=== PATIENT | female | born 1945 | race Caucasian/White ===

== ENCOUNTER → 2016-12-21 | Outpatient (CLI) | payer MEDICARE ==
[2016-11-29 11:00] VITALS: BP 150/79
[~2016-12-21] MED LIST: AMLO5TAB2 PO; ASPI-612 PO; FERR-26 PO; FLUT16SP NS; IRON1TAB2 PO; LEVO50TA5 PO; LISI10TA2 PO; LORA10TA3 PO; MULT1TAB52 PO; NAPR220T70 PO; PANT40TA3 PO; PRAV10TA2 PO; TRIA1TAB3 PO
--- NOTE | 2016-12-21 14:28 | RAD ---
Indication: Pancreatic mass. Pancreatic malignancy reported by the patient. PET/CT was performed from the skull to the proximal thigh. CT was performed primarily for localization and attenuation purposes as opposed to primary diagnostic purposes. The blood sugar during the examination was 139. 15.2 mCi of FDG was administered. No prior PET CT imaging is available. Note is made of the recent CT examination of the abdomen and pelvis 11/26/2016 and the MRI examination 11/27/2016. On CT the visualized brain appears unremarkable. No abnormality is seen in the neck. No significant finding is seen in the chest. There is a moderately large hiatus hernia. There is a biliary and a pancreatic stent in the abdomen. Unexpected finding when considering the CT examinations and MRI examinations referenced is not seen in the abdomen or pelvis. On PET there is normal FDG activity in the visualized brain. No abnormal there is some increased FDG activity in activity is seen in the neck. No abnormal FDG activity is seen in the chest. There is gastric uptake, probably reflecting a normal variant, in the herniated portion of the stomach into the chest. In the abdomen there is some increased FDG activity along the course of the common bile duct, from the kennedy hepatis to the level of the ampulla. This is probably secondary to the recent biliary stent placement. Additional abnormal areas of FDG uptake are not seen. It is difficult to entirely distinguish the area of the ampulla from the pancreatic head. Apart from the biliary tree no abnormality is seen in the abdomen or pelvis. Some increased activity in the right colon is likely physiologic. There is some increased activity seen throughout the spinal column which is likely degenerative. IMPRESSION: There is some increased FDG activity in the extrahepatic biliary tree which is likely secondary to the recent biliary stent placements. No additional finding is seen. It would be difficult to distinguish increased FDG activity in the distal common bile duct, near the ampulla, from any increased FDG activity in the pancreatic head.
== END | disposition home or self-care (01) ==
LOC: PETSC 10:51
PROVIDERS: ATTEND Internal Medicine Hematology & Oncology
DX: C25.9 Malignant neoplasm of pancreas, unspecified (principal); K44.9 Diaphragmatic hernia without obstruction or gangrene; K22.8 Other specified diseases of esophagus
CPT/HCPCS: 78815; A9552

== ENCOUNTER 2017-01-01 07:48 | Inpatient (IN) | payer MEDICARE ==
[~2017-01-01] VITALS: Ht 152.4 cm; Wt 108.9 kg
[2017-01-01] VITALS (9 sets, daily range): BP systolic 72–152; BP diastolic 47–83
[~2017-01-01 07:48] MED LIST changes: +HYDROmorphone 2 MG/ML VIAL IV PRN; +IV RINGERS,LACTATED 1000ML 1,000 ML IV SCH; +LIDOCAINE 1% PF 2 ML VIAL. ID PRN; +MORPHINE SULFATE 2 MG/ML DISP.SYRIN. IV PRN; +ONDANSETRON PF 4 MG/2 ML VIAL. IV PRN; +PROCHLORPERAZINE 10 MG/2 ML VIAL. IV PRN; +fentaNYL PF VIAL 100 MCG/2 ML VIAL IV PRN
[2017-01-01 08:52] LABS: BASO # 0.1 x10^3/uL (0.0-0.2); BASO % 1 % (0-3); EOS % 3 % (0-3); HEMATOCRIT 38.4 % (36.0-47.0); HEMOGLOBIN 12.5 g/dL (12.0-15.5); LYMPH # 1.1 x10^3/uL (1.0-4.8); LYMPH % 17 % (24-48); MEAN CORPUSCULAR HEMOGLOBIN 26 pg (25-35); MEAN CORPUSCULAR HGB CONC 33 g/dL (31-37); MEAN CORPUSCULAR VOLUME 80 fL (79-100); MONO % 9 % (0-9); NEUT % 70 % (31-73); PLATELET COUNT 282 x10^3/uL (140-400); RED BLOOD COUNT 4.79 x10^6/uL (3.50-5.40); WHITE BLOOD COUNT 6.6 x10^3/uL (4.0-11.0)
[2017-01-01] MEDS ORDERED: ONDANSETRON PF 4 MG/2 ML VIAL. ONE (09:25)
[2017-01-01] MEDS ORDERED: PROPOFOL 20 ML IV ONE (09:25)
[2017-01-01] MEDS ORDERED: LIDOCAINE 2% PF Vial for OR 5 ML VIAL. ONE (09:25)
[2017-01-01] MEDS ORDERED: fentaNYL PF VIAL 100 MCG/2 ML VIAL ONE ×2 (09:25→12:24)
[2017-01-01] MEDS ORDERED: DEXAMETHASONE SOD PHOS 20 MG/5 ML VIAL. ONE (09:25)
[2017-01-01] MEDS ORDERED: ROCURONIUM 50 MG/5 ML VIAL. ONE (09:26)
--- NOTE | 2017-01-01 09:39 | PDOC ---
SURGICAL PROGRESS NOTE Subjective Pre-Op Note 71 yo F with pancreatic cancer TO OR for whipple procedure R/B/A d/w pt and pt's brother, friend Office note H&P reviewed and unchanged. Pt does have a mild dysconjugate gaze. Vital Signs Vital Signs Date Time Temp Pulse Resp B/P (MAP) Pulse Ox O2 Delivery O2 Flow Rate FiO2 01/01/17 08:22 Room Air 01/01/17 08:21 98.3 100 20 133/73 99 98.3 Labs Laboratory Tests Test 01/01/17 08:25 White Blood Count 6.6 x10^3/uL (4.0-11.0) Red Blood Count 4.79 x10^6/uL (3.50-5.40) Hemoglobin 12.5 g/dL (12.0-15.5) Hematocrit 38.4 % (36.0-47.0) Mean Corpuscular Volume 80 fL (79-100) Mean Corpuscular Hemoglobin 26 pg (25-35) Mean Corpuscular Hemoglobin Concent 33 g/dL (31-37) Red Cell Distribution Width 24.0 % (11.5-14.5) Platelet Count 282 x10^3/uL (140-400) Neutrophils (%) (Auto) 70 % (31-73) Lymphocytes (%) (Auto) 17 % (24-48) Monocytes (%) (Auto) 9 % (0-9) Eosinophils (%) (Auto) 3 % (0-3) Basophils (%) (Auto) 1 % (0-3) Neutrophils # (Auto) 4.6 x10^3uL (1.8-7.7) Lymphocytes # (Auto) 1.1 x10^3/uL (1.0-4.8) Monocytes # (Auto) 0.6 x10^3/uL (0.0-1.1) Eosinophils # (Auto) 0.2 x10^3/uL (0.0-0.7) Basophils # (Auto) 0.1 x10^3/uL (0.0-0.2) Laboratory Tests Test 01/01/17 08:25 White Blood Count 6.6 x10^3/uL (4.0-11.0) Red Blood Count 4.79 x10^6/uL (3.50-5.40) Hemoglobin 12.5 g/dL (12.0-15.5) Hematocrit 38.4 % (36.0-47.0) Mean Corpuscular Volume 80 fL (79-100) Mean Corpuscular Hemoglobin 26 pg (25-35) Mean Corpuscular Hemoglobin Concent 33 g/dL (31-37) Red Cell Distribution Width 24.0 % (11.5-14.5) Platelet Count 282 x10^3/uL (140-400) Neutrophils (%) (Auto) 70 % (31-73) Lymphocytes (%) (Auto) 17 % (24-48) Monocytes (%) (Auto) 9 % (0-9) Eosinophils (%) (Auto) 3 % (0-3) Basophils (%) (Auto) 1 % (0-3) Neutrophils # (Auto) 4.6 x10^3uL (1.8-7.7) Lymphocytes # (Auto) 1.1 x10^3/uL (1.0-4.8) Monocytes # (Auto) 0.6 x10^3/uL (0.0-1.1) Eosinophils # (Auto) 0.2 x10^3/uL (0.0-0.7) Basophils # (Auto) 0.1 x10^3/uL (0.0-0.2) BA ALMONTE MD Jan 01, 2017 09:39
[2017-01-01 10:23] LABS: ANISOCYTOSIS MOD
[2017-01-01 10:24] LABS: MICROCYTOSIS PRESENT; PLT ESTIMATE ADEQUATE (ADEQUATE)
[2017-01-01] MEDS ORDERED: PHENYLEPHRINE in 0.9% NACL PF 1 MG/10 ML DISP.SYRIN. IV ONE (10:27)
[2017-01-01] MEDS: cefOXitin SODIUM 2 GM in IV DEXTROSE 5% 100 ML IV PRN ×2 (10:39→12:35)
[2017-01-01] MEDS ORDERED: BUPIVACAINE MPF 0.25% 30 ML VIAL. ONE (10:49)
[2017-01-01] MEDS ORDERED: LIDOCAINE 1% PF 5 ML VIAL. ONE (10:50)
[2017-01-01] MEDS ORDERED: PHENYLEPHRINE 10 MG/ML VIAL. ONE (11:11)
[2017-01-01] MEDS ORDERED: ROCURONIUM 100 MG/10 ML VIAL. ONE (11:30)
[2017-01-01] MEDS ORDERED: cefOXitin SODIUM 2 GM in IV DEXTROSE 5% 100 ML IV ONE (12:15)
[2017-01-01] MEDS ORDERED: SEVOFLURANE > 120 MINUTES. IH ONE (13:02)
[2017-01-01] MEDS ORDERED: ALBUMIN HUMAN 25% 100 ML IV ONE (14:25)
[2017-01-01] MEDS ORDERED: NEOSTIGMINE METHYLSULFATE 5 MG/5 ML SYRINGE. ONE (15:59)
[2017-01-01] MEDS ORDERED: GLYCOPYRROLATE 1 MG/5 ML VIAL. ONE (15:59)
[2017-01-01] MEDS ORDERED: 0.9 % SODIUM CHLORIDE 10 ML DISP.SYRIN. IV PRN (16:30)
--- NOTE | 2017-01-01 16:43 | RAD ---
Portable abdomen, 01/01/2017: History: Postop evaluation A supine view of the upper abdomen demonstrates several surgical drains overlying the upper abdomen as well as surgical clips. One of these tubes is probably a gastrostomy tube. The abdominal gas pattern is unremarkable. There is no evidence of a retained surgical instrument, needle or radiopaque sponge on this single view.
--- NOTE | 2017-01-01 16:57 | PDOC4 ---
OPERATIVE NOTE Date: Date: Jan 01, 2017 Pre-Op Diagnosis: Pancreatic cancer Post-Op Diagnosis: same Procedure Performed: Whipple procedure (specifically: pancreaticduodenectomy, pylorus sparing, pancreaticogastrostomy with Kristin en Y reconstruction to bile duct), G-tube placement Surgeon: Sherif Almonte Asst: Mg Crain Anesthesia Type: GETA Blood Loss: 400 Specimans Obtained: whipple, CBD LN, small bowel mass Findings: mass in head of pancreas, small cystic mass on proximal SB, no evidence of metastasis Complications: none Operative Note: After obtaining informed consent, patient was taken to the OR, induced under GETA and prepped in the usual fashion. Midline incision made using cautery, subcutaneous tissue divided and the fascia divided in the midline. Abdominal cavity explored. No evidence of metastatic disease. A small cystic mass was noted on the serosa of the proximal jejunum. This was excised using cautery and sent to pathology. Patient is morbidly obese, making the procedure difficult throughout. Adhesions were noted in the right abdomen and taken down using cautery. Extensive adhesions to the liver from previous gallbladder surgery taken down sharply. Duodenum fully kocherized. A palpable mass was noted in the head of ther pancreas. Duodenum divided just distal to the pylorus. Greater curvature taken down using ligasure. CBD lymph node harvested laterally, but appears benign. Common bile duct divided using cautery. Metal expandable stent removed and sent with specimen. Gastroduodenal artery divided with 0 vicryl and clips. Still noted to have good pulse in proper hepatic artery. Jejunum divided distal to the ligament of treitz. Tunnel created anterior to the superior mesenteric vein without difficult. Pancreas divided at this level and hemostatic stitches placed left and right, superiorly and inferiorly using 3 0 vicryl. Pancreatic head taken off the superior mesenteric vein, portal vein junction using carefully ligasure dissection. Specimen was then oriented and sent to pathology. No evidence of bleeding at this time. All viscera, specifically colon, viable throughout. A pancreatico-gastrostomy anastomosis placed using multiple 3 0 vicryl, using a pediatric feeding tube through the duct, in an invaginating manner. A kristin en y jejunal jejunostomy was created in a side to side anastomosis 30 cm distal from the proximal end using 75 BREN. The end of this was sealed using 3 0 PDS and 3 0 vicryl. Anastomosis patent, viable, without evidence of leakage. The alimentary channel was brought retrocolic and a duodenal jejunostomy was created using inside layer of 3 0 PDS and outside layer of 3 0 vicryl. This anastomosis was patent, viable and without evidence of leakage. An end to side choledocho-jejunostomy to the kristin limb was created using multiple interrupted 4 0 PDS. Anastomosis was widely patent, secondary to a large duct, without evidence of leakage. A gastrostomy was placed in the anterior stomach, through a 3 0 vicryl pursestring. This was secured externally using 3 0 nylon. Two 19 BOZENA drains placed bilaterally upper abdomen and secured in place using multiple interrupted 3 0 nylon. Abdominal cavity copiously irrigated with sterile water and saline. No evidence of bleeding or other pathology noted. Fascia repaired using 0 PDS looped. Chance placed in subcutaneous tissue and secured with 3 0 nylon. Skin repaired with 3 0 vicryl and 4 0 monocryl. Dressing placed. Patient tolerated procedure well and sent to PACU in stable condition. All counts were correct. No immediate complications. Gastrostomy tube, 19 BOZENA x 2, chance drain SHERIF ALMONTE MD Jan 01, 2017 16:57
[2017-01-01] MEDS: HYDROMORPHONE EP PRN (17:29)
[2017-01-01] MEDS: [UNRECOGNIZED DRUG - OTHER] EP PRN (17:29)
[2017-01-01] MEDS: NORMAL SALINE EP PRN (17:29)
[2017-01-01] MEDS: ROPIVACAINE 0.5% EP PRN (17:29)
[2017-01-01] MEDS: IV RINGERS,LACTATED 1000ML 1,000 ML IV SCH ×2 (17:32→21:57)
[2017-01-01] MEDS: HEPARIN PF for SUB-Q USE 5,000 UNIT/0.5 ML VIAL. SQ SCH (21:21)
[2017-01-01] MEDS: FAMOTIDINE 20 MG/2 ML VIAL IVP SCH (21:21)
[2017-01-02] VITALS (14 sets, daily range): BP systolic 94–140; BP diastolic 48–62
[2017-01-02] MEDS: HYDROMORPHONE EP PRN ×3 (00:26→17:34)
[2017-01-02] MEDS: ROPIVACAINE 0.5% EP PRN ×3 (00:26→17:34)
[2017-01-02] MEDS: [UNRECOGNIZED DRUG - OTHER] EP PRN ×3 (00:26→17:34)
[2017-01-02] MEDS: NORMAL SALINE EP PRN ×3 (00:26→17:34)
[2017-01-02 06:31] LABS: BASO % 0 % (0-3); EOS % 0 % (0-3); HEMATOCRIT 28.9 % (36.0-47.0); HEMOGLOBIN 9.4 g/dL (12.0-15.5); LYMPH % 5 % (24-48); MEAN CORPUSCULAR HEMOGLOBIN 26 pg (25-35); MEAN CORPUSCULAR HGB CONC 33 g/dL (31-37); MEAN CORPUSCULAR VOLUME 80 fL (79-100); MONO % 7 % (0-9); NEUT % 88 % (31-73); PLATELET COUNT 232 x10^3/uL (140-400); RED BLOOD COUNT 3.61 x10^6/uL (3.50-5.40); RED CELL DISTRIBUTION WIDTH 22.9 % (11.5-14.5); WHITE BLOOD COUNT 18.3 x10^3/uL (4.0-11.0)
[2017-01-02 06:43] LABS: CALCIUM 8.5 mg/dL (8.5-10.1); CREATININE 1.1 mg/dL (0.6-1.0); GFR 49.1; POTASSIUM 4.3 mmol/L (3.5-5.1)
[2017-01-02] MEDS: HEPARIN PF for SUB-Q USE 5,000 UNIT/0.5 ML VIAL. SQ SCH ×2 (07:58→21:07)
[2017-01-02] MEDS: IV RINGERS,LACTATED 1000ML 1,000 ML IV SCH ×2 (07:58→17:19)
[2017-01-02] MEDS: FAMOTIDINE 20 MG/2 ML VIAL IVP SCH ×2 (07:59→21:06)
[2017-01-02 09:11] LABS: ANISOCYTOSIS SLIGHT; HYPOCHROMIA SLIGHT; MICROCYTOSIS SLIGHT; PLT ESTIMATE ADEQUATE (ADEQUATE); TOXIC GRANULATION SLIGHT
--- NOTE | 2017-01-02 09:51 | PDOC ---
SURGICAL PROGRESS NOTE Subjective Pt reports no pain with movement, pain to 3 with movement. No N/V, does report some pruritus. Vital Signs Vital Signs Date Time Temp Pulse Resp B/P (MAP) Pulse Ox O2 Delivery O2 Flow Rate FiO2 01/02/17 09:00 85 25 108/48 (68) 100 Room Air 01/02/17 07:00 2.0 01/02/17 04:00 97.0 97.0 I&O Intake and Output 01/03/17 06:59 Intake Total 0 ml Output Total 46 ml Balance -46 ml Intake Oral 0 ml Output Urine Total 46 ml PATIENT HAS A EID: Yes (d/c in AM) General: Alert, Oriented X3, Cooperative, No acute distress Abdomen: Soft, No tenderness, Other (BOZENA serosang) Labs Laboratory Tests Test 01/01/17 08:25 01/02/17 06:00 White Blood Count 6.6 x10^3/uL (4.0-11.0) 18.3 x10^3/uL (4.0-11.0) Red Blood Count 4.79 x10^6/uL (3.50-5.40) 3.61 x10^6/uL (3.50-5.40) Hemoglobin 12.5 g/dL (12.0-15.5) 9.4 g/dL (12.0-15.5) Hematocrit 38.4 % (36.0-47.0) 28.9 % (36.0-47.0) Mean Corpuscular Volume 80 fL (79-100) 80 fL (79-100) Mean Corpuscular Hemoglobin 26 pg (25-35) 26 pg (25-35) Mean Corpuscular Hemoglobin Concent 33 g/dL (31-37) 33 g/dL (31-37) Red Cell Distribution Width 24.0 % (11.5-14.5) 22.9 % (11.5-14.5) Platelet Count 282 x10^3/uL (140-400) 232 x10^3/uL (140-400) Neutrophils (%) (Auto) 70 % (31-73) 88 % (31-73) Lymphocytes (%) (Auto) 17 % (24-48) 5 % (24-48) Monocytes (%) (Auto) 9 % (0-9) 7 % (0-9) Eosinophils (%) (Auto) 3 % (0-3) 0 % (0-3) Basophils (%) (Auto) 1 % (0-3) 0 % (0-3) Neutrophils # (Auto) 4.6 x10^3uL (1.8-7.7) 16.1 x10^3uL (1.8-7.7) Lymphocytes # (Auto) 1.1 x10^3/uL (1.0-4.8) 1.0 x10^3/uL (1.0-4.8) Monocytes # (Auto) 0.6 x10^3/uL (0.0-1.1) 1.2 x10^3/uL (0.0-1.1) Eosinophils # (Auto) 0.2 x10^3/uL (0.0-0.7) 0.0 x10^3/uL (0.0-0.7) Basophils # (Auto) 0.1 x10^3/uL (0.0-0.2) 0.0 x10^3/uL (0.0-0.2) Platelet Estimate Adequate (ADEQUATE) Adequate (ADEQUATE) Large Platelets Few Anisocytosis Mod Slight Microcytosis Present Slight Segmented Neutrophils % 38 % (35-66) Band Neutrophils % 53 % (0-9) Lymphocytes % 6 % (24-48) Monocytes % 3 % (0-10) Toxic Granulation Slight Hypochromasia Slight Sodium Level 138 mmol/L (136-145) Potassium Level 4.3 mmol/L (3.5-5.1) Chloride Level 105 mmol/L (98-107) Carbon Dioxide Level 25 mmol/L (21-32) Anion Gap 8 (6-14) Blood Urea Nitrogen 14 mg/dL (7-20) Creatinine 1.1 mg/dL (0.6-1.0) Estimated GFR (Cockcroft-Gault) 49.1 Glucose Level 150 mg/dL (70-99) Calcium Level 8.5 mg/dL (8.5-10.1) Laboratory Tests Test 01/02/17 06:00 White Blood Count 18.3 x10^3/uL (4.0-11.0) Red Blood Count 3.61 x10^6/uL (3.50-5.40) Hemoglobin 9.4 g/dL (12.0-15.5) Hematocrit 28.9 % (36.0-47.0) Mean Corpuscular Volume 80 fL (79-100) Mean Corpuscular Hemoglobin 26 pg (25-35) Mean Corpuscular Hemoglobin Concent 33 g/dL (31-37) Red Cell Distribution Width 22.9 % (11.5-14.5) Platelet Count 232 x10^3/uL (140-400) Neutrophils (%) (Auto) 88 % (31-73) Lymphocytes (%) (Auto) 5 % (24-48) Monocytes (%) (Auto) 7 % (0-9) Eosinophils (%) (Auto) 0 % (0-3) Basophils (%) (Auto) 0 % (0-3) Neutrophils # (Auto) 16.1 x10^3uL (1.8-7.7) Lymphocytes # (Auto) 1.0 x10^3/uL (1.0-4.8) Monocytes # (Auto) 1.2 x10^3/uL (0.0-1.1) Eosinophils # (Auto) 0.0 x10^3/uL (0.0-0.7) Basophils # (Auto) 0.0 x10^3/uL (0.0-0.2) Segmented Neutrophils % 38 % (35-66) Band Neutrophils % 53 % (0-9) Lymphocytes % 6 % (24-48) Monocytes % 3 % (0-10) Toxic Granulation Slight Platelet Estimate Adequate (ADEQUATE) Hypochromasia Slight Anisocytosis Slight Microcytosis Slight Sodium Level 138 mmol/L (136-145) Potassium Level 4.3 mmol/L (3.5-5.1) Chloride Level 105 mmol/L (98-107) Carbon Dioxide Level 25 mmol/L (21-32) Anion Gap 8 (6-14) Blood Urea Nitrogen 14 mg/dL (7-20) Creatinine 1.1 mg/dL (0.6-1.0) Estimated GFR (Cockcroft-Gault) 49.1 Glucose Level 150 mg/dL (70-99) Calcium Level 8.5 mg/dL (8.5-10.1) Problem List s/p whipple transfer to floor await bowel fxn pt requests blood type benadryl PRN Problems: BA ALMONTE MD Jan 02, 2017 09:51
[2017-01-02] MEDS ORDERED: diphenhydrAMINE 50 MG/ML VIAL IVP PRN (10:00)
[2017-01-03] MEDS: ROPIVACAINE 0.5% EP PRN ×3 (02:48→21:18)
[2017-01-03] MEDS: HYDROMORPHONE EP PRN ×3 (02:48→21:18)
[2017-01-03] MEDS: NORMAL SALINE EP PRN ×3 (02:48→21:18)
[2017-01-03] MEDS: [UNRECOGNIZED DRUG - OTHER] EP PRN ×3 (02:48→21:18)
[2017-01-03] MEDS: IV RINGERS,LACTATED 1000ML 1,000 ML IV SCH ×2 (03:01→18:26)
[2017-01-03 04:00] VITALS: BP 104/52
[2017-01-03 07:00] VITALS: BP 104/50
[2017-01-03] MEDS: FAMOTIDINE 20 MG/2 ML VIAL IVP SCH ×2 (09:28→20:40)
[2017-01-03] MEDS: HEPARIN PF for SUB-Q USE 5,000 UNIT/0.5 ML VIAL. SQ SCH ×2 (09:34→20:39)
[2017-01-03 11:00] VITALS: BP 108/48
[2017-01-03 15:00] VITALS: BP 108/48
[2017-01-03 19:00] VITALS: BP 124/52
[2017-01-03 23:25] VITALS: BP 123/53
[2017-01-04] MEDS: IV RINGERS,LACTATED 1000ML 1,000 ML IV SCH ×2 (00:40→08:57)
[2017-01-04 03:28] VITALS: BP 121/59
[2017-01-04] MEDS: NORMAL SALINE EP PRN (06:38)
[2017-01-04] MEDS: ROPIVACAINE 0.5% EP PRN (06:38)
[2017-01-04] MEDS: [UNRECOGNIZED DRUG - OTHER] EP PRN (06:38)
[2017-01-04] MEDS: HYDROMORPHONE EP PRN (06:38)
[2017-01-04 07:15] VITALS: BP 125/58
--- NOTE | 2017-01-04 08:28 | PDOC ---
SURGICAL PROGRESS NOTE Subjective nose bleed/dry pain managed no n/v Vital Signs Vital Signs Date Time Temp Pulse Resp B/P (MAP) Pulse Ox O2 Delivery O2 Flow Rate FiO2 01/04/17 07:15 97.0 82 17 125/58 (80) 92 Nasal Cannula 2.0 97.0 PATIENT HAS A EID: Yes (DC today) General: Alert, Oriented X3, Cooperative, No acute distress Abdomen: Soft, Other (ND, dressing dry, BOZENA x 2 serosang, G tube to LIS) Assessment/Plan s/p whipple supportive care continue G tube to drainage bubbler to oxygen for nose bleed Problems: NICK MINER [employer] Jan 04, 2017 08:28
[2017-01-04] MEDS: FAMOTIDINE 20 MG/2 ML VIAL IVP SCH ×2 (08:41→21:50)
[2017-01-04] MEDS: HEPARIN PF for SUB-Q USE 5,000 UNIT/0.5 ML VIAL. SQ SCH ×2 (08:54→21:56)
--- NOTE | 2017-01-04 09:00 | PDOC ---
Provider Note Provider Note SURG Paras Swanson LATE ENTRY pt seen 01/03 awake, alert adequate pain control belly soft, minimal shadowing on dressing vss continue supportive care TORRIE ACUNA MD Jan 04, 2017 09:00
[2017-01-04 10:47] VITALS: BP 137/59
[2017-01-04 15:00] VITALS: BP 151/67
[2017-01-04 19:30] VITALS: BP 143/84
[2017-01-04] MEDS: ONDANSETRON PF 4 MG/2 ML VIAL. IV PRN (21:49)
[2017-01-04 23:03] VITALS: BP 125/74
[2017-01-05] MEDS: IV RINGERS,LACTATED 1000ML 1,000 ML IV SCH ×2 (00:26→05:39)
[2017-01-05 03:17] VITALS: BP 121/76
[2017-01-05 07:00] VITALS: BP 118/63
[2017-01-05] MEDS: FAMOTIDINE 20 MG/2 ML VIAL IVP SCH ×2 (09:00→21:22)
[2017-01-05] MEDS: HEPARIN PF for SUB-Q USE 5,000 UNIT/0.5 ML VIAL. SQ SCH ×2 (09:39→21:24)
--- NOTE | 2017-01-05 09:56 | PDOC ---
SURGICAL PROGRESS NOTE Subjective Pt reports pelvic pain yesterday with urinary retention, better with lehman, allyson clears, no N/V, no flatus or stool, burping Vital Signs Vital Signs Date Time Temp Pulse Resp B/P (MAP) Pulse Ox O2 Delivery O2 Flow Rate FiO2 01/05/17 07:00 98.1 66 20 118/63 (81) 98 Nasal Cannula 2.0 98.1 PATIENT HAS A LEHMAN: Yes (urinary retention) General: Alert, Oriented X3, Cooperative, No acute distress Abdomen: Soft, No tenderness, Other (BOZENA serosang) Problem List s/p whipple cont clears await bowel fxn encourage OOB lehman for retention, trial in a few days Problems: BA ALMONTE MD Jan 05, 2017 09:56
[2017-01-05 11:00] VITALS: BP 118/67
[2017-01-05] MEDS: DOCUSATE SODIUM 100 MG CAPSULE. PO SCH (12:34)
[2017-01-05] MEDS: oxyCODONE/APAP 5/325 1 TAB TABLET PO PRN ×2 (14:07→21:25)
--- NOTE | 2017-01-05 14:39 | PATHOLOGY ---
PATHOLOGY REPORT * * * * * * * * FINAL DIAGNOSIS: A. Segments of lymph node, common bile duct lymph node: - Reactive changes with focal lipogranulomata-negative for tumor(0/1). B. Segment of fibromembranous and adipose tissue, small bowel mass: - Mesothelial cyst. C. Segment of duodenum with attached pancreatic head and uncinate process and distal common bile duct, Whipple procedure: - Invasive pancreatic duct adenocarcinoma, moderately to poorly differentiated, forming a tumor mass of the posterior-superior pancreatic Uncinate process measuring up to 3.2 cm in greatest dimension, with partial tumor encasement OF stented distal common bile duct. SEE SYNOPTIC REPORT. - Focal microscopic tumor involvement of medial posterior-superior pancreatic uncinate margin of resection. - Focal perineural tumor invasion identified. - Twelve peripancreatic lymph nodes negative for tumor(0/12). - Pancreatic neck margin of resection negative for tumor. - Distal common bile duct margin resection negative for tumor. - Proximal and distal duodenal margins of resection negative for tumor. - Chronic pancreatitis, adjacent to tumor. D. Segment of stent, clinically from bile duct (Gross only): (JPM:pit/rlm; 01/04/2017) CLINICAL Clinical History: Other: Pancreatic mass. SPECIMEN Specimen: Head of pancreas Duodenum Common bile duct Procedure: Pancreaticoduodenectomy (Whipple resection), partial pancreatectomy TUMOR Primary Tumor Site: Uncinate process Histologic Type: Ductal adenocarcinoma Histologic Grade (ductal carcinoma only): Other: Moderately to poorly differentiated. Tumor Size: Greatest dimension (cm): 3.2 Tumor Extent Sites(s) of Direct Extent of Tumor: Uncinate process Microscopic Tumor Extension: Tumor is confined to pancreas Accessory Tumor Findings Lymph-Vascular Invasion: Not identified Perineural Invasion: Present MARGINS Pancreaticoduodenal Resection Specimen Pancreatic Neck / Parenchymal Margin: Uninvolved by invasive carcinoma Uninvolved by pancreatic high-grade intraepithelial neoplasia Uncinate (Retroperitoneal / Superior Mesenteric Artery) Margin: Involved by invasive carcinoma Bile Duct Margin: Uninvolved by invasive carcinoma Uninvolved by high-grade intraepithelial neoplasia Proximal Margin (Gastric or Duodenal): Uninvolved by invasive carcinoma Uninvolved by high-grade intraepithelial neoplasia Distal Margin (Distal Duodenal or Jejunal): Uninvolved by invasive carcinoma Uninvolved by high-grade dysplasia LYMPH NODES Regional Lymph Nodes: Number of Lymph Nodes Examined: Specify number: 13 Number of Lymph Nodes Involved: Specify number: 0 STAGE (PTNM) Primary Tumor (pT): pT2: Tumor limited to the pancreas, more than 2 cm in greatest dimension Regional Lymph Nodes (pN): pN0: No regional lymph node metastasis ADDITIONAL FINDINGS Additional Pathologic Findings: Chronic pancreatitis REPORT ELECTRONICALLY SIGNED BY: Moe Alfaro M.D. DATE/TIME: 01/05/2017 14:37 * * * * * * * * GROSS PATHOLOGY: A. The specimen is received in formalin, designated "Bhavna Caballero, common bile duct lymph node" and consists of three, irregular, shaggy, focally torn segments of yellow collazo to dark reddish purple soft tissue, measuring from 0.7 up to 3.2 cm in maximum dimensions. The largest two fragments are bisected and the specimen is submitted entirely in cassette A1. B. The specimen is received in formalin, designated "Bhavna Caballero, small bowel mass" and consists of a small, 0.5 cm, unilocular, thin walled cyst which is clear and has a somewhat pedunculated appearance. The specimen is submitted in toto in cassette B1. (JPM; 01/02/17) C. The specimen is received fresh from the operating room and is designated "Whipple". The specimen is a Whipple resection composed of a segment of duodenum with attached pancreatic head and uncinate process and portion of distal common bile duct. The specimen weighs 75 grams. The segment of duodenum is stapled closed at both ends and measures approximately 8.5 cm in length and 2.7 cm in width. The serosal surface is collazo-brown and focally roughened. The attached pancreatic head and uncinate process measure approximately 6.0 x 4.5 x 4.0 cm. There is a suture attached to the pancreatic duct at the pancreatic neck margin of resection. The distal common bile duct margin is closed. There is a tumor mass palpated within the posterior superior uncinate process. The duodenum is opened along the serosal aspect. The ampulla of Vater lumen is opened by a stent which contains a bluish green catheter. The stent extends into the distal common bile duct. The catheter actually protrudes from the lumen of the pancreatic duct resection margin. The margins are inked as follows: Anterior pancreatic margin-blue; posterior pancreatic head and uncinate margin-black. Sectioning reveals a collazo-white fairly well demarcated, firm tumor mass within the posterior superior pancreatic head and uncinate process, which measures up to approximately 2.7 cm in greatest dimension. The tumor extends very close to the posterior superior inked margin. The tumor also partially encircles the distal common bile duct. The anterior pancreas has a fairly normal yellow-collazo lobulated glandular appearance. Sections are submitted as follows: C1-distal duodenal margin C2-proximal duodenal margin C3-pancreatic neck margin of resection C4-possible posterior superior peripancreatic lymph node C5-distal common bile duct margin C6-distal common bile duct adjacent to margin [id number] of tumor of posterior superior pancreatic head/uncinate process from superior to inferior [id number] of mid and inferior anterior pancreas, with C3 from region of ampulla of Vater [id number] peripancreatic lymph nodes (JPM:adenike/pit; 01/03/2017) D. The specimen is received in formalin and is designated "bile duct stent". This consists of a segment of opened stent which measures approximately 4.0 cm in length and 0.9 cm in diameter. (JPM:pit; 01/03/2017) INITIAL CPT CODE(S): A; 35264 B; 10646 C; 14566 D; 85462 Professional services performed [place] [address] Technical services performed by [facility] at [address] [place] [address] [address], [place] [address]. SPECIMEN(S) RECEIVED: A.Common bile duct lymph node B.Small bowel mass C.Whipple D.Bile duct stent CLINICAL HISTORY: Pancreas cancer PATIENT: BHAVNA CABALLERO /AGE: 7 1945 (Age: 71) PATIENT #: [id number] ALT CASE #: SPECIMEN COLLECTION DATE: 01/01/2017 SPECIMEN RECEIVED DATE: 01/01/2017 [facility] [place] [address] - PHONE: [phone] * * * END OF REPORT * * *
[2017-01-05 15:00] VITALS: BP 136/77
[2017-01-05] MEDS ORDERED: NORMAL SALINE EP ONE (18:30)
[2017-01-05] MEDS ORDERED: [UNRECOGNIZED DRUG - OTHER] EP ONE (18:30)
[2017-01-05] MEDS ORDERED: HYDROMORPHONE EP ONE (18:30)
[2017-01-05] MEDS ORDERED: ROPIVACAINE 0.5% EP ONE (18:30)
[2017-01-05 19:25] VITALS: BP 148/70
[2017-01-05 23:25] VITALS: BP 143/73
[2017-01-06] MEDS: IV RINGERS,LACTATED 1000ML 1,000 ML IV SCH ×4 (00:42→18:45)
[2017-01-06 03:10] VITALS: BP 146/70
[2017-01-06 07:00] VITALS: BP 138/72
[2017-01-06] MEDS: DOCUSATE SODIUM 100 MG CAPSULE. PO SCH (09:09)
[2017-01-06] MEDS: FAMOTIDINE 20 MG/2 ML VIAL IVP SCH ×2 (09:11→20:43)
[2017-01-06] MEDS: HEPARIN PF for SUB-Q USE 5,000 UNIT/0.5 ML VIAL. SQ SCH ×2 (09:13→20:54)
[2017-01-06] MEDS: oxyCODONE/APAP 5/325 1 TAB TABLET PO PRN ×2 (09:31→20:42)
[2017-01-06 10:45] VITALS: BP 141/73
--- NOTE | 2017-01-06 13:25 | PDOC ---
PROGRESS NOTES Subjective Subjective S/P Whipple, supportive tx Objective Objective Vital Signs Date Time Temp Pulse Resp B/P (MAP) Pulse Ox O2 Delivery O2 Flow Rate FiO2 01/06/17 10:45 97.5 83 22 141/73 (95) Room Air 97.5 01/06/17 09:31 95 01/06/17 07:00 2.0 Intake and Output 01/07/17 07:00 Intake Total 550 ml Output Total 510 ml Balance 40 ml Intake Oral 250 ml Other 300 ml Output Urine Total 500 ml Drainage Total 10 ml Comment Review of Relevant I have reviewed the following items alonzo (where applicable) has been applied. Medications Current Medications Ondansetron HCl (Zofran) 4 mg PRN Q6HRS PRN IV NAUSEA/VOMITING; Start at 07:00; Stop 01/02/17 at 06:59; Status DC Fentanyl Citrate (Fentanyl 2ml Vial) 25 mcg PRN Q5MIN PRN IV MILD PAIN; Start 01/01/17 at 07:00; Stop 01/02/17 at 06:59; Status DC Fentanyl Citrate (Fentanyl 2ml Vial) 50 mcg PRN Q5MIN PRN IV MODERATE PAIN; Start 01/01/17 at 07:00; Stop 01/02/17 at 06:59; Status DC Morphine Sulfate 1 mg PRN Q10MIN PRN IV SEVERE PAIN; Start 01/01/17 at 07:00; Stop 01/02/17 at 06:59; Status DC Ringer's Solution 1,000 ml @ 30 mls/hr Q24H IV Last administered on t 08:35; Start 01/01/17 at 07:00; Stop 01/01/17 at 18:59; Status DC Lidocaine HCl (Xylocaine-Mpf 1% Vial) 2 ml PRN 1X PRN ID PRIOR TO IV START; Start 01/01/17 at 07:00; Stop 01/02/17 at 06:59; Status DC Hydromorphone HCl (Dilaudid) 0.5 mg PRN Q10MIN PRN IV SEV PAIN, Second choice; Start 01/01/17 at 07:00; Stop 01/02/17 at 06:59; Status DC Prochlorperazine Edisylate (Compazine) 5 mg PACU PRN PRN IV NAUSEA, MRX1; Start 01/01/17 at 07:00; Stop 01/02/17 at 06:59; Status DC Cefoxitin Sodium 2 gm/Dextrose 100 ml @ 200 mls/hr 1X PREOP PRN IV ABX Last administered on 01/01/17t 12:35; Start 01/01/17 at 06:00 Dexamethasone Sodium Phosphate (Decadron) 20 mg STK-MED ONCE .ROUTE ; Start at 09:25; Stop 01/01/17 at 09:26; Status DC Lidocaine HCl (Lidocaine Pf 2% Vial) 5 ml STK-MED ONCE .ROUTE ; Start 01/01/17 at 09:25; Stop 01/01/17 at 09:26; Status DC Ondansetron HCl (Zofran) 4 mg STK-MED ONCE .ROUTE ; Start 01/01/17 at 09:25; Stop 01/01/17 at 09:26; Status DC Propofol 20 ml @ As Directed STK-MED ONCE IV ; Start 01/01/17 at 09:25; Stop 01/01/17 at 09:26; Status DC Fentanyl Citrate (Fentanyl 2ml Vial) 100 mcg STK-MED ONCE .ROUTE ; Start at 09:25; Stop 01/01/17 at 09:26; Status DC Rocuronium [place] (Zemuron) 50 mg STK-MED ONCE .ROUTE ; Start 01/01/17 at 09: 26; Stop 01/01/17 at 09:27; Status DC Phenylephrine HCl 1 mg STK-MED ONCE IV ; Start 01/01/17 at 10:27; Stop at 10:28; Status DC Bupivacaine HCl (Sensorcaine Mpf 0.25%) 30 ml STK-MED ONCE .ROUTE ; Start 01/01 at 10:49; Stop 01/01/17 at 10:50; Status DC Lidocaine HCl (Xylocaine-Mpf 1% Vial) 5 ml STK-MED ONCE .ROUTE ; Start at 10:50; Stop 01/01/17 at 10:51; Status DC Phenylephrine HCl ([place]oy-Synephrine Inj) 10 mg STK-MED ONCE .ROUTE ; Start at 11:11; Stop 01/01/17 at 11:12; Status DC Ephedrine Sulfate (Akovaz) 50 mg STK-MED ONCE .ROUTE ; Start 01/01/17 at 11:18 ; Stop 01/01/17 at 11:19; Status DC Rocuronium [place] (Zemuron) 100 mg STK-MED ONCE .ROUTE ; Start 01/01/17 at 11: 30; Stop 01/01/17 at 11:31; Status DC Cefoxitin Sodium 2 gm/Dextrose 100 ml @ 200 mls/hr 1X ONCE IV ; Start at 12:15; Stop 01/01/17 at 12:44; Status Cancel Cefoxitin Sodium 100 ml @ As Directed STK-MED ONCE IV ; Start 01/01/17 at 11: 17; Stop 01/01/17 at 12:17; Status DC Fentanyl Citrate (Fentanyl 2ml Vial) 100 mcg STK-MED ONCE .ROUTE ; Start at 12:24; Stop 01/01/17 at 12:25; Status DC Sodium Chloride 39.95 ml/ Hydromorphone HCl 0.5 mg/ Ropivacaine 10 ml/ Epidural Dosage Infused (Pha) 50 ml @ 0 mls/hr CONT PRN EP Per protocol Last administered on 01/04/17t 06:38; Start 01/01/17 at 12:30 Sodium Chloride 40 ml/ Hydromorphone HCl 0.5 mg/ Ropivacaine 10 ml/ Epidural Dosage Infused (Pha) 50.05 ml @ 0 mls/hr 1X ONCE EP ; Start 01/05/17 at 18:30 ; Stop 01/05/17 at 18:31; Status UNV Sevoflurane (Ultane) 90 ml STK-MED ONCE IH ; Start 01/01/17 at 13:02; Stop at 13:03; Status DC Cefoxitin Sodium 50 ml @ 100 mls/hr 1X ONCE IV Last administered on t 14:35; Start 01/01/17 at 14:15; Stop 01/01/17 at 14:44; Status DC Albumin Human 100 ml @ As Directed STK-MED ONCE IV ; Start 01/01/17 at 14:25; Stop 01/01/17 at 14:26; Status DC Glycopyrrolate (Robinul) 1 mg STK-MED ONCE .ROUTE ; Start 01/01/17 at 15:59; Stop 01/01/17 at 16:00; Status DC Neostigmine Methylsulfate 5 mg STK-MED ONCE .ROUTE ; Start 01/01/17 at 15:59; Stop 01/01/17 at 16:00; Status DC Famotidine (Pepcid) 20 mg BID IVP Last administered on 01/06/17 09:11; Start 01/01/17 at 21:00 Heparin Sodium (Porcine) (Heparin Sq) 5,000 unit Q12HR SQ Last administered on 01/06/17 09:13; Start 01/01/17 at 21:00 Sodium Chloride (Normal Saline Flush) 3 ml QSHIFT PRN IV AFTER MEDS AND BLOOD DRAWS; Start 01/01/17 at 16:30 Ringer's Solution 1,000 ml @ 100 mls/hr Q10H IV Last administered on 09:33; Start 01/01/17 at 16:26 Ondansetron HCl (Zofran) 4 mg PRN Q6HRS PRN IV NAUESA, 1ST CHOICE Last administered on 01/04/17 21:49; Start 01/01/17 at 16:30 Diphenhydramine HCl (Benadryl) 25 mg PRN Q6HRS PRN IVP ITCHING Last administered on 01/02/17 10:07; Start 01/02/17 at 10:00 Oxycodone/ Acetaminophen (Percocet 5/325) 1 tab PRN Q4HRS PRN PO PAIN Last administered on 01/06/17 09:31; Start 01/05/17 at 10:00 Docusate Sodium (Colace) 100 mg DAILY PO Last administered on 01/06/17 09:09; Start 01/05/17 at 10:00 Active Scripts Active Protonix (Pantoprazole Sodium) 40 Mg Tablet. 1 Tab PO DAILY Reported Ferralet 90 Dual-Iron Tablet (Iron, Carb & Gluc/Fa/B12/C/Dss) 1 Each Tablet 1 Tab PO DAILY Multivitamins (Multivitamin) 1 Each Tablet 1 Tab PO DAILY Loratadine 10 Mg Tablet 1 Tab PO DAILY Fluticasone Propionate Nasal [place] (Fluticasone Propionate) 16 Gm [place].susp 1 [place] NS DAILY PRN Levothyroxine Sodium 50 Mcg Tablet 1 Tab PO DAILY Lisinopril 10 Mg Tablet 1 Tab PO DAILY Pravastatin Sodium 10 Mg Tablet 1 Tab PO DAILY Amlodipine Besylate 5 Mg Tablet 5 Mg PO DAILY Vitals/I & O Vital Sign - Last 24 Hours 01/05/17 01/05/17 01/05/17 01/05/17 14:07 15:00 19:15 19:25 Temp 97.6 97.9 97.6 97.9 Pulse 74 78 Resp 18 32 B/P (MAP) 136/77 (96) 148/70 (96) Pulse Ox 96 98 O2 Delivery Nasal Cannula Room Air Nasal Cannula Nasal Cannula O2 Flow Rate 2.0 2.0 01/05/17 01/05/17 01/05/17 01/06/17 21:25 22:30 23:25 03:10 Temp 97.9 96.6 97.9 96.6 Pulse 74 67 Resp 14 32 28 B/P (MAP) 143/73 (96) 146/70 (95) Pulse Ox 98 98 O2 Delivery Nasal Cannula Nasal Cannula Nasal Cannula O2 Flow Rate 2.0 2.0 2.0 2.0 01/06/17 01/06/17 01/06/17 01/06/17 07:00 09:31 10:31 10:45 Temp 98.7 97.5 98.7 97.5 Pulse 68 83 Resp 18 24 18 22 B/P (MAP) 138/72 (94) 141/73 (95) Pulse Ox 99 95 O2 Delivery Nasal Cannula Room Air Room Air Room Air O2 Flow Rate 2.0 Intake and Output 01/06/17 01/06/17 01/07/17 15:00 23:00 07:00 Intake Total 550 ml Output Total 510 ml Balance 40 ml MINNIE WONG MD Jan 06, 2017 13:25
[2017-01-06 15:00] VITALS: BP 149/60
[2017-01-06 19:45] VITALS: BP 149/75
[2017-01-06 23:07] VITALS: BP 155/78
[2017-01-07] MEDS: IV RINGERS,LACTATED 1000ML 1,000 ML IV SCH ×2 (03:19→14:33)
[2017-01-07 03:24] VITALS: BP 147/81
[2017-01-07 07:00] VITALS: BP 144/62
[2017-01-07] MEDS: DOCUSATE SODIUM 100 MG CAPSULE. PO SCH (09:00)
[2017-01-07] MEDS: HEPARIN PF for SUB-Q USE 5,000 UNIT/0.5 ML VIAL. SQ SCH ×2 (09:00→20:33)
[2017-01-07] MEDS: FAMOTIDINE 20 MG/2 ML VIAL IVP SCH ×2 (09:00→20:18)
--- NOTE | 2017-01-07 09:56 | PDOC ---
SURGICAL PROGRESS NOTE Subjective Doing ok, complians of sinus drainage Vital Signs Vital Signs Date Time Temp Pulse Resp B/P (MAP) Pulse Ox O2 Delivery O2 Flow Rate FiO2 01/07/17 07:00 97.5 76 18 144/62 (89) 96 Nasal Cannula 2.0 97.5 I&O Intake and Output 01/08/17 07:00 Intake Total 400 ml Output Total 300 ml Balance 100 ml Intake Oral 400 ml Drainage Total 300 ml PATIENT HAS A EID: Yes General: Alert, Oriented X3, Cooperative, No acute distress Lungs: Clear to auscultation, Normal air movement Heart: Regular rate Abdomen: Normal bowel sounds, Soft, Other (mild incisional tenderness, wound c/ d/i BOZENA intact minimal drainage) Assessment/Plan S/P whipple stable Supportive care Problems: LANDON RIZVI MD Jan 07, 2017 09:56
[2017-01-07 11:02] VITALS: BP 159/81
[2017-01-07] MEDS: oxyCODONE/APAP 5/325 1 TAB TABLET PO PRN (11:24)
[2017-01-07] MEDS: SODIUM CHLORIDE 0.65% NASAL SPRAY 45ML BOTTLE. NS PRN (12:49)
[2017-01-07 15:00] VITALS: BP 157/83
--- NOTE | 2017-01-07 15:26 | PDOC2 ---
CONSULT Date of Consult Date of Consult DATE: 01/07/17 TIME: 15:19 Reason for Consult Reason for Consult: IM management Referring Physician Referring Physician: dr. Kenyon Identification/Chief Complaint Chief Complaint panceatic Ca post whipple sx Problems: Source Source: Chart review, Patient History of Present Illness Reason for Visit: 71yo F, with h/o HTN, HYPOthyroidism, HLD, underwent whipple sx for her pancreatic Mass. 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 post op, no Flatus, or BM. feels ok tho, not much abd pain. Team health was called for HTN and hypothyroidism management. Past Medical History Cardiovascular: HTN Hepatobiliary: Cholelithiasis Psych: Anxiety Past Surgical History Past Surgical History: Appendectomy, Breast Biopsy, Cholecystectomy, Hysterectomy Family History Family History: Alcohol Abuse, Hypertension Social History No ALCOHOL: none Drugs: None Lives: with Family Current Medications Current Medications Current Medications Ondansetron HCl (Zofran) 4 mg PRN Q6HRS PRN IV NAUSEA/VOMITING; Start at 07:00; Stop 01/02/17 at 06:59; Status DC Fentanyl Citrate (Fentanyl 2ml Vial) 25 mcg PRN Q5MIN PRN IV MILD PAIN; Start 01/01/17 at 07:00; Stop 01/02/17 at 06:59; Status DC Fentanyl Citrate (Fentanyl 2ml Vial) 50 mcg PRN Q5MIN PRN IV MODERATE PAIN; Start 01/01/17 at 07:00; Stop 01/02/17 at 06:59; Status DC Morphine Sulfate 1 mg PRN Q10MIN PRN IV SEVERE PAIN; Start 01/01/17 at 07:00; Stop 01/02/17 at 06:59; Status DC Ringer's Solution 1,000 ml @ 30 mls/hr Q24H IV Last administered on t 08:35; Start 01/01/17 at 07:00; Stop 01/01/17 at 18:59; Status DC Lidocaine HCl (Xylocaine-Mpf 1% Vial) 2 ml PRN 1X PRN ID PRIOR TO IV START; Start 01/01/17 at 07:00; Stop 01/02/17 at 06:59; Status DC Hydromorphone HCl (Dilaudid) 0.5 mg PRN Q10MIN PRN IV SEV PAIN, Second choice; Start 01/01/17 at 07:00; Stop 01/02/17 at 06:59; Status DC Prochlorperazine Edisylate (Compazine) 5 mg PACU PRN PRN IV NAUSEA, MRX1; Start 01/01/17 at 07:00; Stop 01/02/17 at 06:59; Status DC Cefoxitin Sodium 2 gm/Dextrose 100 ml @ 200 mls/hr 1X PREOP PRN IV ABX Last administered on 01/01/17t 12:35; Start 01/01/17 at 06:00; Stop 01/06/17 at 15: 00; Status DC Dexamethasone Sodium Phosphate (Decadron) 20 mg STK-MED ONCE .ROUTE ; Start at 09:25; Stop 01/01/17 at 09:26; Status DC Lidocaine HCl (Lidocaine Pf 2% Vial) 5 ml STK-MED ONCE .ROUTE ; Start 01/01/17 at 09:25; Stop 01/01/17 at 09:26; Status DC Ondansetron HCl (Zofran) 4 mg STK-MED ONCE .ROUTE ; Start 01/01/17 at 09:25; Stop 01/01/17 at 09:26; Status DC Propofol 20 ml @ As Directed STK-MED ONCE IV ; Start 01/01/17 at 09:25; Stop 01/01/17 at 09:26; Status DC Fentanyl Citrate (Fentanyl 2ml Vial) 100 mcg STK-MED ONCE .ROUTE ; Start at 09:25; Stop 01/01/17 at 09:26; Status DC Rocuronium [place] (Zemuron) 50 mg STK-MED ONCE .ROUTE ; Start 01/01/17 at 09: 26; Stop 01/01/17 at 09:27; Status DC Phenylephrine HCl 1 mg STK-MED ONCE IV ; Start 01/01/17 at 10:27; Stop at 10:28; Status DC Bupivacaine HCl (Sensorcaine Mpf 0.25%) 30 ml STK-MED ONCE .ROUTE ; Start 01/01 at 10:49; Stop 01/01/17 at 10:50; Status DC Lidocaine HCl (Xylocaine-Mpf 1% Vial) 5 ml STK-MED ONCE .ROUTE ; Start at 10:50; Stop 01/01/17 at 10:51; Status DC Phenylephrine HCl ([place]-Synephrine Inj) 10 mg STK-MED ONCE .ROUTE ; Start at 11:11; Stop 01/01/17 at 11:12; Status DC Ephedrine Sulfate (Akovaz) 50 mg STK-MED ONCE .ROUTE ; Start 01/01/17 at 11:18 ; Stop 01/01/17 at 11:19; Status DC Rocuronium [place] (Zemuron) 100 mg STK-MED ONCE .ROUTE ; Start 01/01/17 at 11: 30; Stop 01/01/17 at 11:31; Status DC Cefoxitin Sodium 2 gm/Dextrose 100 ml @ 200 mls/hr 1X ONCE IV ; Start at 12:15; Stop 01/01/17 at 12:44; Status Cancel Cefoxitin Sodium 100 ml @ As Directed STK-MED ONCE IV ; Start 01/01/17 at 11: 17; Stop 01/01/17 at 12:17; Status DC Fentanyl Citrate (Fentanyl 2ml Vial) 100 mcg STK-MED ONCE .ROUTE ; Start at 12:24; Stop 01/01/17 at 12:25; Status DC Sodium Chloride 39.95 ml/ Hydromorphone HCl 0.5 mg/ Ropivacaine 10 ml/ Epidural Dosage Infused (Pha) 50 ml @ 0 mls/hr CONT PRN EP Per protocol Last administered on 01/04/17t 06:38; Start 01/01/17 at 12:30 Sodium Chloride 40 ml/ Hydromorphone HCl 0.5 mg/ Ropivacaine 10 ml/ Epidural Dosage Infused (Pha) 50.05 ml @ 0 mls/hr 1X ONCE EP ; Start 01/05/17 at 18:30 ; Stop 01/05/17 at 18:31; Status UNV Sevoflurane (Ultane) 90 ml STK-MED ONCE IH ; Start 01/01/17 at 13:02; Stop at 13:03; Status DC Cefoxitin Sodium 50 ml @ 100 mls/hr 1X ONCE IV Last administered on t 14:35; Start 01/01/17 at 14:15; Stop 01/01/17 at 14:44; Status DC Albumin Human 100 ml @ As Directed STK-MED ONCE IV ; Start 01/01/17 at 14:25; Stop 01/01/17 at 14:26; Status DC Glycopyrrolate (Robinul) 1 mg STK-MED ONCE .ROUTE ; Start 01/01/17 at 15:59; Stop 01/01/17 at 16:00; Status DC Neostigmine Methylsulfate 5 mg STK-MED ONCE .ROUTE ; Start 01/01/17 at 15:59; Stop 01/01/17 at 16:00; Status DC Famotidine (Pepcid) 20 mg BID IVP Last administered on 01/07/17 09:00; Start 01/01/17 at 21:00 Heparin Sodium (Porcine) (Heparin Sq) 5,000 unit Q12HR SQ Last administered on 01/07/17 09:00; Start 01/01/17 at 21:00 Sodium Chloride (Normal Saline Flush) 3 ml QSHIFT PRN IV AFTER MEDS AND BLOOD DRAWS; Start 01/01/17 at 16:30 Ringer's Solution 1,000 ml @ 100 mls/hr Q10H IV Last administered on 14:33; Start 01/01/17 at 16:26 Ondansetron HCl (Zofran) 4 mg PRN Q6HRS PRN IV NAUESA, 1ST CHOICE Last administered on 01/04/17 21:49; Start 01/01/17 at 16:30 Diphenhydramine HCl (Benadryl) 25 mg PRN Q6HRS PRN IVP ITCHING Last administered on 01/02/17 10:07; Start 01/02/17 at 10:00 Oxycodone/ Acetaminophen (Percocet 5/325) 1 tab PRN Q4HRS PRN PO PAIN Last administered on 01/07/17 11:24; Start 01/05/17 at 10:00 Docusate Sodium (Colace) 100 mg DAILY PO Last administered on 01/07/17 09:00; Start 01/05/17 at 10:00 Sodium Chloride (Saline [place] Nasal) 1 [place] PRN Q1HR PRN NS NASAL CONGESTION Last administered on 01/07/17 12:49; Start 01/07/17 at 10:00 Active Scripts Active Protonix (Pantoprazole Sodium) 40 Mg Tablet.dr 1 Tab PO DAILY Reported Ferralet 90 Dual-Iron Tablet (Iron, Carb & Gluc/Fa/B12/C/Dss) 1 Each Tablet 1 Tab PO DAILY Multivitamins (Multivitamin) 1 Each Tablet 1 Tab PO DAILY Loratadine 10 Mg Tablet 1 Tab PO DAILY Fluticasone Propionate Nasal [place] (Fluticasone Propionate) 16 Gm [place].susp 1 [place] NS DAILY PRN Levothyroxine Sodium 50 Mcg Tablet 1 Tab PO DAILY Lisinopril 10 Mg Tablet 1 Tab PO DAILY Pravastatin Sodium 10 Mg Tablet 1 Tab PO DAILY Amlodipine Besylate 5 Mg Tablet 5 Mg PO DAILY Allergies Allergies: Coded Allergies: No Known Drug Allergies (Unverified , 01/01/17) Physical Exam General: Alert, Oriented X3, Cooperative HEENT: Atraumatic, PERRLA Lungs: Clear to auscultation Heart: Regular rate, Normal S1, Normal S2 Abdomen: Soft, Other (no bs, mild tenderness. sx wound with dressing on, 2 BOEZNA drainage with suction) Extremities: No clubbing, No cyanosis Skin: No rashes, No breakdown Neuro: Normal speech MUSCULOSKELETAL: No joint tenderness Vitals VITALS Vital Signs Date Time Temp Pulse Resp B/P (MAP) Pulse Ox O2 Delivery O2 Flow Rate FiO2 01/07/17 12:32 20 98 Nasal Cannula 2.0 01/07/17 11:02 97.9 86 159/81 (107) 97.9 Assessment/Plan Assessment/Plan invasive pancreatic Ca post whipple sx on 01/01 htn hld hypothyroidism SIRS with leukocytosis post op, reactive likely morbid obesity plan: fu with sx, on clear liquid diet, but not takes po meds as per sx ivf add hydralazine prn for BP >180/110 change synthroid to iv repeat labs dvt, gi ppx PTOT thanks for asking for consult RASHAD POWELL MD Jan 07, 2017 15:26
[2017-01-07] MEDS ORDERED: hydrALAZINE 20 MG/ML VIAL. IVP PRN (15:30)
[2017-01-07] MEDS ORDERED: LEVOTHYROXINE SODIUM 25 MCG in IV NORMAL SALINE 50ML 5 ML IVP SCH (16:00)
[2017-01-07 19:00] VITALS: BP 179/81
[2017-01-07 23:00] VITALS: BP 158/80
[2017-01-08] MEDS: IV RINGERS,LACTATED 1000ML 1,000 ML IV SCH (02:38)
[2017-01-08 03:00] VITALS: BP 168/78
[2017-01-08 05:53] LABS: BASO # 0.1 x10^3/uL (0.0-0.2); BASO % 1 % (0-3); EOS % 3 % (0-3); HEMATOCRIT 30.5 % (36.0-47.0); HEMOGLOBIN 9.8 g/dL (12.0-15.5); LYMPH # 1.7 x10^3/uL (1.0-4.8); LYMPH % 14 % (24-48); MEAN CORPUSCULAR HEMOGLOBIN 26 pg (25-35); MEAN CORPUSCULAR HGB CONC 32 g/dL (31-37); MEAN CORPUSCULAR VOLUME 80 fL (79-100); MONO % 8 % (0-9); NEUT % 75 % (31-73); PLATELET COUNT 420 x10^3/uL (140-400); RED CELL DISTRIBUTION WIDTH 21.8 % (11.5-14.5); WHITE BLOOD COUNT 12.4 x10^3/uL (4.0-11.0)
[2017-01-08 06:20] LABS: CALCIUM 8.3 mg/dL (8.5-10.1); CREATININE 0.9 mg/dL (0.6-1.0); GFR 61.9; POTASSIUM 3.3 mmol/L (3.5-5.1)
[2017-01-08 07:00] VITALS: BP 162/78
[2017-01-08] MEDS ORDERED: FLUTICASONE 50MCG/NASAL SPRAY 16GM BOTTLE. NS PRN (08:45)
[2017-01-08] MEDS: PANTOPRAZOLE 40 MG TABLET.DR. PO SCH (09:04)
[2017-01-08] MEDS: amLODIPine BESYLATE 5 MG TABLET PO SCH (09:04)
[2017-01-08] MEDS: LISINOPRIL 10 MG TABLET PO SCH (09:04)
[2017-01-08] MEDS: DOCUSATE SODIUM 100 MG CAPSULE. PO SCH (09:04)
[2017-01-08] MEDS: FERROUS SULFATE 325 MG TABLET. PO SCH (09:04)
[2017-01-08] MEDS: CETIRIZINE HCL 10 MG TABLET. PO SCH (09:04)
[2017-01-08] MEDS: LEVOTHYROXINE 50 MCG TABLET PO SCH (09:04)
[2017-01-08] MEDS: HEPARIN PF for SUB-Q USE 5,000 UNIT/0.5 ML VIAL. SQ SCH ×2 (09:14→20:59)
--- NOTE | 2017-01-08 09:46 | PDOC ---
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 htn hld hypothyroidism SIRS with leukocytosis post op, reactive likely morbid obesity History of Present Illness History of Present Illness DOing her IS BP high HOme meds not resumed yet bec was NPO DOing well post whipple's On liquid diet per GS Still has dominik Sx was a week ago about PLAN: Dimitrios dominik CUrrent IVF to consume Diet per gS - likely be able to upgrade, she is willing to try G soft Resume home meds SHift IV synthroid back to PO dose AGreebale to rehab if needed Vitals Vitals Vital Signs Date Time Temp Pulse Resp B/P (MAP) Pulse Ox O2 Delivery O2 Flow Rate FiO2 01/08/17 09:04 84 162/78 01/08/17 07:00 97.7 18 97 Room Air 97.7 01/07/17 20:00 2.0 Physical Exam General: Alert, Oriented X3, Cooperative Heart: Regular rate, Normal S1, Normal S2 Abdomen: Soft, Other (no bs, mild tenderness. sx wound with dressing on, 2 BOZENA drainage with suction) Extremities: No clubbing, No cyanosis Skin: No rashes, No breakdown Labs LABS Laboratory Tests Test 01/08/17 05:25 White Blood Count 12.4 x10^3/uL (4.0-11.0) Red Blood Count 3.80 x10^6/uL (3.50-5.40) Hemoglobin 9.8 g/dL (12.0-15.5) Hematocrit 30.5 % (36.0-47.0) Mean Corpuscular Volume 80 fL (79-100) Mean Corpuscular Hemoglobin 26 pg (25-35) Mean Corpuscular Hemoglobin Concent 32 g/dL (31-37) Red Cell Distribution Width 21.8 % (11.5-14.5) Platelet Count 420 x10^3/uL (140-400) Neutrophils (%) (Auto) 75 % (31-73) Lymphocytes (%) (Auto) 14 % (24-48) Monocytes (%) (Auto) 8 % (0-9) Eosinophils (%) (Auto) 3 % (0-3) Basophils (%) (Auto) 1 % (0-3) Neutrophils # (Auto) 9.3 x10^3uL (1.8-7.7) Lymphocytes # (Auto) 1.7 x10^3/uL (1.0-4.8) Monocytes # (Auto) 1.0 x10^3/uL (0.0-1.1) Eosinophils # (Auto) 0.4 x10^3/uL (0.0-0.7) Basophils # (Auto) 0.1 x10^3/uL (0.0-0.2) Sodium Level 139 mmol/L (136-145) Potassium Level 3.3 mmol/L (3.5-5.1) Chloride Level 103 mmol/L (98-107) Carbon Dioxide Level 26 mmol/L (21-32) Anion Gap 10 (6-14) Blood Urea Nitrogen 9 mg/dL (7-20) Creatinine 0.9 mg/dL (0.6-1.0) Estimated GFR (Cockcroft-Gault) 61.9 Glucose Level 98 mg/dL (70-99) Calcium Level 8.3 mg/dL (8.5-10.1) Review of Systems Review of Systems denies CP, SOA, abd pain, efvers Comment Review of Relevant I have reviewed the following items alonzo (where applicable) has been applied. Labs Laboratory Tests Test 01/08/17 05:25 White Blood Count 12.4 x10^3/uL (4.0-11.0) Red Blood Count 3.80 x10^6/uL (3.50-5.40) Hemoglobin 9.8 g/dL (12.0-15.5) Hematocrit 30.5 % (36.0-47.0) Mean Corpuscular Volume 80 fL (79-100) Mean Corpuscular Hemoglobin 26 pg (25-35) Mean Corpuscular Hemoglobin Concent 32 g/dL (31-37) Red Cell Distribution Width 21.8 % (11.5-14.5) Platelet Count 420 x10^3/uL (140-400) Neutrophils (%) (Auto) 75 % (31-73) Lymphocytes (%) (Auto) 14 % (24-48) Monocytes (%) (Auto) 8 % (0-9) Eosinophils (%) (Auto) 3 % (0-3) Basophils (%) (Auto) 1 % (0-3) Neutrophils # (Auto) 9.3 x10^3uL (1.8-7.7) Lymphocytes # (Auto) 1.7 x10^3/uL (1.0-4.8) Monocytes # (Auto) 1.0 x10^3/uL (0.0-1.1) Eosinophils # (Auto) 0.4 x10^3/uL (0.0-0.7) Basophils # (Auto) 0.1 x10^3/uL (0.0-0.2) Sodium Level 139 mmol/L (136-145) Potassium Level 3.3 mmol/L (3.5-5.1) Chloride Level 103 mmol/L (98-107) Carbon Dioxide Level 26 mmol/L (21-32) Anion Gap 10 (6-14) Blood Urea Nitrogen 9 mg/dL (7-20) Creatinine 0.9 mg/dL (0.6-1.0) Estimated GFR (Cockcroft-Gault) 61.9 Glucose Level 98 mg/dL (70-99) Calcium Level 8.3 mg/dL (8.5-10.1) Laboratory Tests Test 01/08/17 05:25 White Blood Count 12.4 x10^3/uL (4.0-11.0) Red Blood Count 3.80 x10^6/uL (3.50-5.40) Hemoglobin 9.8 g/dL (12.0-15.5) Hematocrit 30.5 % (36.0-47.0) Mean Corpuscular Volume 80 fL (79-100) Mean Corpuscular Hemoglobin 26 pg (25-35) Mean Corpuscular Hemoglobin Concent 32 g/dL (31-37) Red Cell Distribution Width 21.8 % (11.5-14.5) Platelet Count 420 x10^3/uL (140-400) Neutrophils (%) (Auto) 75 % (31-73) Lymphocytes (%) (Auto) 14 % (24-48) Monocytes (%) (Auto) 8 % (0-9) Eosinophils (%) (Auto) 3 % (0-3) Basophils (%) (Auto) 1 % (0-3) Neutrophils # (Auto) 9.3 x10^3uL (1.8-7.7) Lymphocytes # (Auto) 1.7 x10^3/uL (1.0-4.8) Monocytes # (Auto) 1.0 x10^3/uL (0.0-1.1) Eosinophils # (Auto) 0.4 x10^3/uL (0.0-0.7) Basophils # (Auto) 0.1 x10^3/uL (0.0-0.2) Sodium Level 139 mmol/L (136-145) Potassium Level 3.3 mmol/L (3.5-5.1) Chloride Level 103 mmol/L (98-107) Carbon Dioxide Level 26 mmol/L (21-32) Anion Gap 10 (6-14) Blood Urea Nitrogen 9 mg/dL (7-20) Creatinine 0.9 mg/dL (0.6-1.0) Estimated GFR (Cockcroft-Gault) 61.9 Glucose Level 98 mg/dL (70-99) Calcium Level 8.3 mg/dL (8.5-10.1) Medications Current Medications Ondansetron HCl (Zofran) 4 mg PRN Q6HRS PRN IV NAUSEA/VOMITING; Start at 07:00; Stop 01/02/17 at 06:59; Status DC Fentanyl Citrate (Fentanyl 2ml Vial) 25 mcg PRN Q5MIN PRN IV MILD PAIN; Start 01/01/17 at 07:00; Stop 01/02/17 at 06:59; Status DC Fentanyl Citrate (Fentanyl 2ml Vial) 50 mcg PRN Q5MIN PRN IV MODERATE PAIN; Start 01/01/17 at 07:00; Stop 01/02/17 at 06:59; Status DC Morphine Sulfate 1 mg PRN Q10MIN PRN IV SEVERE PAIN; Start 01/01/17 at 07:00; Stop 01/02/17 at 06:59; Status DC Ringer's Solution 1,000 ml @ 30 mls/hr Q24H IV Last administered on t 08:35; Start 01/01/17 at 07:00; Stop 01/01/17 at 18:59; Status DC Lidocaine HCl (Xylocaine-Mpf 1% Vial) 2 ml PRN 1X PRN ID PRIOR TO IV START; Start 01/01/17 at 07:00; Stop 01/02/17 at 06:59; Status DC Hydromorphone HCl (Dilaudid) 0.5 mg PRN Q10MIN PRN IV SEV PAIN, Second choice; Start 01/01/17 at 07:00; Stop 01/02/17 at 06:59; Status DC Prochlorperazine Edisylate (Compazine) 5 mg PACU PRN PRN IV NAUSEA, MRX1; Start 01/01/17 at 07:00; Stop 01/02/17 at 06:59; Status DC Cefoxitin Sodium 2 gm/Dextrose 100 ml @ 200 mls/hr 1X PREOP PRN IV ABX Last administered on 01/01/17t 12:35; Start 01/01/17 at 06:00; Stop 01/06/17 at 15: 00; Status DC Dexamethasone Sodium Phosphate (Decadron) 20 mg STK-MED ONCE .ROUTE ; Start at 09:25; Stop 01/01/17 at 09:26; Status DC Lidocaine HCl (Lidocaine Pf 2% Vial) 5 ml STK-MED ONCE .ROUTE ; Start 01/01/17 at 09:25; Stop 01/01/17 at 09:26; Status DC Ondansetron HCl (Zofran) 4 mg STK-MED ONCE .ROUTE ; Start 01/01/17 at 09:25; Stop 01/01/17 at 09:26; Status DC Propofol 20 ml @ As Directed STK-MED ONCE IV ; Start 01/01/17 at 09:25; Stop 01/01/17 at 09:26; Status DC Fentanyl Citrate (Fentanyl 2ml Vial) 100 mcg STK-MED ONCE .ROUTE ; Start at 09:25; Stop 01/01/17 at 09:26; Status DC Rocuronium [place] (Zemuron) 50 mg STK-MED ONCE .ROUTE ; Start 01/01/17 at 09: 26; Stop 01/01/17 at 09:27; Status DC Phenylephrine HCl 1 mg STK-MED ONCE IV ; Start 01/01/17 at 10:27; Stop at 10:28; Status DC Bupivacaine HCl (Sensorcaine Mpf 0.25%) 30 ml STK-MED ONCE .ROUTE ; Start 01/01 at 10:49; Stop 01/01/17 at 10:50; Status DC Lidocaine HCl (Xylocaine-Mpf 1% Vial) 5 ml STK-MED ONCE .ROUTE ; Start at 10:50; Stop 01/01/17 at 10:51; Status DC Phenylephrine HCl ([place]eroy-Synephrine Inj) 10 mg STK-MED ONCE .ROUTE ; Start at 11:11; Stop 01/01/17 at 11:12; Status DC Ephedrine Sulfate (Akovaz) 50 mg STK-MED ONCE .ROUTE ; Start 01/01/17 at 11:18 ; Stop 01/01/17 at 11:19; Status DC Rocuronium [place] (Zemuron) 100 mg STK-MED ONCE .ROUTE ; Start 01/01/17 at 11: 30; Stop 01/01/17 at 11:31; Status DC Cefoxitin Sodium 2 gm/Dextrose 100 ml @ 200 mls/hr 1X ONCE IV ; Start at 12:15; Stop 01/01/17 at 12:44; Status Cancel Cefoxitin Sodium 100 ml @ As Directed STK-MED ONCE IV ; Start 01/01/17 at 11: 17; Stop 01/01/17 at 12:17; Status DC Fentanyl Citrate (Fentanyl 2ml Vial) 100 mcg STK-MED ONCE .ROUTE ; Start at 12:24; Stop 01/01/17 at 12:25; Status DC Sodium Chloride 39.95 ml/ Hydromorphone HCl 0.5 mg/ Ropivacaine 10 ml/ Epidural Dosage Infused (Pha) 50 ml @ 0 mls/hr CONT PRN EP Per protocol Last administered on 01/04/17t 06:38; Start 01/01/17 at 12:30 Sodium Chloride 40 ml/ Hydromorphone HCl 0.5 mg/ Ropivacaine 10 ml/ Epidural Dosage Infused (Pha) 50.05 ml @ 0 mls/hr 1X ONCE EP ; Start 01/05/17 at 18:30 ; Stop 01/05/17 at 18:31; Status UNV Sevoflurane (Ultane) 90 ml STK-MED ONCE IH ; Start 01/01/17 at 13:02; Stop at 13:03; Status DC Cefoxitin Sodium 50 ml @ 100 mls/hr 1X ONCE IV Last administered on t 14:35; Start 01/01/17 at 14:15; Stop 01/01/17 at 14:44; Status DC Albumin Human 100 ml @ As Directed STK-MED ONCE IV ; Start 01/01/17 at 14:25; Stop 01/01/17 at 14:26; Status DC Glycopyrrolate (Robinul) 1 mg STK-MED ONCE .ROUTE ; Start 01/01/17 at 15:59; Stop 01/01/17 at 16:00; Status DC Neostigmine Methylsulfate 5 mg STK-MED ONCE .ROUTE ; Start 01/01/17 at 15:59; Stop 01/01/17 at 16:00; Status DC Famotidine (Pepcid) 20 mg BID IVP Last administered on 01/07/17 20:18; Start 01/01/17 at 21:00; Stop 01/08/17 at 08:44; Status DC Heparin Sodium (Porcine) (Heparin Sq) 5,000 unit Q12HR SQ Last administered on 01/08/17 09:14; Start 01/01/17 at 21:00 Sodium Chloride (Normal Saline Flush) 3 ml QSHIFT PRN IV AFTER MEDS AND BLOOD DRAWS; Start 01/01/17 at 16:30 Ringer's Solution 1,000 ml @ 100 mls/hr Q10H IV Last administered on 02:38; Start 01/01/17 at 16:26 Ondansetron HCl (Zofran) 4 mg PRN Q6HRS PRN IV NAUESA, 1ST CHOICE Last administered on 01/04/17 21:49; Start 01/01/17 at 16:30 Diphenhydramine HCl (Benadryl) 25 mg PRN Q6HRS PRN IVP ITCHING Last administered on 01/02/17 10:07; Start 01/02/17 at 10:00 Oxycodone/ Acetaminophen (Percocet 5/325) 1 tab PRN Q4HRS PRN PO PAIN Last administered on 01/07/17 11:24; Start 01/05/17 at 10:00 Docusate Sodium (Colace) 100 mg DAILY PO Last administered on 01/08/17 09:04; Start 01/05/17 at 10:00 Sodium Chloride (Saline Mist Nasal) 1 henry PRN Q1HR PRN NS NASAL CONGESTION Last administered on 01/07/17 12:49; Start 01/07/17 at 10:00 Hydralazine HCl (Apresoline Inj) 10 mg PRN Q4HRS PRN IVP ELEVATED BP, SEE COMMENTS; Start 01/07/17 at 15:30 Levothyroxine Sodium 25 mcg/ Sodium Chloride 5 ml @ 100 mls/hr DAILY IVP Last administered on 01/07/17 16:27; Start 01/07/17 at 16:00; Stop 01/08/17 at 08:44 ; Status DC Amlodipine Besylate (Norvasc) 5 mg DAILY PO Last administered on 01/08/17 09: 04; Start 01/08/17 at 09:00 Fluticasone Propionate (Flonase) 1 spray PRN DAILY PRN NS ALLERGIES; Start 01/08/17 at 08:45 Levothyroxine Sodium (Synthroid) 50 mcg DAILY06 PO Last administered on 09:04; Start 01/08/17 at 09:00 Lisinopril (Prinivil) 10 mg DAILY PO Last administered on 01/08/17 09:04; Start 01/08/17 at 09:00 Pantoprazole Sodium (Protonix) 40 mg DAILYAC PO Last administered on 01/08/17 09:04; Start 01/08/17 at 09:00 Ferrous Sulfate (Feosol) 325 mg DAILYWBKFT PO Last administered on 01/08/17 09 :04; Start 01/08/17 at 09:00 Cetirizine HCl (ZyrTEC) 10 mg DAILY PO Last administered on 01/08/17 09:04; Start 01/08/17 at 09:00 Multivitamins (Thera M Plus) 1 tab DAILY PO ; Start 01/09/17 at 09:00 Atorvastatin Calcium (Lipitor) 5 mg QHS PO ; Start 01/08/17 at 21:00 Active Scripts Active Protonix (Pantoprazole Sodium) 40 Mg Tablet. 1 Tab PO DAILY Reported Ferralet 90 Dual-Iron Tablet (Iron, Carb & Gluc/Fa/B12/C/Dss) 1 Each Tablet 1 Tab PO DAILY Multivitamins (Multivitamin) 1 Each Tablet 1 Tab PO DAILY Loratadine 10 Mg Tablet 1 Tab PO DAILY Fluticasone Propionate Nasal [place] (Fluticasone Propionate) 16 Gm Waldron.susp 1 [place] NS DAILY PRN Levothyroxine Sodium 50 Mcg Tablet 1 Tab PO DAILY Lisinopril 10 Mg Tablet 1 Tab PO DAILY Pravastatin Sodium 10 Mg Tablet 1 Tab PO DAILY Amlodipine Besylate 5 Mg Tablet 5 Mg PO DAILY Vitals/I & O Vital Sign - Last 24 Hours 01/07/17 01/07/17 01/07/17 01/07/17 11:02 11:24 12:32 15:00 Temp 97.9 98.1 97.9 98.1 Pulse 86 78 Resp 18 20 20 18 B/P (MAP) 159/81 (107) 157/83 (107) Pulse Ox 98 98 96 O2 Delivery Room Air Room Air Nasal Cannula Room Air O2 Flow Rate 2.0 01/07/17 01/07/17 01/07/17 01/08/17 19:00 20:00 23:00 03:00 Temp 98.2 96.6 98.2 96.6 Pulse 106 103 86 Resp 22 18 18 B/P (MAP) 179/81 (113) 158/80 (106) 168/78 (108) Pulse Ox 97 97 96 O2 Delivery Room Air Nasal Cannula Room Air O2 Flow Rate 2.0 01/08/17 01/08/17 01/08/17 07:00 09:04 09:04 Temp 97.7 97.7 Pulse 84 84 84 Resp 18 B/P (MAP) 162/78 (106) 162/78 162/78 Pulse Ox 97 O2 Delivery Room Air SONYA ORR MD Jan 08, 2017 09:46
[2017-01-08 11:30] VITALS: BP 147/75
--- NOTE | 2017-01-08 15:09 | PDOC ---
SURGICAL PROGRESS NOTE Subjective Pt without new c/o, allyson clears, has passed flatus, pain control, now able to void Vital Signs Vital Signs Date Time Temp Pulse Resp B/P (MAP) Pulse Ox O2 Delivery O2 Flow Rate FiO2 01/08/17 11:30 97.9 72 19 147/75 (99) 96 Room Air 97.9 01/07/17 20:00 2.0 I&O Intake and Output 01/09/17 07:00 Intake Total 550 ml Output Total 1375 ml Balance -825 ml Intake Oral 550 ml Output Urine Total 1000 ml Gastric Drainage Total 375 ml PATIENT HAS A EID: No General: Alert, Oriented X3, Cooperative, No acute distress Abdomen: Soft, No tenderness, Other (dressing c/d/i, BOZENA serosang, min output) Labs Laboratory Tests Test 01/08/17 05:25 White Blood Count 12.4 x10^3/uL (4.0-11.0) Red Blood Count 3.80 x10^6/uL (3.50-5.40) Hemoglobin 9.8 g/dL (12.0-15.5) Hematocrit 30.5 % (36.0-47.0) Mean Corpuscular Volume 80 fL (79-100) Mean Corpuscular Hemoglobin 26 pg (25-35) Mean Corpuscular Hemoglobin Concent 32 g/dL (31-37) Red Cell Distribution Width 21.8 % (11.5-14.5) Platelet Count 420 x10^3/uL (140-400) Neutrophils (%) (Auto) 75 % (31-73) Lymphocytes (%) (Auto) 14 % (24-48) Monocytes (%) (Auto) 8 % (0-9) Eosinophils (%) (Auto) 3 % (0-3) Basophils (%) (Auto) 1 % (0-3) Neutrophils # (Auto) 9.3 x10^3uL (1.8-7.7) Lymphocytes # (Auto) 1.7 x10^3/uL (1.0-4.8) Monocytes # (Auto) 1.0 x10^3/uL (0.0-1.1) Eosinophils # (Auto) 0.4 x10^3/uL (0.0-0.7) Basophils # (Auto) 0.1 x10^3/uL (0.0-0.2) Sodium Level 139 mmol/L (136-145) Potassium Level 3.3 mmol/L (3.5-5.1) Chloride Level 103 mmol/L (98-107) Carbon Dioxide Level 26 mmol/L (21-32) Anion Gap 10 (6-14) Blood Urea Nitrogen 9 mg/dL (7-20) Creatinine 0.9 mg/dL (0.6-1.0) Estimated GFR (Cockcroft-Gault) 61.9 Glucose Level 98 mg/dL (70-99) Calcium Level 8.3 mg/dL (8.5-10.1) Laboratory Tests Test 01/08/17 05:25 White Blood Count 12.4 x10^3/uL (4.0-11.0) Red Blood Count 3.80 x10^6/uL (3.50-5.40) Hemoglobin 9.8 g/dL (12.0-15.5) Hematocrit 30.5 % (36.0-47.0) Mean Corpuscular Volume 80 fL (79-100) Mean Corpuscular Hemoglobin 26 pg (25-35) Mean Corpuscular Hemoglobin Concent 32 g/dL (31-37) Red Cell Distribution Width 21.8 % (11.5-14.5) Platelet Count 420 x10^3/uL (140-400) Neutrophils (%) (Auto) 75 % (31-73) Lymphocytes (%) (Auto) 14 % (24-48) Monocytes (%) (Auto) 8 % (0-9) Eosinophils (%) (Auto) 3 % (0-3) Basophils (%) (Auto) 1 % (0-3) Neutrophils # (Auto) 9.3 x10^3uL (1.8-7.7) Lymphocytes # (Auto) 1.7 x10^3/uL (1.0-4.8) Monocytes # (Auto) 1.0 x10^3/uL (0.0-1.1) Eosinophils # (Auto) 0.4 x10^3/uL (0.0-0.7) Basophils # (Auto) 0.1 x10^3/uL (0.0-0.2) Sodium Level 139 mmol/L (136-145) Potassium Level 3.3 mmol/L (3.5-5.1) Chloride Level 103 mmol/L (98-107) Carbon Dioxide Level 26 mmol/L (21-32) Anion Gap 10 (6-14) Blood Urea Nitrogen 9 mg/dL (7-20) Creatinine 0.9 mg/dL (0.6-1.0) Estimated GFR (Cockcroft-Gault) 61.9 Glucose Level 98 mg/dL (70-99) Calcium Level 8.3 mg/dL (8.5-10.1) Problem List s/p kiah d/w pt path results go to soft diet d/c planning Problems: BA ALMONTE MD Jan 08, 2017 15:09
[2017-01-08 15:20] VITALS: BP 173/110
--- NOTE | 2017-01-08 18:02 | PDOC2 ---
CONSULT Date of Consult Date of Consult DATE: 01/08/17 TIME: 17:55 Past Medical History Cardiovascular: HTN Hepatobiliary: Cholelithiasis Psych: Anxiety Past Surgical History Past Surgical History: Appendectomy, Breast Biopsy, Cholecystectomy, Hysterectomy Family History Family History: Alcohol Abuse, Hypertension Social History No ALCOHOL: none Drugs: None Lives: with Family Current Medications Current Medications Current Medications Ondansetron HCl (Zofran) 4 mg PRN Q6HRS PRN IV NAUSEA/VOMITING; Start at 07:00; Stop 01/02/17 at 06:59; Status DC Fentanyl Citrate (Fentanyl 2ml Vial) 25 mcg PRN Q5MIN PRN IV MILD PAIN; Start 01/01/17 at 07:00; Stop 01/02/17 at 06:59; Status DC Fentanyl Citrate (Fentanyl 2ml Vial) 50 mcg PRN Q5MIN PRN IV MODERATE PAIN; Start 01/01/17 at 07:00; Stop 01/02/17 at 06:59; Status DC Morphine Sulfate 1 mg PRN Q10MIN PRN IV SEVERE PAIN; Start 01/01/17 at 07:00; Stop 01/02/17 at 06:59; Status DC Ringer's Solution 1,000 ml @ 30 mls/hr Q24H IV Last administered on 08:35; Start 01/01/17 at 07:00; Stop 01/01/17 at 18:59; Status DC Lidocaine HCl (Xylocaine-Mpf 1% Vial) 2 ml PRN 1X PRN ID PRIOR TO IV START; Start 01/01/17 at 07:00; Stop 01/02/17 at 06:59; Status DC Hydromorphone HCl (Dilaudid) 0.5 mg PRN Q10MIN PRN IV SEV PAIN, Second choice; Start 01/01/17 at 07:00; Stop 01/02/17 at 06:59; Status DC Prochlorperazine Edisylate (Compazine) 5 mg PACU PRN PRN IV NAUSEA, MRX1; Start 01/01/17 at 07:00; Stop 01/02/17 at 06:59; Status DC Cefoxitin Sodium 2 gm/Dextrose 100 ml @ 200 mls/hr 1X PREOP PRN IV ABX Last administered on 01/01/17 12:35; Start 01/01/17 at 06:00; Stop 01/06/17 at 15: 00; Status DC Dexamethasone Sodium Phosphate (Decadron) 20 mg STK-MED ONCE .ROUTE ; Start at 09:25; Stop 01/01/17 at 09:26; Status DC Lidocaine HCl (Lidocaine Pf 2% Vial) 5 ml STK-MED ONCE .ROUTE ; Start 01/01/17 at 09:25; Stop 01/01/17 at 09:26; Status DC Ondansetron HCl (Zofran) 4 mg STK-MED ONCE .ROUTE ; Start 01/01/17 at 09:25; Stop 01/01/17 at 09:26; Status DC Propofol 20 ml @ As Directed STK-MED ONCE IV ; Start 01/01/17 at 09:25; Stop 01/01/17 at 09:26; Status DC Fentanyl Citrate (Fentanyl 2ml Vial) 100 mcg STK-MED ONCE .ROUTE ; Start at 09:25; Stop 01/01/17 at 09:26; Status DC Rocuronium [place] (Zemuron) 50 mg STK-MED ONCE .ROUTE ; Start 01/01/17 at 09: 26; Stop 01/01/17 at 09:27; Status DC Phenylephrine HCl 1 mg STK-MED ONCE IV ; Start 01/01/17 at 10:27; Stop at 10:28; Status DC Bupivacaine HCl (Sensorcaine Mpf 0.25%) 30 ml STK-MED ONCE .ROUTE ; Start 01/01 at 10:49; Stop 01/01/17 at 10:50; Status DC Lidocaine HCl (Xylocaine-Mpf 1% Vial) 5 ml STK-MED ONCE .ROUTE ; Start at 10:50; Stop 01/01/17 at 10:51; Status DC Phenylephrine HCl ([place]-Synephrine Inj) 10 mg STK-MED ONCE .ROUTE ; Start at 11:11; Stop 01/01/17 at 11:12; Status DC Ephedrine Sulfate (Akovaz) 50 mg STK-MED ONCE .ROUTE ; Start 01/01/17 at 11:18 ; Stop 01/01/17 at 11:19; Status DC Rocuronium [place] (Zemuron) 100 mg STK-MED ONCE .ROUTE ; Start 01/01/17 at 11: 30; Stop 01/01/17 at 11:31; Status DC Cefoxitin Sodium 2 gm/Dextrose 100 ml @ 200 mls/hr 1X ONCE IV ; Start at 12:15; Stop 01/01/17 at 12:44; Status Cancel Cefoxitin Sodium 100 ml @ As Directed STK-MED ONCE IV ; Start 01/01/17 at 11: 17; Stop 01/01/17 at 12:17; Status DC Fentanyl Citrate (Fentanyl 2ml Vial) 100 mcg STK-MED ONCE .ROUTE ; Start at 12:24; Stop 01/01/17 at 12:25; Status DC Sodium Chloride 39.95 ml/ Hydromorphone HCl 0.5 mg/ Ropivacaine 10 ml/ Epidural Dosage Infused (Pha) 50 ml @ 0 mls/hr CONT PRN EP Per protocol Last administered on 01/04/17t 06:38; Start 01/01/17 at 12:30 Sodium Chloride 40 ml/ Hydromorphone HCl 0.5 mg/ Ropivacaine 10 ml/ Epidural Dosage Infused (Pha) 50.05 ml @ 0 mls/hr 1X ONCE EP ; Start 01/05/17 at 18:30 ; Stop 01/05/17 at 18:31; Status UNV Sevoflurane (Ultane) 90 ml STK-MED ONCE IH ; Start 01/01/17 at 13:02; Stop at 13:03; Status DC Cefoxitin Sodium 50 ml @ 100 mls/hr 1X ONCE IV Last administered on t 14:35; Start 01/01/17 at 14:15; Stop 01/01/17 at 14:44; Status DC Albumin Human 100 ml @ As Directed STK-MED ONCE IV ; Start 01/01/17 at 14:25; Stop 01/01/17 at 14:26; Status DC Glycopyrrolate (Robinul) 1 mg STK-MED ONCE .ROUTE ; Start 01/01/17 at 15:59; Stop 01/01/17 at 16:00; Status DC Neostigmine Methylsulfate 5 mg STK-MED ONCE .ROUTE ; Start 01/01/17 at 15:59; Stop 01/01/17 at 16:00; Status DC Famotidine (Pepcid) 20 mg BID IVP Last administered on 01/07/17 20:18; Start 01/01/17 at 21:00; Stop 01/08/17 at 08:44; Status DC Heparin Sodium (Porcine) (Heparin Sq) 5,000 unit Q12HR SQ Last administered on 01/08/17 09:14; Start 01/01/17 at 21:00 Sodium Chloride (Normal Saline Flush) 3 ml QSHIFT PRN IV AFTER MEDS AND BLOOD DRAWS; Start 01/01/17 at 16:30 Ringer's Solution 1,000 ml @ 100 mls/hr Q10H IV Last administered on 02:38; Start 01/01/17 at 16:26; Stop 01/08/17 at 09:47; Status DC Ondansetron HCl (Zofran) 4 mg PRN Q6HRS PRN IV NAUESA, 1ST CHOICE Last administered on 01/04/17 21:49; Start 01/01/17 at 16:30 Diphenhydramine HCl (Benadryl) 25 mg PRN Q6HRS PRN IVP ITCHING Last administered on 01/02/17 10:07; Start 01/02/17 at 10:00 Oxycodone/ Acetaminophen (Percocet 5/325) 1 tab PRN Q4HRS PRN PO PAIN Last administered on 01/07/17 11:24; Start 01/05/17 at 10:00 Docusate Sodium (Colace) 100 mg DAILY PO Last administered on 01/08/17 09:04; Start 01/05/17 at 10:00 Sodium Chloride (Saline Mist Nasal) 1 henry PRN Q1HR PRN NS NASAL CONGESTION Last administered on 01/07/17 12:49; Start 01/07/17 at 10:00 Hydralazine HCl (Apresoline Inj) 10 mg PRN Q4HRS PRN IVP ELEVATED BP, SEE COMMENTS; Start 01/07/17 at 15:30 Levothyroxine Sodium 25 mcg/ Sodium Chloride 5 ml @ 100 mls/hr DAILY IVP Last administered on 01/07/17 16:27; Start 01/07/17 at 16:00; Stop 01/08/17 at 08:44 ; Status DC Amlodipine Besylate (Norvasc) 5 mg DAILY PO Last administered on 01/08/17 09: 04; Start 01/08/17 at 09:00 Fluticasone Propionate (Flonase) 1 spray PRN DAILY PRN NS ALLERGIES; Start 01/08/17 at 08:45 Levothyroxine Sodium (Synthroid) 50 mcg DAILY06 PO Last administered on 09:04; Start 01/08/17 at 09:00 Lisinopril (Prinivil) 10 mg DAILY PO Last administered on 01/08/17 09:04; Start 01/08/17 at 09:00 Pantoprazole Sodium (Protonix) 40 mg DAILYAC PO Last administered on 01/08/17 09:04; Start 01/08/17 at 09:00 Ferrous Sulfate (Feosol) 325 mg DAILYWBKFT PO Last administered on 01/08/17 09 :04; Start 01/08/17 at 09:00 Cetirizine HCl (ZyrTEC) 10 mg DAILY PO Last administered on 01/08/17 09:04; Start 01/08/17 at 09:00 Multivitamins (Thera M Plus) 1 tab DAILY PO ; Start 01/09/17 at 09:00 Atorvastatin Calcium (Lipitor) 5 mg QHS PO ; Start 01/08/17 at 21:00 Active Scripts Active Protonix (Pantoprazole Sodium) 40 Mg Tablet. 1 Tab PO DAILY Reported Ferralet 90 Dual-Iron Tablet (Iron, Carb & Gluc/Fa/B12/C/Dss) 1 Each Tablet 1 Tab PO DAILY Multivitamins (Multivitamin) 1 Each Tablet 1 Tab PO DAILY Loratadine 10 Mg Tablet 1 Tab PO DAILY Fluticasone Propionate Nasal [place] (Fluticasone Propionate) 16 Gm [place].susp 1 [place] NS DAILY PRN Levothyroxine Sodium 50 Mcg Tablet 1 Tab PO DAILY Lisinopril 10 Mg Tablet 1 Tab PO DAILY Pravastatin Sodium 10 Mg Tablet 1 Tab PO DAILY Amlodipine Besylate 5 Mg Tablet 5 Mg PO DAILY Allergies Allergies: Coded Allergies: No Known Drug Allergies (Unverified , 01/01/17) Vitals VITALS Vital Signs Date Time Temp Pulse Resp B/P (MAP) Pulse Ox O2 Delivery O2 Flow Rate FiO2 01/08/17 11:30 97.9 72 19 147/75 (99) 96 Room Air 97.9 01/07/17 20:00 2.0 Labs Labs Laboratory Tests Test 01/08/17 05:25 White Blood Count 12.4 x10^3/uL (4.0-11.0) Red Blood Count 3.80 x10^6/uL (3.50-5.40) Hemoglobin 9.8 g/dL (12.0-15.5) Hematocrit 30.5 % (36.0-47.0) Mean Corpuscular Volume 80 fL (79-100) Mean Corpuscular Hemoglobin 26 pg (25-35) Mean Corpuscular Hemoglobin Concent 32 g/dL (31-37) Red Cell Distribution Width 21.8 % (11.5-14.5) Platelet Count 420 x10^3/uL (140-400) Neutrophils (%) (Auto) 75 % (31-73) Lymphocytes (%) (Auto) 14 % (24-48) Monocytes (%) (Auto) 8 % (0-9) Eosinophils (%) (Auto) 3 % (0-3) Basophils (%) (Auto) 1 % (0-3) Neutrophils # (Auto) 9.3 x10^3uL (1.8-7.7) Lymphocytes # (Auto) 1.7 x10^3/uL (1.0-4.8) Monocytes # (Auto) 1.0 x10^3/uL (0.0-1.1) Eosinophils # (Auto) 0.4 x10^3/uL (0.0-0.7) Basophils # (Auto) 0.1 x10^3/uL (0.0-0.2) Sodium Level 139 mmol/L (136-145) Potassium Level 3.3 mmol/L (3.5-5.1) Chloride Level 103 mmol/L (98-107) Carbon Dioxide Level 26 mmol/L (21-32) Anion Gap 10 (6-14) Blood Urea Nitrogen 9 mg/dL (7-20) Creatinine 0.9 mg/dL (0.6-1.0) Estimated GFR (Cockcroft-Gault) 61.9 Glucose Level 98 mg/dL (70-99) Calcium Level 8.3 mg/dL (8.5-10.1) Laboratory Tests Test 01/08/17 05:25 White Blood Count 12.4 x10^3/uL (4.0-11.0) Red Blood Count 3.80 x10^6/uL (3.50-5.40) Hemoglobin 9.8 g/dL (12.0-15.5) Hematocrit 30.5 % (36.0-47.0) Mean Corpuscular Volume 80 fL (79-100) Mean Corpuscular Hemoglobin 26 pg (25-35) Mean Corpuscular Hemoglobin Concent 32 g/dL (31-37) Red Cell Distribution Width 21.8 % (11.5-14.5) Platelet Count 420 x10^3/uL (140-400) Neutrophils (%) (Auto) 75 % (31-73) Lymphocytes (%) (Auto) 14 % (24-48) Monocytes (%) (Auto) 8 % (0-9) Eosinophils (%) (Auto) 3 % (0-3) Basophils (%) (Auto) 1 % (0-3) Neutrophils # (Auto) 9.3 x10^3uL (1.8-7.7) Lymphocytes # (Auto) 1.7 x10^3/uL (1.0-4.8) Monocytes # (Auto) 1.0 x10^3/uL (0.0-1.1) Eosinophils # (Auto) 0.4 x10^3/uL (0.0-0.7) Basophils # (Auto) 0.1 x10^3/uL (0.0-0.2) Sodium Level 139 mmol/L (136-145) Potassium Level 3.3 mmol/L (3.5-5.1) Chloride Level 103 mmol/L (98-107) Carbon Dioxide Level 26 mmol/L (21-32) Anion Gap 10 (6-14) Blood Urea Nitrogen 9 mg/dL (7-20) Creatinine 0.9 mg/dL (0.6-1.0) Estimated GFR (Cockcroft-Gault) 61.9 Glucose Level 98 mg/dL (70-99) Calcium Level 8.3 mg/dL (8.5-10.1) Assessment/Plan Assessment/Plan MEDICAL ONCOLOGY CONSULTATION REPORT DATE OF SERVICE: 01/08/2017 CONSULTATION REQUESTED BY: Dr Swanson REASON FOR CONSULTATION: Pancreatic Cancer. HISTORY OF PRESENT ILLNESS: The patient is a 71-year-old female who was admitted to on 11/25/2016 for acute hypotension. The patient felt sweaty, lightheaded and weak for several hours and she also had one episode of vomiting. She called the ambulance and she was subsequently admitted. She was noted to have a bilirubin of 2.3 in the ER with an alkaline phosphatase of 404. She underwent ultrasound of the abdomen on 11/25/2016, which revealed prominent common bile duct measuring 1.3 cm and hence a CT scan of the abdomen and pelvis was performed on 11/26/2016, which revealed a 2.1 cm mass in the head of the pancreas, concerning for malignancy. She underwent MRI of the abdomen on 11/27/2016, which confirmed 1.7 cm mass in the pancreatic head and endoscopic ultrasound-guided biopsy was recommended. The patient denies any loss of weight or loss of appetite. No fevers, chills or night sweats. No hematemesis, melena or hematochezia. No hemoptysis or hematuria. s/p bx 12/13/16 that revealed pancreatic adenocarcinoma. s/p whipple surgery- revealed T2N0M0 stage IB. PAST MEDICAL HISTORY: Ischemic colitis treated in 2014, hypertension, hypothyroidism, hyperlipidemia and anxiety. SOCIAL HISTORY: No smoking or alcohol abuse. FAMILY HISTORY: Positive for breast cancer. REVIEW OF SYSTEMS: A 12-point review of system was performed. Pertinent positives are mentioned in the history of present illness. Rest of the system review is negative. PHYSICAL EXAMINATION: GENERAL APPEARANCE: The patient is a 71-year-old female who is in no acute cardiorespiratory distress. VITAL SIGNS: reviewed. HEAD: Atraumatic and normocephalic. EYES: She has evidence of icterus. NECK: Supple. CHEST: Bilaterally symmetrical. HEART: S1 and S2 normal. ABDOMEN: Soft and nontender. post-op CENTRAL NERVOUS SYSTEM: No focal deficits. LYMPHATICS: No lymphadenopathy. SKIN: No rashes. PSYCHOLOGIC: Mood and affect are appropriate. MUSCULOSKELETAL: No joint effusions. LABORATORY DATA: reviewed IMPRESSION AND PLAN: 1. Pancreatic adenocarcinoma. s/p endoscopic ultrasound-guided biopsy of the pancreatic head mass 12/13/16. s/p Whipple surgery 01/01/17- revealed T2N0M0 stage IB. Whipple procedure (specifically: pancreaticduodenectomy, pylorus sparing, pancreaticogastrostomy with Buster en Y reconstruction to bile duct), G-tube placement Plan adjuvant chemo in 4 weeks. 2. Obstructive jaundice secondary to pancreatic head mass. Improved. 3. Iron-deficiency anemia. s/p Venofer 500 mg IV x 1 dose on 11/27/2016. Hb 9.8, monitor. NYA OLIVAREZ MD Jan 08, 2017 18:02
[2017-01-08 19:00] VITALS: BP 168/87
[2017-01-08] MEDS: ATORVASTATIN CALCIUM 10 MG TABLET. PO SCH (20:53)
[2017-01-08 23:00] VITALS: BP 157/80
[2017-01-09 03:00] VITALS: BP 146/74
[2017-01-09 04:30] LABS: BILIRUBIN,URINE NEGATIVE (NEG); GLUCOSE,URINE NEGATIVE (NEG); NITRITE,URINE NEGATIVE (NEG); PH,URINE 7.5; PROTEIN,URINE 30 mg/dL (NEG-TRACE)
[2017-01-09 04:37] LABS: BACTERIA,URINE MANY /HPF (0-FEW); RBC,URINE OCC /HPF (0-2); SQUAMOUS EPITHELIAL CELL,UR OCC /LPF; WBC,URINE TNTC /HPF (0-4)
[2017-01-09] MEDS: LEVOTHYROXINE 50 MCG TABLET PO SCH (05:52)
[2017-01-09 07:00] VITALS: BP 147/18
[2017-01-09] MEDS: PANTOPRAZOLE 40 MG TABLET.DR. PO SCH (08:48)
[2017-01-09] MEDS: MULTIVITAMIN with MINERAL TABLET. PO SCH (08:49)
[2017-01-09] MEDS: amLODIPine BESYLATE 5 MG TABLET PO SCH (08:49)
[2017-01-09] MEDS: CETIRIZINE HCL 10 MG TABLET. PO SCH (08:49)
[2017-01-09] MEDS: LISINOPRIL 10 MG TABLET PO SCH (08:49)
[2017-01-09] MEDS: DOCUSATE SODIUM 100 MG CAPSULE. PO SCH (08:49)
[2017-01-09] MEDS: FERROUS SULFATE 325 MG TABLET. PO SCH (08:50)
[2017-01-09] MEDS: HEPARIN PF for SUB-Q USE 5,000 UNIT/0.5 ML VIAL. SQ SCH ×2 (08:58→21:36)
[2017-01-09 11:00] VITALS: BP 164/81
[2017-01-09] MEDS ORDERED: PHENAZOPYRIDINE 200 MG TABLET. PO PRN (11:15)
[2017-01-09] MEDS ORDERED: CIPROFLOXACIN HCL 250 MG TABLET. PO SCH (11:30)
--- NOTE | 2017-01-09 11:44 | PDOC ---
PROGRESS NOTES Subjective Subjective HPI - Pancreatic adenocarcinoma. s/p endoscopic ultrasound-guided biopsy of the pancreatic head mass 12/13/16. s/p Whipple surgery 01/01/17- revealed T2N0M0 stage IB. ROS - no abd pain Objective Objective Vital Signs Date Time Temp Pulse Resp B/P (MAP) Pulse Ox O2 Delivery O2 Flow Rate FiO2 01/09/17 08:49 88 147/78 01/09/17 07:45 Room Air 01/09/17 07:00 97.6 18 97 97.6 01/07/17 20:00 2.0 Intake and Output 01/10/17 07:00 Intake Total 250 ml Balance 250 ml Intake Oral 250 ml Physical Exam Heart: Normal S1, Normal S2 General: Alert, Oriented X3 Lungs: Clear to auscultation Neuro: Normal speech Psych/Mental Status: Mental status NL Assessment Assessment IMPRESSION AND PLAN: 1. Pancreatic adenocarcinoma. s/p endoscopic ultrasound-guided biopsy of the pancreatic head mass 12/13/16. s/p Whipple surgery 01/01/17- revealed T2N0M0 stage IB. Whipple procedure (specifically: pancreaticoduodenectomy, pylorus sparing, pancreaticogastrostomy with Buster en Y reconstruction to bile duct), G-tube placement. Positive margin and has perineural involvement. Plan adjuvant chemo in 4 weeks followed by radiation. I d/w Dr Swanson. 2. Obstructive jaundice secondary to pancreatic head mass. Improved. 3. Iron-deficiency anemia. s/p Venofer 500 mg IV x 1 dose on 11/27/2016. Hb 9.8, monitor. Comment Review of Relevant I have reviewed the following items alonzo (where applicable) has been applied. Labs Laboratory Tests Test 01/08/17 05:25 01/09/17 03:35 White Blood Count 12.4 x10^3/uL (4.0-11.0) Red Blood Count 3.80 x10^6/uL (3.50-5.40) Hemoglobin 9.8 g/dL (12.0-15.5) Hematocrit 30.5 % (36.0-47.0) Mean Corpuscular Volume 80 fL (79-100) Mean Corpuscular Hemoglobin 26 pg (25-35) Mean Corpuscular Hemoglobin Concent 32 g/dL (31-37) Red Cell Distribution Width 21.8 % (11.5-14.5) Platelet Count 420 x10^3/uL (140-400) Neutrophils (%) (Auto) 75 % (31-73) Lymphocytes (%) (Auto) 14 % (24-48) Monocytes (%) (Auto) 8 % (0-9) Eosinophils (%) (Auto) 3 % (0-3) Basophils (%) (Auto) 1 % (0-3) Neutrophils # (Auto) 9.3 x10^3uL (1.8-7.7) Lymphocytes # (Auto) 1.7 x10^3/uL (1.0-4.8) Monocytes # (Auto) 1.0 x10^3/uL (0.0-1.1) Eosinophils # (Auto) 0.4 x10^3/uL (0.0-0.7) Basophils # (Auto) 0.1 x10^3/uL (0.0-0.2) Sodium Level 139 mmol/L (136-145) Potassium Level 3.3 mmol/L (3.5-5.1) Chloride Level 103 mmol/L (98-107) Carbon Dioxide Level 26 mmol/L (21-32) Anion Gap 10 (6-14) Blood Urea Nitrogen 9 mg/dL (7-20) Creatinine 0.9 mg/dL (0.6-1.0) Estimated GFR (Cockcroft-Gault) 61.9 Glucose Level 98 mg/dL (70-99) Calcium Level 8.3 mg/dL (8.5-10.1) Urine Collection Type Unknown Urine Color Yellow Urine Clarity Turbid Urine pH 7.5 Urine Specific [place] 1.015 Urine Protein 30 mg/dL (NEG-TRACE) Urine Glucose (UA) Negative mg/dL (NEG) Urine Ketones (Stick) >=80 mg/dL (NEG) Urine Blood Large (NEG) Urine Nitrite Negative (NEG) Urine Bilirubin Negative (NEG) Urine Urobilinogen Dipstick 2.0 mg/dL (0.2 mg/dL) Urine Leukocyte Esterase Large (NEG) Urine RBC Occ /HPF (0-2) Urine WBC Tntc /HPF (0-4) Urine Squamous Epithelial Cells Occ /LPF Urine Renal Epithelial Cells Occ /LPF Urine Bacteria Many /HPF (0-FEW) Urine Mucus Slight /LPF Laboratory Tests Test 01/09/17 03:35 Urine Collection Type Unknown Urine Color Yellow Urine Clarity Turbid Urine pH 7.5 Urine Specific [place] 1.015 Urine Protein 30 mg/dL (NEG-TRACE) Urine Glucose (UA) Negative mg/dL (NEG) Urine Ketones (Stick) >=80 mg/dL (NEG) Urine Blood Large (NEG) Urine Nitrite Negative (NEG) Urine Bilirubin Negative (NEG) Urine Urobilinogen Dipstick 2.0 mg/dL (0.2 mg/dL) Urine Leukocyte Esterase Large (NEG) Urine RBC Occ /HPF (0-2) Urine WBC Tntc /HPF (0-4) Urine Squamous Epithelial Cells Occ /LPF Urine Renal Epithelial Cells Occ /LPF Urine Bacteria Many /HPF (0-FEW) Urine Mucus Slight /LPF Medications Current Medications Ondansetron HCl (Zofran) 4 mg PRN Q6HRS PRN IV NAUSEA/VOMITING; Start at 07:00; Stop 01/02/17 at 06:59; Status DC Fentanyl Citrate (Fentanyl 2ml Vial) 25 mcg PRN Q5MIN PRN IV MILD PAIN; Start 01/01/17 at 07:00; Stop 01/02/17 at 06:59; Status DC Fentanyl Citrate (Fentanyl 2ml Vial) 50 mcg PRN Q5MIN PRN IV MODERATE PAIN; Start 01/01/17 at 07:00; Stop 01/02/17 at 06:59; Status DC Morphine Sulfate 1 mg PRN Q10MIN PRN IV SEVERE PAIN; Start 01/01/17 at 07:00; Stop 01/02/17 at 06:59; Status DC Ringer's Solution 1,000 ml @ 30 mls/hr Q24H IV Last administered on t 08:35; Start 01/01/17 at 07:00; Stop 01/01/17 at 18:59; Status DC Lidocaine HCl (Xylocaine-Mpf 1% Vial) 2 ml PRN 1X PRN ID PRIOR TO IV START; Start 01/01/17 at 07:00; Stop 01/02/17 at 06:59; Status DC Hydromorphone HCl (Dilaudid) 0.5 mg PRN Q10MIN PRN IV SEV PAIN, Second choice; Start 01/01/17 at 07:00; Stop 01/02/17 at 06:59; Status DC Prochlorperazine Edisylate (Compazine) 5 mg PACU PRN PRN IV NAUSEA, MRX1; Start 01/01/17 at 07:00; Stop 01/02/17 at 06:59; Status DC Cefoxitin Sodium 2 gm/Dextrose 100 ml @ 200 mls/hr 1X PREOP PRN IV ABX Last administered on 01/01/17t 12:35; Start 01/01/17 at 06:00; Stop 01/06/17 at 15: 00; Status DC Dexamethasone Sodium Phosphate (Decadron) 20 mg STK-MED ONCE .ROUTE ; Start at 09:25; Stop 01/01/17 at 09:26; Status DC Lidocaine HCl (Lidocaine Pf 2% Vial) 5 ml STK-MED ONCE .ROUTE ; Start 01/01/17 at 09:25; Stop 01/01/17 at 09:26; Status DC Ondansetron HCl (Zofran) 4 mg STK-MED ONCE .ROUTE ; Start 01/01/17 at 09:25; Stop 01/01/17 at 09:26; Status DC Propofol 20 ml @ As Directed STK-MED ONCE IV ; Start 01/01/17 at 09:25; Stop 01/01/17 at 09:26; Status DC Fentanyl Citrate (Fentanyl 2ml Vial) 100 mcg STK-MED ONCE .ROUTE ; Start at 09:25; Stop 01/01/17 at 09:26; Status DC Rocuronium [place] (Zemuron) 50 mg STK-MED ONCE .ROUTE ; Start 01/01/17 at 09: 26; Stop 01/01/17 at 09:27; Status DC Phenylephrine HCl 1 mg STK-MED ONCE IV ; Start 01/01/17 at 10:27; Stop at 10:28; Status DC Bupivacaine HCl (Sensorcaine Mpf 0.25%) 30 ml STK-MED ONCE .ROUTE ; Start 01/01 at 10:49; Stop 01/01/17 at 10:50; Status DC Lidocaine HCl (Xylocaine-Mpf 1% Vial) 5 ml STK-MED ONCE .ROUTE ; Start at 10:50; Stop 01/01/17 at 10:51; Status DC Phenylephrine HCl ([place]-Synephrine Inj) 10 mg STK-MED ONCE .ROUTE ; Start at 11:11; Stop 01/01/17 at 11:12; Status DC Ephedrine Sulfate (Akovaz) 50 mg STK-MED ONCE .ROUTE ; Start 01/01/17 at 11:18 ; Stop 01/01/17 at 11:19; Status DC Rocuronium [place] (Zemuron) 100 mg STK-MED ONCE .ROUTE ; Start 01/01/17 at 11: 30; Stop 01/01/17 at 11:31; Status DC Cefoxitin Sodium 2 gm/Dextrose 100 ml @ 200 mls/hr 1X ONCE IV ; Start at 12:15; Stop 01/01/17 at 12:44; Status Cancel Cefoxitin Sodium 100 ml @ As Directed STK-MED ONCE IV ; Start 01/01/17 at 11: 17; Stop 01/01/17 at 12:17; Status DC Fentanyl Citrate (Fentanyl 2ml Vial) 100 mcg STK-MED ONCE .ROUTE ; Start at 12:24; Stop 01/01/17 at 12:25; Status DC Sodium Chloride 39.95 ml/ Hydromorphone HCl 0.5 mg/ Ropivacaine 10 ml/ Epidural Dosage Infused (Pha) 50 ml @ 0 mls/hr CONT PRN EP Per protocol Last administered on 01/04/17t 06:38; Start 01/01/17 at 12:30 Sodium Chloride 40 ml/ Hydromorphone HCl 0.5 mg/ Ropivacaine 10 ml/ Epidural Dosage Infused (Pha) 50.05 ml @ 0 mls/hr 1X ONCE EP ; Start 01/05/17 at 18:30 ; Stop 01/05/17 at 18:31; Status UNV Sevoflurane (Ultane) 90 ml STK-MED ONCE IH ; Start 01/01/17 at 13:02; Stop at 13:03; Status DC Cefoxitin Sodium 50 ml @ 100 mls/hr 1X ONCE IV Last administered on t 14:35; Start 01/01/17 at 14:15; Stop 01/01/17 at 14:44; Status DC Albumin Human 100 ml @ As Directed STK-MED ONCE IV ; Start 01/01/17 at 14:25; Stop 01/01/17 at 14:26; Status DC Glycopyrrolate (Robinul) 1 mg STK-MED ONCE .ROUTE ; Start 01/01/17 at 15:59; Stop 01/01/17 at 16:00; Status DC Neostigmine Methylsulfate 5 mg STK-MED ONCE .ROUTE ; Start 01/01/17 at 15:59; Stop 01/01/17 at 16:00; Status DC Famotidine (Pepcid) 20 mg BID IVP Last administered on 01/07/17 20:18; Start 01/01/17 at 21:00; Stop 01/08/17 at 08:44; Status DC Heparin Sodium (Porcine) (Heparin Sq) 5,000 unit Q12HR SQ Last administered on 01/09/17 08:58; Start 01/01/17 at 21:00 Sodium Chloride (Normal Saline Flush) 3 ml QSHIFT PRN IV AFTER MEDS AND BLOOD DRAWS; Start 01/01/17 at 16:30 Ringer's Solution 1,000 ml @ 100 mls/hr Q10H IV Last administered on 02:38; Start 01/01/17 at 16:26; Stop 01/08/17 at 09:47; Status DC Ondansetron HCl (Zofran) 4 mg PRN Q6HRS PRN IV NAUESA, 1ST CHOICE Last administered on 01/04/17 21:49; Start 01/01/17 at 16:30 Diphenhydramine HCl (Benadryl) 25 mg PRN Q6HRS PRN IVP ITCHING Last administered on 01/02/17 10:07; Start 01/02/17 at 10:00 Oxycodone/ Acetaminophen (Percocet 5/325) 1 tab PRN Q4HRS PRN PO PAIN Last administered on 01/07/17 11:24; Start 01/05/17 at 10:00 Docusate Sodium (Colace) 100 mg DAILY PO Last administered on 01/09/17 08:49; Start 01/05/17 at 10:00 Sodium Chloride (Saline Mist Nasal) 1 henry PRN Q1HR PRN NS NASAL CONGESTION Last administered on 01/07/17 12:49; Start 01/07/17 at 10:00 Hydralazine HCl (Apresoline Inj) 10 mg PRN Q4HRS PRN IVP ELEVATED BP, SEE COMMENTS; Start 01/07/17 at 15:30 Levothyroxine Sodium 25 mcg/ Sodium Chloride 5 ml @ 100 mls/hr DAILY IVP Last administered on 01/07/17 16:27; Start 01/07/17 at 16:00; Stop 01/08/17 at 08:44 ; Status DC Amlodipine Besylate (Norvasc) 5 mg DAILY PO Last administered on 01/09/17 08: 49; Start 01/08/17 at 09:00 Fluticasone Propionate (Flonase) 1 spray PRN DAILY PRN NS ALLERGIES; Start 01/08/17 at 08:45 Levothyroxine Sodium (Synthroid) 50 mcg DAILY06 PO Last administered on 05:52; Start 01/08/17 at 09:00 Lisinopril (Prinivil) 10 mg DAILY PO Last administered on 01/09/17 08:49; Start 01/08/17 at 09:00 Pantoprazole Sodium (Protonix) 40 mg DAILYAC PO Last administered on 01/09/17 08:48; Start 01/08/17 at 09:00 Ferrous Sulfate (Feosol) 325 mg DAILYWBKFT PO Last administered on 01/09/17 08 :50; Start 01/08/17 at 09:00 Cetirizine HCl (ZyrTEC) 10 mg DAILY PO Last administered on 01/09/17 08:49; Start 01/08/17 at 09:00 Multivitamins (Thera M Plus) 1 tab DAILY PO Last administered on 01/09/17 08: 49; Start 01/09/17 at 09:00 Atorvastatin Calcium (Lipitor) 5 mg QHS PO Last administered on 01/08/17 20:53 ; Start 01/08/17 at 21:00 Ciprofloxacin (Cipro) 500 mg BID PO Last administered on 01/09/17 11:03; Start 01/09/17 at 11:30; Stop 01/09/17 at 11:30; Status DC Phenazopyridine HCl (Pyridium) 200 mg PRN TID PRN PO URINARY PAIN; Start at 11:15; Stop 01/09/17 at 11:15; Status DC Phenazopyridine HCl (Pyridium) 200 mg TID PO ; Start 01/09/17 at 11:15 Ceftriaxone Sodium 1 gm/ Dextrose 50 ml @ 100 mls/hr Q24H IV ; Start 01/09/17 at 11:15; Status UNV Ceftriaxone Sodium (Rocephin) 1 gm Q24H IVP ; Start 01/09/17 at 12:00 Active Scripts Active Protonix (Pantoprazole Sodium) 40 Mg Tablet.dr 1 Tab PO DAILY Reported Ferralet 90 Dual-Iron Tablet (Iron, Carb & Gluc/Fa/B12/C/Dss) 1 Each Tablet 1 Tab PO DAILY Multivitamins (Multivitamin) 1 Each Tablet 1 Tab PO DAILY Loratadine 10 Mg Tablet 1 Tab PO DAILY Fluticasone Propionate Nasal [place] (Fluticasone Propionate) 16 Gm [place].susp 1 [place] NS DAILY PRN Levothyroxine Sodium 50 Mcg Tablet 1 Tab PO DAILY Lisinopril 10 Mg Tablet 1 Tab PO DAILY Pravastatin Sodium 10 Mg Tablet 1 Tab PO DAILY Amlodipine Besylate 5 Mg Tablet 5 Mg PO DAILY Vitals/I & O Vital Sign - Last 24 Hours 01/08/17 01/08/17 01/08/17 01/08/17 15:20 19:00 20:00 23:00 Temp 98.2 97.5 98.2 98.2 97.5 98.2 Pulse 108 94 96 Resp 18 32 28 B/P (MAP) 173/110 (131) 168/87 (114) 157/80 (105) Pulse Ox 93 96 94 O2 Delivery Room Air Room Air Room Air Room Air 01/09/17 01/09/17 01/09/17 01/09/17 03:00 07:00 07:45 08:49 Temp 98.3 97.6 98.3 97.6 Pulse 91 88 88 Resp 28 18 B/P (MAP) 146/74 (98) 147/18 (61) 147/78 Pulse Ox 95 97 O2 Delivery Room Air Room Air Room Air 01/09/17 08:49 Pulse 88 B/P (MAP) 147/78 Intake and Output 01/09/17 01/09/17 01/10/17 15:00 23:00 07:00 Intake Total 250 ml Balance 250 ml NYA OLIVAREZ MD Jan 09, 2017 11:44
--- NOTE | 2017-01-09 12:00 | PDOC ---
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 htn hld hypothyroidism SIRS with leukocytosis post op, reactive likely morbid obesity UTI History of Present Illness History of Present Illness Foul and nasty urine - UA shows nEW UTI, symptomatic with dysuria and freq/ urgency Cleared from sx to dc Needs Acute rehab per pT recs PLAN: consult - amna Whyte Start rocpehin IV Urine cx PO abx on dc Start pyridium TOD [facility] Amna Rn Roxanna Vitals Vitals Vital Signs Date Time Temp Pulse Resp B/P (MAP) Pulse Ox O2 Delivery O2 Flow Rate FiO2 01/09/17 08:49 88 147/78 01/09/17 07:45 Room Air 01/09/17 07:00 97.6 18 97 97.6 Physical Exam General: Alert, Oriented X3 Heart: Normal S1, Normal S2 Abdomen: Soft, No tenderness, Other (dressing c/d/i, BOZENA serosang, min output) Extremities: No clubbing, No cyanosis Skin: No rashes, No breakdown Labs LABS Laboratory Tests Test 01/09/17 03:35 Urine Collection Type Unknown Urine Color Yellow Urine Clarity Turbid Urine pH 7.5 Urine Specific [place] 1.015 Urine Protein 30 mg/dL (NEG-TRACE) Urine Glucose (UA) Negative mg/dL (NEG) Urine Ketones (Stick) >=80 mg/dL (NEG) Urine Blood Large (NEG) Urine Nitrite Negative (NEG) Urine Bilirubin Negative (NEG) Urine Urobilinogen Dipstick 2.0 mg/dL (0.2 mg/dL) Urine Leukocyte Esterase Large (NEG) Urine RBC Occ /HPF (0-2) Urine WBC Tntc /HPF (0-4) Urine Squamous Epithelial Cells Occ /LPF Urine Renal Epithelial Cells Occ /LPF Urine Bacteria Many /HPF (0-FEW) Urine Mucus Slight /LPF Review of Systems Review of Systems dysuria, freq, urgency, no fevers, cp, abd pain or emesis Comment Review of Relevant I have reviewed the following items alonzo (where applicable) has been applied. Labs Laboratory Tests Test 01/08/17 05:25 01/09/17 03:35 White Blood Count 12.4 x10^3/uL (4.0-11.0) Red Blood Count 3.80 x10^6/uL (3.50-5.40) Hemoglobin 9.8 g/dL (12.0-15.5) Hematocrit 30.5 % (36.0-47.0) Mean Corpuscular Volume 80 fL (79-100) Mean Corpuscular Hemoglobin 26 pg (25-35) Mean Corpuscular Hemoglobin Concent 32 g/dL (31-37) Red Cell Distribution Width 21.8 % (11.5-14.5) Platelet Count 420 x10^3/uL (140-400) Neutrophils (%) (Auto) 75 % (31-73) Lymphocytes (%) (Auto) 14 % (24-48) Monocytes (%) (Auto) 8 % (0-9) Eosinophils (%) (Auto) 3 % (0-3) Basophils (%) (Auto) 1 % (0-3) Neutrophils # (Auto) 9.3 x10^3uL (1.8-7.7) Lymphocytes # (Auto) 1.7 x10^3/uL (1.0-4.8) Monocytes # (Auto) 1.0 x10^3/uL (0.0-1.1) Eosinophils # (Auto) 0.4 x10^3/uL (0.0-0.7) Basophils # (Auto) 0.1 x10^3/uL (0.0-0.2) Sodium Level 139 mmol/L (136-145) Potassium Level 3.3 mmol/L (3.5-5.1) Chloride Level 103 mmol/L (98-107) Carbon Dioxide Level 26 mmol/L (21-32) Anion Gap 10 (6-14) Blood Urea Nitrogen 9 mg/dL (7-20) Creatinine 0.9 mg/dL (0.6-1.0) Estimated GFR (Cockcroft-Gault) 61.9 Glucose Level 98 mg/dL (70-99) Calcium Level 8.3 mg/dL (8.5-10.1) Urine Collection Type Unknown Urine Color Yellow Urine Clarity Turbid Urine pH 7.5 Urine Specific [place] 1.015 Urine Protein 30 mg/dL (NEG-TRACE) Urine Glucose (UA) Negative mg/dL (NEG) Urine Ketones (Stick) >=80 mg/dL (NEG) Urine Blood Large (NEG) Urine Nitrite Negative (NEG) Urine Bilirubin Negative (NEG) Urine Urobilinogen Dipstick 2.0 mg/dL (0.2 mg/dL) Urine Leukocyte Esterase Large (NEG) Urine RBC Occ /HPF (0-2) Urine WBC Tntc /HPF (0-4) Urine Squamous Epithelial Cells Occ /LPF Urine Renal Epithelial Cells Occ /LPF Urine Bacteria Many /HPF (0-FEW) Urine Mucus Slight /LPF Laboratory Tests Test 01/09/17 03:35 Urine Collection Type Unknown Urine Color Yellow Urine Clarity Turbid Urine pH 7.5 Urine Specific [place] 1.015 Urine Protein 30 mg/dL (NEG-TRACE) Urine Glucose (UA) Negative mg/dL (NEG) Urine Ketones (Stick) >=80 mg/dL (NEG) Urine Blood Large (NEG) Urine Nitrite Negative (NEG) Urine Bilirubin Negative (NEG) Urine Urobilinogen Dipstick 2.0 mg/dL (0.2 mg/dL) Urine Leukocyte Esterase Large (NEG) Urine RBC Occ /HPF (0-2) Urine WBC Tntc /HPF (0-4) Urine Squamous Epithelial Cells Occ /LPF Urine Renal Epithelial Cells Occ /LPF Urine Bacteria Many /HPF (0-FEW) Urine Mucus Slight /LPF Medications Current Medications Ondansetron HCl (Zofran) 4 mg PRN Q6HRS PRN IV NAUSEA/VOMITING; Start at 07:00; Stop 01/02/17 at 06:59; Status DC Fentanyl Citrate (Fentanyl 2ml Vial) 25 mcg PRN Q5MIN PRN IV MILD PAIN; Start 01/01/17 at 07:00; Stop 01/02/17 at 06:59; Status DC Fentanyl Citrate (Fentanyl 2ml Vial) 50 mcg PRN Q5MIN PRN IV MODERATE PAIN; Start 01/01/17 at 07:00; Stop 01/02/17 at 06:59; Status DC Morphine Sulfate 1 mg PRN Q10MIN PRN IV SEVERE PAIN; Start 01/01/17 at 07:00; Stop 01/02/17 at 06:59; Status DC Ringer's Solution 1,000 ml @ 30 mls/hr Q24H IV Last administered on t 08:35; Start 01/01/17 at 07:00; Stop 01/01/17 at 18:59; Status DC Lidocaine HCl (Xylocaine-Mpf 1% Vial) 2 ml PRN 1X PRN ID PRIOR TO IV START; Start 01/01/17 at 07:00; Stop 01/02/17 at 06:59; Status DC Hydromorphone HCl (Dilaudid) 0.5 mg PRN Q10MIN PRN IV SEV PAIN, Second choice; Start 01/01/17 at 07:00; Stop 01/02/17 at 06:59; Status DC Prochlorperazine Edisylate (Compazine) 5 mg PACU PRN PRN IV NAUSEA, MRX1; Start 01/01/17 at 07:00; Stop 01/02/17 at 06:59; Status DC Cefoxitin Sodium 2 gm/Dextrose 100 ml @ 200 mls/hr 1X PREOP PRN IV ABX Last administered on 01/01/17t 12:35; Start 01/01/17 at 06:00; Stop 01/06/17 at 15: 00; Status DC Dexamethasone Sodium Phosphate (Decadron) 20 mg STK-MED ONCE .ROUTE ; Start at 09:25; Stop 01/01/17 at 09:26; Status DC Lidocaine HCl (Lidocaine Pf 2% Vial) 5 ml STK-MED ONCE .ROUTE ; Start 01/01/17 at 09:25; Stop 01/01/17 at 09:26; Status DC Ondansetron HCl (Zofran) 4 mg STK-MED ONCE .ROUTE ; Start 01/01/17 at 09:25; Stop 01/01/17 at 09:26; Status DC Propofol 20 ml @ As Directed STK-MED ONCE IV ; Start 01/01/17 at 09:25; Stop 01/01/17 at 09:26; Status DC Fentanyl Citrate (Fentanyl 2ml Vial) 100 mcg STK-MED ONCE .ROUTE ; Start at 09:25; Stop 01/01/17 at 09:26; Status DC Rocuronium [place] (Zemuron) 50 mg STK-MED ONCE .ROUTE ; Start 01/01/17 at 09: 26; Stop 01/01/17 at 09:27; Status DC Phenylephrine HCl 1 mg STK-MED ONCE IV ; Start 01/01/17 at 10:27; Stop at 10:28; Status DC Bupivacaine HCl (Sensorcaine Mpf 0.25%) 30 ml STK-MED ONCE .ROUTE ; Start 01/01 at 10:49; Stop 01/01/17 at 10:50; Status DC Lidocaine HCl (Xylocaine-Mpf 1% Vial) 5 ml STK-MED ONCE .ROUTE ; Start at 10:50; Stop 01/01/17 at 10:51; Status DC Phenylephrine HCl (Leroy-Synephrine Inj) 10 mg STK-MED ONCE .ROUTE ; Start at 11:11; Stop 01/01/17 at 11:12; Status DC Ephedrine Sulfate (Akovaz) 50 mg STK-MED ONCE .ROUTE ; Start 01/01/17 at 11:18 ; Stop 01/01/17 at 11:19; Status DC Rocuronium [place] (Zemuron) 100 mg STK-MED ONCE .ROUTE ; Start 01/01/17 at 11: 30; Stop 01/01/17 at 11:31; Status DC Cefoxitin Sodium 2 gm/Dextrose 100 ml @ 200 mls/hr 1X ONCE IV ; Start at 12:15; Stop 01/01/17 at 12:44; Status Cancel Cefoxitin Sodium 100 ml @ As Directed STK-MED ONCE IV ; Start 01/01/17 at 11: 17; Stop 01/01/17 at 12:17; Status DC Fentanyl Citrate (Fentanyl 2ml Vial) 100 mcg STK-MED ONCE .ROUTE ; Start at 12:24; Stop 01/01/17 at 12:25; Status DC Sodium Chloride 39.95 ml/ Hydromorphone HCl 0.5 mg/ Ropivacaine 10 ml/ Epidural Dosage Infused (Pha) 50 ml @ 0 mls/hr CONT PRN EP Per protocol Last administered on 01/04/17t 06:38; Start 01/01/17 at 12:30 Sodium Chloride 40 ml/ Hydromorphone HCl 0.5 mg/ Ropivacaine 10 ml/ Epidural Dosage Infused (Pha) 50.05 ml @ 0 mls/hr 1X ONCE EP ; Start 01/05/17 at 18:30 ; Stop 01/05/17 at 18:31; Status UNV Sevoflurane (Ultane) 90 ml STK-MED ONCE IH ; Start 01/01/17 at 13:02; Stop at 13:03; Status DC Cefoxitin Sodium 50 ml @ 100 mls/hr 1X ONCE IV Last administered on 14:35; Start 01/01/17 at 14:15; Stop 01/01/17 at 14:44; Status DC Albumin Human 100 ml @ As Directed STK-MED ONCE IV ; Start 01/01/17 at 14:25; Stop 01/01/17 at 14:26; Status DC Glycopyrrolate (Robinul) 1 mg STK-MED ONCE .ROUTE ; Start 01/01/17 at 15:59; Stop 01/01/17 at 16:00; Status DC Neostigmine Methylsulfate 5 mg STK-MED ONCE .ROUTE ; Start 01/01/17 at 15:59; Stop 01/01/17 at 16:00; Status DC Famotidine (Pepcid) 20 mg BID IVP Last administered on 01/07/17 20:18; Start 01/01/17 at 21:00; Stop 01/08/17 at 08:44; Status DC Heparin Sodium (Porcine) (Heparin Sq) 5,000 unit Q12HR SQ Last administered on 01/09/17 08:58; Start 01/01/17 at 21:00 Sodium Chloride (Normal Saline Flush) 3 ml QSHIFT PRN IV AFTER MEDS AND BLOOD DRAWS; Start 01/01/17 at 16:30 Ringer's Solution 1,000 ml @ 100 mls/hr Q10H IV Last administered on 02:38; Start 01/01/17 at 16:26; Stop 01/08/17 at 09:47; Status DC Ondansetron HCl (Zofran) 4 mg PRN Q6HRS PRN IV NAUESA, 1ST CHOICE Last administered on 01/04/17 21:49; Start 01/01/17 at 16:30 Diphenhydramine HCl (Benadryl) 25 mg PRN Q6HRS PRN IVP ITCHING Last administered on 01/02/17 10:07; Start 01/02/17 at 10:00 Oxycodone/ Acetaminophen (Percocet 5/325) 1 tab PRN Q4HRS PRN PO PAIN Last administered on 01/07/17 11:24; Start 01/05/17 at 10:00 Docusate Sodium (Colace) 100 mg DAILY PO Last administered on 01/09/17 08:49; Start 01/05/17 at 10:00 Sodium Chloride (Saline Mist Nasal) 1 henry PRN Q1HR PRN NS NASAL CONGESTION Last administered on 01/07/17 12:49; Start 01/07/17 at 10:00 Hydralazine HCl (Apresoline Inj) 10 mg PRN Q4HRS PRN IVP ELEVATED BP, SEE COMMENTS; Start 01/07/17 at 15:30 Levothyroxine Sodium 25 mcg/ Sodium Chloride 5 ml @ 100 mls/hr DAILY IVP Last administered on 01/07/17 16:27; Start 01/07/17 at 16:00; Stop 01/08/17 at 08:44 ; Status DC Amlodipine Besylate (Norvasc) 5 mg DAILY PO Last administered on 01/09/17 08: 49; Start 01/08/17 at 09:00 Fluticasone Propionate (Flonase) 1 spray PRN DAILY PRN NS ALLERGIES; Start 01/08/17 at 08:45 Levothyroxine Sodium (Synthroid) 50 mcg DAILY06 PO Last administered on 05:52; Start 01/08/17 at 09:00 Lisinopril (Prinivil) 10 mg DAILY PO Last administered on 01/09/17 08:49; Start 01/08/17 at 09:00 Pantoprazole Sodium (Protonix) 40 mg DAILYAC PO Last administered on 01/09/17 08:48; Start 01/08/17 at 09:00 Ferrous Sulfate (Feosol) 325 mg DAILYWBKFT PO Last administered on 01/09/17 08 :50; Start 01/08/17 at 09:00 Cetirizine HCl (ZyrTEC) 10 mg DAILY PO Last administered on 01/09/17 08:49; Start 01/08/17 at 09:00 Multivitamins (Thera M Plus) 1 tab DAILY PO Last administered on 01/09/17 08: 49; Start 01/09/17 at 09:00 Atorvastatin Calcium (Lipitor) 5 mg QHS PO Last administered on 01/08/17 20:53 ; Start 01/08/17 at 21:00 Ciprofloxacin (Cipro) 500 mg BID PO Last administered on 01/09/17t 11:03; Start 01/09/17 at 11:30; Stop 01/09/17 at 11:30; Status DC Phenazopyridine HCl (Pyridium) 200 mg PRN TID PRN PO URINARY PAIN; Start at 11:15; Stop 01/09/17 at 11:15; Status DC Phenazopyridine HCl (Pyridium) 200 mg TID PO ; Start 01/09/17 at 11:15 Ceftriaxone Sodium 1 gm/ Dextrose 50 ml @ 100 mls/hr Q24H IV ; Start 01/09/17 at 11:15; Status UNV Ceftriaxone Sodium (Rocephin) 1 gm Q24H IVP ; Start 01/09/17 at 12:00 Active Scripts Active Protonix (Pantoprazole Sodium) 40 Mg Tablet.dr 1 Tab PO DAILY Reported Ferralet 90 Dual-Iron Tablet (Iron, Carb & Gluc/Fa/B12/C/Dss) 1 Each Tablet 1 Tab PO DAILY Multivitamins (Multivitamin) 1 Each Tablet 1 Tab PO DAILY Loratadine 10 Mg Tablet 1 Tab PO DAILY Fluticasone Propionate Nasal Ancram (Fluticasone Propionate) 16 Gm Ancram.susp 1 Ancram NS DAILY PRN Levothyroxine Sodium 50 Mcg Tablet 1 Tab PO DAILY Lisinopril 10 Mg Tablet 1 Tab PO DAILY Pravastatin Sodium 10 Mg Tablet 1 Tab PO DAILY Amlodipine Besylate 5 Mg Tablet 5 Mg PO DAILY Vitals/I & O Vital Sign - Last 24 Hours 01/08/17 01/08/17 01/08/17 01/08/17 15:20 19:00 20:00 23:00 Temp 98.2 97.5 98.2 98.2 97.5 98.2 Pulse 108 94 96 Resp 18 32 28 B/P (MAP) 173/110 (131) 168/87 (114) 157/80 (105) Pulse Ox 93 96 94 O2 Delivery Room Air Room Air Room Air Room Air 01/09/17 01/09/17 01/09/17 01/09/17 03:00 07:00 07:45 08:49 Temp 98.3 97.6 98.3 97.6 Pulse 91 88 88 Resp 28 18 B/P (MAP) 146/74 (98) 147/18 (61) 147/78 Pulse Ox 95 97 O2 Delivery Room Air Room Air Room Air 01/09/17 08:49 Pulse 88 B/P (MAP) 147/78 Intake and Output 01/09/17 01/09/17 01/10/17 15:00 23:00 07:00 Intake Total 250 ml Balance 250 ml SONYA ORR MD Jan 09, 2017 12:00
[2017-01-09] MEDS: PHENAZOPYRIDINE 200 MG TABLET. PO SCH ×2 (12:28→21:31)
[2017-01-09] MEDS: cefTRIAXone IV Push 1 GM VIAL. IVP SCH (12:28)
[2017-01-09] MEDS: ONDANSETRON PF 4 MG/2 ML VIAL. IV PRN ×2 (14:24→21:30)
[2017-01-09 15:46] VITALS: BP 151/85
[2017-01-09 19:30] VITALS: BP 156/80
--- NOTE | 2017-01-09 20:24 | PDOC ---
SURGICAL PROGRESS NOTE Subjective Pt with c/o some emesis, which she describes as phlegm, frequent voiding, passed stools Vital Signs Vital Signs Date Time Temp Pulse Resp B/P (MAP) Pulse Ox O2 Delivery O2 Flow Rate FiO2 01/09/17 19:30 98.2 90 18 156/80 (105) 97 Room Air 98.2 I&O Intake and Output 01/10/17 07:00 Intake Total 250 ml Output Total 350 ml Balance -100 ml Intake Oral 250 ml Output Urine Total 350 ml General: Alert, Oriented X3, Cooperative, No acute distress Abdomen: Soft, No tenderness, Other (BOZENA serosang) Labs Laboratory Tests Test 01/08/17 05:25 01/09/17 03:35 White Blood Count 12.4 x10^3/uL (4.0-11.0) Red Blood Count 3.80 x10^6/uL (3.50-5.40) Hemoglobin 9.8 g/dL (12.0-15.5) Hematocrit 30.5 % (36.0-47.0) Mean Corpuscular Volume 80 fL (79-100) Mean Corpuscular Hemoglobin 26 pg (25-35) Mean Corpuscular Hemoglobin Concent 32 g/dL (31-37) Red Cell Distribution Width 21.8 % (11.5-14.5) Platelet Count 420 x10^3/uL (140-400) Neutrophils (%) (Auto) 75 % (31-73) Lymphocytes (%) (Auto) 14 % (24-48) Monocytes (%) (Auto) 8 % (0-9) Eosinophils (%) (Auto) 3 % (0-3) Basophils (%) (Auto) 1 % (0-3) Neutrophils # (Auto) 9.3 x10^3uL (1.8-7.7) Lymphocytes # (Auto) 1.7 x10^3/uL (1.0-4.8) Monocytes # (Auto) 1.0 x10^3/uL (0.0-1.1) Eosinophils # (Auto) 0.4 x10^3/uL (0.0-0.7) Basophils # (Auto) 0.1 x10^3/uL (0.0-0.2) Sodium Level 139 mmol/L (136-145) Potassium Level 3.3 mmol/L (3.5-5.1) Chloride Level 103 mmol/L (98-107) Carbon Dioxide Level 26 mmol/L (21-32) Anion Gap 10 (6-14) Blood Urea Nitrogen 9 mg/dL (7-20) Creatinine 0.9 mg/dL (0.6-1.0) Estimated GFR (Cockcroft-Gault) 61.9 Glucose Level 98 mg/dL (70-99) Calcium Level 8.3 mg/dL (8.5-10.1) Urine Collection Type Unknown Urine Color Yellow Urine Clarity Turbid Urine pH 7.5 Urine Specific [place] 1.015 Urine Protein 30 mg/dL (NEG-TRACE) Urine Glucose (UA) Negative mg/dL (NEG) Urine Ketones (Stick) >=80 mg/dL (NEG) Urine Blood Large (NEG) Urine Nitrite Negative (NEG) Urine Bilirubin Negative (NEG) Urine Urobilinogen Dipstick 2.0 mg/dL (0.2 mg/dL) Urine Leukocyte Esterase Large (NEG) Urine RBC Occ /HPF (0-2) Urine WBC Tntc /HPF (0-4) Urine Squamous Epithelial Cells Occ /LPF Urine Renal Epithelial Cells Occ /LPF Urine Bacteria Many /HPF (0-FEW) Urine Mucus Slight /LPF Laboratory Tests Test 01/09/17 03:35 Urine Collection Type Unknown Urine Color Yellow Urine Clarity Turbid Urine pH 7.5 Urine Specific [place] 1.015 Urine Protein 30 mg/dL (NEG-TRACE) Urine Glucose (UA) Negative mg/dL (NEG) Urine Ketones (Stick) >=80 mg/dL (NEG) Urine Blood Large (NEG) Urine Nitrite Negative (NEG) Urine Bilirubin Negative (NEG) Urine Urobilinogen Dipstick 2.0 mg/dL (0.2 mg/dL) Urine Leukocyte Esterase Large (NEG) Urine RBC Occ /HPF (0-2) Urine WBC Tntc /HPF (0-4) Urine Squamous Epithelial Cells Occ /LPF Urine Renal Epithelial Cells Occ /LPF Urine Bacteria Many /HPF (0-FEW) Urine Mucus Slight /LPF Problem List s/p whipple clears and G-tube to suction start TPN abx started for uti Problems: BA ALMONTE MD Jan 09, 2017 20:24
[2017-01-09] MEDS: LACTOBACILLUS RHAMNOSUS GG 1 CAPSULE. PO SCH (21:31)
[2017-01-09] MEDS: ATORVASTATIN CALCIUM 10 MG TABLET. PO SCH (21:31)
[2017-01-09 23:06] VITALS: BP 152/82
[2017-01-10] VITALS (7 sets, daily range): BP systolic 102–148; BP diastolic 65–83
[2017-01-10] MEDS: LEVOTHYROXINE 50 MCG TABLET PO SCH (05:44)
[2017-01-10] MEDS: ONDANSETRON PF 4 MG/2 ML VIAL. IV PRN ×3 (06:09→21:22)
[2017-01-10 07:23] LABS: BASO # 0.1 x10^3/uL (0.0-0.2); BASO % 1 % (0-3); EOS % 2 % (0-3); HEMATOCRIT 30.6 % (36.0-47.0); HEMOGLOBIN 9.9 g/dL (12.0-15.5); LYMPH # 2.1 x10^3/uL (1.0-4.8); LYMPH % 15 % (24-48); MEAN CORPUSCULAR HEMOGLOBIN 26 pg (25-35); MEAN CORPUSCULAR HGB CONC 32 g/dL (31-37); MEAN CORPUSCULAR VOLUME 81 fL (79-100); MONO % 6 % (0-9); NEUT % 76 % (31-73); PLATELET COUNT 469 x10^3/uL (140-400); RED CELL DISTRIBUTION WIDTH 21.4 % (11.5-14.5); WHITE BLOOD COUNT 13.7 x10^3/uL (4.0-11.0)
[2017-01-10] MEDS ORDERED: LIDOCAINE 1% / SOD BICARB 8.4% 20 ML VIAL. IJ ONE ×2 (08:17→08:30)
[2017-01-10] MEDS: LACTOBACILLUS RHAMNOSUS GG 1 CAPSULE. PO SCH ×2 (09:54→21:28)
[2017-01-10] MEDS: CETIRIZINE HCL 10 MG TABLET. PO SCH ×2 (09:55→10:20)
[2017-01-10] MEDS: PANTOPRAZOLE 40 MG TABLET.DR. PO SCH (09:55)
[2017-01-10] MEDS: FERROUS SULFATE 325 MG TABLET. PO SCH (09:55)
[2017-01-10] MEDS: DOCUSATE SODIUM 100 MG CAPSULE. PO SCH ×2 (09:55→10:19)
[2017-01-10] MEDS: MULTIVITAMIN with MINERAL TABLET. PO SCH ×2 (09:55→10:19)
[2017-01-10] MEDS: PHENAZOPYRIDINE 200 MG TABLET. PO SCH ×3 (09:55→21:28)
[2017-01-10] MEDS: amLODIPine BESYLATE 5 MG TABLET PO SCH (09:55)
[2017-01-10] MEDS: LISINOPRIL 10 MG TABLET PO SCH (09:56)
[2017-01-10] MEDS: HEPARIN PF for SUB-Q USE 5,000 UNIT/0.5 ML VIAL. SQ SCH ×2 (09:58→21:26)
[2017-01-10 10:45] LABS: ANISOCYTOSIS MOD; PLT ESTIMATE INCREASED (ADEQUATE)
--- NOTE | 2017-01-10 11:37 | PDOC ---
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 htn hld hypothyroidism SIRS with leukocytosis post op, reactive likely morbid obesity UTI History of Present Illness History of Present Illness NAuseated, bucket at beside WBC 13, no fevers, VS ok On liquid diet NOw has PICC to start TPN as per primary service On IV rocpehin for uti Urine cx pending PLAN: Check labs marlyn, CBC, CMP, lipase, mag, phospHOrus COnt IV rocephin for now IF labs get worse or spikes a fever, might need to broaden IV abx Await urine cx Cont IS coNT pt/ot AMBULATE AD PERRY Tpn per pharmacy Vitals Vitals Vital Signs Date Time Temp Pulse Resp B/P (MAP) Pulse Ox O2 Delivery O2 Flow Rate FiO2 01/10/17 09:56 81 138/80 01/10/17 07:00 98.0 18 94 Room Air 98.0 Physical Exam General: Alert, Oriented X3, Cooperative, No acute distress Heart: Normal S1, Normal S2 Abdomen: Soft, No tenderness, Other (BOZENA serosang) Extremities: No clubbing, No cyanosis Skin: No rashes, No breakdown Labs LABS Laboratory Tests Test 01/10/17 05:45 White Blood Count 13.7 x10^3/uL (4.0-11.0) Red Blood Count 3.80 x10^6/uL (3.50-5.40) Hemoglobin 9.9 g/dL (12.0-15.5) Hematocrit 30.6 % (36.0-47.0) Mean Corpuscular Volume 81 fL (79-100) Mean Corpuscular Hemoglobin 26 pg (25-35) Mean Corpuscular Hemoglobin Concent 32 g/dL (31-37) Red Cell Distribution Width 21.4 % (11.5-14.5) Platelet Count 469 x10^3/uL (140-400) Neutrophils (%) (Auto) 76 % (31-73) Lymphocytes (%) (Auto) 15 % (24-48) Monocytes (%) (Auto) 6 % (0-9) Eosinophils (%) (Auto) 2 % (0-3) Basophils (%) (Auto) 1 % (0-3) Neutrophils # (Auto) 10.4 x10^3uL (1.8-7.7) Lymphocytes # (Auto) 2.1 x10^3/uL (1.0-4.8) Monocytes # (Auto) 0.8 x10^3/uL (0.0-1.1) Eosinophils # (Auto) 0.3 x10^3/uL (0.0-0.7) Basophils # (Auto) 0.1 x10^3/uL (0.0-0.2) Platelet Estimate Increased (ADEQUATE) Large Platelets Few Anisocytosis Mod Review of Systems Review of Systems weak, nasueated, vomiting, abd pain, no CP, no SOA Comment Review of Relevant I have reviewed the following items alonzo (where applicable) has been applied. Labs Laboratory Tests Test 01/09/17 03:35 01/10/17 05:45 Urine Collection Type Unknown Urine Color Yellow Urine Clarity Turbid Urine pH 7.5 Urine Specific [place] 1.015 Urine Protein 30 mg/dL (NEG-TRACE) Urine Glucose (UA) Negative mg/dL (NEG) Urine Ketones (Stick) >=80 mg/dL (NEG) Urine Blood Large (NEG) Urine Nitrite Negative (NEG) Urine Bilirubin Negative (NEG) Urine Urobilinogen Dipstick 2.0 mg/dL (0.2 mg/dL) Urine Leukocyte Esterase Large (NEG) Urine RBC Occ /HPF (0-2) Urine WBC Tntc /HPF (0-4) Urine Squamous Epithelial Cells Occ /LPF Urine Renal Epithelial Cells Occ /LPF Urine Bacteria Many /HPF (0-FEW) Urine Mucus Slight /LPF White Blood Count 13.7 x10^3/uL (4.0-11.0) Red Blood Count 3.80 x10^6/uL (3.50-5.40) Hemoglobin 9.9 g/dL (12.0-15.5) Hematocrit 30.6 % (36.0-47.0) Mean Corpuscular Volume 81 fL (79-100) Mean Corpuscular Hemoglobin 26 pg (25-35) Mean Corpuscular Hemoglobin Concent 32 g/dL (31-37) Red Cell Distribution Width 21.4 % (11.5-14.5) Platelet Count 469 x10^3/uL (140-400) Neutrophils (%) (Auto) 76 % (31-73) Lymphocytes (%) (Auto) 15 % (24-48) Monocytes (%) (Auto) 6 % (0-9) Eosinophils (%) (Auto) 2 % (0-3) Basophils (%) (Auto) 1 % (0-3) Neutrophils # (Auto) 10.4 x10^3uL (1.8-7.7) Lymphocytes # (Auto) 2.1 x10^3/uL (1.0-4.8) Monocytes # (Auto) 0.8 x10^3/uL (0.0-1.1) Eosinophils # (Auto) 0.3 x10^3/uL (0.0-0.7) Basophils # (Auto) 0.1 x10^3/uL (0.0-0.2) Platelet Estimate Increased (ADEQUATE) Large Platelets Few Anisocytosis Mod Laboratory Tests Test 01/10/17 05:45 White Blood Count 13.7 x10^3/uL (4.0-11.0) Red Blood Count 3.80 x10^6/uL (3.50-5.40) Hemoglobin 9.9 g/dL (12.0-15.5) Hematocrit 30.6 % (36.0-47.0) Mean Corpuscular Volume 81 fL (79-100) Mean Corpuscular Hemoglobin 26 pg (25-35) Mean Corpuscular Hemoglobin Concent 32 g/dL (31-37) Red Cell Distribution Width 21.4 % (11.5-14.5) Platelet Count 469 x10^3/uL (140-400) Neutrophils (%) (Auto) 76 % (31-73) Lymphocytes (%) (Auto) 15 % (24-48) Monocytes (%) (Auto) 6 % (0-9) Eosinophils (%) (Auto) 2 % (0-3) Basophils (%) (Auto) 1 % (0-3) Neutrophils # (Auto) 10.4 x10^3uL (1.8-7.7) Lymphocytes # (Auto) 2.1 x10^3/uL (1.0-4.8) Monocytes # (Auto) 0.8 x10^3/uL (0.0-1.1) Eosinophils # (Auto) 0.3 x10^3/uL (0.0-0.7) Basophils # (Auto) 0.1 x10^3/uL (0.0-0.2) Platelet Estimate Increased (ADEQUATE) Large Platelets Few Anisocytosis Mod Medications Current Medications Ondansetron HCl (Zofran) 4 mg PRN Q6HRS PRN IV NAUSEA/VOMITING; Start at 07:00; Stop 01/02/17 at 06:59; Status DC Fentanyl Citrate (Fentanyl 2ml Vial) 25 mcg PRN Q5MIN PRN IV MILD PAIN; Start 01/01/17 at 07:00; Stop 01/02/17 at 06:59; Status DC Fentanyl Citrate (Fentanyl 2ml Vial) 50 mcg PRN Q5MIN PRN IV MODERATE PAIN; Start 01/01/17 at 07:00; Stop 01/02/17 at 06:59; Status DC Morphine Sulfate 1 mg PRN Q10MIN PRN IV SEVERE PAIN; Start 01/01/17 at 07:00; Stop 01/02/17 at 06:59; Status DC Ringer's Solution 1,000 ml @ 30 mls/hr Q24H IV Last administered on 08:35; Start 01/01/17 at 07:00; Stop 01/01/17 at 18:59; Status DC Lidocaine HCl (Xylocaine-Mpf 1% Vial) 2 ml PRN 1X PRN ID PRIOR TO IV START; Start 01/01/17 at 07:00; Stop 01/02/17 at 06:59; Status DC Hydromorphone HCl (Dilaudid) 0.5 mg PRN Q10MIN PRN IV SEV PAIN, Second choice; Start 01/01/17 at 07:00; Stop 01/02/17 at 06:59; Status DC Prochlorperazine Edisylate (Compazine) 5 mg PACU PRN PRN IV NAUSEA, MRX1; Start 01/01/17 at 07:00; Stop 01/02/17 at 06:59; Status DC Cefoxitin Sodium 2 gm/Dextrose 100 ml @ 200 mls/hr 1X PREOP PRN IV ABX Last administered on 01/01/17t 12:35; Start 01/01/17 at 06:00; Stop 01/06/17 at 15: 00; Status DC Dexamethasone Sodium Phosphate (Decadron) 20 mg STK-MED ONCE .ROUTE ; Start at 09:25; Stop 01/01/17 at 09:26; Status DC Lidocaine HCl (Lidocaine Pf 2% Vial) 5 ml STK-MED ONCE .ROUTE ; Start 01/01/17 at 09:25; Stop 01/01/17 at 09:26; Status DC Ondansetron HCl (Zofran) 4 mg STK-MED ONCE .ROUTE ; Start 01/01/17 at 09:25; Stop 01/01/17 at 09:26; Status DC Propofol 20 ml @ As Directed STK-MED ONCE IV ; Start 01/01/17 at 09:25; Stop 01/01/17 at 09:26; Status DC Fentanyl Citrate (Fentanyl 2ml Vial) 100 mcg STK-MED ONCE .ROUTE ; Start at 09:25; Stop 01/01/17 at 09:26; Status DC Rocuronium [place] (Zemuron) 50 mg STK-MED ONCE .ROUTE ; Start 01/01/17 at 09: 26; Stop 01/01/17 at 09:27; Status DC Phenylephrine HCl 1 mg STK-MED ONCE IV ; Start 01/01/17 at 10:27; Stop at 10:28; Status DC Bupivacaine HCl (Sensorcaine Mpf 0.25%) 30 ml STK-MED ONCE .ROUTE ; Start 01/01 at 10:49; Stop 01/01/17 at 10:50; Status DC Lidocaine HCl (Xylocaine-Mpf 1% Vial) 5 ml STK-MED ONCE .ROUTE ; Start at 10:50; Stop 01/01/17 at 10:51; Status DC Phenylephrine HCl (Leroy-Synephrine Inj) 10 mg STK-MED ONCE .ROUTE ; Start at 11:11; Stop 01/01/17 at 11:12; Status DC Ephedrine Sulfate (Akovaz) 50 mg STK-MED ONCE .ROUTE ; Start 01/01/17 at 11:18 ; Stop 01/01/17 at 11:19; Status DC Rocuronium [place] (Zemuron) 100 mg STK-MED ONCE .ROUTE ; Start 01/01/17 at 11: 30; Stop 01/01/17 at 11:31; Status DC Cefoxitin Sodium 2 gm/Dextrose 100 ml @ 200 mls/hr 1X ONCE IV ; Start at 12:15; Stop 01/01/17 at 12:44; Status Cancel Cefoxitin Sodium 100 ml @ As Directed STK-MED ONCE IV ; Start 01/01/17 at 11: 17; Stop 01/01/17 at 12:17; Status DC Fentanyl Citrate (Fentanyl 2ml Vial) 100 mcg STK-MED ONCE .ROUTE ; Start at 12:24; Stop 01/01/17 at 12:25; Status DC Sodium Chloride 39.95 ml/ Hydromorphone HCl 0.5 mg/ Ropivacaine 10 ml/ Epidural Dosage Infused (Pha) 50 ml @ 0 mls/hr CONT PRN EP Per protocol Last administered on 01/04/17 06:38; Start 01/01/17 at 12:30 Sodium Chloride 40 ml/ Hydromorphone HCl 0.5 mg/ Ropivacaine 10 ml/ Epidural Dosage Infused (Pha) 50.05 ml @ 0 mls/hr 1X ONCE EP ; Start 01/05/17 at 18:30 ; Stop 01/05/17 at 18:31; Status UNV Sevoflurane (Ultane) 90 ml STK-MED ONCE IH ; Start 01/01/17 at 13:02; Stop at 13:03; Status DC Cefoxitin Sodium 50 ml @ 100 mls/hr 1X ONCE IV Last administered on 14:35; Start 01/01/17 at 14:15; Stop 01/01/17 at 14:44; Status DC Albumin Human 100 ml @ As Directed STK-MED ONCE IV ; Start 01/01/17 at 14:25; Stop 01/01/17 at 14:26; Status DC Glycopyrrolate (Robinul) 1 mg STK-MED ONCE .ROUTE ; Start 01/01/17 at 15:59; Stop 01/01/17 at 16:00; Status DC Neostigmine Methylsulfate 5 mg STK-MED ONCE .ROUTE ; Start 01/01/17 at 15:59; Stop 01/01/17 at 16:00; Status DC Famotidine (Pepcid) 20 mg BID IVP Last administered on 01/07/17 20:18; Start 01/01/17 at 21:00; Stop 01/08/17 at 08:44; Status DC Heparin Sodium (Porcine) (Heparin Sq) 5,000 unit Q12HR SQ Last administered on 01/10/17 09:58; Start 01/01/17 at 21:00 Sodium Chloride (Normal Saline Flush) 3 ml QSHIFT PRN IV AFTER MEDS AND BLOOD DRAWS; Start 01/01/17 at 16:30 Ringer's Solution 1,000 ml @ 100 mls/hr Q10H IV Last administered on 02:38; Start 01/01/17 at 16:26; Stop 01/08/17 at 09:47; Status DC Ondansetron HCl (Zofran) 4 mg PRN Q6HRS PRN IV NAUESA, 1ST CHOICE Last administered on 01/10/17 09:54; Start 01/01/17 at 16:30 Diphenhydramine HCl (Benadryl) 25 mg PRN Q6HRS PRN IVP ITCHING Last administered on 01/02/17 10:07; Start 01/02/17 at 10:00 Oxycodone/ Acetaminophen (Percocet 5/325) 1 tab PRN Q4HRS PRN PO PAIN Last administered on 01/07/17 11:24; Start 01/05/17 at 10:00 Docusate Sodium (Colace) 100 mg DAILY PO Last administered on 01/09/17 08:49; Start 01/05/17 at 10:00 Sodium Chloride (Saline Mist Nasal) 1 henry PRN Q1HR PRN NS NASAL CONGESTION Last administered on 01/07/17 12:49; Start 01/07/17 at 10:00 Hydralazine HCl (Apresoline Inj) 10 mg PRN Q4HRS PRN IVP ELEVATED BP, SEE COMMENTS; Start 01/07/17 at 15:30 Levothyroxine Sodium 25 mcg/ Sodium Chloride 5 ml @ 100 mls/hr DAILY IVP Last administered on 01/07/17 16:27; Start 01/07/17 at 16:00; Stop 01/08/17 at 08:44 ; Status DC Amlodipine Besylate (Norvasc) 5 mg DAILY PO Last administered on 01/10/17 09: 55; Start 01/08/17 at 09:00 Fluticasone Propionate (Flonase) 1 spray PRN DAILY PRN NS ALLERGIES; Start 01/08/17 at 08:45 Levothyroxine Sodium (Synthroid) 50 mcg DAILY06 PO Last administered on 05:44; Start 01/08/17 at 09:00 Lisinopril (Prinivil) 10 mg DAILY PO Last administered on 01/10/17 09:56; Start 01/08/17 at 09:00 Pantoprazole Sodium (Protonix) 40 mg DAILYAC PO Last administered on 01/10/17 09:55; Start 01/08/17 at 09:00 Ferrous Sulfate (Feosol) 325 mg DAILYWBKFT PO Last administered on 01/10/17 09 :55; Start 01/08/17 at 09:00 Cetirizine HCl (ZyrTEC) 10 mg DAILY PO Last administered on 01/09/17 08:49; Start 01/08/17 at 09:00 Multivitamins (Thera M Plus) 1 tab DAILY PO Last administered on 01/09/17 08: 49; Start 01/09/17 at 09:00 Atorvastatin Calcium (Lipitor) 5 mg QHS PO Last administered on 01/09/17 21:31 ; Start 01/08/17 at 21:00 Ciprofloxacin (Cipro) 500 mg BID PO Last administered on 01/09/17 11:03; Start 01/09/17 at 11:30; Stop 01/09/17 at 11:30; Status DC Phenazopyridine HCl (Pyridium) 200 mg PRN TID PRN PO URINARY PAIN; Start at 11:15; Stop 01/09/17 at 11:15; Status DC Phenazopyridine HCl (Pyridium) 200 mg TID PO Last administered on 01/10/17 09: 55; Start 01/09/17 at 11:15 Ceftriaxone Sodium 1 gm/ Dextrose 50 ml @ 100 mls/hr Q24H IV ; Start 01/09/17 at 11:15; Status UNV Ceftriaxone Sodium (Rocephin) 1 gm Q24H IVP Last administered on 01/09/17 12: 28; Start 01/09/17 at 12:00 Lactobacillus Rhamnosus (Culturelle) 1 cap BID PO Last administered on 11/8/ 17at 09:54; Start 01/09/17 at 21:00 Lidocaine/Sodium Bicarbonate (Buffered Lidocaine 1%) 20 ml STK-MED ONCE IJ ; Start 01/10/17 at 08:17; Stop 01/10/17 at 08:18; Status DC Lidocaine/Sodium Bicarbonate (Buffered Lidocaine 1%) 3 ml 1X ONCE IJ Last administered on 01/10/17t 08:30; Start 01/10/17 at 08:30; Stop 01/10/17 at 08:33 ; Status DC Info 1 each PRN DAILY PRN MC SEE COMMENTS; Start 01/10/17 at 11:45; Status UNV Active Scripts Active Protonix (Pantoprazole Sodium) 40 Mg Tablet.dr 1 Tab PO DAILY Reported Ferralet 90 Dual-Iron Tablet (Iron, Carb & Gluc/Fa/B12/C/Dss) 1 Each Tablet 1 Tab PO DAILY Multivitamins (Multivitamin) 1 Each Tablet 1 Tab PO DAILY Loratadine 10 Mg Tablet 1 Tab PO DAILY Fluticasone Propionate Nasal [place] (Fluticasone Propionate) 16 Gm [place].susp 1 [place] NS DAILY PRN Levothyroxine Sodium 50 Mcg Tablet 1 Tab PO DAILY Lisinopril 10 Mg Tablet 1 Tab PO DAILY Pravastatin Sodium 10 Mg Tablet 1 Tab PO DAILY Amlodipine Besylate 5 Mg Tablet 5 Mg PO DAILY Vitals/I & O Vital Sign - Last 24 Hours 01/09/17 01/09/17 01/09/17 01/09/17 15:46 19:30 20:00 23:06 Temp 98.0 98.2 98.2 98.0 98.2 98.2 Pulse 88 90 89 Resp 18 18 B/P (MAP) 151/85 (107) 156/80 (105) 152/82 (105) Pulse Ox 94 97 94 O2 Delivery Room Air Room Air Room Air Room Air 01/10/17 01/10/17 01/10/17 01/10/17 02:59 07:00 09:55 09:56 Temp 98.3 98.0 98.3 98.0 Pulse 84 81 81 81 Resp 18 18 B/P (MAP) 148/82 (104) 138/80 (99) 138/80 138/80 Pulse Ox 94 94 O2 Delivery Room Air Room Air SONYA ORR MD Jan 10, 2017 11:37
[2017-01-10] MEDS: cefTRIAXone IV Push 1 GM VIAL. IVP SCH (11:52)
--- NOTE | 2017-01-10 12:17 | RAD ---
Exam: Fluoroscopic and ultrasound guided right percutaneous inserted central venous catheter placement 01/10/2017 12:13 PM .Indication: need for TPN Technique: Informed oral and written consent were obtained. The right upper extremity was prepped and draped using sterile barrier technique. All elements of maximal sterile barrier technique including the use of a cap, mask, sterile gown, sterile gloves, large sterile sheet, appropriate hand hygiene, and 2% chlorhexidine for cutaneous antisepsis (or acceptable alternative antiseptic per current guidelines) were followed for this procedure.. Real-time ultrasound demonstrated a patent right basilic vein which was prepped and draped in usual sterile fashion. 1% lidocaine used for local anesthesia. Using real-time ultrasound guidance the access needle percutaneously punctured the selected right basilic vein. Reference ultrasound images were saved to the medical record. A guidewire was advanced through the needle to the cavoatrial junction, and a peel-away sheath placed. The catheter was cut to length and inserted through the peel-away sheath such that its tip is at the cavoatrial junction. The wire and sheath were removed, and the catheter secured in place, and a sterile dressing was applied. Catheter was found to flush and aspirate normally. No immediate complications are identified. Fluoro time 0.2 minutes DOSE AREA PRODUCT: 1Gycm2 Impression: Ultrasound and fluoroscopically guided placement of a right upper extremity PICC line.
--- NOTE | 2017-01-10 12:32 | PDOC ---
PROGRESS NOTES Subjective Subjective HPI - Pancreatic adenocarcinoma. s/p endoscopic ultrasound-guided biopsy of the pancreatic head mass 12/13/16. s/p Whipple surgery 01/01/17- revealed [id number] stage IB. ROS - has n/v Objective Objective Vital Signs Date Time Temp Pulse Resp B/P (MAP) Pulse Ox O2 Delivery O2 Flow Rate FiO2 01/10/17 11:00 97.2 77 18 134/72 (92) 93 Room Air 97.2 01/07/17 20:00 2.0 Physical Exam Heart: Normal S1, Normal S2 General: Alert, Oriented X3, No acute distress Lungs: Clear to auscultation Neuro: Normal speech Psych/Mental Status: Mental status NL Assessment Assessment IMPRESSION AND PLAN: 1. Pancreatic adenocarcinoma. s/p endoscopic ultrasound-guided biopsy of the pancreatic head mass 12/13/16. s/p Whipple surgery 01/01/17- revealed T2N0M0 stage IB. Whipple procedure (specifically: pancreaticoduodenectomy, pylorus sparing, pancreaticogastrostomy with Buster en Y reconstruction to bile duct), G-tube placement. Positive margin and has perineural involvement. Plan adjuvant chemo in 4 weeks followed by radiation. I d/w Dr Swanson. 2. Obstructive jaundice secondary to pancreatic head mass. Improved. 3. Iron-deficiency anemia. s/p Venofer 500 mg IV x 1 dose on 11/27/2016. Hb 9.9, monitor. 4. N/v -management per Dr Swanson Comment Review of Relevant I have reviewed the following items alonzo (where applicable) has been applied. Labs Laboratory Tests Test 01/09/17 03:35 01/10/17 05:45 Urine Collection Type Unknown Urine Color Yellow Urine Clarity Turbid Urine pH 7.5 Urine Specific [place] 1.015 Urine Protein 30 mg/dL (NEG-TRACE) Urine Glucose (UA) Negative mg/dL (NEG) Urine Ketones (Stick) >=80 mg/dL (NEG) Urine Blood Large (NEG) Urine Nitrite Negative (NEG) Urine Bilirubin Negative (NEG) Urine Urobilinogen Dipstick 2.0 mg/dL (0.2 mg/dL) Urine Leukocyte Esterase Large (NEG) Urine RBC Occ /HPF (0-2) Urine WBC Tntc /HPF (0-4) Urine Squamous Epithelial Cells Occ /LPF Urine Renal Epithelial Cells Occ /LPF Urine Bacteria Many /HPF (0-FEW) Urine Mucus Slight /LPF White Blood Count 13.7 x10^3/uL (4.0-11.0) Red Blood Count 3.80 x10^6/uL (3.50-5.40) Hemoglobin 9.9 g/dL (12.0-15.5) Hematocrit 30.6 % (36.0-47.0) Mean Corpuscular Volume 81 fL (79-100) Mean Corpuscular Hemoglobin 26 pg (25-35) Mean Corpuscular Hemoglobin Concent 32 g/dL (31-37) Red Cell Distribution Width 21.4 % (11.5-14.5) Platelet Count 469 x10^3/uL (140-400) Neutrophils (%) (Auto) 76 % (31-73) Lymphocytes (%) (Auto) 15 % (24-48) Monocytes (%) (Auto) 6 % (0-9) Eosinophils (%) (Auto) 2 % (0-3) Basophils (%) (Auto) 1 % (0-3) Neutrophils # (Auto) 10.4 x10^3uL (1.8-7.7) Lymphocytes # (Auto) 2.1 x10^3/uL (1.0-4.8) Monocytes # (Auto) 0.8 x10^3/uL (0.0-1.1) Eosinophils # (Auto) 0.3 x10^3/uL (0.0-0.7) Basophils # (Auto) 0.1 x10^3/uL (0.0-0.2) Platelet Estimate Increased (ADEQUATE) Large Platelets Few Anisocytosis Mod Laboratory Tests Test 01/10/17 05:45 White Blood Count 13.7 x10^3/uL (4.0-11.0) Red Blood Count 3.80 x10^6/uL (3.50-5.40) Hemoglobin 9.9 g/dL (12.0-15.5) Hematocrit 30.6 % (36.0-47.0) Mean Corpuscular Volume 81 fL (79-100) Mean Corpuscular Hemoglobin 26 pg (25-35) Mean Corpuscular Hemoglobin Concent 32 g/dL (31-37) Red Cell Distribution Width 21.4 % (11.5-14.5) Platelet Count 469 x10^3/uL (140-400) Neutrophils (%) (Auto) 76 % (31-73) Lymphocytes (%) (Auto) 15 % (24-48) Monocytes (%) (Auto) 6 % (0-9) Eosinophils (%) (Auto) 2 % (0-3) Basophils (%) (Auto) 1 % (0-3) Neutrophils # (Auto) 10.4 x10^3uL (1.8-7.7) Lymphocytes # (Auto) 2.1 x10^3/uL (1.0-4.8) Monocytes # (Auto) 0.8 x10^3/uL (0.0-1.1) Eosinophils # (Auto) 0.3 x10^3/uL (0.0-0.7) Basophils # (Auto) 0.1 x10^3/uL (0.0-0.2) Platelet Estimate Increased (ADEQUATE) Large Platelets Few Anisocytosis Mod Medications Current Medications Ondansetron HCl (Zofran) 4 mg PRN Q6HRS PRN IV NAUSEA/VOMITING; Start at 07:00; Stop 01/02/17 at 06:59; Status DC Fentanyl Citrate (Fentanyl 2ml Vial) 25 mcg PRN Q5MIN PRN IV MILD PAIN; Start 01/01/17 at 07:00; Stop 01/02/17 at 06:59; Status DC Fentanyl Citrate (Fentanyl 2ml Vial) 50 mcg PRN Q5MIN PRN IV MODERATE PAIN; Start 01/01/17 at 07:00; Stop 01/02/17 at 06:59; Status DC Morphine Sulfate 1 mg PRN Q10MIN PRN IV SEVERE PAIN; Start 01/01/17 at 07:00; Stop 01/02/17 at 06:59; Status DC Ringer's Solution 1,000 ml @ 30 mls/hr Q24H IV Last administered on t 08:35; Start 01/01/17 at 07:00; Stop 01/01/17 at 18:59; Status DC Lidocaine HCl (Xylocaine-Mpf 1% Vial) 2 ml PRN 1X PRN ID PRIOR TO IV START; Start 01/01/17 at 07:00; Stop 01/02/17 at 06:59; Status DC Hydromorphone HCl (Dilaudid) 0.5 mg PRN Q10MIN PRN IV SEV PAIN, Second choice; Start 01/01/17 at 07:00; Stop 01/02/17 at 06:59; Status DC Prochlorperazine Edisylate (Compazine) 5 mg PACU PRN PRN IV NAUSEA, MRX1; Start 01/01/17 at 07:00; Stop 01/02/17 at 06:59; Status DC Cefoxitin Sodium 2 gm/Dextrose 100 ml @ 200 mls/hr 1X PREOP PRN IV ABX Last administered on 01/01/17t 12:35; Start 01/01/17 at 06:00; Stop 01/06/17 at 15: 00; Status DC Dexamethasone Sodium Phosphate (Decadron) 20 mg STK-MED ONCE .ROUTE ; Start at 09:25; Stop 01/01/17 at 09:26; Status DC Lidocaine HCl (Lidocaine Pf 2% Vial) 5 ml STK-MED ONCE .ROUTE ; Start 01/01/17 at 09:25; Stop 01/01/17 at 09:26; Status DC Ondansetron HCl (Zofran) 4 mg STK-MED ONCE .ROUTE ; Start 01/01/17 at 09:25; Stop 01/01/17 at 09:26; Status DC Propofol 20 ml @ As Directed STK-MED ONCE IV ; Start 01/01/17 at 09:25; Stop 01/01/17 at 09:26; Status DC Fentanyl Citrate (Fentanyl 2ml Vial) 100 mcg STK-MED ONCE .ROUTE ; Start at 09:25; Stop 01/01/17 at 09:26; Status DC Rocuronium [place] (Zemuron) 50 mg STK-MED ONCE .ROUTE ; Start 01/01/17 at 09: 26; Stop 01/01/17 at 09:27; Status DC Phenylephrine HCl 1 mg STK-MED ONCE IV ; Start 01/01/17 at 10:27; Stop at 10:28; Status DC Bupivacaine HCl (Sensorcaine Mpf 0.25%) 30 ml STK-MED ONCE .ROUTE ; Start 01/01 at 10:49; Stop 01/01/17 at 10:50; Status DC Lidocaine HCl (Xylocaine-Mpf 1% Vial) 5 ml STK-MED ONCE .ROUTE ; Start at 10:50; Stop 01/01/17 at 10:51; Status DC Phenylephrine HCl ([place]-Synephrine Inj) 10 mg STK-MED ONCE .ROUTE ; Start at 11:11; Stop 01/01/17 at 11:12; Status DC Ephedrine Sulfate (Akovaz) 50 mg STK-MED ONCE .ROUTE ; Start 01/01/17 at 11:18 ; Stop 01/01/17 at 11:19; Status DC Rocuronium [place] (Zemuron) 100 mg STK-MED ONCE .ROUTE ; Start 01/01/17 at 11: 30; Stop 01/01/17 at 11:31; Status DC Cefoxitin Sodium 2 gm/Dextrose 100 ml @ 200 mls/hr 1X ONCE IV ; Start at 12:15; Stop 01/01/17 at 12:44; Status Cancel Cefoxitin Sodium 100 ml @ As Directed STK-MED ONCE IV ; Start 01/01/17 at 11: 17; Stop 01/01/17 at 12:17; Status DC Fentanyl Citrate (Fentanyl 2ml Vial) 100 mcg STK-MED ONCE .ROUTE ; Start at 12:24; Stop 01/01/17 at 12:25; Status DC Sodium Chloride 39.95 ml/ Hydromorphone HCl 0.5 mg/ Ropivacaine 10 ml/ Epidural Dosage Infused (Pha) 50 ml @ 0 mls/hr CONT PRN EP Per protocol Last administered on 01/04/17t 06:38; Start 01/01/17 at 12:30 Sodium Chloride 40 ml/ Hydromorphone HCl 0.5 mg/ Ropivacaine 10 ml/ Epidural Dosage Infused (Pha) 50.05 ml @ 0 mls/hr 1X ONCE EP ; Start 01/05/17 at 18:30 ; Stop 01/05/17 at 18:31; Status UNV Sevoflurane (Ultane) 90 ml STK-MED ONCE IH ; Start 01/01/17 at 13:02; Stop at 13:03; Status DC Cefoxitin Sodium 50 ml @ 100 mls/hr 1X ONCE IV Last administered on 14:35; Start 01/01/17 at 14:15; Stop 01/01/17 at 14:44; Status DC Albumin Human 100 ml @ As Directed STK-MED ONCE IV ; Start 01/01/17 at 14:25; Stop 01/01/17 at 14:26; Status DC Glycopyrrolate (Robinul) 1 mg STK-MED ONCE .ROUTE ; Start 01/01/17 at 15:59; Stop 01/01/17 at 16:00; Status DC Neostigmine Methylsulfate 5 mg STK-MED ONCE .ROUTE ; Start 01/01/17 at 15:59; Stop 01/01/17 at 16:00; Status DC Famotidine (Pepcid) 20 mg BID IVP Last administered on 01/07/17 20:18; Start 01/01/17 at 21:00; Stop 01/08/17 at 08:44; Status DC Heparin Sodium (Porcine) (Heparin Sq) 5,000 unit Q12HR SQ Last administered on 01/10/17 09:58; Start 01/01/17 at 21:00 Sodium Chloride (Normal Saline Flush) 3 ml QSHIFT PRN IV AFTER MEDS AND BLOOD DRAWS; Start 01/01/17 at 16:30 Ringer's Solution 1,000 ml @ 100 mls/hr Q10H IV Last administered on 02:38; Start 01/01/17 at 16:26; Stop 01/08/17 at 09:47; Status DC Ondansetron HCl (Zofran) 4 mg PRN Q6HRS PRN IV NAUESA, 1ST CHOICE Last administered on 01/10/17 09:54; Start 01/01/17 at 16:30 Diphenhydramine HCl (Benadryl) 25 mg PRN Q6HRS PRN IVP ITCHING Last administered on 01/02/17 10:07; Start 01/02/17 at 10:00 Oxycodone/ Acetaminophen (Percocet 5/325) 1 tab PRN Q4HRS PRN PO PAIN Last administered on 01/07/17 11:24; Start 01/05/17 at 10:00 Docusate Sodium (Colace) 100 mg DAILY PO Last administered on 01/09/17 08:49; Start 01/05/17 at 10:00 Sodium Chloride (Saline Mist Nasal) 1 henry PRN Q1HR PRN NS NASAL CONGESTION Last administered on 01/07/17 12:49; Start 01/07/17 at 10:00 Hydralazine HCl (Apresoline Inj) 10 mg PRN Q4HRS PRN IVP ELEVATED BP, SEE COMMENTS; Start 01/07/17 at 15:30 Levothyroxine Sodium 25 mcg/ Sodium Chloride 5 ml @ 100 mls/hr DAILY IVP Last administered on 01/07/17 16:27; Start 01/07/17 at 16:00; Stop 01/08/17 at 08:44 ; Status DC Amlodipine Besylate (Norvasc) 5 mg DAILY PO Last administered on 01/10/17 09: 55; Start 01/08/17 at 09:00 Fluticasone Propionate (Flonase) 1 spray PRN DAILY PRN NS ALLERGIES; Start 01/08/17 at 08:45 Levothyroxine Sodium (Synthroid) 50 mcg DAILY06 PO Last administered on 05:44; Start 01/08/17 at 09:00 Lisinopril (Prinivil) 10 mg DAILY PO Last administered on 01/10/17 09:56; Start 01/08/17 at 09:00 Pantoprazole Sodium (Protonix) 40 mg DAILYAC PO Last administered on 01/10/17 09:55; Start 01/08/17 at 09:00 Ferrous Sulfate (Feosol) 325 mg DAILYWBKFT PO Last administered on 01/10/17 09 :55; Start 01/08/17 at 09:00 Cetirizine HCl (ZyrTEC) 10 mg DAILY PO Last administered on 01/09/17 08:49; Start 01/08/17 at 09:00 Multivitamins (Thera M Plus) 1 tab DAILY PO Last administered on 01/09/17 08: 49; Start 01/09/17 at 09:00 Atorvastatin Calcium (Lipitor) 5 mg QHS PO Last administered on 01/09/17 21:31 ; Start 01/08/17 at 21:00 Ciprofloxacin (Cipro) 500 mg BID PO Last administered on 01/09/17 11:03; Start 01/09/17 at 11:30; Stop 01/09/17 at 11:30; Status DC Phenazopyridine HCl (Pyridium) 200 mg PRN TID PRN PO URINARY PAIN; Start at 11:15; Stop 01/09/17 at 11:15; Status DC Phenazopyridine HCl (Pyridium) 200 mg TID PO Last administered on 01/10/17 09: 55; Start 01/09/17 at 11:15 Ceftriaxone Sodium 1 gm/ Dextrose 50 ml @ 100 mls/hr Q24H IV ; Start 01/09/17 at 11:15; Status UNV Ceftriaxone Sodium (Rocephin) 1 gm Q24H IVP Last administered on 01/10/17 11: 52; Start 01/09/17 at 12:00 Lactobacillus Rhamnosus (Culturelle) 1 cap BID PO Last administered on 09:54; Start 01/09/17 at 21:00 Lidocaine/Sodium Bicarbonate (Buffered Lidocaine 1%) 20 ml STK-MED ONCE IJ ; Start 01/10/17 at 08:17; Stop 01/10/17 at 08:18; Status DC Lidocaine/Sodium Bicarbonate (Buffered Lidocaine 1%) 3 ml 1X ONCE IJ Last administered on 01/10/17 08:30; Start 01/10/17 at 08:30; Stop 01/10/17 at 08:33 ; Status DC Info 1 each PRN DAILY PRN MC SEE COMMENTS; Start 01/10/17 at 11:45 Active Scripts Active Protonix (Pantoprazole Sodium) 40 Mg Tablet.dr 1 Tab PO DAILY Reported Ferralet 90 Dual-Iron Tablet (Iron, Carb & Gluc/Fa/B12/C/Dss) 1 Each Tablet 1 Tab PO DAILY Multivitamins (Multivitamin) 1 Each Tablet 1 Tab PO DAILY Loratadine 10 Mg Tablet 1 Tab PO DAILY Fluticasone Propionate Nasal [place] (Fluticasone Propionate) 16 Gm [place].susp 1 [place] NS DAILY PRN Levothyroxine Sodium 50 Mcg Tablet 1 Tab PO DAILY Lisinopril 10 Mg Tablet 1 Tab PO DAILY Pravastatin Sodium 10 Mg Tablet 1 Tab PO DAILY Amlodipine Besylate 5 Mg Tablet 5 Mg PO DAILY Vitals/I & O Vital Sign - Last 24 Hours 01/09/17 01/09/17 01/09/17 01/09/17 15:46 19:30 20:00 23:06 Temp 98.0 98.2 98.2 98.0 98.2 98.2 Pulse 88 90 89 Resp 18 18 18 B/P (MAP) 151/85 (107) 156/80 (105) 152/82 (105) Pulse Ox 94 97 94 O2 Delivery Room Air Room Air Room Air Room Air 01/10/17 01/10/17 01/10/17 01/10/17 02:59 07:00 09:55 09:56 Temp 98.3 98.0 98.3 98.0 Pulse 84 81 81 81 Resp 18 18 B/P (MAP) 148/82 (104) 138/80 (99) 138/80 138/80 Pulse Ox 94 94 O2 Delivery Room Air Room Air 01/10/17 11:00 Temp 97.2 97.2 Pulse 77 Resp 18 B/P (MAP) 134/72 (92) Pulse Ox 93 O2 Delivery Room Air NYA OLIVAREZ MD Jan 10, 2017 12:32
[2017-01-10] MEDS: TPN PER PHARMACY MC PRN ×2 (13:20→14:04)
--- NOTE | 2017-01-10 13:39 | PDOC ---
SURGICAL PROGRESS NOTE Subjective Pt with c/o N/V, passing flatus and stool, pain controlled Vital Signs Vital Signs Date Time Temp Pulse Resp B/P (MAP) Pulse Ox O2 Delivery O2 Flow Rate FiO2 01/10/17 11:00 97.2 77 18 134/72 (92) 93 Room Air 97.2 General: Alert, Oriented X3, Cooperative, No acute distress Abdomen: Soft, No tenderness, Other (BOZENA serosang) Labs Laboratory Tests Test 01/09/17 03:35 01/10/17 05:45 Urine Collection Type Unknown Urine Color Yellow Urine Clarity Turbid Urine pH 7.5 Urine Specific [place] 1.015 Urine Protein 30 mg/dL (NEG-TRACE) Urine Glucose (UA) Negative mg/dL (NEG) Urine Ketones (Stick) >=80 mg/dL (NEG) Urine Blood Large (NEG) Urine Nitrite Negative (NEG) Urine Bilirubin Negative (NEG) Urine Urobilinogen Dipstick 2.0 mg/dL (0.2 mg/dL) Urine Leukocyte Esterase Large (NEG) Urine RBC Occ /HPF (0-2) Urine WBC Tntc /HPF (0-4) Urine Squamous Epithelial Cells Occ /LPF Urine Renal Epithelial Cells Occ /LPF Urine Bacteria Many /HPF (0-FEW) Urine Mucus Slight /LPF White Blood Count 13.7 x10^3/uL (4.0-11.0) Red Blood Count 3.80 x10^6/uL (3.50-5.40) Hemoglobin 9.9 g/dL (12.0-15.5) Hematocrit 30.6 % (36.0-47.0) Mean Corpuscular Volume 81 fL (79-100) Mean Corpuscular Hemoglobin 26 pg (25-35) Mean Corpuscular Hemoglobin Concent 32 g/dL (31-37) Red Cell Distribution Width 21.4 % (11.5-14.5) Platelet Count 469 x10^3/uL (140-400) Neutrophils (%) (Auto) 76 % (31-73) Lymphocytes (%) (Auto) 15 % (24-48) Monocytes (%) (Auto) 6 % (0-9) Eosinophils (%) (Auto) 2 % (0-3) Basophils (%) (Auto) 1 % (0-3) Neutrophils # (Auto) 10.4 x10^3uL (1.8-7.7) Lymphocytes # (Auto) 2.1 x10^3/uL (1.0-4.8) Monocytes # (Auto) 0.8 x10^3/uL (0.0-1.1) Eosinophils # (Auto) 0.3 x10^3/uL (0.0-0.7) Basophils # (Auto) 0.1 x10^3/uL (0.0-0.2) Platelet Estimate Increased (ADEQUATE) Large Platelets Few Anisocytosis Mod Laboratory Tests Test 01/10/17 05:45 White Blood Count 13.7 x10^3/uL (4.0-11.0) Red Blood Count 3.80 x10^6/uL (3.50-5.40) Hemoglobin 9.9 g/dL (12.0-15.5) Hematocrit 30.6 % (36.0-47.0) Mean Corpuscular Volume 81 fL (79-100) Mean Corpuscular Hemoglobin 26 pg (25-35) Mean Corpuscular Hemoglobin Concent 32 g/dL (31-37) Red Cell Distribution Width 21.4 % (11.5-14.5) Platelet Count 469 x10^3/uL (140-400) Neutrophils (%) (Auto) 76 % (31-73) Lymphocytes (%) (Auto) 15 % (24-48) Monocytes (%) (Auto) 6 % (0-9) Eosinophils (%) (Auto) 2 % (0-3) Basophils (%) (Auto) 1 % (0-3) Neutrophils # (Auto) 10.4 x10^3uL (1.8-7.7) Lymphocytes # (Auto) 2.1 x10^3/uL (1.0-4.8) Monocytes # (Auto) 0.8 x10^3/uL (0.0-1.1) Eosinophils # (Auto) 0.3 x10^3/uL (0.0-0.7) Basophils # (Auto) 0.1 x10^3/uL (0.0-0.2) Platelet Estimate Increased (ADEQUATE) Large Platelets Few Anisocytosis Mod Problem List s/p whipple abx for UTI G-tube to sunction, secondary suspect gastroparesis start TPN, secondary to prolonged decreased nutrition Problems: SUZY,BA J MD Jan 10, 2017 13:39
[2017-01-10 13:54] LABS: CALCIUM 8.3 mg/dL (8.5-10.1); GFR 54.8; POTASSIUM 3.3 mmol/L (3.5-5.1)
[2017-01-10 13:58] LABS: MAGNESIUM 1.7 mg/dL (1.8-2.4); PHOSPHORUS 4.4 mg/dL (2.6-4.7)
[2017-01-10] MEDS: ATORVASTATIN CALCIUM 10 MG TABLET. PO SCH (21:27)
[2017-01-10] MEDS ORDERED: TOTAL PARENTERAL NUTRITION 1,424.9987 ML, AMINO ACIDS 10 % 60 GM, DEXTROSE 70 % IN WATE... IV SCH ×10 (22:00)
[2017-01-11 03:00] VITALS: BP 133/75
[2017-01-11] MEDS: PANTOPRAZOLE 40 MG TABLET.DR. PO SCH (06:21)
[2017-01-11] MEDS: LEVOTHYROXINE 50 MCG TABLET PO SCH (06:21)
[2017-01-11 06:51] LABS: BASO # 0.1 x10^3/uL (0.0-0.2); BASO % 1 % (0-3); EOS % 3 % (0-3); HEMATOCRIT 29.7 % (36.0-47.0); HEMOGLOBIN 9.5 g/dL (12.0-15.5); LYMPH # 1.7 x10^3/uL (1.0-4.8); LYMPH % 14 % (24-48); MEAN CORPUSCULAR HEMOGLOBIN 26 pg (25-35); MEAN CORPUSCULAR HGB CONC 32 g/dL (31-37); MEAN CORPUSCULAR VOLUME 81 fL (79-100); MONO % 6 % (0-9); NEUT % 76 % (31-73); PLATELET COUNT 428 x10^3/uL (140-400); RED BLOOD COUNT 3.67 x10^6/uL (3.50-5.40); RED CELL DISTRIBUTION WIDTH 21.6 % (11.5-14.5); WHITE BLOOD COUNT 12.9 x10^3/uL (4.0-11.0)
[2017-01-11 07:07] LABS: ALBUMIN/GLOBULIN RATIO 0.6 (1.0-1.7); CALCIUM 8.5 mg/dL (8.5-10.1); CREATININE 1.1 mg/dL (0.6-1.0); GFR 49.1; MAGNESIUM 1.8 mg/dL (1.8-2.4); PHOSPHORUS 3.6 mg/dL (2.6-4.7); TOTAL BILIRUBIN 0.6 mg/dL (0.2-1.0); TOTAL PROTEIN 5.1 g/dL (6.4-8.2)
[2017-01-11 07:27] VITALS: BP 151/71
[2017-01-11] MEDS: LACTOBACILLUS RHAMNOSUS GG 1 CAPSULE. PO SCH ×2 (08:04→22:17)
[2017-01-11] MEDS: DOCUSATE SODIUM 100 MG CAPSULE. PO SCH (08:04)
[2017-01-11] MEDS: CETIRIZINE HCL 10 MG TABLET. PO SCH (08:04)
[2017-01-11] MEDS: FERROUS SULFATE 325 MG TABLET. PO SCH (08:04)
[2017-01-11] MEDS: MULTIVITAMIN with MINERAL TABLET. PO SCH (08:04)
[2017-01-11] MEDS: amLODIPine BESYLATE 5 MG TABLET PO SCH (08:04)
[2017-01-11] MEDS: PHENAZOPYRIDINE 200 MG TABLET. PO SCH ×3 (08:05→22:18)
[2017-01-11] MEDS: LISINOPRIL 10 MG TABLET PO SCH (08:05)
[2017-01-11] MEDS: HEPARIN PF for SUB-Q USE 5,000 UNIT/0.5 ML VIAL. SQ SCH ×2 (08:12→22:21)
--- NOTE | 2017-01-11 09:03 | PDOC ---
SURGICAL PROGRESS NOTE Subjective feels better no further emesis Vital Signs Vital Signs Date Time Temp Pulse Resp B/P (MAP) Pulse Ox O2 Delivery O2 Flow Rate FiO2 01/11/17 08:05 83 151/71 01/11/17 07:27 98.2 17 93 Room Air 98.2 General: Alert, Oriented X3, Cooperative, No acute distress Abdomen: Soft, Other (dressing dry, scant serous drainage in drains, g tube to suction) Labs Laboratory Tests Test 01/10/17 05:45 01/11/17 00:09 01/11/17 06:20 White Blood Count 13.7 x10^3/uL (4.0-11.0) 12.9 x10^3/uL (4.0-11.0) Red Blood Count 3.80 x10^6/uL (3.50-5.40) 3.67 x10^6/uL (3.50-5.40) Hemoglobin 9.9 g/dL (12.0-15.5) 9.5 g/dL (12.0-15.5) Hematocrit 30.6 % (36.0-47.0) 29.7 % (36.0-47.0) Mean Corpuscular Volume 81 fL (79-100) 81 fL (79-100) Mean Corpuscular Hemoglobin 26 pg (25-35) 26 pg (25-35) Mean Corpuscular Hemoglobin Concent 32 g/dL (31-37) 32 g/dL (31-37) Red Cell Distribution Width 21.4 % (11.5-14.5) 21.6 % (11.5-14.5) Platelet Count 469 x10^3/uL (140-400) 428 x10^3/uL (140-400) Neutrophils (%) (Auto) 76 % (31-73) 76 % (31-73) Lymphocytes (%) (Auto) 15 % (24-48) 14 % (24-48) Monocytes (%) (Auto) 6 % (0-9) 6 % (0-9) Eosinophils (%) (Auto) 2 % (0-3) 3 % (0-3) Basophils (%) (Auto) 1 % (0-3) 1 % (0-3) Neutrophils # (Auto) 10.4 x10^3uL (1.8-7.7) 9.8 x10^3uL (1.8-7.7) Lymphocytes # (Auto) 2.1 x10^3/uL (1.0-4.8) 1.7 x10^3/uL (1.0-4.8) Monocytes # (Auto) 0.8 x10^3/uL (0.0-1.1) 0.8 x10^3/uL (0.0-1.1) Eosinophils # (Auto) 0.3 x10^3/uL (0.0-0.7) 0.4 x10^3/uL (0.0-0.7) Basophils # (Auto) 0.1 x10^3/uL (0.0-0.2) 0.1 x10^3/uL (0.0-0.2) Platelet Estimate Increased (ADEQUATE) Large Platelets Few Anisocytosis Mod Sodium Level 145 mmol/L (136-145) 145 mmol/L (136-145) Potassium Level 3.3 mmol/L (3.5-5.1) 3.0 mmol/L (3.5-5.1) Chloride Level 104 mmol/L (98-107) 106 mmol/L (98-107) Carbon Dioxide Level 30 mmol/L (21-32) 31 mmol/L (21-32) Anion Gap 11 (6-14) 8 (6-14) Blood Urea Nitrogen 9 mg/dL (7-20) 13 mg/dL (7-20) Creatinine 1.0 mg/dL (0.6-1.0) 1.1 mg/dL (0.6-1.0) Estimated GFR (Cockcroft-Gault) 54.8 49.1 Glucose Level 103 mg/dL (70-99) 137 mg/dL (70-99) Calcium Level 8.3 mg/dL (8.5-10.1) 8.5 mg/dL (8.5-10.1) Phosphorus Level 4.4 mg/dL (2.6-4.7) 3.6 mg/dL (2.6-4.7) Magnesium Level 1.7 mg/dL (1.8-2.4) 1.8 mg/dL (1.8-2.4) Glucose (Fingerstick) 161 mg/dL (70-99) BUN/Creatinine Ratio 12 (6-20) Total Bilirubin 0.6 mg/dL (0.2-1.0) Aspartate Amino Transf (AST/SGOT) 16 U/L (15-37) Alanine Aminotransferase (ALT/SGPT) 21 U/L (14-59) Alkaline Phosphatase 81 U/L (46-116) Total Protein 5.1 g/dL (6.4-8.2) Albumin 2.0 g/dL (3.4-5.0) Albumin/Globulin Ratio 0.6 (1.0-1.7) Triglycerides Level 188 mg/dL (0-150) Lipase 31 U/L (73-393) Laboratory Tests Test 01/11/17 00:09 01/11/17 06:20 Glucose (Fingerstick) 161 mg/dL (70-99) White Blood Count 12.9 x10^3/uL (4.0-11.0) Red Blood Count 3.67 x10^6/uL (3.50-5.40) Hemoglobin 9.5 g/dL (12.0-15.5) Hematocrit 29.7 % (36.0-47.0) Mean Corpuscular Volume 81 fL (79-100) Mean Corpuscular Hemoglobin 26 pg (25-35) Mean Corpuscular Hemoglobin Concent 32 g/dL (31-37) Red Cell Distribution Width 21.6 % (11.5-14.5) Platelet Count 428 x10^3/uL (140-400) Neutrophils (%) (Auto) 76 % (31-73) Lymphocytes (%) (Auto) 14 % (24-48) Monocytes (%) (Auto) 6 % (0-9) Eosinophils (%) (Auto) 3 % (0-3) Basophils (%) (Auto) 1 % (0-3) Neutrophils # (Auto) 9.8 x10^3uL (1.8-7.7) Lymphocytes # (Auto) 1.7 x10^3/uL (1.0-4.8) Monocytes # (Auto) 0.8 x10^3/uL (0.0-1.1) Eosinophils # (Auto) 0.4 x10^3/uL (0.0-0.7) Basophils # (Auto) 0.1 x10^3/uL (0.0-0.2) Sodium Level 145 mmol/L (136-145) Potassium Level 3.0 mmol/L (3.5-5.1) Chloride Level 106 mmol/L (98-107) Carbon Dioxide Level 31 mmol/L (21-32) Anion Gap 8 (6-14) Blood Urea Nitrogen 13 mg/dL (7-20) Creatinine 1.1 mg/dL (0.6-1.0) Estimated GFR (Cockcroft-Gault) 49.1 BUN/Creatinine Ratio 12 (6-20) Glucose Level 137 mg/dL (70-99) Calcium Level 8.5 mg/dL (8.5-10.1) Phosphorus Level 3.6 mg/dL (2.6-4.7) Magnesium Level 1.8 mg/dL (1.8-2.4) Total Bilirubin 0.6 mg/dL (0.2-1.0) Aspartate Amino Transf (AST/SGOT) 16 U/L (15-37) Alanine Aminotransferase (ALT/SGPT) 21 U/L (14-59) Alkaline Phosphatase 81 U/L (46-116) Total Protein 5.1 g/dL (6.4-8.2) Albumin 2.0 g/dL (3.4-5.0) Albumin/Globulin Ratio 0.6 (1.0-1.7) Triglycerides Level 188 mg/dL (0-150) Lipase 31 U/L (73-393) Assessment/Plan s/p whipple improved with g tube to drainage continue TPN Problems: NICK MINER APRN Jan 11, 2017 09:02
[2017-01-11] MEDS ORDERED: POTASSIUM CHLORIDE 20 MEQ TABLET.ER. PO ONE (09:30)
--- NOTE | 2017-01-11 10:08 | PDOC ---
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 htn hld hypothyroidism SIRS with leukocytosis post op, reactive likely morbid obesity UTI Hypokalemia GERD GNR UTI History of Present Illness History of Present Illness Much better LEss nausea Some reflux sxs though K 3.0 TPN running via R arm PICC Lipase normal at 31 GNR on urine cx, identification pending ON iV rocephin, no fevers, WBC stable at 13 PLAN: Kcl 40 IV x 1 and 20 PO x 1 tUMS AND MYLANTA PRN lytes again tmr COnt TPN AMbulate ad pauline Vitals Vitals Vital Signs Date Time Temp Pulse Resp B/P (MAP) Pulse Ox O2 Delivery O2 Flow Rate FiO2 01/11/17 08:05 83 151/71 01/11/17 08:00 Room Air 01/11/17 07:27 98.2 17 93 98.2 Physical Exam General: Alert, Oriented X3, Cooperative, No acute distress Heart: Normal S1, Normal S2 Abdomen: Soft, Other (dressing dry, scant serous drainage in drains, g tube to suction) Extremities: No clubbing, No cyanosis Skin: No rashes, No breakdown Labs LABS Laboratory Tests Test 01/11/17 00:09 01/11/17 06:20 Glucose (Fingerstick) 161 mg/dL (70-99) White Blood Count 12.9 x10^3/uL (4.0-11.0) Red Blood Count 3.67 x10^6/uL (3.50-5.40) Hemoglobin 9.5 g/dL (12.0-15.5) Hematocrit 29.7 % (36.0-47.0) Mean Corpuscular Volume 81 fL (79-100) Mean Corpuscular Hemoglobin 26 pg (25-35) Mean Corpuscular Hemoglobin Concent 32 g/dL (31-37) Red Cell Distribution Width 21.6 % (11.5-14.5) Platelet Count 428 x10^3/uL (140-400) Neutrophils (%) (Auto) 76 % (31-73) Lymphocytes (%) (Auto) 14 % (24-48) Monocytes (%) (Auto) 6 % (0-9) Eosinophils (%) (Auto) 3 % (0-3) Basophils (%) (Auto) 1 % (0-3) Neutrophils # (Auto) 9.8 x10^3uL (1.8-7.7) Lymphocytes # (Auto) 1.7 x10^3/uL (1.0-4.8) Monocytes # (Auto) 0.8 x10^3/uL (0.0-1.1) Eosinophils # (Auto) 0.4 x10^3/uL (0.0-0.7) Basophils # (Auto) 0.1 x10^3/uL (0.0-0.2) Sodium Level 145 mmol/L (136-145) Potassium Level 3.0 mmol/L (3.5-5.1) Chloride Level 106 mmol/L (98-107) Carbon Dioxide Level 31 mmol/L (21-32) Anion Gap 8 (6-14) Blood Urea Nitrogen 13 mg/dL (7-20) Creatinine 1.1 mg/dL (0.6-1.0) Estimated GFR (Cockcroft-Gault) 49.1 BUN/Creatinine Ratio 12 (6-20) Glucose Level 137 mg/dL (70-99) Calcium Level 8.5 mg/dL (8.5-10.1) Phosphorus Level 3.6 mg/dL (2.6-4.7) Magnesium Level 1.8 mg/dL (1.8-2.4) Total Bilirubin 0.6 mg/dL (0.2-1.0) Aspartate Amino Transf (AST/SGOT) 16 U/L (15-37) Alanine Aminotransferase (ALT/SGPT) 21 U/L (14-59) Alkaline Phosphatase 81 U/L (46-116) Total Protein 5.1 g/dL (6.4-8.2) Albumin 2.0 g/dL (3.4-5.0) Albumin/Globulin Ratio 0.6 (1.0-1.7) Triglycerides Level 188 mg/dL (0-150) Lipase 31 U/L (73-393) Review of Systems Review of Systems no cp, soa, diarrhea, fevers, urinary sxs Comment Review of Relevant I have reviewed the following items alonzo (where applicable) has been applied. Labs Laboratory Tests Test 01/10/17 05:45 01/11/17 00:09 01/11/17 06:20 White Blood Count 13.7 x10^3/uL (4.0-11.0) 12.9 x10^3/uL (4.0-11.0) Red Blood Count 3.80 x10^6/uL (3.50-5.40) 3.67 x10^6/uL (3.50-5.40) Hemoglobin 9.9 g/dL (12.0-15.5) 9.5 g/dL (12.0-15.5) Hematocrit 30.6 % (36.0-47.0) 29.7 % (36.0-47.0) Mean Corpuscular Volume 81 fL (79-100) 81 fL (79-100) Mean Corpuscular Hemoglobin 26 pg (25-35) 26 pg (25-35) Mean Corpuscular Hemoglobin Concent 32 g/dL (31-37) 32 g/dL (31-37) Red Cell Distribution Width 21.4 % (11.5-14.5) 21.6 % (11.5-14.5) Platelet Count 469 x10^3/uL (140-400) 428 x10^3/uL (140-400) Neutrophils (%) (Auto) 76 % (31-73) 76 % (31-73) Lymphocytes (%) (Auto) 15 % (24-48) 14 % (24-48) Monocytes (%) (Auto) 6 % (0-9) 6 % (0-9) Eosinophils (%) (Auto) 2 % (0-3) 3 % (0-3) Basophils (%) (Auto) 1 % (0-3) 1 % (0-3) Neutrophils # (Auto) 10.4 x10^3uL (1.8-7.7) 9.8 x10^3uL (1.8-7.7) Lymphocytes # (Auto) 2.1 x10^3/uL (1.0-4.8) 1.7 x10^3/uL (1.0-4.8) Monocytes # (Auto) 0.8 x10^3/uL (0.0-1.1) 0.8 x10^3/uL (0.0-1.1) Eosinophils # (Auto) 0.3 x10^3/uL (0.0-0.7) 0.4 x10^3/uL (0.0-0.7) Basophils # (Auto) 0.1 x10^3/uL (0.0-0.2) 0.1 x10^3/uL (0.0-0.2) Platelet Estimate Increased (ADEQUATE) Large Platelets Few Anisocytosis Mod Sodium Level 145 mmol/L (136-145) 145 mmol/L (136-145) Potassium Level 3.3 mmol/L (3.5-5.1) 3.0 mmol/L (3.5-5.1) Chloride Level 104 mmol/L (98-107) 106 mmol/L (98-107) Carbon Dioxide Level 30 mmol/L (21-32) 31 mmol/L (21-32) Anion Gap 11 (6-14) 8 (6-14) Blood Urea Nitrogen 9 mg/dL (7-20) 13 mg/dL (7-20) Creatinine 1.0 mg/dL (0.6-1.0) 1.1 mg/dL (0.6-1.0) Estimated GFR (Cockcroft-Gault) 54.8 49.1 Glucose Level 103 mg/dL (70-99) 137 mg/dL (70-99) Calcium Level 8.3 mg/dL (8.5-10.1) 8.5 mg/dL (8.5-10.1) Phosphorus Level 4.4 mg/dL (2.6-4.7) 3.6 mg/dL (2.6-4.7) Magnesium Level 1.7 mg/dL (1.8-2.4) 1.8 mg/dL (1.8-2.4) Glucose (Fingerstick) 161 mg/dL (70-99) BUN/Creatinine Ratio 12 (6-20) Total Bilirubin 0.6 mg/dL (0.2-1.0) Aspartate Amino Transf (AST/SGOT) 16 U/L (15-37) Alanine Aminotransferase (ALT/SGPT) 21 U/L (14-59) Alkaline Phosphatase 81 U/L (46-116) Total Protein 5.1 g/dL (6.4-8.2) Albumin 2.0 g/dL (3.4-5.0) Albumin/Globulin Ratio 0.6 (1.0-1.7) Triglycerides Level 188 mg/dL (0-150) Lipase 31 U/L (73-393) Laboratory Tests Test 01/11/17 00:09 01/11/17 06:20 Glucose (Fingerstick) 161 mg/dL (70-99) White Blood Count 12.9 x10^3/uL (4.0-11.0) Red Blood Count 3.67 x10^6/uL (3.50-5.40) Hemoglobin 9.5 g/dL (12.0-15.5) Hematocrit 29.7 % (36.0-47.0) Mean Corpuscular Volume 81 fL (79-100) Mean Corpuscular Hemoglobin 26 pg (25-35) Mean Corpuscular Hemoglobin Concent 32 g/dL (31-37) Red Cell Distribution Width 21.6 % (11.5-14.5) Platelet Count 428 x10^3/uL (140-400) Neutrophils (%) (Auto) 76 % (31-73) Lymphocytes (%) (Auto) 14 % (24-48) Monocytes (%) (Auto) 6 % (0-9) Eosinophils (%) (Auto) 3 % (0-3) Basophils (%) (Auto) 1 % (0-3) Neutrophils # (Auto) 9.8 x10^3uL (1.8-7.7) Lymphocytes # (Auto) 1.7 x10^3/uL (1.0-4.8) Monocytes # (Auto) 0.8 x10^3/uL (0.0-1.1) Eosinophils # (Auto) 0.4 x10^3/uL (0.0-0.7) Basophils # (Auto) 0.1 x10^3/uL (0.0-0.2) Sodium Level 145 mmol/L (136-145) Potassium Level 3.0 mmol/L (3.5-5.1) Chloride Level 106 mmol/L (98-107) Carbon Dioxide Level 31 mmol/L (21-32) Anion Gap 8 (6-14) Blood Urea Nitrogen 13 mg/dL (7-20) Creatinine 1.1 mg/dL (0.6-1.0) Estimated GFR (Cockcroft-Gault) 49.1 BUN/Creatinine Ratio 12 (6-20) Glucose Level 137 mg/dL (70-99) Calcium Level 8.5 mg/dL (8.5-10.1) Phosphorus Level 3.6 mg/dL (2.6-4.7) Magnesium Level 1.8 mg/dL (1.8-2.4) Total Bilirubin 0.6 mg/dL (0.2-1.0) Aspartate Amino Transf (AST/SGOT) 16 U/L (15-37) Alanine Aminotransferase (ALT/SGPT) 21 U/L (14-59) Alkaline Phosphatase 81 U/L (46-116) Total Protein 5.1 g/dL (6.4-8.2) Albumin 2.0 g/dL (3.4-5.0) Albumin/Globulin Ratio 0.6 (1.0-1.7) Triglycerides Level 188 mg/dL (0-150) Lipase 31 U/L (73-393) Microbiology 01/09/17 Urine Culture - Preliminary, Resulted 01/09/17 Urine Culture Result 1 (GILBERT) - Preliminary, Resulted Medications Current Medications Ondansetron HCl (Zofran) 4 mg PRN Q6HRS PRN IV NAUSEA/VOMITING; Start at 07:00; Stop 01/02/17 at 06:59; Status DC Fentanyl Citrate (Fentanyl 2ml Vial) 25 mcg PRN Q5MIN PRN IV MILD PAIN; Start 01/01/17 at 07:00; Stop 01/02/17 at 06:59; Status DC Fentanyl Citrate (Fentanyl 2ml Vial) 50 mcg PRN Q5MIN PRN IV MODERATE PAIN; Start 01/01/17 at 07:00; Stop 01/02/17 at 06:59; Status DC Morphine Sulfate 1 mg PRN Q10MIN PRN IV SEVERE PAIN; Start 01/01/17 at 07:00; Stop 01/02/17 at 06:59; Status DC Ringer's Solution 1,000 ml @ 30 mls/hr Q24H IV Last administered on t 08:35; Start 01/01/17 at 07:00; Stop 01/01/17 at 18:59; Status DC Lidocaine HCl (Xylocaine-Mpf 1% Vial) 2 ml PRN 1X PRN ID PRIOR TO IV START; Start 01/01/17 at 07:00; Stop 01/02/17 at 06:59; Status DC Hydromorphone HCl (Dilaudid) 0.5 mg PRN Q10MIN PRN IV SEV PAIN, Second choice; Start 01/01/17 at 07:00; Stop 01/02/17 at 06:59; Status DC Prochlorperazine Edisylate (Compazine) 5 mg PACU PRN PRN IV NAUSEA, MRX1; Start 01/01/17 at 07:00; Stop 01/02/17 at 06:59; Status DC Cefoxitin Sodium 2 gm/Dextrose 100 ml @ 200 mls/hr 1X PREOP PRN IV ABX Last administered on 01/01/17t 12:35; Start 01/01/17 at 06:00; Stop 01/06/17 at 15: 00; Status DC Dexamethasone Sodium Phosphate (Decadron) 20 mg STK-MED ONCE .ROUTE ; Start at 09:25; Stop 01/01/17 at 09:26; Status DC Lidocaine HCl (Lidocaine Pf 2% Vial) 5 ml STK-MED ONCE .ROUTE ; Start 01/01/17 at 09:25; Stop 01/01/17 at 09:26; Status DC Ondansetron HCl (Zofran) 4 mg STK-MED ONCE .ROUTE ; Start 01/01/17 at 09:25; Stop 01/01/17 at 09:26; Status DC Propofol 20 ml @ As Directed STK-MED ONCE IV ; Start 01/01/17 at 09:25; Stop 01/01/17 at 09:26; Status DC Fentanyl Citrate (Fentanyl 2ml Vial) 100 mcg STK-MED ONCE .ROUTE ; Start at 09:25; Stop 01/01/17 at 09:26; Status DC Rocuronium Rumsey (Zemuron) 50 mg STK-MED ONCE .ROUTE ; Start 01/01/17 at 09: 26; Stop 01/01/17 at 09:27; Status DC Phenylephrine HCl 1 mg STK-MED ONCE IV ; Start 01/01/17 at 10:27; Stop at 10:28; Status DC Bupivacaine HCl (Sensorcaine Mpf 0.25%) 30 ml STK-MED ONCE .ROUTE ; Start 01/01 at 10:49; Stop 01/01/17 at 10:50; Status DC Lidocaine HCl (Xylocaine-Mpf 1% Vial) 5 ml STK-MED ONCE .ROUTE ; Start at 10:50; Stop 01/01/17 at 10:51; Status DC Phenylephrine HCl (Leroy-Synephrine Inj) 10 mg STK-MED ONCE .ROUTE ; Start at 11:11; Stop 01/01/17 at 11:12; Status DC Ephedrine Sulfate (Akovaz) 50 mg STK-MED ONCE .ROUTE ; Start 01/01/17 at 11:18 ; Stop 01/01/17 at 11:19; Status DC Rocuronium Rumsey (Zemuron) 100 mg STK-MED ONCE .ROUTE ; Start 01/01/17 at 11: 30; Stop 01/01/17 at 11:31; Status DC Cefoxitin Sodium 2 gm/Dextrose 100 ml @ 200 mls/hr 1X ONCE IV ; Start at 12:15; Stop 01/01/17 at 12:44; Status Cancel Cefoxitin Sodium 100 ml @ As Directed STK-MED ONCE IV ; Start 01/01/17 at 11: 17; Stop 01/01/17 at 12:17; Status DC Fentanyl Citrate (Fentanyl 2ml Vial) 100 mcg STK-MED ONCE .ROUTE ; Start at 12:24; Stop 01/01/17 at 12:25; Status DC Sodium Chloride 39.95 ml/ Hydromorphone HCl 0.5 mg/ Ropivacaine 10 ml/ Epidural Dosage Infused (Pha) 50 ml @ 0 mls/hr CONT PRN EP Per protocol Last administered on 01/04/17t 06:38; Start 01/01/17 at 12:30; Stop 01/11/17 at 02: 08; Status DC Sodium Chloride 40 ml/ Hydromorphone HCl 0.5 mg/ Ropivacaine 10 ml/ Epidural Dosage Infused (Pha) 50.05 ml @ 0 mls/hr 1X ONCE EP ; Start 01/05/17 at 18:30 ; Stop 01/05/17 at 18:31; Status UNV Sevoflurane (Ultane) 90 ml STK-MED ONCE IH ; Start 01/01/17 at 13:02; Stop at 13:03; Status DC Cefoxitin Sodium 50 ml @ 100 mls/hr 1X ONCE IV Last administered on 14:35; Start 01/01/17 at 14:15; Stop 01/01/17 at 14:44; Status DC Albumin Human 100 ml @ As Directed STK-MED ONCE IV ; Start 01/01/17 at 14:25; Stop 01/01/17 at 14:26; Status DC Glycopyrrolate (Robinul) 1 mg STK-MED ONCE .ROUTE ; Start 01/01/17 at 15:59; Stop 01/01/17 at 16:00; Status DC Neostigmine Methylsulfate 5 mg STK-MED ONCE .ROUTE ; Start 01/01/17 at 15:59; Stop 01/01/17 at 16:00; Status DC Famotidine (Pepcid) 20 mg BID IVP Last administered on 01/07/17 20:18; Start 01/01/17 at 21:00; Stop 01/08/17 at 08:44; Status DC Heparin Sodium (Porcine) (Heparin Sq) 5,000 unit Q12HR SQ Last administered on 01/11/17 08:12; Start 01/01/17 at 21:00 Sodium Chloride (Normal Saline Flush) 3 ml QSHIFT PRN IV AFTER MEDS AND BLOOD DRAWS; Start 01/01/17 at 16:30 Ringer's Solution 1,000 ml @ 100 mls/hr Q10H IV Last administered on 02:38; Start 01/01/17 at 16:26; Stop 01/08/17 at 09:47; Status DC Ondansetron HCl (Zofran) 4 mg PRN Q6HRS PRN IV NAUESA, 1ST CHOICE Last administered on 01/10/17 21:22; Start 01/01/17 at 16:30 Diphenhydramine HCl (Benadryl) 25 mg PRN Q6HRS PRN IVP ITCHING Last administered on 01/02/17 10:07; Start 01/02/17 at 10:00 Oxycodone/ Acetaminophen (Percocet 5/325) 1 tab PRN Q4HRS PRN PO PAIN Last administered on 01/07/17 11:24; Start 01/05/17 at 10:00 Docusate Sodium (Colace) 100 mg DAILY PO Last administered on 01/11/17 08:04; Start 01/05/17 at 10:00 Sodium Chloride (Saline Mist Nasal) 1 henry PRN Q1HR PRN NS NASAL CONGESTION Last administered on 01/07/17 12:49; Start 01/07/17 at 10:00 Hydralazine HCl (Apresoline Inj) 10 mg PRN Q4HRS PRN IVP ELEVATED BP, SEE COMMENTS; Start 01/07/17 at 15:30 Levothyroxine Sodium 25 mcg/ Sodium Chloride 5 ml @ 100 mls/hr DAILY IVP Last administered on 01/07/17 16:27; Start 01/07/17 at 16:00; Stop 01/08/17 at 08:44 ; Status DC Amlodipine Besylate (Norvasc) 5 mg DAILY PO Last administered on 01/11/17 08: 04; Start 01/08/17 at 09:00 Fluticasone Propionate (Flonase) 1 spray PRN DAILY PRN NS ALLERGIES; Start 01/08/17 at 08:45 Levothyroxine Sodium (Synthroid) 50 mcg DAILY06 PO Last administered on 06:21; Start 01/08/17 at 09:00 Lisinopril (Prinivil) 10 mg DAILY PO Last administered on 01/11/17 08:05; Start 01/08/17 at 09:00 Pantoprazole Sodium (Protonix) 40 mg DAILYAC PO Last administered on 01/11/17 06:21; Start 01/08/17 at 09:00 Ferrous Sulfate (Feosol) 325 mg DAILYWBKFT PO Last administered on 01/11/17 08 :04; Start 01/08/17 at 09:00 Cetirizine HCl (ZyrTEC) 10 mg DAILY PO Last administered on 01/11/17 08:04; Start 01/08/17 at 09:00 Multivitamins (Thera M Plus) 1 tab DAILY PO Last administered on 01/11/17 08: 04; Start 01/09/17 at 09:00 Atorvastatin Calcium (Lipitor) 5 mg QHS PO Last administered on 01/10/17 21:27 ; Start 01/08/17 at 21:00 Ciprofloxacin (Cipro) 500 mg BID PO Last administered on 01/09/17 11:03; Start 01/09/17 at 11:30; Stop 01/09/17 at 11:30; Status DC Phenazopyridine HCl (Pyridium) 200 mg PRN TID PRN PO URINARY PAIN; Start at 11:15; Stop 01/09/17 at 11:15; Status DC Phenazopyridine HCl (Pyridium) 200 mg TID PO Last administered on 01/11/17 08: 05; Start 01/09/17 at 11:15 Ceftriaxone Sodium 1 gm/ Dextrose 50 ml @ 100 mls/hr Q24H IV ; Start 01/09/17 at 11:15; Status UNV Ceftriaxone Sodium (Rocephin) 1 gm Q24H IVP Last administered on 01/10/17 11: 52; Start 01/09/17 at 12:00 Lactobacillus Rhamnosus (Culturelle) 1 cap BID PO Last administered on 08:04; Start 01/09/17 at 21:00 Lidocaine/Sodium Bicarbonate (Buffered Lidocaine 1%) 20 ml STK-MED ONCE IJ ; Start 01/10/17 at 08:17; Stop 01/10/17 at 08:18; Status DC Lidocaine/Sodium Bicarbonate (Buffered Lidocaine 1%) 3 ml 1X ONCE IJ Last administered on 01/10/17 08:30; Start 01/10/17 at 08:30; Stop 01/10/17 at 08:33 ; Status DC Info 1 each PRN DAILY PRN MC SEE COMMENTS Last administered on 01/10/17 14:04 ; Start 01/10/17 at 11:45 Sodium Chloride 90 meq/Potassium Chloride 50 meq/ Potassium Phosphate 13.6 mmol/ Magnesium Sulfate 10 meq/ Calcium Gluconate 10 meq/ Multivitamins 10 ml/Chromium / Copper/Manganese/ Seleni/Zn 1 ml/ Total Parenteral Nutrition/Amino Acids/ Dextrose/ Fat Emulsion Intravenous 1,512 ml @ 63 mls/hr TPN CONT IV Last administered on 01/10/17 22:30; Start 01/10/17 at 22:00; Stop 01/11/17 at 21:59 Potassium Chloride 50 ml @ 50 mls/hr Q1H IV ; Start 01/11/17 at 09:30; Stop 01/11/17 at 11:29 Potassium Chloride (Klor-Con) 20 meq 1X ONCE PO ; Start 01/11/17 at 09:30; Stop 01/11/17 at 09:31; Status DC Active Scripts Active Protonix (Pantoprazole Sodium) 40 Mg Tablet. 1 Tab PO DAILY Reported Ferralet 90 Dual-Iron Tablet (Iron, Carb & Gluc/Fa/B12/C/Dss) 1 Each Tablet 1 Tab PO DAILY Multivitamins (Multivitamin) 1 Each Tablet 1 Tab PO DAILY Loratadine 10 Mg Tablet 1 Tab PO DAILY Fluticasone Propionate Nasal Jessie (Fluticasone Propionate) 16 Gm Jessie.susp 1 Jessie NS DAILY PRN Levothyroxine Sodium 50 Mcg Tablet 1 Tab PO DAILY Lisinopril 10 Mg Tablet 1 Tab PO DAILY Pravastatin Sodium 10 Mg Tablet 1 Tab PO DAILY Amlodipine Besylate 5 Mg Tablet 5 Mg PO DAILY Vitals/I & O Vital Sign - Last 24 Hours 01/10/17 01/10/17 01/10/17 01/10/17 11:00 15:00 19:00 19:45 Temp 97.2 98.2 98.4 97.2 98.2 98.4 Pulse 77 84 76 Resp 18 18 18 B/P (MAP) 134/72 (92) 121/83 (96) 102/65 (77) Pulse Ox 93 95 91 O2 Delivery Room Air Room Air Room Air Room Air 01/10/17 01/11/17 01/11/17 01/11/17 23:00 03:00 07:27 08:00 Temp 98.8 98.4 98.2 98.8 98.4 98.2 Pulse 83 84 83 Resp B/P (MAP) 134/74 (94) 133/75 (94) 151/71 (97) Pulse Ox 92 94 93 O2 Delivery Room Air Room Air Room Air Room Air 01/11/17 01/11/17 08:04 08:05 Pulse 83 83 B/P (MAP) 151/71 151/71 Intake and Output 01/11/17 01/11/17 01/12/17 15:00 23:00 07:00 Intake Total 240 ml Balance 240 ml SONYA ORR MD Jan 11, 2017 10:08
[2017-01-11] MEDS ORDERED: MAG HYDROX/ALUMINUM HYD/SIMETH 30 ML ORAL.SUSP PO PRN (10:15)
[2017-01-11] MEDS ORDERED: CALCIUM CARBONATE 500 MG TAB.CHEW PO PRN (10:15)
[2017-01-11] MEDS: POTASSIUM CHLORIDE 20MEQ 50 ML IV SCH ×2 (10:26→11:27)
[2017-01-11 10:28] VITALS: BP 136/71
[2017-01-11] MEDS: TPN PER PHARMACY MC PRN (11:33)
[2017-01-11] MEDS: cefTRIAXone IV Push 1 GM VIAL. IVP SCH (12:06)
--- NOTE | 2017-01-11 13:47 | PDOC ---
PROGRESS NOTES Subjective Subjective HPI - Pancreatic adenocarcinoma. s/p endoscopic ultrasound-guided biopsy of the pancreatic head mass 12/13/16. s/p Whipple surgery 01/01/17- revealed T2N0M0 stage IB. ROS - n/v improved Objective Objective Vital Signs Date Time Temp Pulse Resp B/P (MAP) Pulse Ox O2 Delivery O2 Flow Rate FiO2 01/11/17 10:28 97.9 86 17 136/71 (92) 92 Room Air 97.9 01/07/17 20:00 2.0 Intake and Output 01/12/17 07:00 Intake Total 240 ml Output Total 550 ml Balance -310 ml Intake Oral 240 ml Gastric Drainage Total 550 ml Physical Exam Heart: Normal S1, Normal S2 General: Alert, Oriented X3 Lungs: Clear to auscultation Neuro: Normal speech Psych/Mental Status: Mental status NL Assessment Assessment IMPRESSION AND PLAN: 1. Pancreatic adenocarcinoma. s/p endoscopic ultrasound-guided biopsy of the pancreatic head mass 12/13/16. s/p Whipple surgery 01/01/17- revealed T2N0M0 stage IB. Whipple procedure (specifically: pancreaticoduodenectomy, pylorus sparing, pancreaticogastrostomy with Buster en Y reconstruction to bile duct), G-tube placement. Positive margin and has perineural involvement. Plan adjuvant chemo in 4 weeks followed by radiation. I d/w Dr Swanson. 2. Obstructive jaundice secondary to pancreatic head mass. Improved. 3. Iron-deficiency anemia. s/p Venofer 500 mg IV x 1 dose on 11/27/2016. Hb 9.5, monitor. 4. N/v -management per Dr Swanson Comment Review of Relevant I have reviewed the following items alonzo (where applicable) has been applied. Labs Laboratory Tests Test 01/10/17 05:45 01/10/17 20:47 01/11/17 00:09 01/11/17 06:20 White Blood Count 13.7 x10^3/uL (4.0-11.0) 12.9 x10^3/uL (4.0-11.0) Red Blood Count 3.80 x10^6/uL (3.50-5.40) 3.67 x10^6/uL (3.50-5.40) Hemoglobin 9.9 g/dL (12.0-15.5) 9.5 g/dL (12.0-15.5) Hematocrit 30.6 % (36.0-47.0) 29.7 % (36.0-47.0) Mean Corpuscular Volume 81 fL (79-100) 81 fL (79-100) Mean Corpuscular Hemoglobin 26 pg (25-35) 26 pg (25-35) Mean Corpuscular Hemoglobin Concent 32 g/dL (31-37) 32 g/dL (31-37) Red Cell Distribution Width 21.4 % (11.5-14.5) 21.6 % (11.5-14.5) Platelet Count 469 x10^3/uL (140-400) 428 x10^3/uL (140-400) Neutrophils (%) (Auto) 76 % (31-73) 76 % (31-73) Lymphocytes (%) (Auto) 15 % (24-48) 14 % (24-48) Monocytes (%) (Auto) 6 % (0-9) 6 % (0-9) Eosinophils (%) (Auto) 2 % (0-3) 3 % (0-3) Basophils (%) (Auto) 1 % (0-3) 1 % (0-3) Neutrophils # (Auto) 10.4 x10^3uL (1.8-7.7) 9.8 x10^3uL (1.8-7.7) Lymphocytes # (Auto) 2.1 x10^3/uL (1.0-4.8) 1.7 x10^3/uL (1.0-4.8) Monocytes # (Auto) 0.8 x10^3/uL (0.0-1.1) 0.8 x10^3/uL (0.0-1.1) Eosinophils # (Auto) 0.3 x10^3/uL (0.0-0.7) 0.4 x10^3/uL (0.0-0.7) Basophils # (Auto) 0.1 x10^3/uL (0.0-0.2) 0.1 x10^3/uL (0.0-0.2) Platelet Estimate Increased (ADEQUATE) Large Platelets Few Anisocytosis Mod Sodium Level 145 mmol/L (136-145) 145 mmol/L (136-145) Potassium Level 3.3 mmol/L (3.5-5.1) 3.0 mmol/L (3.5-5.1) Chloride Level 104 mmol/L (98-107) 106 mmol/L (98-107) Carbon Dioxide Level 30 mmol/L (21-32) 31 mmol/L (21-32) Anion Gap 11 (6-14) 8 (6-14) Blood Urea Nitrogen 9 mg/dL (7-20) 13 mg/dL (7-20) Creatinine 1.0 mg/dL (0.6-1.0) 1.1 mg/dL (0.6-1.0) Estimated GFR (Cockcroft-Gault) 54.8 49.1 Glucose Level 103 mg/dL (70-99) 137 mg/dL (70-99) Calcium Level 8.3 mg/dL (8.5-10.1) 8.5 mg/dL (8.5-10.1) Phosphorus Level 4.4 mg/dL (2.6-4.7) 3.6 mg/dL (2.6-4.7) Magnesium Level 1.7 mg/dL (1.8-2.4) 1.8 mg/dL (1.8-2.4) Glucose (Fingerstick) 98 mg/dL (70-99) 161 mg/dL (70-99) BUN/Creatinine Ratio 12 (6-20) Total Bilirubin 0.6 mg/dL (0.2-1.0) Aspartate Amino Transf (AST/SGOT) 16 U/L (15-37) Alanine Aminotransferase (ALT/SGPT) 21 U/L (14-59) Alkaline Phosphatase 81 U/L (46-116) Total Protein 5.1 g/dL (6.4-8.2) Albumin 2.0 g/dL (3.4-5.0) Albumin/Globulin Ratio 0.6 (1.0-1.7) Triglycerides Level 188 mg/dL (0-150) Lipase 31 U/L (73-393) Test 01/11/17 11:49 Glucose (Fingerstick) 188 mg/dL (70-99) Laboratory Tests Test 01/10/17 20:47 01/11/17 00:09 01/11/17 06:20 01/11/17 11:49 Glucose (Fingerstick) 98 mg/dL (70-99) 161 mg/dL (70-99) 188 mg/dL (70-99) White Blood Count 12.9 x10^3/uL (4.0-11.0) Red Blood Count 3.67 x10^6/uL (3.50-5.40) Hemoglobin 9.5 g/dL (12.0-15.5) Hematocrit 29.7 % (36.0-47.0) Mean Corpuscular Volume 81 fL (79-100) Mean Corpuscular Hemoglobin 26 pg (25-35) Mean Corpuscular Hemoglobin Concent 32 g/dL (31-37) Red Cell Distribution Width 21.6 % (11.5-14.5) Platelet Count 428 x10^3/uL (140-400) Neutrophils (%) (Auto) 76 % (31-73) Lymphocytes (%) (Auto) 14 % (24-48) Monocytes (%) (Auto) 6 % (0-9) Eosinophils (%) (Auto) 3 % (0-3) Basophils (%) (Auto) 1 % (0-3) Neutrophils # (Auto) 9.8 x10^3uL (1.8-7.7) Lymphocytes # (Auto) 1.7 x10^3/uL (1.0-4.8) Monocytes # (Auto) 0.8 x10^3/uL (0.0-1.1) Eosinophils # (Auto) 0.4 x10^3/uL (0.0-0.7) Basophils # (Auto) 0.1 x10^3/uL (0.0-0.2) Sodium Level 145 mmol/L (136-145) Potassium Level 3.0 mmol/L (3.5-5.1) Chloride Level 106 mmol/L (98-107) Carbon Dioxide Level 31 mmol/L (21-32) Anion Gap 8 (6-14) Blood Urea Nitrogen 13 mg/dL (7-20) Creatinine 1.1 mg/dL (0.6-1.0) Estimated GFR (Cockcroft-Gault) 49.1 BUN/Creatinine Ratio 12 (6-20) Glucose Level 137 mg/dL (70-99) Calcium Level 8.5 mg/dL (8.5-10.1) Phosphorus Level 3.6 mg/dL (2.6-4.7) Magnesium Level 1.8 mg/dL (1.8-2.4) Total Bilirubin 0.6 mg/dL (0.2-1.0) Aspartate Amino Transf (AST/SGOT) 16 U/L (15-37) Alanine Aminotransferase (ALT/SGPT) 21 U/L (14-59) Alkaline Phosphatase 81 U/L (46-116) Total Protein 5.1 g/dL (6.4-8.2) Albumin 2.0 g/dL (3.4-5.0) Albumin/Globulin Ratio 0.6 (1.0-1.7) Triglycerides Level 188 mg/dL (0-150) Lipase 31 U/L (73-393) Microbiology 01/09/17 Urine Culture - Preliminary, Resulted 01/09/17 Urine Culture Result 1 (GILBERT) - Preliminary, Resulted Medications Current Medications Ondansetron HCl (Zofran) 4 mg PRN Q6HRS PRN IV NAUSEA/VOMITING; Start at 07:00; Stop 01/02/17 at 06:59; Status DC Fentanyl Citrate (Fentanyl 2ml Vial) 25 mcg PRN Q5MIN PRN IV MILD PAIN; Start 01/01/17 at 07:00; Stop 01/02/17 at 06:59; Status DC Fentanyl Citrate (Fentanyl 2ml Vial) 50 mcg PRN Q5MIN PRN IV MODERATE PAIN; Start 01/01/17 at 07:00; Stop 01/02/17 at 06:59; Status DC Morphine Sulfate 1 mg PRN Q10MIN PRN IV SEVERE PAIN; Start 01/01/17 at 07:00; Stop 01/02/17 at 06:59; Status DC Ringer's Solution 1,000 ml @ 30 mls/hr Q24H IV Last administered on t 08:35; Start 01/01/17 at 07:00; Stop 01/01/17 at 18:59; Status DC Lidocaine HCl (Xylocaine-Mpf 1% Vial) 2 ml PRN 1X PRN ID PRIOR TO IV START; Start 01/01/17 at 07:00; Stop 01/02/17 at 06:59; Status DC Hydromorphone HCl (Dilaudid) 0.5 mg PRN Q10MIN PRN IV SEV PAIN, Second choice; Start 01/01/17 at 07:00; Stop 01/02/17 at 06:59; Status DC Prochlorperazine Edisylate (Compazine) 5 mg PACU PRN PRN IV NAUSEA, MRX1; Start 01/01/17 at 07:00; Stop 01/02/17 at 06:59; Status DC Cefoxitin Sodium 2 gm/Dextrose 100 ml @ 200 mls/hr 1X PREOP PRN IV ABX Last administered on 01/01/17t 12:35; Start 01/01/17 at 06:00; Stop 01/06/17 at 15: 00; Status DC Dexamethasone Sodium Phosphate (Decadron) 20 mg STK-MED ONCE .ROUTE ; Start at 09:25; Stop 01/01/17 at 09:26; Status DC Lidocaine HCl (Lidocaine Pf 2% Vial) 5 ml STK-MED ONCE .ROUTE ; Start 01/01/17 at 09:25; Stop 01/01/17 at 09:26; Status DC Ondansetron HCl (Zofran) 4 mg STK-MED ONCE .ROUTE ; Start 01/01/17 at 09:25; Stop 01/01/17 at 09:26; Status DC Propofol 20 ml @ As Directed STK-MED ONCE IV ; Start 01/01/17 at 09:25; Stop 01/01/17 at 09:26; Status DC Fentanyl Citrate (Fentanyl 2ml Vial) 100 mcg STK-MED ONCE .ROUTE ; Start at 09:25; Stop 01/01/17 at 09:26; Status DC Rocuronium [employer] (Zemuron) 50 mg STK-MED ONCE .ROUTE ; Start 01/01/17 at 09: 26; Stop 01/01/17 at 09:27; Status DC Phenylephrine HCl 1 mg STK-MED ONCE IV ; Start 01/01/17 at 10:27; Stop at 10:28; Status DC Bupivacaine HCl (Sensorcaine Mpf 0.25%) 30 ml STK-MED ONCE .ROUTE ; Start 01/01 at 10:49; Stop 01/01/17 at 10:50; Status DC Lidocaine HCl (Xylocaine-Mpf 1% Vial) 5 ml STK-MED ONCE .ROUTE ; Start at 10:50; Stop 01/01/17 at 10:51; Status DC Phenylephrine HCl (Leroy-Synephrine Inj) 10 mg STK-MED ONCE .ROUTE ; Start at 11:11; Stop 01/01/17 at 11:12; Status DC Ephedrine Sulfate (Akovaz) 50 mg STK-MED ONCE .ROUTE ; Start 01/01/17 at 11:18 ; Stop 01/01/17 at 11:19; Status DC Rocuronium [employer] (Zemuron) 100 mg STK-MED ONCE .ROUTE ; Start 01/01/17 at 11: 30; Stop 01/01/17 at 11:31; Status DC Cefoxitin Sodium 2 gm/Dextrose 100 ml @ 200 mls/hr 1X ONCE IV ; Start at 12:15; Stop 01/01/17 at 12:44; Status Cancel Cefoxitin Sodium 100 ml @ As Directed STK-MED ONCE IV ; Start 01/01/17 at 11: 17; Stop 01/01/17 at 12:17; Status DC Fentanyl Citrate (Fentanyl 2ml Vial) 100 mcg STK-MED ONCE .ROUTE ; Start at 12:24; Stop 01/01/17 at 12:25; Status DC Sodium Chloride 39.95 ml/ Hydromorphone HCl 0.5 mg/ Ropivacaine 10 ml/ Epidural Dosage Infused (Pha) 50 ml @ 0 mls/hr CONT PRN EP Per protocol Last administered on 01/04/17t 06:38; Start 01/01/17 at 12:30; Stop 01/11/17 at 02: 08; Status DC Sodium Chloride 40 ml/ Hydromorphone HCl 0.5 mg/ Ropivacaine 10 ml/ Epidural Dosage Infused (Pha) 50.05 ml @ 0 mls/hr 1X ONCE EP ; Start 01/05/17 at 18:30 ; Stop 01/05/17 at 18:31; Status UNV Sevoflurane (Ultane) 90 ml STK-MED ONCE IH ; Start 01/01/17 at 13:02; Stop at 13:03; Status DC Cefoxitin Sodium 50 ml @ 100 mls/hr 1X ONCE IV Last administered on t 14:35; Start 01/01/17 at 14:15; Stop 01/01/17 at 14:44; Status DC Albumin Human 100 ml @ As Directed STK-MED ONCE IV ; Start 01/01/17 at 14:25; Stop 01/01/17 at 14:26; Status DC Glycopyrrolate (Robinul) 1 mg STK-MED ONCE .ROUTE ; Start 01/01/17 at 15:59; Stop 01/01/17 at 16:00; Status DC Neostigmine Methylsulfate 5 mg STK-MED ONCE .ROUTE ; Start 01/01/17 at 15:59; Stop 01/01/17 at 16:00; Status DC Famotidine (Pepcid) 20 mg BID IVP Last administered on 01/07/17 20:18; Start 01/01/17 at 21:00; Stop 01/08/17 at 08:44; Status DC Heparin Sodium (Porcine) (Heparin Sq) 5,000 unit Q12HR SQ Last administered on 01/11/17 08:12; Start 01/01/17 at 21:00 Sodium Chloride (Normal Saline Flush) 3 ml QSHIFT PRN IV AFTER MEDS AND BLOOD DRAWS; Start 01/01/17 at 16:30 Ringer's Solution 1,000 ml @ 100 mls/hr Q10H IV Last administered on 02:38; Start 01/01/17 at 16:26; Stop 01/08/17 at 09:47; Status DC Ondansetron HCl (Zofran) 4 mg PRN Q6HRS PRN IV NAUESA, 1ST CHOICE Last administered on 01/10/17 21:22; Start 01/01/17 at 16:30 Diphenhydramine HCl (Benadryl) 25 mg PRN Q6HRS PRN IVP ITCHING Last administered on 01/02/17 10:07; Start 01/02/17 at 10:00 Oxycodone/ Acetaminophen (Percocet 5/325) 1 tab PRN Q4HRS PRN PO PAIN Last administered on 01/07/17 11:24; Start 01/05/17 at 10:00 Docusate Sodium (Colace) 100 mg DAILY PO Last administered on 01/11/17 08:04; Start 01/05/17 at 10:00 Sodium Chloride (Saline Mist Nasal) 1 henry PRN Q1HR PRN NS NASAL CONGESTION Last administered on 01/07/17 12:49; Start 01/07/17 at 10:00 Hydralazine HCl (Apresoline Inj) 10 mg PRN Q4HRS PRN IVP ELEVATED BP, SEE COMMENTS; Start 01/07/17 at 15:30 Levothyroxine Sodium 25 mcg/ Sodium Chloride 5 ml @ 100 mls/hr DAILY IVP Last administered on 01/07/17 16:27; Start 01/07/17 at 16:00; Stop 01/08/17 at 08:44 ; Status DC Amlodipine Besylate (Norvasc) 5 mg DAILY PO Last administered on 01/11/17 08: 04; Start 01/08/17 at 09:00 Fluticasone Propionate (Flonase) 1 spray PRN DAILY PRN NS ALLERGIES; Start 01/08/17 at 08:45 Levothyroxine Sodium (Synthroid) 50 mcg DAILY06 PO Last administered on 06:21; Start 01/08/17 at 09:00 Lisinopril (Prinivil) 10 mg DAILY PO Last administered on 01/11/17 08:05; Start 01/08/17 at 09:00 Pantoprazole Sodium (Protonix) 40 mg DAILYAC PO Last administered on 01/11/17 06:21; Start 01/08/17 at 09:00 Ferrous Sulfate (Feosol) 325 mg DAILYWBKFT PO Last administered on 01/11/17 08 :04; Start 01/08/17 at 09:00 Cetirizine HCl (ZyrTEC) 10 mg DAILY PO Last administered on 01/11/17 08:04; Start 01/08/17 at 09:00 Multivitamins (Thera M Plus) 1 tab DAILY PO Last administered on 01/11/17 08: 04; Start 01/09/17 at 09:00 Atorvastatin Calcium (Lipitor) 5 mg QHS PO Last administered on 01/10/17 21:27 ; Start 01/08/17 at 21:00 Ciprofloxacin (Cipro) 500 mg BID PO Last administered on 01/09/17 11:03; Start 01/09/17 at 11:30; Stop 01/09/17 at 11:30; Status DC Phenazopyridine HCl (Pyridium) 200 mg PRN TID PRN PO URINARY PAIN; Start at 11:15; Stop 01/09/17 at 11:15; Status DC Phenazopyridine HCl (Pyridium) 200 mg TID PO Last administered on 01/11/17 08: 05; Start 01/09/17 at 11:15 Ceftriaxone Sodium 1 gm/ Dextrose 50 ml @ 100 mls/hr Q24H IV ; Start 01/09/17 at 11:15; Status UNV Ceftriaxone Sodium (Rocephin) 1 gm Q24H IVP Last administered on 01/11/17 12: 06; Start 01/09/17 at 12:00 Lactobacillus Rhamnosus (Culturelle) 1 cap BID PO Last administered on 08:04; Start 01/09/17 at 21:00 Lidocaine/Sodium Bicarbonate (Buffered Lidocaine 1%) 20 ml STK-MED ONCE IJ ; Start 01/10/17 at 08:17; Stop 01/10/17 at 08:18; Status DC Lidocaine/Sodium Bicarbonate (Buffered Lidocaine 1%) 3 ml 1X ONCE IJ Last administered on 01/10/17 08:30; Start 01/10/17 at 08:30; Stop 01/10/17 at 08:33 ; Status DC Info 1 each PRN DAILY PRN MC SEE COMMENTS Last administered on 01/11/17 11:33 ; Start 01/10/17 at 11:45 Sodium Chloride 90 meq/Potassium Chloride 50 meq/ Potassium Phosphate 13.6 mmol/ Magnesium Sulfate 10 meq/ Calcium Gluconate 10 meq/ Multivitamins 10 ml/Chromium / Copper/Manganese/ Seleni/Zn 1 ml/ Total Parenteral Nutrition/Amino Acids/ Dextrose/ Fat Emulsion Intravenous 1,512 ml @ 63 mls/hr TPN CONT IV Last administered on 01/10/17 22:30; Start 01/10/17 at 22:00; Stop 01/11/17 at 21:59 Potassium Chloride 50 ml @ 50 mls/hr Q1H IV Last administered on 01/11/17 11: 27; Start 01/11/17 at 09:30; Stop 01/11/17 at 11:29; Status DC Potassium Chloride (Klor-Con) 20 meq 1X ONCE PO Last administered on t 10:26; Start 01/11/17 at 09:30; Stop 01/11/17 at 09:31; Status DC Calcium Carbonate/ Glycine (Tums) 500 mg PRN AFTMEALHC PRN PO INDIGESTION; Start 01/11/17 at 10:15 Al Hydroxide/Mg Hydroxide (Mylanta Plus Xs) 30 ml PRN Q2HR PRN PO HEARTBURN / GAS; Start 01/11/17 at 10:15 Sodium Chloride 90 meq/Potassium Chloride 70 meq/ Potassium Phosphate 13.6 mmol/ Magnesium Sulfate 10 meq/ Calcium Gluconate 10 meq/ Multivitamins 10 ml/Chromium / Copper/Manganese/ Seleni/Zn 1 ml/ Total Parenteral Nutrition/Amino Acids/ Dextrose/ Fat Emulsion Intravenous 1,512 ml @ 63 mls/hr TPN CONT IV ; Start 01/11/17 at 22:00; Stop 01/12/17 at 21:59 Active Scripts Active Protonix (Pantoprazole Sodium) 40 Mg Tablet.dr 1 Tab PO DAILY Reported Ferralet 90 Dual-Iron Tablet (Iron, Carb & Gluc/Fa/B12/C/Dss) 1 Each Tablet 1 Tab PO DAILY Multivitamins (Multivitamin) 1 Each Tablet 1 Tab PO DAILY Loratadine 10 Mg Tablet 1 Tab PO DAILY Fluticasone Propionate Nasal [place] (Fluticasone Propionate) 16 Gm [place].susp 1 [place] NS DAILY PRN Levothyroxine Sodium 50 Mcg Tablet 1 Tab PO DAILY Lisinopril 10 Mg Tablet 1 Tab PO DAILY Pravastatin Sodium 10 Mg Tablet 1 Tab PO DAILY Amlodipine Besylate 5 Mg Tablet 5 Mg PO DAILY Vitals/I & O Vital Sign - Last 24 Hours 01/10/17 01/10/17 01/10/17 01/10/17 15:00 19:00 19:45 23:00 Temp 98.2 98.4 98.8 98.2 98.4 98.8 Pulse 84 76 83 Resp 18 18 18 B/P (MAP) 121/83 (96) 102/65 (77) 134/74 (94) Pulse Ox 95 91 92 O2 Delivery Room Air Room Air Room Air Room Air 01/11/17 01/11/17 01/11/17 01/11/17 03:00 07:27 08:00 08:04 Temp 98.4 98.2 98.4 98.2 Pulse 84 83 83 Resp 17 B/P (MAP) 133/75 (94) 151/71 (97) 151/71 Pulse Ox 94 93 O2 Delivery Room Air Room Air Room Air 01/11/17 01/11/17 08:05 10:28 Temp 97.9 97.9 Pulse 83 86 Resp 17 B/P (MAP) 151/71 136/71 (92) Pulse Ox 92 O2 Delivery Room Air Intake and Output 01/11/17 01/11/17 01/12/17 15:00 23:00 07:00 Intake Total 240 ml Output Total 550 ml Balance -310 ml NYA OLIVAREZ MD Jan 11, 2017 13:47
[2017-01-11 14:35] VITALS: BP 124/65
[2017-01-11 19:00] VITALS: BP 142/96
[2017-01-11] MEDS ORDERED: DEXTROSE 70% IV SCH ×10 (22:00)
[2017-01-11] MEDS ORDERED: AMINO ACIDS IV SCH ×10 (22:00)
[2017-01-11] MEDS ORDERED: [UNRECOGNIZED DRUG - OTHER] IV SCH ×10 (22:00)
[2017-01-11] MEDS ORDERED: TOTAL PARENTERAL NUTRITION IV SCH ×10 (22:00)
[2017-01-11] MEDS: ATORVASTATIN CALCIUM 10 MG TABLET. PO SCH (22:18)
[2017-01-11] MEDS: SODIUM CHLORIDE 0.65% NASAL SPRAY 45ML BOTTLE. NS PRN (22:22)
[2017-01-11 23:00] VITALS: BP 118/82
[2017-01-12 03:00] VITALS: BP 127/79
[2017-01-12 06:03] LABS: CALCIUM 8.1 mg/dL (8.5-10.1); GFR 54.8; MAGNESIUM 1.8 mg/dL (1.8-2.4); PHOSPHORUS 3.1 mg/dL (2.6-4.7); POTASSIUM 3.3 mmol/L (3.5-5.1)
[2017-01-12] MEDS: LEVOTHYROXINE 50 MCG TABLET PO SCH (06:27)
[2017-01-12] MEDS: PANTOPRAZOLE 40 MG TABLET.DR. PO SCH (06:27)
[2017-01-12 07:00] VITALS: BP 124/60
[2017-01-12] MEDS: FERROUS SULFATE 325 MG TABLET. PO SCH (08:38)
[2017-01-12] MEDS: PHENAZOPYRIDINE 200 MG TABLET. PO SCH ×3 (08:38→21:15)
[2017-01-12] MEDS: CETIRIZINE HCL 10 MG TABLET. PO SCH (08:39)
[2017-01-12] MEDS: amLODIPine BESYLATE 5 MG TABLET PO SCH (08:39)
[2017-01-12] MEDS: LACTOBACILLUS RHAMNOSUS GG 1 CAPSULE. PO SCH ×2 (08:39→21:15)
[2017-01-12] MEDS: DOCUSATE SODIUM 100 MG CAPSULE. PO SCH (08:39)
[2017-01-12] MEDS: MULTIVITAMIN with MINERAL TABLET. PO SCH (08:39)
[2017-01-12] MEDS: LISINOPRIL 10 MG TABLET PO SCH (08:39)
[2017-01-12] MEDS: HEPARIN PF for SUB-Q USE 5,000 UNIT/0.5 ML VIAL. SQ SCH ×2 (08:52→21:19)
--- NOTE | 2017-01-12 08:57 | PDOC ---
PROGRESS NOTES Subjective Subjective HPI - Pancreatic adenocarcinoma. s/p endoscopic ultrasound-guided biopsy of the pancreatic head mass 12/13/16. s/p Whipple surgery 01/01/17- revealed T2N0M0 stage IB. ROS - no n/v Objective Objective Vital Signs Date Time Temp Pulse Resp B/P (MAP) Pulse Ox O2 Delivery O2 Flow Rate FiO2 01/12/17 08:39 81 124/60 01/12/17 07:00 97.6 18 96 Room Air 97.6 01/07/17 20:00 2.0 Physical Exam Heart: Normal S1, Normal S2 General: Alert, Oriented X3, No acute distress Lungs: Clear to auscultation Neuro: Normal speech Psych/Mental Status: Mental status NL Assessment Assessment IMPRESSION AND PLAN: 1. Pancreatic adenocarcinoma. s/p endoscopic ultrasound-guided biopsy of the pancreatic head mass 12/13/16. s/p Whipple surgery 01/01/17- revealed T2N0M0 stage IB. Whipple procedure (specifically: pancreaticoduodenectomy, pylorus sparing, pancreaticogastrostomy with Buster en Y reconstruction to bile duct), G-tube placement. Positive margin and has perineural involvement. Plan adjuvant chemo in 4 weeks followed by radiation. I d/w Dr Swanson. 2. Obstructive jaundice secondary to pancreatic head mass. Improved. 3. Iron-deficiency anemia. s/p Venofer 500 mg IV x 1 dose on 11/27/2016. Hb 9.5, monitor. 4. N/v - resolved Comment Review of Relevant I have reviewed the following items alonzo (where applicable) has been applied. Labs Laboratory Tests Test 01/10/17 20:47 01/11/17 00:09 01/11/17 06:20 01/11/17 11:49 Glucose (Fingerstick) 98 mg/dL (70-99) 161 mg/dL (70-99) 188 mg/dL (70-99) White Blood Count 12.9 x10^3/uL (4.0-11.0) Red Blood Count 3.67 x10^6/uL (3.50-5.40) Hemoglobin 9.5 g/dL (12.0-15.5) Hematocrit 29.7 % (36.0-47.0) Mean Corpuscular Volume 81 fL (79-100) Mean Corpuscular Hemoglobin 26 pg (25-35) Mean Corpuscular Hemoglobin Concent 32 g/dL (31-37) Red Cell Distribution Width 21.6 % (11.5-14.5) Platelet Count 428 x10^3/uL (140-400) Neutrophils (%) (Auto) 76 % (31-73) Lymphocytes (%) (Auto) 14 % (24-48) Monocytes (%) (Auto) 6 % (0-9) Eosinophils (%) (Auto) 3 % (0-3) Basophils (%) (Auto) 1 % (0-3) Neutrophils # (Auto) 9.8 x10^3uL (1.8-7.7) Lymphocytes # (Auto) 1.7 x10^3/uL (1.0-4.8) Monocytes # (Auto) 0.8 x10^3/uL (0.0-1.1) Eosinophils # (Auto) 0.4 x10^3/uL (0.0-0.7) Basophils # (Auto) 0.1 x10^3/uL (0.0-0.2) Sodium Level 145 mmol/L (136-145) Potassium Level 3.0 mmol/L (3.5-5.1) Chloride Level 106 mmol/L (98-107) Carbon Dioxide Level 31 mmol/L (21-32) Anion Gap 8 (6-14) Blood Urea Nitrogen 13 mg/dL (7-20) Creatinine 1.1 mg/dL (0.6-1.0) Estimated GFR (Cockcroft-Gault) 49.1 BUN/Creatinine Ratio 12 (6-20) Glucose Level 137 mg/dL (70-99) Calcium Level 8.5 mg/dL (8.5-10.1) Phosphorus Level 3.6 mg/dL (2.6-4.7) Magnesium Level 1.8 mg/dL (1.8-2.4) Total Bilirubin 0.6 mg/dL (0.2-1.0) Aspartate Amino Transf (AST/SGOT) 16 U/L (15-37) Alanine Aminotransferase (ALT/SGPT) 21 U/L (14-59) Alkaline Phosphatase 81 U/L (46-116) Total Protein 5.1 g/dL (6.4-8.2) Albumin 2.0 g/dL (3.4-5.0) Albumin/Globulin Ratio 0.6 (1.0-1.7) Triglycerides Level 188 mg/dL (0-150) Lipase 31 U/L (73-393) Test 01/11/17 17:43 01/11/17 23:57 01/12/17 05:34 01/12/17 05:49 Glucose (Fingerstick) 164 mg/dL (70-99) 135 mg/dL (70-99) 152 mg/dL (70-99) Sodium Level 142 mmol/L (136-145) Potassium Level 3.3 mmol/L (3.5-5.1) Chloride Level 105 mmol/L (98-107) Carbon Dioxide Level 30 mmol/L (21-32) Anion Gap 7 (6-14) Blood Urea Nitrogen 16 mg/dL (7-20) Creatinine 1.0 mg/dL (0.6-1.0) Estimated GFR (Cockcroft-Gault) 54.8 Glucose Level 146 mg/dL (70-99) Calcium Level 8.1 mg/dL (8.5-10.1) Phosphorus Level 3.1 mg/dL (2.6-4.7) Magnesium Level 1.8 mg/dL (1.8-2.4) Laboratory Tests Test 01/11/17 11:49 01/11/17 17:43 01/11/17 23:57 01/12/17 05:34 Glucose (Fingerstick) 188 mg/dL (70-99) 164 mg/dL (70-99) 135 mg/dL (70-99) Sodium Level 142 mmol/L (136-145) Potassium Level 3.3 mmol/L (3.5-5.1) Chloride Level 105 mmol/L (98-107) Carbon Dioxide Level 30 mmol/L (21-32) Anion Gap 7 (6-14) Blood Urea Nitrogen 16 mg/dL (7-20) Creatinine 1.0 mg/dL (0.6-1.0) Estimated GFR (Cockcroft-Gault) 54.8 Glucose Level 146 mg/dL (70-99) Calcium Level 8.1 mg/dL (8.5-10.1) Phosphorus Level 3.1 mg/dL (2.6-4.7) Magnesium Level 1.8 mg/dL (1.8-2.4) Test 01/12/17 05:49 Glucose (Fingerstick) 152 mg/dL (70-99) Microbiology 01/09/17 Urine Culture - Final, Complete 01/09/17 Urine Culture Result 1 (GILBERT) - Final, Complete 01/09/17 Antimicrobic Susceptibility - Final, Complete Medications Current Medications Ondansetron HCl (Zofran) 4 mg PRN Q6HRS PRN IV NAUSEA/VOMITING; Start at 07:00; Stop 01/02/17 at 06:59; Status DC Fentanyl Citrate (Fentanyl 2ml Vial) 25 mcg PRN Q5MIN PRN IV MILD PAIN; Start 01/01/17 at 07:00; Stop 01/02/17 at 06:59; Status DC Fentanyl Citrate (Fentanyl 2ml Vial) 50 mcg PRN Q5MIN PRN IV MODERATE PAIN; Start 01/01/17 at 07:00; Stop 01/02/17 at 06:59; Status DC Morphine Sulfate 1 mg PRN Q10MIN PRN IV SEVERE PAIN; Start 01/01/17 at 07:00; Stop 01/02/17 at 06:59; Status DC Ringer's Solution 1,000 ml @ 30 mls/hr Q24H IV Last administered on 08:35; Start 01/01/17 at 07:00; Stop 01/01/17 at 18:59; Status DC Lidocaine HCl (Xylocaine-Mpf 1% Vial) 2 ml PRN 1X PRN ID PRIOR TO IV START; Start 01/01/17 at 07:00; Stop 01/02/17 at 06:59; Status DC Hydromorphone HCl (Dilaudid) 0.5 mg PRN Q10MIN PRN IV SEV PAIN, Second choice; Start 01/01/17 at 07:00; Stop 01/02/17 at 06:59; Status DC Prochlorperazine Edisylate (Compazine) 5 mg PACU PRN PRN IV NAUSEA, MRX1; Start 01/01/17 at 07:00; Stop 01/02/17 at 06:59; Status DC Cefoxitin Sodium 2 gm/Dextrose 100 ml @ 200 mls/hr 1X PREOP PRN IV ABX Last administered on 10/30/17at 12:35; Start 01/01/17 at 06:00; Stop 01/06/17 at 15: 00; Status DC Dexamethasone Sodium Phosphate (Decadron) 20 mg STK-MED ONCE .ROUTE ; Start at 09:25; Stop 01/01/17 at 09:26; Status DC Lidocaine HCl (Lidocaine Pf 2% Vial) 5 ml STK-MED ONCE .ROUTE ; Start 01/01/17 at 09:25; Stop 01/01/17 at 09:26; Status DC Ondansetron HCl (Zofran) 4 mg STK-MED ONCE .ROUTE ; Start 01/01/17 at 09:25; Stop 01/01/17 at 09:26; Status DC Propofol 20 ml @ As Directed STK-MED ONCE IV ; Start 01/01/17 at 09:25; Stop 01/01/17 at 09:26; Status DC Fentanyl Citrate (Fentanyl 2ml Vial) 100 mcg STK-MED ONCE .ROUTE ; Start at 09:25; Stop 01/01/17 at 09:26; Status DC Rocuronium [place] (Zemuron) 50 mg STK-MED ONCE .ROUTE ; Start 01/01/17 at 09: 26; Stop 01/01/17 at 09:27; Status DC Phenylephrine HCl 1 mg STK-MED ONCE IV ; Start 01/01/17 at 10:27; Stop at 10:28; Status DC Bupivacaine HCl (Sensorcaine Mpf 0.25%) 30 ml STK-MED ONCE .ROUTE ; Start 01/01 at 10:49; Stop 01/01/17 at 10:50; Status DC Lidocaine HCl (Xylocaine-Mpf 1% Vial) 5 ml STK-MED ONCE .ROUTE ; Start at 10:50; Stop 01/01/17 at 10:51; Status DC Phenylephrine HCl ([place]eroy-Synephrine Inj) 10 mg STK-MED ONCE .ROUTE ; Start at 11:11; Stop 01/01/17 at 11:12; Status DC Ephedrine Sulfate (Akovaz) 50 mg STK-MED ONCE .ROUTE ; Start 01/01/17 at 11:18 ; Stop 01/01/17 at 11:19; Status DC Rocuronium [place] (Zemuron) 100 mg STK-MED ONCE .ROUTE ; Start 01/01/17 at 11: 30; Stop 01/01/17 at 11:31; Status DC Cefoxitin Sodium 2 gm/Dextrose 100 ml @ 200 mls/hr 1X ONCE IV ; Start at 12:15; Stop 01/01/17 at 12:44; Status Cancel Cefoxitin Sodium 100 ml @ As Directed STK-MED ONCE IV ; Start 01/01/17 at 11: 17; Stop 01/01/17 at 12:17; Status DC Fentanyl Citrate (Fentanyl 2ml Vial) 100 mcg STK-MED ONCE .ROUTE ; Start at 12:24; Stop 01/01/17 at 12:25; Status DC Sodium Chloride 39.95 ml/ Hydromorphone HCl 0.5 mg/ Ropivacaine 10 ml/ Epidural Dosage Infused (Pha) 50 ml @ 0 mls/hr CONT PRN EP Per protocol Last administered on 01/04/17t 06:38; Start 01/01/17 at 12:30; Stop 01/11/17 at 02: 08; Status DC Sodium Chloride 40 ml/ Hydromorphone HCl 0.5 mg/ Ropivacaine 10 ml/ Epidural Dosage Infused (Pha) 50.05 ml @ 0 mls/hr 1X ONCE EP ; Start 01/05/17 at 18:30 ; Stop 01/05/17 at 18:31; Status UNV Sevoflurane (Ultane) 90 ml STK-MED ONCE IH ; Start 01/01/17 at 13:02; Stop at 13:03; Status DC Cefoxitin Sodium 50 ml @ 100 mls/hr 1X ONCE IV Last administered on t 14:35; Start 01/01/17 at 14:15; Stop 01/01/17 at 14:44; Status DC Albumin Human 100 ml @ As Directed STK-MED ONCE IV ; Start 01/01/17 at 14:25; Stop 01/01/17 at 14:26; Status DC Glycopyrrolate (Robinul) 1 mg STK-MED ONCE .ROUTE ; Start 01/01/17 at 15:59; Stop 01/01/17 at 16:00; Status DC Neostigmine Methylsulfate 5 mg STK-MED ONCE .ROUTE ; Start 01/01/17 at 15:59; Stop 01/01/17 at 16:00; Status DC Famotidine (Pepcid) 20 mg BID IVP Last administered on 01/07/17 20:18; Start 01/01/17 at 21:00; Stop 01/08/17 at 08:44; Status DC Heparin Sodium (Porcine) (Heparin Sq) 5,000 unit Q12HR SQ Last administered on 01/12/17 08:52; Start 01/01/17 at 21:00 Sodium Chloride (Normal Saline Flush) 3 ml QSHIFT PRN IV AFTER MEDS AND BLOOD DRAWS; Start 01/01/17 at 16:30 Ringer's Solution 1,000 ml @ 100 mls/hr Q10H IV Last administered on 02:38; Start 01/01/17 at 16:26; Stop 01/08/17 at 09:47; Status DC Ondansetron HCl (Zofran) 4 mg PRN Q6HRS PRN IV NAUESA, 1ST CHOICE Last administered on 01/10/17 21:22; Start 01/01/17 at 16:30 Diphenhydramine HCl (Benadryl) 25 mg PRN Q6HRS PRN IVP ITCHING Last administered on 01/02/17 10:07; Start 01/02/17 at 10:00 Oxycodone/ Acetaminophen (Percocet 5/325) 1 tab PRN Q4HRS PRN PO PAIN Last administered on 01/07/17 11:24; Start 01/05/17 at 10:00 Docusate Sodium (Colace) 100 mg DAILY PO Last administered on 01/12/17 08:39 ; Start 01/05/17 at 10:00 Sodium Chloride (Saline Mist Nasal) 1 henry PRN Q1HR PRN NS NASAL CONGESTION Last administered on 01/11/17 22:22; Start 01/07/17 at 10:00 Hydralazine HCl (Apresoline Inj) 10 mg PRN Q4HRS PRN IVP ELEVATED BP, SEE COMMENTS; Start 01/07/17 at 15:30 Levothyroxine Sodium 25 mcg/ Sodium Chloride 5 ml @ 100 mls/hr DAILY IVP Last administered on 01/07/17 16:27; Start 01/07/17 at 16:00; Stop 01/08/17 at 08:44 ; Status DC Amlodipine Besylate (Norvasc) 5 mg DAILY PO Last administered on 01/12/17 08: 39; Start 01/08/17 at 09:00 Fluticasone Propionate (Flonase) 1 spray PRN DAILY PRN NS ALLERGIES; Start 01/08/17 at 08:45 Levothyroxine Sodium (Synthroid) 50 mcg DAILY06 PO Last administered on 06:27; Start 01/08/17 at 09:00 Lisinopril (Prinivil) 10 mg DAILY PO Last administered on 01/12/17 08:39; Start 01/08/17 at 09:00 Pantoprazole Sodium (Protonix) 40 mg DAILYAC PO Last administered on 06:27; Start 01/08/17 at 09:00 Ferrous Sulfate (Feosol) 325 mg DAILYWBKFT PO Last administered on 01/12/17 08:38; Start 01/08/17 at 09:00 Cetirizine HCl (ZyrTEC) 10 mg DAILY PO Last administered on 01/12/17 08:39; Start 01/08/17 at 09:00 Multivitamins (Thera M Plus) 1 tab DAILY PO Last administered on 01/12/17 08: 39; Start 01/09/17 at 09:00 Atorvastatin Calcium (Lipitor) 5 mg QHS PO Last administered on 01/11/17 22:18 ; Start 01/08/17 at 21:00 Ciprofloxacin (Cipro) 500 mg BID PO Last administered on 01/09/17 11:03; Start 01/09/17 at 11:30; Stop 01/09/17 at 11:30; Status DC Phenazopyridine HCl (Pyridium) 200 mg PRN TID PRN PO URINARY PAIN; Start at 11:15; Stop 01/09/17 at 11:15; Status DC Phenazopyridine HCl (Pyridium) 200 mg TID PO Last administered on 01/12/17 08 :38; Start 01/09/17 at 11:15 Ceftriaxone Sodium 1 gm/ Dextrose 50 ml @ 100 mls/hr Q24H IV ; Start 01/09/17 at 11:15; Status UNV Ceftriaxone Sodium (Rocephin) 1 gm Q24H IVP Last administered on 01/11/17 12: 06; Start 01/09/17 at 12:00 Lactobacillus Rhamnosus (Culturelle) 1 cap BID PO Last administered on 08:39; Start 01/09/17 at 21:00 Lidocaine/Sodium Bicarbonate (Buffered Lidocaine 1%) 20 ml STK-MED ONCE IJ ; Start 01/10/17 at 08:17; Stop 01/10/17 at 08:18; Status DC Lidocaine/Sodium Bicarbonate (Buffered Lidocaine 1%) 3 ml 1X ONCE IJ Last administered on 01/10/17 08:30; Start 01/10/17 at 08:30; Stop 01/10/17 at 08:33 ; Status DC Info 1 each PRN DAILY PRN MC SEE COMMENTS Last administered on 01/11/17 11:33 ; Start 01/10/17 at 11:45 Sodium Chloride 90 meq/Potassium Chloride 50 meq/ Potassium Phosphate 13.6 mmol/ Magnesium Sulfate 10 meq/ Calcium Gluconate 10 meq/ Multivitamins 10 ml/Chromium / Copper/Manganese/ Seleni/Zn 1 ml/ Total Parenteral Nutrition/Amino Acids/ Dextrose/ Fat Emulsion Intravenous 1,512 ml @ 63 mls/hr TPN CONT IV Last administered on 01/10/17 22:30; Start 01/10/17 at 22:00; Stop 01/11/17 at 21:59 ; Status DC Potassium Chloride 50 ml @ 50 mls/hr Q1H IV Last administered on 01/11/17 11: 27; Start 01/11/17 at 09:30; Stop 01/11/17 at 11:29; Status DC Potassium Chloride (Klor-Con) 20 meq 1X ONCE PO Last administered on 10:26; Start 01/11/17 at 09:30; Stop 01/11/17 at 09:31; Status DC Calcium Carbonate/ Glycine (Tums) 500 mg PRN AFTMEALHC PRN PO INDIGESTION; Start 01/11/17 at 10:15 Al Hydroxide/Mg Hydroxide (Mylanta Plus Xs) 30 ml PRN Q2HR PRN PO HEARTBURN / GAS; Start 01/11/17 at 10:15 Sodium Chloride 90 meq/Potassium Chloride 70 meq/ Potassium Phosphate 13.6 mmol/ Magnesium Sulfate 10 meq/ Calcium Gluconate 10 meq/ Multivitamins 10 ml/Chromium / Copper/Manganese/ Seleni/Zn 1 ml/ Total Parenteral Nutrition/Amino Acids/ Dextrose/ Fat Emulsion Intravenous 1,512 ml @ 63 mls/hr TPN CONT IV Last administered on 01/11/17t 22:54; Start 01/11/17 at 22:00; Stop 01/12/17 at 21: 59 Active Scripts Active Protonix (Pantoprazole Sodium) 40 Mg Tablet.dr 1 Tab PO DAILY Reported Ferralet 90 Dual-Iron Tablet (Iron, Carb & Gluc/Fa/B12/C/Dss) 1 Each Tablet 1 Tab PO DAILY Multivitamins (Multivitamin) 1 Each Tablet 1 Tab PO DAILY Loratadine 10 Mg Tablet 1 Tab PO DAILY Fluticasone Propionate Nasal [place] (Fluticasone Propionate) 16 Gm [place].susp 1 [place] NS DAILY PRN Levothyroxine Sodium 50 Mcg Tablet 1 Tab PO DAILY Lisinopril 10 Mg Tablet 1 Tab PO DAILY Pravastatin Sodium 10 Mg Tablet 1 Tab PO DAILY Amlodipine Besylate 5 Mg Tablet 5 Mg PO DAILY Vitals/I & O Vital Sign - Last 24 Hours 01/11/17 01/11/17 01/11/17 01/11/17 10:28 14:35 19:00 20:20 Temp 97.9 97.9 98.3 97.9 97.9 98.3 Pulse 86 84 94 Resp 18 B/P (MAP) 136/71 (92) 124/65 (84) 142/96 (111) Pulse Ox 92 93 95 O2 Delivery Room Air Room Air Room Air Room Air 01/11/17 01/11/17 01/12/17 01/12/17 21:25 23:00 03:00 07:00 Temp 98.7 97.7 97.6 98.7 97.7 97.6 Pulse 92 99 81 Resp 18 18 B/P (MAP) 118/82 (94) 127/79 (95) 124/60 (81) Pulse Ox 95 93 96 O2 Delivery Room Air Room Air Room Air Room Air 01/12/17 01/12/17 08:39 08:39 Pulse 81 81 B/P (MAP) 124/60 124/60 NYA OLIVAREZ MD Jan 12, 2017 08:57
--- NOTE | 2017-01-12 10:38 | PDOC ---
SURGICAL PROGRESS NOTE Subjective tolerating diet feeling better had a stool Vital Signs Vital Signs Date Time Temp Pulse Resp B/P (MAP) Pulse Ox O2 Delivery O2 Flow Rate FiO2 01/12/17 08:39 81 124/60 01/12/17 07:00 97.6 18 96 Room Air 97.6 General: Alert, Oriented X3, Cooperative, No acute distress Abdomen: Soft, Other (drains serosang, g tube to DD) Labs Laboratory Tests Test 01/10/17 20:47 01/11/17 00:09 01/11/17 06:20 01/11/17 11:49 Glucose (Fingerstick) 98 mg/dL (70-99) 161 mg/dL (70-99) 188 mg/dL (70-99) White Blood Count 12.9 x10^3/uL (4.0-11.0) Red Blood Count 3.67 x10^6/uL (3.50-5.40) Hemoglobin 9.5 g/dL (12.0-15.5) Hematocrit 29.7 % (36.0-47.0) Mean Corpuscular Volume 81 fL (79-100) Mean Corpuscular Hemoglobin 26 pg (25-35) Mean Corpuscular Hemoglobin Concent 32 g/dL (31-37) Red Cell Distribution Width 21.6 % (11.5-14.5) Platelet Count 428 x10^3/uL (140-400) Neutrophils (%) (Auto) 76 % (31-73) Lymphocytes (%) (Auto) 14 % (24-48) Monocytes (%) (Auto) 6 % (0-9) Eosinophils (%) (Auto) 3 % (0-3) Basophils (%) (Auto) 1 % (0-3) Neutrophils # (Auto) 9.8 x10^3uL (1.8-7.7) Lymphocytes # (Auto) 1.7 x10^3/uL (1.0-4.8) Monocytes # (Auto) 0.8 x10^3/uL (0.0-1.1) Eosinophils # (Auto) 0.4 x10^3/uL (0.0-0.7) Basophils # (Auto) 0.1 x10^3/uL (0.0-0.2) Sodium Level 145 mmol/L (136-145) Potassium Level 3.0 mmol/L (3.5-5.1) Chloride Level 106 mmol/L (98-107) Carbon Dioxide Level 31 mmol/L (21-32) Anion Gap 8 (6-14) Blood Urea Nitrogen 13 mg/dL (7-20) Creatinine 1.1 mg/dL (0.6-1.0) Estimated GFR (Cockcroft-Gault) 49.1 BUN/Creatinine Ratio 12 (6-20) Glucose Level 137 mg/dL (70-99) Calcium Level 8.5 mg/dL (8.5-10.1) Phosphorus Level 3.6 mg/dL (2.6-4.7) Magnesium Level 1.8 mg/dL (1.8-2.4) Total Bilirubin 0.6 mg/dL (0.2-1.0) Aspartate Amino Transf (AST/SGOT) 16 U/L (15-37) Alanine Aminotransferase (ALT/SGPT) 21 U/L (14-59) Alkaline Phosphatase 81 U/L (46-116) Total Protein 5.1 g/dL (6.4-8.2) Albumin 2.0 g/dL (3.4-5.0) Albumin/Globulin Ratio 0.6 (1.0-1.7) Triglycerides Level 188 mg/dL (0-150) Lipase 31 U/L (73-393) Test 01/11/17 17:43 01/11/17 23:57 01/12/17 05:34 01/12/17 05:49 Glucose (Fingerstick) 164 mg/dL (70-99) 135 mg/dL (70-99) 152 mg/dL (70-99) Sodium Level 142 mmol/L (136-145) Potassium Level 3.3 mmol/L (3.5-5.1) Chloride Level 105 mmol/L (98-107) Carbon Dioxide Level 30 mmol/L (21-32) Anion Gap 7 (6-14) Blood Urea Nitrogen 16 mg/dL (7-20) Creatinine 1.0 mg/dL (0.6-1.0) Estimated GFR (Cockcroft-Gault) 54.8 Glucose Level 146 mg/dL (70-99) Calcium Level 8.1 mg/dL (8.5-10.1) Phosphorus Level 3.1 mg/dL (2.6-4.7) Magnesium Level 1.8 mg/dL (1.8-2.4) Laboratory Tests Test 01/11/17 11:49 01/11/17 17:43 01/11/17 23:57 01/12/17 05:34 Glucose (Fingerstick) 188 mg/dL (70-99) 164 mg/dL (70-99) 135 mg/dL (70-99) Sodium Level 142 mmol/L (136-145) Potassium Level 3.3 mmol/L (3.5-5.1) Chloride Level 105 mmol/L (98-107) Carbon Dioxide Level 30 mmol/L (21-32) Anion Gap 7 (6-14) Blood Urea Nitrogen 16 mg/dL (7-20) Creatinine 1.0 mg/dL (0.6-1.0) Estimated GFR (Cockcroft-Gault) 54.8 Glucose Level 146 mg/dL (70-99) Calcium Level 8.1 mg/dL (8.5-10.1) Phosphorus Level 3.1 mg/dL (2.6-4.7) Magnesium Level 1.8 mg/dL (1.8-2.4) Test 01/12/17 05:49 Glucose (Fingerstick) 152 mg/dL (70-99) Assessment/Plan s/p [place] supportive [facility] Problems: NICK MINER APRN Jan 12, 2017 10:38
[2017-01-12 11:00] VITALS: BP 140/75
[2017-01-12] MEDS: TPN PER PHARMACY MC PRN (11:10)
--- NOTE | 2017-01-12 12:17 | PDOC ---
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 htn hld hypothyroidism SIRS with leukocytosis post op, reactive likely morbid obesity UTI Hypokalemia GERD E coli UTI History of Present Illness History of Present Illness Up in chair, Much better LEss nausea BUt still draining a lot TPN running NO fevers Some reflux sxs K normalized, was hypokalemic Lipase normal at 31 Ecoli uti sensitive to current abx URINE CULTURE Final Final report URINE CULTURE RES 1 Final Comment Enterobacter cloacae complex Greater than 100,000 colony forming units per mL ANTIMICROBIAL SUSCEPTIBILITY Final Comment S = Susceptible; I = Intermediate; R = Resistant P = Positive; N = Negative MICS are expressed in micrograms per mL Antibiotic RSLT#1 RSLT#2 RSLT#3 RSLT#4 Amoxicillin/Clavulanic Acid R Cefazolin R Cefepime S Ceftriaxone S Cefuroxime R Cephalothin R Ciprofloxacin S Ertapenem S Gentamicin S Imipenem S Levofloxacin S Nitrofurantoin I Piperacillin S Tetracycline S Tobramycin S Trimethoprim/Sulfa S Performed at: [address] [id number] [employer]: Heidi Frnech MD, Phone: [phone] PLAN: CPM TPN GS wants to keep over the weekend Accepted at [facility] in weekend Vitals Vitals Vital Signs Date Time Temp Pulse Resp B/P (MAP) Pulse Ox O2 Delivery O2 Flow Rate FiO2 01/12/17 08:39 81 124/60 01/12/17 08:15 Room Air 01/12/17 07:00 97.6 18 96 97.6 Physical Exam General: Alert, Oriented X3, Cooperative, No acute distress Heart: Normal S1, Normal S2 Abdomen: Soft, Other (drains serosang, g tube to DD) Extremities: No clubbing, No cyanosis Skin: No rashes, No breakdown Labs LABS Laboratory Tests Test 01/11/17 17:43 01/11/17 23:57 01/12/17 05:34 01/12/17 05:49 Glucose (Fingerstick) 164 mg/dL (70-99) 135 mg/dL (70-99) 152 mg/dL (70-99) Sodium Level 142 mmol/L (136-145) Potassium Level 3.3 mmol/L (3.5-5.1) Chloride Level 105 mmol/L (98-107) Carbon Dioxide Level 30 mmol/L (21-32) Anion Gap 7 (6-14) Blood Urea Nitrogen 16 mg/dL (7-20) Creatinine 1.0 mg/dL (0.6-1.0) Estimated GFR (Cockcroft-Gault) 54.8 Glucose Level 146 mg/dL (70-99) Calcium Level 8.1 mg/dL (8.5-10.1) Phosphorus Level 3.1 mg/dL (2.6-4.7) Magnesium Level 1.8 mg/dL (1.8-2.4) Review of Systems Review of Systems abd pain, nausea, no soa, cp, or emesis Comment Review of Relevant I have reviewed the following items alonzo (where applicable) has been applied. Labs Laboratory Tests Test 01/10/17 20:47 01/11/17 00:09 01/11/17 06:20 01/11/17 11:49 Glucose (Fingerstick) 98 mg/dL (70-99) 161 mg/dL (70-99) 188 mg/dL (70-99) White Blood Count 12.9 x10^3/uL (4.0-11.0) Red Blood Count 3.67 x10^6/uL (3.50-5.40) Hemoglobin 9.5 g/dL (12.0-15.5) Hematocrit 29.7 % (36.0-47.0) Mean Corpuscular Volume 81 fL (79-100) Mean Corpuscular Hemoglobin 26 pg (25-35) Mean Corpuscular Hemoglobin Concent 32 g/dL (31-37) Red Cell Distribution Width 21.6 % (11.5-14.5) Platelet Count 428 x10^3/uL (140-400) Neutrophils (%) (Auto) 76 % (31-73) Lymphocytes (%) (Auto) 14 % (24-48) Monocytes (%) (Auto) 6 % (0-9) Eosinophils (%) (Auto) 3 % (0-3) Basophils (%) (Auto) 1 % (0-3) Neutrophils # (Auto) 9.8 x10^3uL (1.8-7.7) Lymphocytes # (Auto) 1.7 x10^3/uL (1.0-4.8) Monocytes # (Auto) 0.8 x10^3/uL (0.0-1.1) Eosinophils # (Auto) 0.4 x10^3/uL (0.0-0.7) Basophils # (Auto) 0.1 x10^3/uL (0.0-0.2) Sodium Level 145 mmol/L (136-145) Potassium Level 3.0 mmol/L (3.5-5.1) Chloride Level 106 mmol/L (98-107) Carbon Dioxide Level 31 mmol/L (21-32) Anion Gap 8 (6-14) Blood Urea Nitrogen 13 mg/dL (7-20) Creatinine 1.1 mg/dL (0.6-1.0) Estimated GFR (Cockcroft-Gault) 49.1 BUN/Creatinine Ratio 12 (6-20) Glucose Level 137 mg/dL (70-99) Calcium Level 8.5 mg/dL (8.5-10.1) Phosphorus Level 3.6 mg/dL (2.6-4.7) Magnesium Level 1.8 mg/dL (1.8-2.4) Total Bilirubin 0.6 mg/dL (0.2-1.0) Aspartate Amino Transf (AST/SGOT) 16 U/L (15-37) Alanine Aminotransferase (ALT/SGPT) 21 U/L (14-59) Alkaline Phosphatase 81 U/L (46-116) Total Protein 5.1 g/dL (6.4-8.2) Albumin 2.0 g/dL (3.4-5.0) Albumin/Globulin Ratio 0.6 (1.0-1.7) Triglycerides Level 188 mg/dL (0-150) Lipase 31 U/L (73-393) Test 01/11/17 17:43 01/11/17 23:57 01/12/17 05:34 01/12/17 05:49 Glucose (Fingerstick) 164 mg/dL (70-99) 135 mg/dL (70-99) 152 mg/dL (70-99) Sodium Level 142 mmol/L (136-145) Potassium Level 3.3 mmol/L (3.5-5.1) Chloride Level 105 mmol/L (98-107) Carbon Dioxide Level 30 mmol/L (21-32) Anion Gap 7 (6-14) Blood Urea Nitrogen 16 mg/dL (7-20) Creatinine 1.0 mg/dL (0.6-1.0) Estimated GFR (Cockcroft-Gault) 54.8 Glucose Level 146 mg/dL (70-99) Calcium Level 8.1 mg/dL (8.5-10.1) Phosphorus Level 3.1 mg/dL (2.6-4.7) Magnesium Level 1.8 mg/dL (1.8-2.4) Laboratory Tests Test 01/11/17 17:43 01/11/17 23:57 01/12/17 05:34 01/12/17 05:49 Glucose (Fingerstick) 164 mg/dL (70-99) 135 mg/dL (70-99) 152 mg/dL (70-99) Sodium Level 142 mmol/L (136-145) Potassium Level 3.3 mmol/L (3.5-5.1) Chloride Level 105 mmol/L (98-107) Carbon Dioxide Level 30 mmol/L (21-32) Anion Gap 7 (6-14) Blood Urea Nitrogen 16 mg/dL (7-20) Creatinine 1.0 mg/dL (0.6-1.0) Estimated GFR (Cockcroft-Gault) 54.8 Glucose Level 146 mg/dL (70-99) Calcium Level 8.1 mg/dL (8.5-10.1) Phosphorus Level 3.1 mg/dL (2.6-4.7) Magnesium Level 1.8 mg/dL (1.8-2.4) Microbiology 01/09/17 Urine Culture - Final, Complete 01/09/17 Urine Culture Result 1 (GILBERT) - Final, Complete 01/09/17 Antimicrobic Susceptibility - Final, Complete Medications Current Medications Ondansetron HCl (Zofran) 4 mg PRN Q6HRS PRN IV NAUSEA/VOMITING; Start at 07:00; Stop 01/02/17 at 06:59; Status DC Fentanyl Citrate (Fentanyl 2ml Vial) 25 mcg PRN Q5MIN PRN IV MILD PAIN; Start 01/01/17 at 07:00; Stop 01/02/17 at 06:59; Status DC Fentanyl Citrate (Fentanyl 2ml Vial) 50 mcg PRN Q5MIN PRN IV MODERATE PAIN; Start 01/01/17 at 07:00; Stop 01/02/17 at 06:59; Status DC Morphine Sulfate 1 mg PRN Q10MIN PRN IV SEVERE PAIN; Start 01/01/17 at 07:00; Stop 01/02/17 at 06:59; Status DC Ringer's Solution 1,000 ml @ 30 mls/hr Q24H IV Last administered on 08:35; Start 01/01/17 at 07:00; Stop 01/01/17 at 18:59; Status DC Lidocaine HCl (Xylocaine-Mpf 1% Vial) 2 ml PRN 1X PRN ID PRIOR TO IV START; Start 01/01/17 at 07:00; Stop 01/02/17 at 06:59; Status DC Hydromorphone HCl (Dilaudid) 0.5 mg PRN Q10MIN PRN IV SEV PAIN, Second choice; Start 01/01/17 at 07:00; Stop 01/02/17 at 06:59; Status DC Prochlorperazine Edisylate (Compazine) 5 mg PACU PRN PRN IV NAUSEA, MRX1; Start 01/01/17 at 07:00; Stop 01/02/17 at 06:59; Status DC Cefoxitin Sodium 2 gm/Dextrose 100 ml @ 200 mls/hr 1X PREOP PRN IV ABX Last administered on 01/01/17 12:35; Start 01/01/17 at 06:00; Stop 01/06/17 at 15: 00; Status DC Dexamethasone Sodium Phosphate (Decadron) 20 mg STK-MED ONCE .ROUTE ; Start at 09:25; Stop 01/01/17 at 09:26; Status DC Lidocaine HCl (Lidocaine Pf 2% Vial) 5 ml STK-MED ONCE .ROUTE ; Start 01/01/17 at 09:25; Stop 01/01/17 at 09:26; Status DC Ondansetron HCl (Zofran) 4 mg STK-MED ONCE .ROUTE ; Start 01/01/17 at 09:25; Stop 01/01/17 at 09:26; Status DC Propofol 20 ml @ As Directed STK-MED ONCE IV ; Start 01/01/17 at 09:25; Stop 01/01/17 at 09:26; Status DC Fentanyl Citrate (Fentanyl 2ml Vial) 100 mcg STK-MED ONCE .ROUTE ; Start at 09:25; Stop 01/01/17 at 09:26; Status DC Rocuronium [place] (Zemuron) 50 mg STK-MED ONCE .ROUTE ; Start 01/01/17 at 09: 26; Stop 01/01/17 at 09:27; Status DC Phenylephrine HCl 1 mg STK-MED ONCE IV ; Start 01/01/17 at 10:27; Stop at 10:28; Status DC Bupivacaine HCl (Sensorcaine Mpf 0.25%) 30 ml STK-MED ONCE .ROUTE ; Start 01/01 at 10:49; Stop 01/01/17 at 10:50; Status DC Lidocaine HCl (Xylocaine-Mpf 1% Vial) 5 ml STK-MED ONCE .ROUTE ; Start at 10:50; Stop 01/01/17 at 10:51; Status DC Phenylephrine HCl ([place]eroy-Synephrine Inj) 10 mg STK-MED ONCE .ROUTE ; Start at 11:11; Stop 01/01/17 at 11:12; Status DC Ephedrine Sulfate (Akovaz) 50 mg STK-MED ONCE .ROUTE ; Start 01/01/17 at 11:18 ; Stop 01/01/17 at 11:19; Status DC Rocuronium [place] (Zemuron) 100 mg STK-MED ONCE .ROUTE ; Start 01/01/17 at 11: 30; Stop 01/01/17 at 11:31; Status DC Cefoxitin Sodium 2 gm/Dextrose 100 ml @ 200 mls/hr 1X ONCE IV ; Start at 12:15; Stop 01/01/17 at 12:44; Status Cancel Cefoxitin Sodium 100 ml @ As Directed STK-MED ONCE IV ; Start 01/01/17 at 11: 17; Stop 01/01/17 at 12:17; Status DC Fentanyl Citrate (Fentanyl 2ml Vial) 100 mcg STK-MED ONCE .ROUTE ; Start at 12:24; Stop 01/01/17 at 12:25; Status DC Sodium Chloride 39.95 ml/ Hydromorphone HCl 0.5 mg/ Ropivacaine 10 ml/ Epidural Dosage Infused (Pha) 50 ml @ 0 mls/hr CONT PRN EP Per protocol Last administered on 01/04/17 06:38; Start 01/01/17 at 12:30; Stop 01/11/17 at 02: 08; Status DC Sodium Chloride 40 ml/ Hydromorphone HCl 0.5 mg/ Ropivacaine 10 ml/ Epidural Dosage Infused (Pha) 50.05 ml @ 0 mls/hr 1X ONCE EP ; Start 01/05/17 at 18:30 ; Stop 01/05/17 at 18:31; Status UNV Sevoflurane (Ultane) 90 ml STK-MED ONCE IH ; Start 01/01/17 at 13:02; Stop at 13:03; Status DC Cefoxitin Sodium 50 ml @ 100 mls/hr 1X ONCE IV Last administered on 14:35; Start 01/01/17 at 14:15; Stop 01/01/17 at 14:44; Status DC Albumin Human 100 ml @ As Directed STK-MED ONCE IV ; Start 01/01/17 at 14:25; Stop 01/01/17 at 14:26; Status DC Glycopyrrolate (Robinul) 1 mg STK-MED ONCE .ROUTE ; Start 01/01/17 at 15:59; Stop 01/01/17 at 16:00; Status DC Neostigmine Methylsulfate 5 mg STK-MED ONCE .ROUTE ; Start 01/01/17 at 15:59; Stop 01/01/17 at 16:00; Status DC Famotidine (Pepcid) 20 mg BID IVP Last administered on 01/07/17 20:18; Start 01/01/17 at 21:00; Stop 01/08/17 at 08:44; Status DC Heparin Sodium (Porcine) (Heparin Sq) 5,000 unit Q12HR SQ Last administered on 01/12/17 08:52; Start 01/01/17 at 21:00 Sodium Chloride (Normal Saline Flush) 3 ml QSHIFT PRN IV AFTER MEDS AND BLOOD DRAWS; Start 01/01/17 at 16:30 Ringer's Solution 1,000 ml @ 100 mls/hr Q10H IV Last administered on 02:38; Start 01/01/17 at 16:26; Stop 01/08/17 at 09:47; Status DC Ondansetron HCl (Zofran) 4 mg PRN Q6HRS PRN IV NAUESA, 1ST CHOICE Last administered on 01/10/17 21:22; Start 01/01/17 at 16:30 Diphenhydramine HCl (Benadryl) 25 mg PRN Q6HRS PRN IVP ITCHING Last administered on 01/02/17 10:07; Start 01/02/17 at 10:00 Oxycodone/ Acetaminophen (Percocet 5/325) 1 tab PRN Q4HRS PRN PO PAIN Last administered on 01/07/17 11:24; Start 01/05/17 at 10:00 Docusate Sodium (Colace) 100 mg DAILY PO Last administered on 01/12/17 08:39 ; Start 01/05/17 at 10:00 Sodium Chloride (Saline Mist Nasal) 1 henry PRN Q1HR PRN NS NASAL CONGESTION Last administered on 01/11/17 22:22; Start 01/07/17 at 10:00 Hydralazine HCl (Apresoline Inj) 10 mg PRN Q4HRS PRN IVP ELEVATED BP, SEE COMMENTS; Start 01/07/17 at 15:30 Levothyroxine Sodium 25 mcg/ Sodium Chloride 5 ml @ 100 mls/hr DAILY IVP Last administered on 01/07/17 16:27; Start 01/07/17 at 16:00; Stop 01/08/17 at 08:44 ; Status DC Amlodipine Besylate (Norvasc) 5 mg DAILY PO Last administered on 01/12/17 08: 39; Start 01/08/17 at 09:00 Fluticasone Propionate (Flonase) 1 spray PRN DAILY PRN NS ALLERGIES; Start 01/08/17 at 08:45 Levothyroxine Sodium (Synthroid) 50 mcg DAILY06 PO Last administered on 06:27; Start 01/08/17 at 09:00 Lisinopril (Prinivil) 10 mg DAILY PO Last administered on 01/12/17 08:39; Start 01/08/17 at 09:00 Pantoprazole Sodium (Protonix) 40 mg DAILYAC PO Last administered on 06:27; Start 01/08/17 at 09:00 Ferrous Sulfate (Feosol) 325 mg DAILYWBKFT PO Last administered on 01/12/17 08:38; Start 01/08/17 at 09:00 Cetirizine HCl (ZyrTEC) 10 mg DAILY PO Last administered on 01/12/17 08:39; Start 01/08/17 at 09:00 Multivitamins (Thera M Plus) 1 tab DAILY PO Last administered on 01/12/17 08: 39; Start 01/09/17 at 09:00 Atorvastatin Calcium (Lipitor) 5 mg QHS PO Last administered on 01/11/17 22:18 ; Start 01/08/17 at 21:00 Ciprofloxacin (Cipro) 500 mg BID PO Last administered on 01/09/17 11:03; Start 01/09/17 at 11:30; Stop 01/09/17 at 11:30; Status DC Phenazopyridine HCl (Pyridium) 200 mg PRN TID PRN PO URINARY PAIN; Start at 11:15; Stop 01/09/17 at 11:15; Status DC Phenazopyridine HCl (Pyridium) 200 mg TID PO Last administered on 01/12/17 08 :38; Start 01/09/17 at 11:15 Ceftriaxone Sodium 1 gm/ Dextrose 50 ml @ 100 mls/hr Q24H IV ; Start 01/09/17 at 11:15; Status UNV Ceftriaxone Sodium (Rocephin) 1 gm Q24H IVP Last administered on 01/11/17 12: 06; Start 01/09/17 at 12:00 Lactobacillus Rhamnosus (Culturelle) 1 cap BID PO Last administered on 08:39; Start 01/09/17 at 21:00 Lidocaine/Sodium Bicarbonate (Buffered Lidocaine 1%) 20 ml STK-MED ONCE IJ ; Start 01/10/17 at 08:17; Stop 01/10/17 at 08:18; Status DC Lidocaine/Sodium Bicarbonate (Buffered Lidocaine 1%) 3 ml 1X ONCE IJ Last administered on 01/10/17 08:30; Start 01/10/17 at 08:30; Stop 01/10/17 at 08:33 ; Status DC Info 1 each PRN DAILY PRN MC SEE COMMENTS Last administered on 01/12/17 11:10 ; Start 01/10/17 at 11:45 Sodium Chloride 90 meq/Potassium Chloride 50 meq/ Potassium Phosphate 13.6 mmol/ Magnesium Sulfate 10 meq/ Calcium Gluconate 10 meq/ Multivitamins 10 ml/Chromium / Copper/Manganese/ Seleni/Zn 1 ml/ Total Parenteral Nutrition/Amino Acids/ Dextrose/ Fat Emulsion Intravenous 1,512 ml @ 63 mls/hr TPN CONT IV Last administered on 01/10/17 22:30; Start 01/10/17 at 22:00; Stop 01/11/17 at 21:59 ; Status DC Potassium Chloride 50 ml @ 50 mls/hr Q1H IV Last administered on 01/11/17 11: 27; Start 01/11/17 at 09:30; Stop 01/11/17 at 11:29; Status DC Potassium Chloride (Klor-Con) 20 meq 1X ONCE PO Last administered on 10:26; Start 01/11/17 at 09:30; Stop 01/11/17 at 09:31; Status DC Calcium Carbonate/ Glycine (Tums) 500 mg PRN AFTMEALHC PRN PO INDIGESTION; Start 01/11/17 at 10:15 Al Hydroxide/Mg Hydroxide (Mylanta Plus Xs) 30 ml PRN Q2HR PRN PO HEARTBURN / GAS; Start 01/11/17 at 10:15 Sodium Chloride 90 meq/Potassium Chloride 70 meq/ Potassium Phosphate 13.6 mmol/ Magnesium Sulfate 10 meq/ Calcium Gluconate 10 meq/ Multivitamins 10 ml/Chromium / Copper/Manganese/ Seleni/Zn 1 ml/ Total Parenteral Nutrition/Amino Acids/ Dextrose/ Fat Emulsion Intravenous 1,512 ml @ 63 mls/hr TPN CONT IV Last administered on 01/11/17 22:54; Start 01/11/17 at 22:00; Stop 01/12/17 at 21: 59 Sodium Chloride 90 meq/Potassium Chloride 90 meq/ Potassium Phosphate 13.6 mmol/ Magnesium Sulfate 18 meq/ Calcium Gluconate 10 meq/ Multivitamins 10 ml/Chromium / Copper/Manganese/ Seleni/Zn 1 ml/ Total Parenteral Nutrition/Amino Acids/ Dextrose/ Fat Emulsion Intravenous 1,512 ml @ 63 mls/hr TPN CONT IV ; Start 01/12/17 at 22:00; Stop 01/13/17 at 21:59 Active Scripts Active Protonix (Pantoprazole Sodium) 40 Mg Tablet. 1 Tab PO DAILY Reported Ferralet 90 Dual-Iron Tablet (Iron, Carb & Gluc/Fa/B12/C/Dss) 1 Each Tablet 1 Tab PO DAILY Multivitamins (Multivitamin) 1 Each Tablet 1 Tab PO DAILY Loratadine 10 Mg Tablet 1 Tab PO DAILY Fluticasone Propionate Nasal [place] (Fluticasone Propionate) 16 Gm [place].susp 1 [place] NS DAILY PRN Levothyroxine Sodium 50 Mcg Tablet 1 Tab PO DAILY Lisinopril 10 Mg Tablet 1 Tab PO DAILY Pravastatin Sodium 10 Mg Tablet 1 Tab PO DAILY Amlodipine Besylate 5 Mg Tablet 5 Mg PO DAILY Vitals/I & O Vital Sign - Last 24 Hours 01/11/17 01/11/17 01/11/17 01/11/17 14:35 19:00 20:20 21:25 Temp 97.9 98.3 97.9 98.3 Pulse 84 94 Resp 17 18 B/P (MAP) 124/65 (84) 142/96 (111) Pulse Ox 93 95 O2 Delivery Room Air Room Air Room Air Room Air 01/11/17 01/12/17 01/12/17 01/12/17 23:00 03:00 07:00 08:15 Temp 98.7 97.7 97.6 98.7 97.7 97.6 Pulse 92 99 81 Resp 18 18 18 B/P (MAP) 118/82 (94) 127/79 (95) 124/60 (81) Pulse Ox 95 93 96 O2 Delivery Room Air Room Air Room Air Room Air 01/12/17 01/12/17 08:39 08:39 Pulse 81 81 B/P (MAP) 124/60 124/60 Intake and Output 01/12/17 01/12/17 01/13/17 14:59 22:59 06:59 Intake Total 203 ml Balance 203 ml SONYA ORR MD Jan 12, 2017 12:17
[2017-01-12] MEDS: cefTRIAXone IV Push 1 GM VIAL. IVP SCH (12:42)
[2017-01-12 15:00] VITALS: BP 139/83
[2017-01-12 19:00] VITALS: BP 130/73
[2017-01-12] MEDS: ATORVASTATIN CALCIUM 10 MG TABLET. PO SCH (21:15)
[2017-01-12] MEDS ORDERED: TOTAL PARENTERAL NUTRITION IV SCH ×10 (22:00)
[2017-01-12] MEDS ORDERED: [UNRECOGNIZED DRUG - OTHER] IV SCH ×10 (22:00)
[2017-01-12] MEDS ORDERED: AMINO ACIDS IV SCH ×10 (22:00)
[2017-01-12] MEDS ORDERED: DEXTROSE 70% IV SCH ×10 (22:00)
[2017-01-12 23:00] VITALS: BP 119/84
[2017-01-13 03:00] VITALS: BP 137/75
[2017-01-13 06:31] LABS: CALCIUM 8.4 mg/dL (8.5-10.1); CREATININE 0.9 mg/dL (0.6-1.0); GFR 61.9; MAGNESIUM 2.2 mg/dL (1.8-2.4); PHOSPHORUS 3.2 mg/dL (2.6-4.7); POTASSIUM 4.1 mmol/L (3.5-5.1)
[2017-01-13] MEDS: PANTOPRAZOLE 40 MG TABLET.DR. PO SCH (06:35)
[2017-01-13] MEDS: LEVOTHYROXINE 50 MCG TABLET PO SCH (06:35)
[2017-01-13 07:00] VITALS: BP 133/77
[2017-01-13] MEDS: LACTOBACILLUS RHAMNOSUS GG 1 CAPSULE. PO SCH ×2 (08:53→21:32)
[2017-01-13] MEDS: MULTIVITAMIN with MINERAL TABLET. PO SCH (08:54)
[2017-01-13] MEDS: CETIRIZINE HCL 10 MG TABLET. PO SCH (08:54)
[2017-01-13] MEDS: PHENAZOPYRIDINE 200 MG TABLET. PO SCH ×3 (08:54→21:32)
[2017-01-13] MEDS: amLODIPine BESYLATE 5 MG TABLET PO SCH (08:54)
[2017-01-13] MEDS: FERROUS SULFATE 325 MG TABLET. PO SCH (08:54)
[2017-01-13] MEDS: LISINOPRIL 10 MG TABLET PO SCH (08:55)
[2017-01-13] MEDS: HEPARIN PF for SUB-Q USE 5,000 UNIT/0.5 ML VIAL. SQ SCH ×2 (08:59→21:37)
[2017-01-13] MEDS: DOCUSATE SODIUM 100 MG CAPSULE. PO SCH (09:00)
--- NOTE | 2017-01-13 10:41 | PDOC ---
SURGICAL PROGRESS NOTE Subjective up to chair no new complaints Vital Signs Vital Signs Date Time Temp Pulse Resp B/P (MAP) Pulse Ox O2 Delivery O2 Flow Rate FiO2 01/13/17 08:55 81 133/77 01/13/17 07:20 Room Air 01/13/17 07:00 97.7 18 96 97.7 I&O Intake and Output 01/14/17 07:00 Intake Total 75 ml Balance 75 ml Intake Oral 75 ml PATIENT HAS A EID: No General: Alert, Oriented X3, No acute distress Abdomen: Soft Labs Laboratory Tests Test 01/11/17 11:49 01/11/17 17:43 01/11/17 23:57 01/12/17 05:34 Glucose (Fingerstick) 188 mg/dL (70-99) 164 mg/dL (70-99) 135 mg/dL (70-99) Sodium Level 142 mmol/L (136-145) Potassium Level 3.3 mmol/L (3.5-5.1) Chloride Level 105 mmol/L (98-107) Carbon Dioxide Level 30 mmol/L (21-32) Anion Gap 7 (6-14) Blood Urea Nitrogen 16 mg/dL (7-20) Creatinine 1.0 mg/dL (0.6-1.0) Estimated GFR (Cockcroft-Gault) 54.8 Glucose Level 146 mg/dL (70-99) Calcium Level 8.1 mg/dL (8.5-10.1) Phosphorus Level 3.1 mg/dL (2.6-4.7) Magnesium Level 1.8 mg/dL (1.8-2.4) Test 01/12/17 05:49 01/12/17 11:55 01/12/17 18:49 01/13/17 05:30 Glucose (Fingerstick) 152 mg/dL (70-99) 150 mg/dL (70-99) 134 mg/dL (70-99) Sodium Level 140 mmol/L (136-145) Potassium Level 4.1 mmol/L (3.5-5.1) Chloride Level 106 mmol/L (98-107) Carbon Dioxide Level 29 mmol/L (21-32) Anion Gap 5 (6-14) Blood Urea Nitrogen 19 mg/dL (7-20) Creatinine 0.9 mg/dL (0.6-1.0) Estimated GFR (Cockcroft-Gault) 61.9 Glucose Level 132 mg/dL (70-99) Calcium Level 8.4 mg/dL (8.5-10.1) Phosphorus Level 3.2 mg/dL (2.6-4.7) Magnesium Level 2.2 mg/dL (1.8-2.4) Test 01/13/17 06:34 Glucose (Fingerstick) 132 mg/dL (70-99) Laboratory Tests Test 01/12/17 11:55 01/12/17 18:49 01/13/17 05:30 01/13/17 06:34 Glucose (Fingerstick) 150 mg/dL (70-99) 134 mg/dL (70-99) 132 mg/dL (70-99) Sodium Level 140 mmol/L (136-145) Potassium Level 4.1 mmol/L (3.5-5.1) Chloride Level 106 mmol/L (98-107) Carbon Dioxide Level 29 mmol/L (21-32) Anion Gap 5 (6-14) Blood Urea Nitrogen 19 mg/dL (7-20) Creatinine 0.9 mg/dL (0.6-1.0) Estimated GFR (Cockcroft-Gault) 61.9 Glucose Level 132 mg/dL (70-99) Calcium Level 8.4 mg/dL (8.5-10.1) Phosphorus Level 3.2 mg/dL (2.6-4.7) Magnesium Level 2.2 mg/dL (1.8-2.4) Assessment/Plan s/p Whipple continue post op care Problems: TORRIE ACUNA MD Jan 13, 2017 10:41
[2017-01-13 11:00] VITALS: BP 153/75
[2017-01-13] MEDS: cefTRIAXone IV Push 1 GM VIAL. IVP SCH (12:20)
--- NOTE | 2017-01-13 12:28 | PDOC ---
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 htn hld hypothyroidism SIRS with leukocytosis post op, reactive likely morbid obesity UTI Hypokalemia GERD E coli UTI History of Present Illness History of Present Illness Pt is a pleasant 71 year old female who presents with pancreatic cancer post whipple 01/01. Pt was seen at bedside resting comfortably in NAD. She is on TPN with a low intermitant suction drain. Her dressings are clean, dry, and intact. Pt is being seen by surgery and heme onc. Will continue to monitor. Vitals Vitals Vital Signs Date Time Temp Pulse Resp B/P (MAP) Pulse Ox O2 Delivery O2 Flow Rate FiO2 01/13/17 11:00 97.5 82 18 153/75 (101) 97 Room Air 97.5 Physical Exam General: Alert, Oriented X3, Cooperative, No acute distress Heart: Regular rate, Normal S1, Normal S2 Lungs: Clear Abdomen: Soft, No hepatosplenomegaly Extremities: No clubbing, No cyanosis Skin: No rashes, No breakdown Labs LABS Laboratory Tests Test 01/12/17 18:49 01/13/17 05:30 01/13/17 06:34 01/13/17 11:43 Glucose (Fingerstick) 134 mg/dL (70-99) 132 mg/dL (70-99) 122 mg/dL (70-99) Sodium Level 140 mmol/L (136-145) Potassium Level 4.1 mmol/L (3.5-5.1) Chloride Level 106 mmol/L (98-107) Carbon Dioxide Level 29 mmol/L (21-32) Anion Gap 5 (6-14) Blood Urea Nitrogen 19 mg/dL (7-20) Creatinine 0.9 mg/dL (0.6-1.0) Estimated GFR (Cockcroft-Gault) 61.9 Glucose Level 132 mg/dL (70-99) Calcium Level 8.4 mg/dL (8.5-10.1) Phosphorus Level 3.2 mg/dL (2.6-4.7) Magnesium Level 2.2 mg/dL (1.8-2.4) Review of Systems Review of Systems Pt complains of fatigue and weakness Assessment and Plan Assessmemt and Plan Assessment: invasive pancreatic Ca post whipple sx on 01/01 htn hld hypothyroidism SIRS with leukocytosis post op, reactive likely morbid obesity UTI Hypokalemia GERD E coli UTI Plan: Continue TPN Continue home meds PT/OT Recheck labs Appreciate subspecialist input Continue to monitor Problems: Comment Review of Relevant I have reviewed the following items alonzo (where applicable) has been applied. Labs Laboratory Tests Test 01/11/17 17:43 01/11/17 23:57 01/12/17 05:34 01/12/17 05:49 Glucose (Fingerstick) 164 mg/dL (70-99) 135 mg/dL (70-99) 152 mg/dL (70-99) Sodium Level 142 mmol/L (136-145) Potassium Level 3.3 mmol/L (3.5-5.1) Chloride Level 105 mmol/L (98-107) Carbon Dioxide Level 30 mmol/L (21-32) Anion Gap 7 (6-14) Blood Urea Nitrogen 16 mg/dL (7-20) Creatinine 1.0 mg/dL (0.6-1.0) Estimated GFR (Cockcroft-Gault) 54.8 Glucose Level 146 mg/dL (70-99) Calcium Level 8.1 mg/dL (8.5-10.1) Phosphorus Level 3.1 mg/dL (2.6-4.7) Magnesium Level 1.8 mg/dL (1.8-2.4) Test 01/12/17 11:55 01/12/17 18:49 01/13/17 05:30 01/13/17 06:34 Glucose (Fingerstick) 150 mg/dL (70-99) 134 mg/dL (70-99) 132 mg/dL (70-99) Sodium Level 140 mmol/L (136-145) Potassium Level 4.1 mmol/L (3.5-5.1) Chloride Level 106 mmol/L (98-107) Carbon Dioxide Level 29 mmol/L (21-32) Anion Gap 5 (6-14) Blood Urea Nitrogen 19 mg/dL (7-20) Creatinine 0.9 mg/dL (0.6-1.0) Estimated GFR (Cockcroft-Gault) 61.9 Glucose Level 132 mg/dL (70-99) Calcium Level 8.4 mg/dL (8.5-10.1) Phosphorus Level 3.2 mg/dL (2.6-4.7) Magnesium Level 2.2 mg/dL (1.8-2.4) Test 01/13/17 11:43 Glucose (Fingerstick) 122 mg/dL (70-99) Laboratory Tests Test 01/12/17 18:49 01/13/17 05:30 01/13/17 06:34 01/13/17 11:43 Glucose (Fingerstick) 134 mg/dL (70-99) 132 mg/dL (70-99) 122 mg/dL (70-99) Sodium Level 140 mmol/L (136-145) Potassium Level 4.1 mmol/L (3.5-5.1) Chloride Level 106 mmol/L (98-107) Carbon Dioxide Level 29 mmol/L (21-32) Anion Gap 5 (6-14) Blood Urea Nitrogen 19 mg/dL (7-20) Creatinine 0.9 mg/dL (0.6-1.0) Estimated GFR (Cockcroft-Gault) 61.9 Glucose Level 132 mg/dL (70-99) Calcium Level 8.4 mg/dL (8.5-10.1) Phosphorus Level 3.2 mg/dL (2.6-4.7) Magnesium Level 2.2 mg/dL (1.8-2.4) Microbiology 01/09/17 Urine Culture - Final, Complete 01/09/17 Urine Culture Result 1 (GILBERT) - Final, Complete 01/09/17 Antimicrobic Susceptibility - Final, Complete Medications Current Medications Ondansetron HCl (Zofran) 4 mg PRN Q6HRS PRN IV NAUSEA/VOMITING; Start at 07:00; Stop 01/02/17 at 06:59; Status DC Fentanyl Citrate (Fentanyl 2ml Vial) 25 mcg PRN Q5MIN PRN IV MILD PAIN; Start 01/01/17 at 07:00; Stop 01/02/17 at 06:59; Status DC Fentanyl Citrate (Fentanyl 2ml Vial) 50 mcg PRN Q5MIN PRN IV MODERATE PAIN; Start 01/01/17 at 07:00; Stop 01/02/17 at 06:59; Status DC Morphine Sulfate 1 mg PRN Q10MIN PRN IV SEVERE PAIN; Start 01/01/17 at 07:00; Stop 01/02/17 at 06:59; Status DC Ringer's Solution 1,000 ml @ 30 mls/hr Q24H IV Last administered on 08:35; Start 01/01/17 at 07:00; Stop 01/01/17 at 18:59; Status DC Lidocaine HCl (Xylocaine-Mpf 1% Vial) 2 ml PRN 1X PRN ID PRIOR TO IV START; Start 01/01/17 at 07:00; Stop 01/02/17 at 06:59; Status DC Hydromorphone HCl (Dilaudid) 0.5 mg PRN Q10MIN PRN IV SEV PAIN, Second choice; Start 01/01/17 at 07:00; Stop 01/02/17 at 06:59; Status DC Prochlorperazine Edisylate (Compazine) 5 mg PACU PRN PRN IV NAUSEA, MRX1; Start 01/01/17 at 07:00; Stop 01/02/17 at 06:59; Status DC Cefoxitin Sodium 2 gm/Dextrose 100 ml @ 200 mls/hr 1X PREOP PRN IV ABX Last administered on 01/01/17 12:35; Start 01/01/17 at 06:00; Stop 01/06/17 at 15: 00; Status DC Dexamethasone Sodium Phosphate (Decadron) 20 mg STK-MED ONCE .ROUTE ; Start at 09:25; Stop 01/01/17 at 09:26; Status DC Lidocaine HCl (Lidocaine Pf 2% Vial) 5 ml STK-MED ONCE .ROUTE ; Start 01/01/17 at 09:25; Stop 01/01/17 at 09:26; Status DC Ondansetron HCl (Zofran) 4 mg STK-MED ONCE .ROUTE ; Start 01/01/17 at 09:25; Stop 01/01/17 at 09:26; Status DC Propofol 20 ml @ As Directed STK-MED ONCE IV ; Start 01/01/17 at 09:25; Stop 01/01/17 at 09:26; Status DC Fentanyl Citrate (Fentanyl 2ml Vial) 100 mcg STK-MED ONCE .ROUTE ; Start at 09:25; Stop 01/01/17 at 09:26; Status DC Rocuronium [place] (Zemuron) 50 mg STK-MED ONCE .ROUTE ; Start 01/01/17 at 09: 26; Stop 01/01/17 at 09:27; Status DC Phenylephrine HCl 1 mg STK-MED ONCE IV ; Start 01/01/17 at 10:27; Stop at 10:28; Status DC Bupivacaine HCl (Sensorcaine Mpf 0.25%) 30 ml STK-MED ONCE .ROUTE ; Start 01/01 at 10:49; Stop 01/01/17 at 10:50; Status DC Lidocaine HCl (Xylocaine-Mpf 1% Vial) 5 ml STK-MED ONCE .ROUTE ; Start at 10:50; Stop 01/01/17 at 10:51; Status DC Phenylephrine HCl (Leroy-Synephrine Inj) 10 mg STK-MED ONCE .ROUTE ; Start at 11:11; Stop 01/01/17 at 11:12; Status DC Ephedrine Sulfate (Akovaz) 50 mg STK-MED ONCE .ROUTE ; Start 01/01/17 at 11:18 ; Stop 01/01/17 at 11:19; Status DC Rocuronium [place] (Zemuron) 100 mg STK-MED ONCE .ROUTE ; Start 01/01/17 at 11: 30; Stop 01/01/17 at 11:31; Status DC Cefoxitin Sodium 2 gm/Dextrose 100 ml @ 200 mls/hr 1X ONCE IV ; Start at 12:15; Stop 01/01/17 at 12:44; Status Cancel Cefoxitin Sodium 100 ml @ As Directed STK-MED ONCE IV ; Start 01/01/17 at 11: 17; Stop 01/01/17 at 12:17; Status DC Fentanyl Citrate (Fentanyl 2ml Vial) 100 mcg STK-MED ONCE .ROUTE ; Start at 12:24; Stop 01/01/17 at 12:25; Status DC Sodium Chloride 39.95 ml/ Hydromorphone HCl 0.5 mg/ Ropivacaine 10 ml/ Epidural Dosage Infused (Pha) 50 ml @ 0 mls/hr CONT PRN EP Per protocol Last administered on 01/04/17t 06:38; Start 01/01/17 at 12:30; Stop 01/11/17 at 02: 08; Status DC Sodium Chloride 40 ml/ Hydromorphone HCl 0.5 mg/ Ropivacaine 10 ml/ Epidural Dosage Infused (Pha) 50.05 ml @ 0 mls/hr 1X ONCE EP ; Start 01/05/17 at 18:30 ; Stop 01/05/17 at 18:31; Status UNV Sevoflurane (Ultane) 90 ml STK-MED ONCE IH ; Start 01/01/17 at 13:02; Stop at 13:03; Status DC Cefoxitin Sodium 50 ml @ 100 mls/hr 1X ONCE IV Last administered on 14:35; Start 01/01/17 at 14:15; Stop 01/01/17 at 14:44; Status DC Albumin Human 100 ml @ As Directed STK-MED ONCE IV ; Start 01/01/17 at 14:25; Stop 01/01/17 at 14:26; Status DC Glycopyrrolate (Robinul) 1 mg STK-MED ONCE .ROUTE ; Start 01/01/17 at 15:59; Stop 01/01/17 at 16:00; Status DC Neostigmine Methylsulfate 5 mg STK-MED ONCE .ROUTE ; Start 01/01/17 at 15:59; Stop 01/01/17 at 16:00; Status DC Famotidine (Pepcid) 20 mg BID IVP Last administered on 01/07/17 20:18; Start 01/01/17 at 21:00; Stop 01/08/17 at 08:44; Status DC Heparin Sodium (Porcine) (Heparin Sq) 5,000 unit Q12HR SQ Last administered on 01/13/17 08:59; Start 01/01/17 at 21:00 Sodium Chloride (Normal Saline Flush) 3 ml QSHIFT PRN IV AFTER MEDS AND BLOOD DRAWS; Start 01/01/17 at 16:30 Ringer's Solution 1,000 ml @ 100 mls/hr Q10H IV Last administered on 02:38; Start 01/01/17 at 16:26; Stop 01/08/17 at 09:47; Status DC Ondansetron HCl (Zofran) 4 mg PRN Q6HRS PRN IV NAUESA, 1ST CHOICE Last administered on 01/10/17 21:22; Start 01/01/17 at 16:30 Diphenhydramine HCl (Benadryl) 25 mg PRN Q6HRS PRN IVP ITCHING Last administered on 01/02/17 10:07; Start 01/02/17 at 10:00 Oxycodone/ Acetaminophen (Percocet 5/325) 1 tab PRN Q4HRS PRN PO PAIN Last administered on 01/07/17 11:24; Start 01/05/17 at 10:00 Docusate Sodium (Colace) 100 mg DAILY PO Last administered on 01/12/17 08:39 ; Start 01/05/17 at 10:00 Sodium Chloride (Saline Mist Nasal) 1 henry PRN Q1HR PRN NS NASAL CONGESTION Last administered on 01/11/17 22:22; Start 01/07/17 at 10:00 Hydralazine HCl (Apresoline Inj) 10 mg PRN Q4HRS PRN IVP ELEVATED BP, SEE COMMENTS; Start 01/07/17 at 15:30 Levothyroxine Sodium 25 mcg/ Sodium Chloride 5 ml @ 100 mls/hr DAILY IVP Last administered on 01/07/17 16:27; Start 01/07/17 at 16:00; Stop 01/08/17 at 08:44 ; Status DC Amlodipine Besylate (Norvasc) 5 mg DAILY PO Last administered on 01/13/17 08: 54; Start 01/08/17 at 09:00 Fluticasone Propionate (Flonase) 1 spray PRN DAILY PRN NS ALLERGIES; Start 01/08/17 at 08:45 Levothyroxine Sodium (Synthroid) 50 mcg DAILY06 PO Last administered on 06:35; Start 01/08/17 at 09:00 Lisinopril (Prinivil) 10 mg DAILY PO Last administered on 01/13/17 08:55; Start 01/08/17 at 09:00 Pantoprazole Sodium (Protonix) 40 mg DAILYAC PO Last administered on 06:35; Start 01/08/17 at 09:00 Ferrous Sulfate (Feosol) 325 mg DAILYWBKFT PO Last administered on 01/13/17 08:54; Start 01/08/17 at 09:00 Cetirizine HCl (ZyrTEC) 10 mg DAILY PO Last administered on 01/13/17 08:54; Start 01/08/17 at 09:00 Multivitamins (Thera M Plus) 1 tab DAILY PO Last administered on 01/13/17 08: 54; Start 01/09/17 at 09:00 Atorvastatin Calcium (Lipitor) 5 mg QHS PO Last administered on 01/12/17 21: 15; Start 01/08/17 at 21:00 Ciprofloxacin (Cipro) 500 mg BID PO Last administered on 01/09/17 11:03; Start 01/09/17 at 11:30; Stop 01/09/17 at 11:30; Status DC Phenazopyridine HCl (Pyridium) 200 mg PRN TID PRN PO URINARY PAIN; Start at 11:15; Stop 01/09/17 at 11:15; Status DC Phenazopyridine HCl (Pyridium) 200 mg TID PO Last administered on 01/13/17 08 :54; Start 01/09/17 at 11:15 Ceftriaxone Sodium 1 gm/ Dextrose 50 ml @ 100 mls/hr Q24H IV ; Start 01/09/17 at 11:15; Status UNV Ceftriaxone Sodium (Rocephin) 1 gm Q24H IVP Last administered on 01/13/17 12: 20; Start 01/09/17 at 12:00 Lactobacillus Rhamnosus (Culturelle) 1 cap BID PO Last administered on 08:53; Start 01/09/17 at 21:00 Lidocaine/Sodium Bicarbonate (Buffered Lidocaine 1%) 20 ml STK-MED ONCE IJ ; Start 01/10/17 at 08:17; Stop 01/10/17 at 08:18; Status DC Lidocaine/Sodium Bicarbonate (Buffered Lidocaine 1%) 3 ml 1X ONCE IJ Last administered on 01/10/17 08:30; Start 01/10/17 at 08:30; Stop 01/10/17 at 08:33 ; Status DC Info 1 each PRN DAILY PRN MC SEE COMMENTS Last administered on 01/12/17 11:10 ; Start 01/10/17 at 11:45 Sodium Chloride 90 meq/Potassium Chloride 50 meq/ Potassium Phosphate 13.6 mmol/ Magnesium Sulfate 10 meq/ Calcium Gluconate 10 meq/ Multivitamins 10 ml/Chromium / Copper/Manganese/ Seleni/Zn 1 ml/ Total Parenteral Nutrition/Amino Acids/ Dextrose/ Fat Emulsion Intravenous 1,512 ml @ 63 mls/hr TPN CONT IV Last administered on 01/10/17 22:30; Start 01/10/17 at 22:00; Stop 01/11/17 at 21:59 ; Status DC Potassium Chloride 50 ml @ 50 mls/hr Q1H IV Last administered on 01/11/17 11: 27; Start 01/11/17 at 09:30; Stop 01/11/17 at 11:29; Status DC Potassium Chloride (Klor-Con) 20 meq 1X ONCE PO Last administered on 10:26; Start 01/11/17 at 09:30; Stop 01/11/17 at 09:31; Status DC Calcium Carbonate/ Glycine (Tums) 500 mg PRN AFTMEALHC PRN PO INDIGESTION; Start 01/11/17 at 10:15 Al Hydroxide/Mg Hydroxide (Mylanta Plus Xs) 30 ml PRN Q2HR PRN PO HEARTBURN / GAS; Start 01/11/17 at 10:15 Sodium Chloride 90 meq/Potassium Chloride 70 meq/ Potassium Phosphate 13.6 mmol/ Magnesium Sulfate 10 meq/ Calcium Gluconate 10 meq/ Multivitamins 10 ml/Chromium / Copper/Manganese/ Seleni/Zn 1 ml/ Total Parenteral Nutrition/Amino Acids/ Dextrose/ Fat Emulsion Intravenous 1,512 ml @ 63 mls/hr TPN CONT IV Last administered on 01/11/17 22:54; Start 01/11/17 at 22:00; Stop 01/12/17 at 21: 59; Status DC Sodium Chloride 90 meq/Potassium Chloride 90 meq/ Potassium Phosphate 13.6 mmol/ Magnesium Sulfate 18 meq/ Calcium Gluconate 10 meq/ Multivitamins 10 ml/Chromium / Copper/Manganese/ Seleni/Zn 1 ml/ Total Parenteral Nutrition/Amino Acids/ Dextrose/ Fat Emulsion Intravenous 1,512 ml @ 63 mls/hr TPN CONT IV Last administered on 01/12/17 21:50; Start 01/12/17 at 22:00; Stop 01/13/17 at 21 :59 Active Scripts Active Protonix (Pantoprazole Sodium) 40 Mg Tablet. 1 Tab PO DAILY Reported Ferralet 90 Dual-Iron Tablet (Iron, Carb & Gluc/Fa/B12/C/Dss) 1 Each Tablet 1 Tab PO DAILY Multivitamins (Multivitamin) 1 Each Tablet 1 Tab PO DAILY Loratadine 10 Mg Tablet 1 Tab PO DAILY Fluticasone Propionate Nasal [place] (Fluticasone Propionate) [address] [place].susp [address] [place] NS DAILY PRN Levothyroxine Sodium 50 Mcg Tablet 1 Tab PO DAILY Lisinopril 10 Mg Tablet 1 Tab PO DAILY Pravastatin Sodium 10 Mg Tablet 1 Tab PO DAILY Amlodipine Besylate 5 Mg Tablet 5 Mg PO DAILY Vitals/I & O Vital Sign - Last 24 Hours 01/12/17 01/12/17 01/12/17 01/12/17 15:00 19:00 20:00 23:00 Temp 98.1 98.1 98.1 98.1 98.1 98.1 Pulse 18 84 86 Resp 18 20 16 B/P (MAP) 139/83 (101) 130/73 (92) 119/84 (96) Pulse Ox 99 97 96 O2 Delivery Room Air 01/13/17 01/13/17 01/13/17 01/13/17 03:00 07:00 07:20 08:54 Temp 97.9 97.7 97.9 97.7 Pulse 87 81 81 Resp 16 18 B/P (MAP) 137/75 (95) 133/77 (95) 133/77 Pulse Ox 97 96 O2 Delivery Room Air Room Air 01/13/17 01/13/17 08:55 11:00 Temp 97.5 97.5 Pulse 81 82 Resp 18 B/P (MAP) 133/77 153/75 (101) Pulse Ox 97 O2 Delivery Room Air Intake and Output 01/13/17 01/13/17 01/14/17 15:00 23:00 07:00 Intake Total 75 ml Balance 75 ml DAVID GALLEGOS III DO Jan 13, 2017 12:28
[2017-01-13] MEDS: TPN PER PHARMACY MC PRN (12:45)
[2017-01-13 15:07] VITALS: BP 129/79
[2017-01-13 19:00] VITALS: BP 144/76
[2017-01-13] MEDS: ATORVASTATIN CALCIUM 10 MG TABLET. PO SCH (21:33)
[2017-01-13] MEDS ORDERED: [UNRECOGNIZED DRUG - OTHER] IV SCH ×10 (22:00)
[2017-01-13] MEDS ORDERED: DEXTROSE 70% IV SCH ×10 (22:00)
[2017-01-13] MEDS ORDERED: TOTAL PARENTERAL NUTRITION IV SCH ×10 (22:00)
[2017-01-13] MEDS ORDERED: AMINO ACIDS IV SCH ×10 (22:00)
[2017-01-13 23:00] VITALS: BP 141/81
[2017-01-14 03:00] VITALS: BP 134/66
[2017-01-14] MEDS: LEVOTHYROXINE 50 MCG TABLET PO SCH (06:13)
[2017-01-14 06:41] LABS: CALCIUM 8.1 mg/dL (8.5-10.1); GFR 54.8; MAGNESIUM 2.1 mg/dL (1.8-2.4); PHOSPHORUS 3.2 mg/dL (2.6-4.7); POTASSIUM 4.7 mmol/L (3.5-5.1)
[2017-01-14 06:56] LABS: BASO # 0.1 x10^3/uL (0.0-0.2); BASO % 1 % (0-3); EOS % 2 % (0-3); HEMATOCRIT 29.5 % (36.0-47.0); HEMOGLOBIN 9.3 g/dL (12.0-15.5); LYMPH # 1.9 x10^3/uL (1.0-4.8); LYMPH % 14 % (24-48); MEAN CORPUSCULAR HEMOGLOBIN 25 pg (25-35); MEAN CORPUSCULAR HGB CONC 32 g/dL (31-37); MEAN CORPUSCULAR VOLUME 81 fL (79-100); MONO % 6 % (0-9); NEUT % 76 % (31-73); PLATELET COUNT 359 x10^3/uL (140-400); RED BLOOD COUNT 3.67 x10^6/uL (3.50-5.40); RED CELL DISTRIBUTION WIDTH 21.4 % (11.5-14.5); WHITE BLOOD COUNT 13.4 x10^3/uL (4.0-11.0)
[2017-01-14 07:00] VITALS: BP 118/66
[2017-01-14] MEDS: DOCUSATE SODIUM 100 MG CAPSULE. PO SCH (09:45)
[2017-01-14] MEDS: CETIRIZINE HCL 10 MG TABLET. PO SCH (09:47)
[2017-01-14] MEDS: LISINOPRIL 10 MG TABLET PO SCH (09:47)
[2017-01-14] MEDS: amLODIPine BESYLATE 5 MG TABLET PO SCH (09:47)
[2017-01-14] MEDS: FERROUS SULFATE 325 MG TABLET. PO SCH (09:47)
[2017-01-14] MEDS: LACTOBACILLUS RHAMNOSUS GG 1 CAPSULE. PO SCH ×2 (09:47→21:06)
[2017-01-14] MEDS: MULTIVITAMIN with MINERAL TABLET. PO SCH (09:47)
[2017-01-14] MEDS: PHENAZOPYRIDINE 200 MG TABLET. PO SCH ×3 (09:48→21:06)
[2017-01-14] MEDS: PANTOPRAZOLE 40 MG TABLET.DR. PO SCH (09:48)
[2017-01-14] MEDS: HEPARIN PF for SUB-Q USE 5,000 UNIT/0.5 ML VIAL. SQ SCH ×2 (09:53→20:58)
--- NOTE | 2017-01-14 10:50 | PDOC ---
SURGICAL PROGRESS NOTE Subjective up to chair no new c/o tolerating full liquids on TPN Vital Signs Vital Signs Date Time Temp Pulse Resp B/P (MAP) Pulse Ox O2 Delivery O2 Flow Rate FiO2 01/14/17 09:47 85 118/66 01/14/17 07:00 98.0 18 97 Room Air 98.0 Abdomen: Soft, Other (RUQ BOZENA with serobilious output) Labs Laboratory Tests Test 01/12/17 11:55 01/12/17 18:49 01/13/17 05:30 01/13/17 06:34 Glucose (Fingerstick) 150 mg/dL (70-99) 134 mg/dL (70-99) 132 mg/dL (70-99) Sodium Level 140 mmol/L (136-145) Potassium Level 4.1 mmol/L (3.5-5.1) Chloride Level 106 mmol/L (98-107) Carbon Dioxide Level 29 mmol/L (21-32) Anion Gap 5 (6-14) Blood Urea Nitrogen 19 mg/dL (7-20) Creatinine 0.9 mg/dL (0.6-1.0) Estimated GFR (Cockcroft-Gault) 61.9 Glucose Level 132 mg/dL (70-99) Calcium Level 8.4 mg/dL (8.5-10.1) Phosphorus Level 3.2 mg/dL (2.6-4.7) Magnesium Level 2.2 mg/dL (1.8-2.4) Test 01/13/17 11:43 01/13/17 17:40 01/14/17 06:15 Glucose (Fingerstick) 122 mg/dL (70-99) 121 mg/dL (70-99) White Blood Count 13.4 x10^3/uL (4.0-11.0) Red Blood Count 3.67 x10^6/uL (3.50-5.40) Hemoglobin 9.3 g/dL (12.0-15.5) Hematocrit 29.5 % (36.0-47.0) Mean Corpuscular Volume 81 fL (79-100) Mean Corpuscular Hemoglobin 25 pg (25-35) Mean Corpuscular Hemoglobin Concent 32 g/dL (31-37) Red Cell Distribution Width 21.4 % (11.5-14.5) Platelet Count 359 x10^3/uL (140-400) Neutrophils (%) (Auto) 76 % (31-73) Lymphocytes (%) (Auto) 14 % (24-48) Monocytes (%) (Auto) 6 % (0-9) Eosinophils (%) (Auto) 2 % (0-3) Basophils (%) (Auto) 1 % (0-3) Neutrophils # (Auto) 10.2 x10^3uL (1.8-7.7) Lymphocytes # (Auto) 1.9 x10^3/uL (1.0-4.8) Monocytes # (Auto) 0.8 x10^3/uL (0.0-1.1) Eosinophils # (Auto) 0.3 x10^3/uL (0.0-0.7) Basophils # (Auto) 0.1 x10^3/uL (0.0-0.2) Sodium Level 138 mmol/L (136-145) Potassium Level 4.7 mmol/L (3.5-5.1) Chloride Level 105 mmol/L (98-107) Carbon Dioxide Level 26 mmol/L (21-32) Anion Gap 7 (6-14) Blood Urea Nitrogen 19 mg/dL (7-20) Creatinine 1.0 mg/dL (0.6-1.0) Estimated GFR (Cockcroft-Gault) 54.8 Glucose Level 125 mg/dL (70-99) Calcium Level 8.1 mg/dL (8.5-10.1) Phosphorus Level 3.2 mg/dL (2.6-4.7) Magnesium Level 2.1 mg/dL (1.8-2.4) Laboratory Tests Test 01/13/17 11:43 01/13/17 17:40 01/14/17 06:15 Glucose (Fingerstick) 122 mg/dL (70-99) 121 mg/dL (70-99) White Blood Count 13.4 x10^3/uL (4.0-11.0) Red Blood Count 3.67 x10^6/uL (3.50-5.40) Hemoglobin 9.3 g/dL (12.0-15.5) Hematocrit 29.5 % (36.0-47.0) Mean Corpuscular Volume 81 fL (79-100) Mean Corpuscular Hemoglobin 25 pg (25-35) Mean Corpuscular Hemoglobin Concent 32 g/dL (31-37) Red Cell Distribution Width 21.4 % (11.5-14.5) Platelet Count 359 x10^3/uL (140-400) Neutrophils (%) (Auto) 76 % (31-73) Lymphocytes (%) (Auto) 14 % (24-48) Monocytes (%) (Auto) 6 % (0-9) Eosinophils (%) (Auto) 2 % (0-3) Basophils (%) (Auto) 1 % (0-3) Neutrophils # (Auto) 10.2 x10^3uL (1.8-7.7) Lymphocytes # (Auto) 1.9 x10^3/uL (1.0-4.8) Monocytes # (Auto) 0.8 x10^3/uL (0.0-1.1) Eosinophils # (Auto) 0.3 x10^3/uL (0.0-0.7) Basophils # (Auto) 0.1 x10^3/uL (0.0-0.2) Sodium Level 138 mmol/L (136-145) Potassium Level 4.7 mmol/L (3.5-5.1) Chloride Level 105 mmol/L (98-107) Carbon Dioxide Level 26 mmol/L (21-32) Anion Gap 7 (6-14) Blood Urea Nitrogen 19 mg/dL (7-20) Creatinine 1.0 mg/dL (0.6-1.0) Estimated GFR (Cockcroft-Gault) 54.8 Glucose Level 125 mg/dL (70-99) Calcium Level 8.1 mg/dL (8.5-10.1) Phosphorus Level 3.2 mg/dL (2.6-4.7) Magnesium Level 2.1 mg/dL (1.8-2.4) Assessment/Plan s/p Whipple continue supportive care Problems: TORRIE ACUNA MD Jan 14, 2017 10:50
[2017-01-14 11:00] VITALS: BP 128/72
[2017-01-14] MEDS: TPN PER PHARMACY MC PRN (11:57)
[2017-01-14] MEDS: cefTRIAXone IV Push 1 GM VIAL. IVP SCH (12:20)
--- NOTE | 2017-01-14 14:45 | PDOC ---
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 htn hld hypothyroidism SIRS with leukocytosis post op, reactive likely morbid obesity UTI Hypokalemia GERD E coli UTI History of Present Illness History of Present Illness Pt is a pleasant 71 year old female who presents with pancreatic cancer post whipple 01/01. Pt was seen at bedside resting comfortably in NAD. She is on TPN with a low intermitant suction drain. Her dressings are clean, dry, and intact. Pt is being seen by surgery and heme onc. PRN narcotics. Discharge disposition pending- SNU. Will continue to monitor. Vitals Vitals Vital Signs Date Time Temp Pulse Resp B/P (MAP) Pulse Ox O2 Delivery O2 Flow Rate FiO2 01/14/17 11:00 98.0 84 18 128/72 (90) 99 Room Air 98.0 Physical Exam General: Alert, Oriented X3, Cooperative, No acute distress Heart: Regular rate, Normal S1, Normal S2 Lungs: Clear Abdomen: Soft, Other (RUQ BOZENA with serobilious output) Extremities: No clubbing, No cyanosis Skin: No rashes, No breakdown Labs LABS Laboratory Tests Test 01/13/17 17:40 01/14/17 06:15 Glucose (Fingerstick) 121 mg/dL (70-99) White Blood Count 13.4 x10^3/uL (4.0-11.0) Red Blood Count 3.67 x10^6/uL (3.50-5.40) Hemoglobin 9.3 g/dL (12.0-15.5) Hematocrit 29.5 % (36.0-47.0) Mean Corpuscular Volume 81 fL (79-100) Mean Corpuscular Hemoglobin 25 pg (25-35) Mean Corpuscular Hemoglobin Concent 32 g/dL (31-37) Red Cell Distribution Width 21.4 % (11.5-14.5) Platelet Count 359 x10^3/uL (140-400) Neutrophils (%) (Auto) 76 % (31-73) Lymphocytes (%) (Auto) 14 % (24-48) Monocytes (%) (Auto) 6 % (0-9) Eosinophils (%) (Auto) 2 % (0-3) Basophils (%) (Auto) 1 % (0-3) Neutrophils # (Auto) 10.2 x10^3uL (1.8-7.7) Lymphocytes # (Auto) 1.9 x10^3/uL (1.0-4.8) Monocytes # (Auto) 0.8 x10^3/uL (0.0-1.1) Eosinophils # (Auto) 0.3 x10^3/uL (0.0-0.7) Basophils # (Auto) 0.1 x10^3/uL (0.0-0.2) Sodium Level 138 mmol/L (136-145) Potassium Level 4.7 mmol/L (3.5-5.1) Chloride Level 105 mmol/L (98-107) Carbon Dioxide Level 26 mmol/L (21-32) Anion Gap 7 (6-14) Blood Urea Nitrogen 19 mg/dL (7-20) Creatinine 1.0 mg/dL (0.6-1.0) Estimated GFR (Cockcroft-Gault) 54.8 Glucose Level 125 mg/dL (70-99) Calcium Level 8.1 mg/dL (8.5-10.1) Phosphorus Level 3.2 mg/dL (2.6-4.7) Magnesium Level 2.1 mg/dL (1.8-2.4) Review of Systems Review of Systems Pt complains of fatigue and hunger Assessment and Plan Assessmemt and Plan Assessment: invasive pancreatic Ca post whipple sx on 01/01 htn hld hypothyroidism SIRS with leukocytosis post op, reactive likely morbid obesity UTI Hypokalemia GERD E coli UTI Plan: Continue TPN Continue PRN narcotics Continue home meds PT/OT Recheck labs Appreciate subspecialist input Discharge disposition pending Problems: Comment Review of Relevant I have reviewed the following items alonzo (where applicable) has been applied. Labs Laboratory Tests Test 01/12/17 18:49 01/13/17 05:30 01/13/17 06:34 01/13/17 11:43 Glucose (Fingerstick) 134 mg/dL (70-99) 132 mg/dL (70-99) 122 mg/dL (70-99) Sodium Level 140 mmol/L (136-145) Potassium Level 4.1 mmol/L (3.5-5.1) Chloride Level 106 mmol/L (98-107) Carbon Dioxide Level 29 mmol/L (21-32) Anion Gap 5 (6-14) Blood Urea Nitrogen 19 mg/dL (7-20) Creatinine 0.9 mg/dL (0.6-1.0) Estimated GFR (Cockcroft-Gault) 61.9 Glucose Level 132 mg/dL (70-99) Calcium Level 8.4 mg/dL (8.5-10.1) Phosphorus Level 3.2 mg/dL (2.6-4.7) Magnesium Level 2.2 mg/dL (1.8-2.4) Test 01/13/17 17:40 01/14/17 06:15 Glucose (Fingerstick) 121 mg/dL (70-99) White Blood Count 13.4 x10^3/uL (4.0-11.0) Red Blood Count 3.67 x10^6/uL (3.50-5.40) Hemoglobin 9.3 g/dL (12.0-15.5) Hematocrit 29.5 % (36.0-47.0) Mean Corpuscular Volume 81 fL (79-100) Mean Corpuscular Hemoglobin 25 pg (25-35) Mean Corpuscular Hemoglobin Concent 32 g/dL (31-37) Red Cell Distribution Width 21.4 % (11.5-14.5) Platelet Count 359 x10^3/uL (140-400) Neutrophils (%) (Auto) 76 % (31-73) Lymphocytes (%) (Auto) 14 % (24-48) Monocytes (%) (Auto) 6 % (0-9) Eosinophils (%) (Auto) 2 % (0-3) Basophils (%) (Auto) 1 % (0-3) Neutrophils # (Auto) 10.2 x10^3uL (1.8-7.7) Lymphocytes # (Auto) 1.9 x10^3/uL (1.0-4.8) Monocytes # (Auto) 0.8 x10^3/uL (0.0-1.1) Eosinophils # (Auto) 0.3 x10^3/uL (0.0-0.7) Basophils # (Auto) 0.1 x10^3/uL (0.0-0.2) Sodium Level 138 mmol/L (136-145) Potassium Level 4.7 mmol/L (3.5-5.1) Chloride Level 105 mmol/L (98-107) Carbon Dioxide Level 26 mmol/L (21-32) Anion Gap 7 (6-14) Blood Urea Nitrogen 19 mg/dL (7-20) Creatinine 1.0 mg/dL (0.6-1.0) Estimated GFR (Cockcroft-Gault) 54.8 Glucose Level 125 mg/dL (70-99) Calcium Level 8.1 mg/dL (8.5-10.1) Phosphorus Level 3.2 mg/dL (2.6-4.7) Magnesium Level 2.1 mg/dL (1.8-2.4) Laboratory Tests Test 01/13/17 17:40 01/14/17 06:15 Glucose (Fingerstick) 121 mg/dL (70-99) White Blood Count 13.4 x10^3/uL (4.0-11.0) Red Blood Count 3.67 x10^6/uL (3.50-5.40) Hemoglobin 9.3 g/dL (12.0-15.5) Hematocrit 29.5 % (36.0-47.0) Mean Corpuscular Volume 81 fL (79-100) Mean Corpuscular Hemoglobin 25 pg (25-35) Mean Corpuscular Hemoglobin Concent 32 g/dL (31-37) Red Cell Distribution Width 21.4 % (11.5-14.5) Platelet Count 359 x10^3/uL (140-400) Neutrophils (%) (Auto) 76 % (31-73) Lymphocytes (%) (Auto) 14 % (24-48) Monocytes (%) (Auto) 6 % (0-9) Eosinophils (%) (Auto) 2 % (0-3) Basophils (%) (Auto) 1 % (0-3) Neutrophils # (Auto) 10.2 x10^3uL (1.8-7.7) Lymphocytes # (Auto) 1.9 x10^3/uL (1.0-4.8) Monocytes # (Auto) 0.8 x10^3/uL (0.0-1.1) Eosinophils # (Auto) 0.3 x10^3/uL (0.0-0.7) Basophils # (Auto) 0.1 x10^3/uL (0.0-0.2) Sodium Level 138 mmol/L (136-145) Potassium Level 4.7 mmol/L (3.5-5.1) Chloride Level 105 mmol/L (98-107) Carbon Dioxide Level 26 mmol/L (21-32) Anion Gap 7 (6-14) Blood Urea Nitrogen 19 mg/dL (7-20) Creatinine 1.0 mg/dL (0.6-1.0) Estimated GFR (Cockcroft-Gault) 54.8 Glucose Level 125 mg/dL (70-99) Calcium Level 8.1 mg/dL (8.5-10.1) Phosphorus Level 3.2 mg/dL (2.6-4.7) Magnesium Level 2.1 mg/dL (1.8-2.4) Microbiology 01/09/17 Urine Culture - Final, Complete 01/09/17 Urine Culture Result 1 (GILBERT) - Final, Complete 01/09/17 Antimicrobic Susceptibility - Final, Complete Medications Current Medications Ondansetron HCl (Zofran) 4 mg PRN Q6HRS PRN IV NAUSEA/VOMITING; Start at 07:00; Stop 01/02/17 at 06:59; Status DC Fentanyl Citrate (Fentanyl 2ml Vial) 25 mcg PRN Q5MIN PRN IV MILD PAIN; Start 01/01/17 at 07:00; Stop 01/02/17 at 06:59; Status DC Fentanyl Citrate (Fentanyl 2ml Vial) 50 mcg PRN Q5MIN PRN IV MODERATE PAIN; Start 01/01/17 at 07:00; Stop 01/02/17 at 06:59; Status DC Morphine Sulfate 1 mg PRN Q10MIN PRN IV SEVERE PAIN; Start 01/01/17 at 07:00; Stop 01/02/17 at 06:59; Status DC Ringer's Solution 1,000 ml @ 30 mls/hr Q24H IV Last administered on t 08:35; Start 01/01/17 at 07:00; Stop 01/01/17 at 18:59; Status DC Lidocaine HCl (Xylocaine-Mpf 1% Vial) 2 ml PRN 1X PRN ID PRIOR TO IV START; Start 01/01/17 at 07:00; Stop 01/02/17 at 06:59; Status DC Hydromorphone HCl (Dilaudid) 0.5 mg PRN Q10MIN PRN IV SEV PAIN, Second choice; Start 01/01/17 at 07:00; Stop 01/02/17 at 06:59; Status DC Prochlorperazine Edisylate (Compazine) 5 mg PACU PRN PRN IV NAUSEA, MRX1; Start 01/01/17 at 07:00; Stop 01/02/17 at 06:59; Status DC Cefoxitin Sodium 2 gm/Dextrose 100 ml @ 200 mls/hr 1X PREOP PRN IV ABX Last administered on 01/01/17t 12:35; Start 01/01/17 at 06:00; Stop 01/06/17 at 15: 00; Status DC Dexamethasone Sodium Phosphate (Decadron) 20 mg STK-MED ONCE .ROUTE ; Start at 09:25; Stop 01/01/17 at 09:26; Status DC Lidocaine HCl (Lidocaine Pf 2% Vial) 5 ml STK-MED ONCE .ROUTE ; Start 01/01/17 at 09:25; Stop 01/01/17 at 09:26; Status DC Ondansetron HCl (Zofran) 4 mg STK-MED ONCE .ROUTE ; Start 01/01/17 at 09:25; Stop 01/01/17 at 09:26; Status DC Propofol 20 ml @ As Directed STK-MED ONCE IV ; Start 01/01/17 at 09:25; Stop 01/01/17 at 09:26; Status DC Fentanyl Citrate (Fentanyl 2ml Vial) 100 mcg STK-MED ONCE .ROUTE ; Start at 09:25; Stop 01/01/17 at 09:26; Status DC Rocuronium [place] (Zemuron) 50 mg STK-MED ONCE .ROUTE ; Start 01/01/17 at 09: 26; Stop 01/01/17 at 09:27; Status DC Phenylephrine HCl 1 mg STK-MED ONCE IV ; Start 01/01/17 at 10:27; Stop at 10:28; Status DC Bupivacaine HCl (Sensorcaine Mpf 0.25%) 30 ml STK-MED ONCE .ROUTE ; Start 01/01 at 10:49; Stop 01/01/17 at 10:50; Status DC Lidocaine HCl (Xylocaine-Mpf 1% Vial) 5 ml STK-MED ONCE .ROUTE ; Start at 10:50; Stop 01/01/17 at 10:51; Status DC Phenylephrine HCl ([place]oy-Synephrine Inj) 10 mg STK-MED ONCE .ROUTE ; Start at 11:11; Stop 01/01/17 at 11:12; Status DC Ephedrine Sulfate (Akovaz) 50 mg STK-MED ONCE .ROUTE ; Start 01/01/17 at 11:18 ; Stop 01/01/17 at 11:19; Status DC Rocuronium [place] (Zemuron) 100 mg STK-MED ONCE .ROUTE ; Start 01/01/17 at 11: 30; Stop 01/01/17 at 11:31; Status DC Cefoxitin Sodium 2 gm/Dextrose 100 ml @ 200 mls/hr 1X ONCE IV ; Start at 12:15; Stop 01/01/17 at 12:44; Status Cancel Cefoxitin Sodium 100 ml @ As Directed STK-MED ONCE IV ; Start 01/01/17 at 11: 17; Stop 01/01/17 at 12:17; Status DC Fentanyl Citrate (Fentanyl 2ml Vial) 100 mcg STK-MED ONCE .ROUTE ; Start at 12:24; Stop 01/01/17 at 12:25; Status DC Sodium Chloride 39.95 ml/ Hydromorphone HCl 0.5 mg/ Ropivacaine 10 ml/ Epidural Dosage Infused (Pha) 50 ml @ 0 mls/hr CONT PRN EP Per protocol Last administered on 01/04/17 06:38; Start 01/01/17 at 12:30; Stop 01/11/17 at 02: 08; Status DC Sodium Chloride 40 ml/ Hydromorphone HCl 0.5 mg/ Ropivacaine 10 ml/ Epidural Dosage Infused (Pha) 50.05 ml @ 0 mls/hr 1X ONCE EP ; Start 01/05/17 at 18:30 ; Stop 01/05/17 at 18:31; Status UNV Sevoflurane (Ultane) 90 ml STK-MED ONCE IH ; Start 01/01/17 at 13:02; Stop at 13:03; Status DC Cefoxitin Sodium 50 ml @ 100 mls/hr 1X ONCE IV Last administered on 14:35; Start 01/01/17 at 14:15; Stop 01/01/17 at 14:44; Status DC Albumin Human 100 ml @ As Directed STK-MED ONCE IV ; Start 01/01/17 at 14:25; Stop 01/01/17 at 14:26; Status DC Glycopyrrolate (Robinul) 1 mg STK-MED ONCE .ROUTE ; Start 01/01/17 at 15:59; Stop 01/01/17 at 16:00; Status DC Neostigmine Methylsulfate 5 mg STK-MED ONCE .ROUTE ; Start 01/01/17 at 15:59; Stop 01/01/17 at 16:00; Status DC Famotidine (Pepcid) 20 mg BID IVP Last administered on 01/07/17 20:18; Start 01/01/17 at 21:00; Stop 01/08/17 at 08:44; Status DC Heparin Sodium (Porcine) (Heparin Sq) 5,000 unit Q12HR SQ Last administered on 01/14/17 09:53; Start 01/01/17 at 21:00 Sodium Chloride (Normal Saline Flush) 3 ml QSHIFT PRN IV AFTER MEDS AND BLOOD DRAWS; Start 01/01/17 at 16:30 Ringer's Solution 1,000 ml @ 100 mls/hr Q10H IV Last administered on 02:38; Start 01/01/17 at 16:26; Stop 01/08/17 at 09:47; Status DC Ondansetron HCl (Zofran) 4 mg PRN Q6HRS PRN IV NAUESA, 1ST CHOICE Last administered on 01/10/17 21:22; Start 01/01/17 at 16:30 Diphenhydramine HCl (Benadryl) 25 mg PRN Q6HRS PRN IVP ITCHING Last administered on 01/02/17 10:07; Start 01/02/17 at 10:00 Oxycodone/ Acetaminophen (Percocet 5/325) 1 tab PRN Q4HRS PRN PO PAIN Last administered on 01/07/17 11:24; Start 01/05/17 at 10:00 Docusate Sodium (Colace) 100 mg DAILY PO Last administered on 01/14/17 09:45 ; Start 01/05/17 at 10:00 Sodium Chloride (Saline Mist Nasal) 1 henry PRN Q1HR PRN NS NASAL CONGESTION Last administered on 01/11/17 22:22; Start 01/07/17 at 10:00 Hydralazine HCl (Apresoline Inj) 10 mg PRN Q4HRS PRN IVP ELEVATED BP, SEE COMMENTS; Start 01/07/17 at 15:30 Levothyroxine Sodium 25 mcg/ Sodium Chloride 5 ml @ 100 mls/hr DAILY IVP Last administered on 01/07/17 16:27; Start 01/07/17 at 16:00; Stop 01/08/17 at 08:44 ; Status DC Amlodipine Besylate (Norvasc) 5 mg DAILY PO Last administered on 01/14/17 09: 47; Start 01/08/17 at 09:00 Fluticasone Propionate (Flonase) 1 spray PRN DAILY PRN NS ALLERGIES; Start 01/08/17 at 08:45 Levothyroxine Sodium (Synthroid) 50 mcg DAILY06 PO Last administered on 06:13; Start 01/08/17 at 09:00 Lisinopril (Prinivil) 10 mg DAILY PO Last administered on 01/14/17 09:47; Start 01/08/17 at 09:00 Pantoprazole Sodium (Protonix) 40 mg DAILYAC PO Last administered on 09:48; Start 01/08/17 at 09:00 Ferrous Sulfate (Feosol) 325 mg DAILYWBKFT PO Last administered on 01/14/17 09:47; Start 01/08/17 at 09:00 Cetirizine HCl (ZyrTEC) 10 mg DAILY PO Last administered on 01/14/17 09:47; Start 01/08/17 at 09:00 Multivitamins (Thera M Plus) 1 tab DAILY PO Last administered on 01/14/17 09: 47; Start 01/09/17 at 09:00 Atorvastatin Calcium (Lipitor) 5 mg QHS PO Last administered on 01/13/17 21: 33; Start 01/08/17 at 21:00 Ciprofloxacin (Cipro) 500 mg BID PO Last administered on 01/09/17 11:03; Start 01/09/17 at 11:30; Stop 01/09/17 at 11:30; Status DC Phenazopyridine HCl (Pyridium) 200 mg PRN TID PRN PO URINARY PAIN; Start at 11:15; Stop 01/09/17 at 11:15; Status DC Phenazopyridine HCl (Pyridium) 200 mg TID PO Last administered on 01/14/17 14 :36; Start 01/09/17 at 11:15 Ceftriaxone Sodium 1 gm/ Dextrose 50 ml @ 100 mls/hr Q24H IV ; Start 01/09/17 at 11:15; Status UNV Ceftriaxone Sodium (Rocephin) 1 gm Q24H IVP Last administered on 01/14/17 12: 20; Start 01/09/17 at 12:00 Lactobacillus Rhamnosus (Culturelle) 1 cap BID PO Last administered on 09:47; Start 01/09/17 at 21:00 Lidocaine/Sodium Bicarbonate (Buffered Lidocaine 1%) 20 ml STK-MED ONCE IJ ; Start 01/10/17 at 08:17; Stop 01/10/17 at 08:18; Status DC Lidocaine/Sodium Bicarbonate (Buffered Lidocaine 1%) 3 ml 1X ONCE IJ Last administered on 01/10/17 08:30; Start 01/10/17 at 08:30; Stop 01/10/17 at 08:33 ; Status DC Info 1 each PRN DAILY PRN MC SEE COMMENTS Last administered on 01/14/17 11:57 ; Start 01/10/17 at 11:45 Sodium Chloride 90 meq/Potassium Chloride 50 meq/ Potassium Phosphate 13.6 mmol/ Magnesium Sulfate 10 meq/ Calcium Gluconate 10 meq/ Multivitamins 10 ml/Chromium / Copper/Manganese/ Seleni/Zn 1 ml/ Total Parenteral Nutrition/Amino Acids/ Dextrose/ Fat Emulsion Intravenous 1,512 ml @ 63 mls/hr TPN CONT IV Last administered on 01/10/17 22:30; Start 01/10/17 at 22:00; Stop 01/11/17 at 21:59 ; Status DC Potassium Chloride 50 ml @ 50 mls/hr Q1H IV Last administered on 01/11/17 11: 27; Start 01/11/17 at 09:30; Stop 01/11/17 at 11:29; Status DC Potassium Chloride (Klor-Con) 20 meq 1X ONCE PO Last administered on 10:26; Start 01/11/17 at 09:30; Stop 01/11/17 at 09:31; Status DC Calcium Carbonate/ Glycine (Tums) 500 mg PRN AFTMEALHC PRN PO INDIGESTION; Start 01/11/17 at 10:15 Al Hydroxide/Mg Hydroxide (Mylanta Plus Xs) 30 ml PRN Q2HR PRN PO HEARTBURN / GAS; Start 01/11/17 at 10:15 Sodium Chloride 90 meq/Potassium Chloride 70 meq/ Potassium Phosphate 13.6 mmol/ Magnesium Sulfate 10 meq/ Calcium Gluconate 10 meq/ Multivitamins 10 ml/Chromium / Copper/Manganese/ Seleni/Zn 1 ml/ Total Parenteral Nutrition/Amino Acids/ Dextrose/ Fat Emulsion Intravenous 1,512 ml @ 63 mls/hr TPN CONT IV Last administered on 01/11/17 22:54; Start 01/11/17 at 22:00; Stop 01/12/17 at 21: 59; Status DC Sodium Chloride 90 meq/Potassium Chloride 90 meq/ Potassium Phosphate 13.6 mmol/ Magnesium Sulfate 18 meq/ Calcium Gluconate 10 meq/ Multivitamins 10 ml/Chromium / Copper/Manganese/ Seleni/Zn 1 ml/ Total Parenteral Nutrition/Amino Acids/ Dextrose/ Fat Emulsion Intravenous 1,512 ml @ 63 mls/hr TPN CONT IV Last administered on 01/12/17 21:50; Start 01/12/17 at 22:00; Stop 01/13/17 at 21 :59; Status DC Sodium Chloride 90 meq/Potassium Chloride 70 meq/ Potassium Phosphate 13.6 mmol/ Magnesium Sulfate 18 meq/ Calcium Gluconate 10 meq/ Multivitamins 10 ml/Chromium / Copper/Manganese/ Seleni/Zn 1 ml/ Total Parenteral Nutrition/Amino Acids/ Dextrose/ Fat Emulsion Intravenous 1,512 ml @ 63 mls/hr TPN CONT IV Last administered on 01/13/17 22:04; Start 01/13/17 at 22:00; Stop 01/14/17 at 21 :59 Sodium Chloride 90 meq/Potassium Chloride 70 meq/ Potassium Phosphate 13.6 mmol/ Magnesium Sulfate 18 meq/ Calcium Gluconate 10 meq/ Multivitamins 10 ml/Chromium / Copper/Manganese/ Seleni/Zn 1 ml/ Total Parenteral Nutrition/Amino Acids/ Dextrose/ Fat Emulsion Intravenous 1,512 ml @ 63 mls/hr TPN CONT IV ; Start 01/14/17 at 22:00; Stop 01/15/17 at 21:59 Active Scripts Active Protonix (Pantoprazole Sodium) 40 Mg Tablet. 1 Tab PO DAILY Reported Ferralet 90 Dual-Iron Tablet (Iron, Carb & Gluc/Fa/B12/C/Dss) 1 Each Tablet 1 Tab PO DAILY Multivitamins (Multivitamin) 1 Each Tablet 1 Tab PO DAILY Loratadine 10 Mg Tablet 1 Tab PO DAILY Fluticasone Propionate Nasal [place] (Fluticasone Propionate) 16 Gm [place].susp 1 [place] NS DAILY PRN Levothyroxine Sodium 50 Mcg Tablet 1 Tab PO DAILY Lisinopril 10 Mg Tablet 1 Tab PO DAILY Pravastatin Sodium 10 Mg Tablet 1 Tab PO DAILY Amlodipine Besylate 5 Mg Tablet 5 Mg PO DAILY Vitals/I & O Vital Sign - Last 24 Hours 01/13/17 01/13/17 01/13/17 01/13/17 15:07 19:00 20:10 23:00 Temp 98.6 97.9 98.3 98.6 97.9 98.3 Pulse 81 87 88 Resp 18 19 19 B/P (MAP) 129/79 (96) 144/76 (98) 141/81 (101) Pulse Ox 97 96 95 O2 Delivery Room Air Room Air Room Air Room Air 01/14/17 01/14/17 01/14/17 01/14/17 03:00 07:00 07:20 09:47 Temp 100.0 98.0 100.0 98.0 Pulse 86 85 85 Resp 19 18 B/P (MAP) 134/66 (88) 118/66 (83) 118/66 Pulse Ox 94 97 O2 Delivery Room Air Room Air Room Air 01/14/17 01/14/17 09:47 11:00 Temp 98.0 98.0 Pulse 85 84 Resp 18 B/P (MAP) 118/66 128/72 (90) Pulse Ox 99 O2 Delivery Room Air DAVID GALLEGOS III DO Jan 14, 2017 14:45
[2017-01-14 15:00] VITALS: BP 114/72
[2017-01-14 19:00] VITALS: BP 105/84
[2017-01-14] MEDS: ATORVASTATIN CALCIUM 10 MG TABLET. PO SCH (21:06)
[2017-01-14] MEDS ORDERED: [UNRECOGNIZED DRUG - OTHER] IV SCH ×10 (22:00)
[2017-01-14] MEDS ORDERED: TOTAL PARENTERAL NUTRITION IV SCH ×10 (22:00)
[2017-01-14] MEDS ORDERED: DEXTROSE 70% IV SCH ×10 (22:00)
[2017-01-14] MEDS ORDERED: AMINO ACIDS IV SCH ×10 (22:00)
[2017-01-14 23:00] VITALS: BP 125/62
[2017-01-15 03:00] VITALS: BP 124/57
[2017-01-15] MEDS: PANTOPRAZOLE 40 MG TABLET.DR. PO SCH (05:37)
[2017-01-15] MEDS: LEVOTHYROXINE 50 MCG TABLET PO SCH (05:37)
[2017-01-15 06:15] LABS: CALCIUM 8.5 mg/dL (8.5-10.1); GFR 54.8; MAGNESIUM 2.2 mg/dL (1.8-2.4); PHOSPHORUS 4.1 mg/dL (2.6-4.7); POTASSIUM 4.8 mmol/L (3.5-5.1)
[2017-01-15 07:00] VITALS: BP 124/63
[2017-01-15] MEDS: LISINOPRIL 10 MG TABLET PO SCH (09:27)
[2017-01-15] MEDS: FERROUS SULFATE 325 MG TABLET. PO SCH (09:27)
[2017-01-15] MEDS: PHENAZOPYRIDINE 200 MG TABLET. PO SCH (09:27)
[2017-01-15] MEDS: DOCUSATE SODIUM 100 MG CAPSULE. PO SCH (09:27)
[2017-01-15] MEDS: MULTIVITAMIN with MINERAL TABLET. PO SCH (09:27)
[2017-01-15] MEDS: LACTOBACILLUS RHAMNOSUS GG 1 CAPSULE. PO SCH ×2 (09:27→21:10)
[2017-01-15] MEDS: amLODIPine BESYLATE 5 MG TABLET PO SCH (09:27)
[2017-01-15] MEDS: HEPARIN PF for SUB-Q USE 5,000 UNIT/0.5 ML VIAL. SQ SCH (09:28)
[2017-01-15] MEDS: CETIRIZINE HCL 10 MG TABLET. PO SCH (09:28)
[2017-01-15 11:00] VITALS: BP 122/65
[2017-01-15] MEDS ORDERED: ALTEPLASE 2 MG VIAL INT CAT ONE ×2 (11:15)
[2017-01-15] MEDS: TPN PER PHARMACY MC PRN ×2 (11:40→11:41)
--- NOTE | 2017-01-15 13:39 | PDOC ---
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 htn hld hypothyroidism SIRS with leukocytosis post op, reactive likely morbid obesity UTI with lehman Hypokalemia GERD E coli UTI plan: fu with sx currently on TPN, G tube with intermittent suction wound care cont po meds dc abx, peridium dvt ppx with lovenox bid PTOT waiting for dc to rehab? thanks for asking TH for consult History of Present Illness History of Present Illness Pt is a pleasant 71 year old female who presents with pancreatic cancer post whipple 01/01. Pt was seen at bedside resting comfortably in NAD. She is on TPN with a low intermitant G tube suction drain. Her dressings are clean, dry, and intact. Pt is being seen by surgery and heme onc. PRN narcotics. Discharge disposition pending- SNU. Will continue to monitor. ROS: no fever, chills, sob or chest pain cont on G tube suction 2 Elvin not much drainage off lehman has flatus , bm post op refused heparin 2/2 painful injection Vitals Vitals Vital Signs Date Time Temp Pulse Resp B/P (MAP) Pulse Ox O2 Delivery O2 Flow Rate FiO2 01/15/17 11:00 98.6 91 20 122/65 (84) 97 Room Air 98.6 Physical Exam General: Alert, Oriented X3, Cooperative, No acute distress Heart: Regular rate, Normal S1, Normal S2 Lungs: Clear Abdomen: Soft, Other (RUQ ELVIN with serobilious output. bl Elvin , 1 G tube. sx wound clean with dressing) Extremities: No clubbing, No cyanosis Skin: No rashes, No breakdown Labs LABS Laboratory Tests Test 01/15/17 05:45 Sodium Level 137 mmol/L (136-145) Potassium Level 4.8 mmol/L (3.5-5.1) Chloride Level 104 mmol/L (98-107) Carbon Dioxide Level 24 mmol/L (21-32) Anion Gap 9 (6-14) Blood Urea Nitrogen 17 mg/dL (7-20) Creatinine 1.0 mg/dL (0.6-1.0) Estimated GFR (Cockcroft-Gault) 54.8 Glucose Level 158 mg/dL (70-99) Calcium Level 8.5 mg/dL (8.5-10.1) Phosphorus Level 4.1 mg/dL (2.6-4.7) Magnesium Level 2.2 mg/dL (1.8-2.4) Comment Review of Relevant I have reviewed the following items alonzo (where applicable) has been applied. Labs Laboratory Tests Test 01/13/17 17:40 01/14/17 06:15 01/15/17 05:45 Glucose (Fingerstick) 121 mg/dL (70-99) White Blood Count 13.4 x10^3/uL (4.0-11.0) Red Blood Count 3.67 x10^6/uL (3.50-5.40) Hemoglobin 9.3 g/dL (12.0-15.5) Hematocrit 29.5 % (36.0-47.0) Mean Corpuscular Volume 81 fL (79-100) Mean Corpuscular Hemoglobin 25 pg (25-35) Mean Corpuscular Hemoglobin Concent 32 g/dL (31-37) Red Cell Distribution Width 21.4 % (11.5-14.5) Platelet Count 359 x10^3/uL (140-400) Neutrophils (%) (Auto) 76 % (31-73) Lymphocytes (%) (Auto) 14 % (24-48) Monocytes (%) (Auto) 6 % (0-9) Eosinophils (%) (Auto) 2 % (0-3) Basophils (%) (Auto) 1 % (0-3) Neutrophils # (Auto) 10.2 x10^3uL (1.8-7.7) Lymphocytes # (Auto) 1.9 x10^3/uL (1.0-4.8) Monocytes # (Auto) 0.8 x10^3/uL (0.0-1.1) Eosinophils # (Auto) 0.3 x10^3/uL (0.0-0.7) Basophils # (Auto) 0.1 x10^3/uL (0.0-0.2) Sodium Level 138 mmol/L (136-145) 137 mmol/L (136-145) Potassium Level 4.7 mmol/L (3.5-5.1) 4.8 mmol/L (3.5-5.1) Chloride Level 105 mmol/L (98-107) 104 mmol/L (98-107) Carbon Dioxide Level 26 mmol/L (21-32) 24 mmol/L (21-32) Anion Gap 7 (6-14) 9 (6-14) Blood Urea Nitrogen 19 mg/dL (7-20) 17 mg/dL (7-20) Creatinine 1.0 mg/dL (0.6-1.0) 1.0 mg/dL (0.6-1.0) Estimated GFR (Cockcroft-Gault) 54.8 54.8 Glucose Level 125 mg/dL (70-99) 158 mg/dL (70-99) Calcium Level 8.1 mg/dL (8.5-10.1) 8.5 mg/dL (8.5-10.1) Phosphorus Level 3.2 mg/dL (2.6-4.7) 4.1 mg/dL (2.6-4.7) Magnesium Level 2.1 mg/dL (1.8-2.4) 2.2 mg/dL (1.8-2.4) Laboratory Tests Test 01/15/17 05:45 Sodium Level 137 mmol/L (136-145) Potassium Level 4.8 mmol/L (3.5-5.1) Chloride Level 104 mmol/L (98-107) Carbon Dioxide Level 24 mmol/L (21-32) Anion Gap 9 (6-14) Blood Urea Nitrogen 17 mg/dL (7-20) Creatinine 1.0 mg/dL (0.6-1.0) Estimated GFR (Cockcroft-Gault) 54.8 Glucose Level 158 mg/dL (70-99) Calcium Level 8.5 mg/dL (8.5-10.1) Phosphorus Level 4.1 mg/dL (2.6-4.7) Magnesium Level 2.2 mg/dL (1.8-2.4) Microbiology 01/09/17 Urine Culture - Final, Complete 01/09/17 Urine Culture Result 1 (GILBERT) - Final, Complete 01/09/17 Antimicrobic Susceptibility - Final, Complete Medications Current Medications Ondansetron HCl (Zofran) 4 mg PRN Q6HRS PRN IV NAUSEA/VOMITING; Start at 07:00; Stop 01/02/17 at 06:59; Status DC Fentanyl Citrate (Fentanyl 2ml Vial) 25 mcg PRN Q5MIN PRN IV MILD PAIN; Start 01/01/17 at 07:00; Stop 01/02/17 at 06:59; Status DC Fentanyl Citrate (Fentanyl 2ml Vial) 50 mcg PRN Q5MIN PRN IV MODERATE PAIN; Start 01/01/17 at 07:00; Stop 01/02/17 at 06:59; Status DC Morphine Sulfate 1 mg PRN Q10MIN PRN IV SEVERE PAIN; Start 01/01/17 at 07:00; Stop 01/02/17 at 06:59; Status DC Ringer's Solution 1,000 ml @ 30 mls/hr Q24H IV Last administered on 08:35; Start 01/01/17 at 07:00; Stop 01/01/17 at 18:59; Status DC Lidocaine HCl (Xylocaine-Mpf 1% Vial) 2 ml PRN 1X PRN ID PRIOR TO IV START; Start 01/01/17 at 07:00; Stop 01/02/17 at 06:59; Status DC Hydromorphone HCl (Dilaudid) 0.5 mg PRN Q10MIN PRN IV SEV PAIN, Second choice; Start 01/01/17 at 07:00; Stop 01/02/17 at 06:59; Status DC Prochlorperazine Edisylate (Compazine) 5 mg PACU PRN PRN IV NAUSEA, MRX1; Start 01/01/17 at 07:00; Stop 01/02/17 at 06:59; Status DC Cefoxitin Sodium 2 gm/Dextrose 100 ml @ 200 mls/hr 1X PREOP PRN IV ABX Last administered on 01/01/17 12:35; Start 01/01/17 at 06:00; Stop 01/06/17 at 15: 00; Status DC Dexamethasone Sodium Phosphate (Decadron) 20 mg STK-MED ONCE .ROUTE ; Start at 09:25; Stop 01/01/17 at 09:26; Status DC Lidocaine HCl (Lidocaine Pf 2% Vial) 5 ml STK-MED ONCE .ROUTE ; Start 01/01/17 at 09:25; Stop 01/01/17 at 09:26; Status DC Ondansetron HCl (Zofran) 4 mg STK-MED ONCE .ROUTE ; Start 01/01/17 at 09:25; Stop 01/01/17 at 09:26; Status DC Propofol 20 ml @ As Directed STK-MED ONCE IV ; Start 01/01/17 at 09:25; Stop 01/01/17 at 09:26; Status DC Fentanyl Citrate (Fentanyl 2ml Vial) 100 mcg STK-MED ONCE .ROUTE ; Start at 09:25; Stop 01/01/17 at 09:26; Status DC Rocuronium [place] (Zemuron) 50 mg STK-MED ONCE .ROUTE ; Start 01/01/17 at 09: 26; Stop 01/01/17 at 09:27; Status DC Phenylephrine HCl 1 mg STK-MED ONCE IV ; Start 01/01/17 at 10:27; Stop at 10:28; Status DC Bupivacaine HCl (Sensorcaine Mpf 0.25%) 30 ml STK-MED ONCE .ROUTE ; Start 01/01 at 10:49; Stop 01/01/17 at 10:50; Status DC Lidocaine HCl (Xylocaine-Mpf 1% Vial) 5 ml STK-MED ONCE .ROUTE ; Start at 10:50; Stop 01/01/17 at 10:51; Status DC Phenylephrine HCl ([place]eroy-Synephrine Inj) 10 mg STK-MED ONCE .ROUTE ; Start at 11:11; Stop 01/01/17 at 11:12; Status DC Ephedrine Sulfate (Akovaz) 50 mg STK-MED ONCE .ROUTE ; Start 01/01/17 at 11:18 ; Stop 01/01/17 at 11:19; Status DC Rocuronium [place] (Zemuron) 100 mg STK-MED ONCE .ROUTE ; Start 01/01/17 at 11: 30; Stop 01/01/17 at 11:31; Status DC Cefoxitin Sodium 2 gm/Dextrose 100 ml @ 200 mls/hr 1X ONCE IV ; Start at 12:15; Stop 01/01/17 at 12:44; Status Cancel Cefoxitin Sodium 100 ml @ As Directed STK-MED ONCE IV ; Start 01/01/17 at 11: 17; Stop 01/01/17 at 12:17; Status DC Fentanyl Citrate (Fentanyl 2ml Vial) 100 mcg STK-MED ONCE .ROUTE ; Start at 12:24; Stop 01/01/17 at 12:25; Status DC Sodium Chloride 39.95 ml/ Hydromorphone HCl 0.5 mg/ Ropivacaine 10 ml/ Epidural Dosage Infused (Pha) 50 ml @ 0 mls/hr CONT PRN EP Per protocol Last administered on 01/04/17 06:38; Start 01/01/17 at 12:30; Stop 01/11/17 at 02: 08; Status DC Sodium Chloride 40 ml/ Hydromorphone HCl 0.5 mg/ Ropivacaine 10 ml/ Epidural Dosage Infused (Pha) 50.05 ml @ 0 mls/hr 1X ONCE EP ; Start 01/05/17 at 18:30 ; Stop 01/05/17 at 18:31; Status UNV Sevoflurane (Ultane) 90 ml STK-MED ONCE IH ; Start 01/01/17 at 13:02; Stop at 13:03; Status DC Cefoxitin Sodium 50 ml @ 100 mls/hr 1X ONCE IV Last administered on 14:35; Start 01/01/17 at 14:15; Stop 01/01/17 at 14:44; Status DC Albumin Human 100 ml @ As Directed STK-MED ONCE IV ; Start 01/01/17 at 14:25; Stop 01/01/17 at 14:26; Status DC Glycopyrrolate (Robinul) 1 mg STK-MED ONCE .ROUTE ; Start 01/01/17 at 15:59; Stop 01/01/17 at 16:00; Status DC Neostigmine Methylsulfate 5 mg STK-MED ONCE .ROUTE ; Start 01/01/17 at 15:59; Stop 01/01/17 at 16:00; Status DC Famotidine (Pepcid) 20 mg BID IVP Last administered on 01/07/17 20:18; Start 01/01/17 at 21:00; Stop 01/08/17 at 08:44; Status DC Heparin Sodium (Porcine) (Heparin Sq) 5,000 unit Q12HR SQ Last administered on 01/14/17 09:53; Start 01/01/17 at 21:00; Stop 01/15/17 at 11:27; Status DC Sodium Chloride (Normal Saline Flush) 3 ml QSHIFT PRN IV AFTER MEDS AND BLOOD DRAWS; Start 01/01/17 at 16:30 Ringer's Solution 1,000 ml @ 100 mls/hr Q10H IV Last administered on 02:38; Start 01/01/17 at 16:26; Stop 01/08/17 at 09:47; Status DC Ondansetron HCl (Zofran) 4 mg PRN Q6HRS PRN IV NAUESA, 1ST CHOICE Last administered on 01/10/17 21:22; Start 01/01/17 at 16:30 Diphenhydramine HCl (Benadryl) 25 mg PRN Q6HRS PRN IVP ITCHING Last administered on 01/02/17 10:07; Start 01/02/17 at 10:00 Oxycodone/ Acetaminophen (Percocet 5/325) 1 tab PRN Q4HRS PRN PO PAIN Last administered on 01/07/17 11:24; Start 01/05/17 at 10:00 Docusate Sodium (Colace) 100 mg DAILY PO Last administered on 01/15/17 09:27 ; Start 01/05/17 at 10:00 Sodium Chloride (Saline Mist Nasal) 1 henry PRN Q1HR PRN NS NASAL CONGESTION Last administered on 01/11/17 22:22; Start 01/07/17 at 10:00 Hydralazine HCl (Apresoline Inj) 10 mg PRN Q4HRS PRN IVP ELEVATED BP, SEE COMMENTS; Start 01/07/17 at 15:30 Levothyroxine Sodium 25 mcg/ Sodium Chloride 5 ml @ 100 mls/hr DAILY IVP Last administered on 01/07/17 16:27; Start 01/07/17 at 16:00; Stop 01/08/17 at 08:44 ; Status DC Amlodipine Besylate (Norvasc) 5 mg DAILY PO Last administered on 01/15/17 09: 27; Start 01/08/17 at 09:00 Fluticasone Propionate (Flonase) 1 spray PRN DAILY PRN NS ALLERGIES; Start 01/08/17 at 08:45 Levothyroxine Sodium (Synthroid) 50 mcg DAILY06 PO Last administered on 05:37; Start 01/08/17 at 09:00 Lisinopril (Prinivil) 10 mg DAILY PO Last administered on 01/15/17 09:27; Start 01/08/17 at 09:00 Pantoprazole Sodium (Protonix) 40 mg DAILYAC PO Last administered on 05:37; Start 01/08/17 at 09:00 Ferrous Sulfate (Feosol) 325 mg DAILYWBKFT PO Last administered on 01/15/17 09:27; Start 01/08/17 at 09:00 Cetirizine HCl (ZyrTEC) 10 mg DAILY PO Last administered on 01/15/17 09:28; Start 01/08/17 at 09:00 Multivitamins (Thera M Plus) 1 tab DAILY PO Last administered on 01/15/17 09: 27; Start 01/09/17 at 09:00; Stop 01/15/17 at 11:40; Status DC Atorvastatin Calcium (Lipitor) 5 mg QHS PO Last administered on 01/14/17 21: 06; Start 01/08/17 at 21:00 Ciprofloxacin (Cipro) 500 mg BID PO Last administered on 01/09/17 11:03; Start 01/09/17 at 11:30; Stop 01/09/17 at 11:30; Status DC Phenazopyridine HCl (Pyridium) 200 mg PRN TID PRN PO URINARY PAIN; Start at 11:15; Stop 01/09/17 at 11:15; Status DC Phenazopyridine HCl (Pyridium) 200 mg TID PO Last administered on 01/15/17 09 :27; Start 01/09/17 at 11:15; Stop 01/15/17 at 11:27; Status DC Ceftriaxone Sodium 1 gm/ Dextrose 50 ml @ 100 mls/hr Q24H IV ; Start 01/09/17 at 11:15; Status UNV Ceftriaxone Sodium (Rocephin) 1 gm Q24H IVP Last administered on 01/14/17 12: 20; Start 01/09/17 at 12:00; Stop 01/15/17 at 11:27; Status DC Lactobacillus Rhamnosus (Culturelle) 1 cap BID PO Last administered on 09:27; Start 01/09/17 at 21:00 Lidocaine/Sodium Bicarbonate (Buffered Lidocaine 1%) 20 ml STK-MED ONCE IJ ; Start 01/10/17 at 08:17; Stop 01/10/17 at 08:18; Status DC Lidocaine/Sodium Bicarbonate (Buffered Lidocaine 1%) 3 ml 1X ONCE IJ Last administered on 01/10/17 08:30; Start 01/10/17 at 08:30; Stop 01/10/17 at 08:33 ; Status DC Info 1 each PRN DAILY PRN MC SEE COMMENTS Last administered on 01/15/17 11:41 ; Start 01/10/17 at 11:45 Sodium Chloride 90 meq/Potassium Chloride 50 meq/ Potassium Phosphate 13.6 mmol/ Magnesium Sulfate 10 meq/ Calcium Gluconate 10 meq/ Multivitamins 10 ml/Chromium / Copper/Manganese/ Seleni/Zn 1 ml/ Total Parenteral Nutrition/Amino Acids/ Dextrose/ Fat Emulsion Intravenous 1,512 ml @ 63 mls/hr TPN CONT IV Last administered on 01/10/17 22:30; Start 01/10/17 at 22:00; Stop 01/11/17 at 21:59 ; Status DC Potassium Chloride 50 ml @ 50 mls/hr Q1H IV Last administered on 01/11/17 11: 27; Start 01/11/17 at 09:30; Stop 01/11/17 at 11:29; Status DC Potassium Chloride (Klor-Con) 20 meq 1X ONCE PO Last administered on 10:26; Start 01/11/17 at 09:30; Stop 01/11/17 at 09:31; Status DC Calcium Carbonate/ Glycine (Tums) 500 mg PRN AFTMEALHC PRN PO INDIGESTION; Start 01/11/17 at 10:15 Al Hydroxide/Mg Hydroxide (Mylanta Plus Xs) 30 ml PRN Q2HR PRN PO HEARTBURN / GAS; Start 01/11/17 at 10:15 Sodium Chloride 90 meq/Potassium Chloride 70 meq/ Potassium Phosphate 13.6 mmol/ Magnesium Sulfate 10 meq/ Calcium Gluconate 10 meq/ Multivitamins 10 ml/Chromium / Copper/Manganese/ Seleni/Zn 1 ml/ Total Parenteral Nutrition/Amino Acids/ Dextrose/ Fat Emulsion Intravenous 1,512 ml @ 63 mls/hr TPN CONT IV Last administered on 01/11/17 22:54; Start 01/11/17 at 22:00; Stop 01/12/17 at 21: 59; Status DC Sodium Chloride 90 meq/Potassium Chloride 90 meq/ Potassium Phosphate 13.6 mmol/ Magnesium Sulfate 18 meq/ Calcium Gluconate 10 meq/ Multivitamins 10 ml/Chromium / Copper/Manganese/ Seleni/Zn 1 ml/ Total Parenteral Nutrition/Amino Acids/ Dextrose/ Fat Emulsion Intravenous 1,512 ml @ 63 mls/hr TPN CONT IV Last administered on 01/12/17 21:50; Start 01/12/17 at 22:00; Stop 01/13/17 at 21 :59; Status DC Sodium Chloride 90 meq/Potassium Chloride 70 meq/ Potassium Phosphate 13.6 mmol/ Magnesium Sulfate 18 meq/ Calcium Gluconate 10 meq/ Multivitamins 10 ml/Chromium / Copper/Manganese/ Seleni/Zn 1 ml/ Total Parenteral Nutrition/Amino Acids/ Dextrose/ Fat Emulsion Intravenous 1,512 ml @ 63 mls/hr TPN CONT IV Last administered on 01/13/17 22:04; Start 01/13/17 at 22:00; Stop 01/14/17 at 21 :59; Status DC Sodium Chloride 90 meq/Potassium Chloride 70 meq/ Potassium Phosphate 13.6 mmol/ Magnesium Sulfate 18 meq/ Calcium Gluconate 10 meq/ Multivitamins 10 ml/Chromium / Copper/Manganese/ Seleni/Zn 1 ml/ Total Parenteral Nutrition/Amino Acids/ Dextrose/ Fat Emulsion Intravenous 1,512 ml @ 63 mls/hr TPN CONT IV Last administered on 01/14/17 22:35; Start 01/14/17 at 22:00; Stop 01/15/17 at 21 :59 Alteplase, Recombinant (Cathflo) 2 mg 1X ONCE INT CAT ; Start 01/15/17 at 11: 15; Stop 01/15/17 at 11:18; Status DC Alteplase, Recombinant (Cathflo) 2 mg 1X ONCE INT CAT Last administered on 11:50; Start 01/15/17 at 11:15; Stop 01/15/17 at 11:18; Status DC Enoxaparin Sodium (Lovenox 40mg Syringe) 40 mg BID SQ ; Start 01/15/17 at 11:45 Sodium Chloride 90 meq/Potassium Chloride 70 meq/ Potassium Phosphate 13.6 mmol/ Magnesium Sulfate 18 meq/ Calcium Gluconate 10 meq/ Multivitamins 10 ml/Chromium / Copper/Manganese/ Seleni/Zn 1 ml/ Total Parenteral Nutrition/Amino Acids/ Dextrose/ Fat Emulsion Intravenous 1,512 ml @ 63 mls/hr TPN CONT IV ; Start 01/15/17 at 22:00; Stop 01/16/17 at 21:59 Active Scripts Active Protonix (Pantoprazole Sodium) 40 Mg Tablet. 1 Tab PO DAILY Reported Ferralet 90 Dual-Iron Tablet (Iron, Carb & Gluc/Fa/B12/C/Dss) 1 Each Tablet 1 Tab PO DAILY Multivitamins (Multivitamin) 1 Each Tablet 1 Tab PO DAILY Loratadine 10 Mg Tablet 1 Tab PO DAILY Fluticasone Propionate Nasal [place] (Fluticasone Propionate) 16 Gm [place].susp 1 [place] NS DAILY PRN Levothyroxine Sodium 50 Mcg Tablet 1 Tab PO DAILY Lisinopril 10 Mg Tablet 1 Tab PO DAILY Pravastatin Sodium 10 Mg Tablet 1 Tab PO DAILY Amlodipine Besylate 5 Mg Tablet 5 Mg PO DAILY Vitals/I & O Vital Sign - Last 24 Hours 01/14/17 01/14/17 01/14/17 01/14/17 15:00 19:00 20:00 23:00 Temp 98.3 98.4 98.3 98.3 98.4 98.3 Pulse 85 90 86 Resp 17 B/P (MAP) 114/72 (86) 105/84 (91) 125/62 (83) Pulse Ox 98 97 98 O2 Delivery Room Air Room Air Room Air Room Air 01/15/17 01/15/17 01/15/17 01/15/17 03:00 07:00 08:30 09:27 Temp 98.4 97.6 98.4 97.6 Pulse 96 107 107 Resp 18 20 B/P (MAP) 124/57 (79) 124/63 (83) 124/63 Pulse Ox 96 95 O2 Delivery Room Air Room Air Room Air 01/15/17 01/15/17 09:27 11:00 Temp 98.6 98.6 Pulse 107 91 Resp 20 B/P (MAP) 124/63 122/65 (84) Pulse Ox 97 O2 Delivery Room Air Intake and Output 01/14/17 01/14/17 01/15/17 15:00 23:00 07:00 Output Total 550 ml 1275 ml Balance -550 ml -1275 ml RASHAD POWELL MD Jan 15, 2017 13:39
[2017-01-15] MEDS: ENOXAPARIN 40 MG/0.4 ML SYRINGE. SQ SCH ×2 (13:54→21:10)
--- NOTE | 2017-01-15 14:20 | PDOC ---
PROGRESS NOTES Subjective Subjective HPI - Pancreatic adenocarcinoma. s/p endoscopic ultrasound-guided biopsy of the pancreatic head mass 12/13/16. s/p Whipple surgery 01/01/17- revealed T2N0M0 stage IB. ROS- no abd pain Objective Objective Vital Signs Date Time Temp Pulse Resp B/P (MAP) Pulse Ox O2 Delivery O2 Flow Rate FiO2 01/15/17 11:00 98.6 91 20 122/65 (84) 97 Room Air 98.6 01/07/17 20:00 2.0 Intake and Output 01/15/17 07:00 Output Total 1825 ml Balance -1825 ml Gastric Drainage Total 1750 ml Drainage Total 75 ml # Voids 9 # Bowel Movements 1 Physical Exam Heart: Normal S1, Normal S2 General: Alert, Oriented X3, No acute distress Lungs: Clear to auscultation Neuro: Normal speech Psych/Mental Status: Mental status NL Assessment Assessment IMPRESSION AND PLAN: 1. Pancreatic adenocarcinoma. s/p endoscopic ultrasound-guided biopsy of the pancreatic head mass 12/13/16. s/p Whipple surgery 01/01/17- revealed T2N0M0 stage IB. Whipple procedure (specifically: pancreaticoduodenectomy, pylorus sparing, pancreaticogastrostomy with Buster en Y reconstruction to bile duct), G-tube placement. Positive margin and has perineural involvement. Plan adjuvant chemo in 3-4 weeks followed by radiation. I d/w Dr Swanson. 2. Obstructive jaundice secondary to pancreatic head mass. Improved. 3. Iron-deficiency anemia. s/p Venofer 500 mg IV x 1 dose on 11/27/2016. Hb 9.3, monitor. I will check iron panel. 4. N/v - resolved Comment Review of Relevant I have reviewed the following items alonzo (where applicable) has been applied. Labs Laboratory Tests Test 01/13/17 17:40 01/14/17 06:15 01/15/17 05:45 Glucose (Fingerstick) 121 mg/dL (70-99) White Blood Count 13.4 x10^3/uL (4.0-11.0) Red Blood Count 3.67 x10^6/uL (3.50-5.40) Hemoglobin 9.3 g/dL (12.0-15.5) Hematocrit 29.5 % (36.0-47.0) Mean Corpuscular Volume 81 fL (79-100) Mean Corpuscular Hemoglobin 25 pg (25-35) Mean Corpuscular Hemoglobin Concent 32 g/dL (31-37) Red Cell Distribution Width 21.4 % (11.5-14.5) Platelet Count 359 x10^3/uL (140-400) Neutrophils (%) (Auto) 76 % (31-73) Lymphocytes (%) (Auto) 14 % (24-48) Monocytes (%) (Auto) 6 % (0-9) Eosinophils (%) (Auto) 2 % (0-3) Basophils (%) (Auto) 1 % (0-3) Neutrophils # (Auto) 10.2 x10^3uL (1.8-7.7) Lymphocytes # (Auto) 1.9 x10^3/uL (1.0-4.8) Monocytes # (Auto) 0.8 x10^3/uL (0.0-1.1) Eosinophils # (Auto) 0.3 x10^3/uL (0.0-0.7) Basophils # (Auto) 0.1 x10^3/uL (0.0-0.2) Sodium Level 138 mmol/L (136-145) 137 mmol/L (136-145) Potassium Level 4.7 mmol/L (3.5-5.1) 4.8 mmol/L (3.5-5.1) Chloride Level 105 mmol/L (98-107) 104 mmol/L (98-107) Carbon Dioxide Level 26 mmol/L (21-32) 24 mmol/L (21-32) Anion Gap 7 (6-14) 9 (6-14) Blood Urea Nitrogen 19 mg/dL (7-20) 17 mg/dL (7-20) Creatinine 1.0 mg/dL (0.6-1.0) 1.0 mg/dL (0.6-1.0) Estimated GFR (Cockcroft-Gault) 54.8 54.8 Glucose Level 125 mg/dL (70-99) 158 mg/dL (70-99) Calcium Level 8.1 mg/dL (8.5-10.1) 8.5 mg/dL (8.5-10.1) Phosphorus Level 3.2 mg/dL (2.6-4.7) 4.1 mg/dL (2.6-4.7) Magnesium Level 2.1 mg/dL (1.8-2.4) 2.2 mg/dL (1.8-2.4) Laboratory Tests Test 01/15/17 05:45 Sodium Level 137 mmol/L (136-145) Potassium Level 4.8 mmol/L (3.5-5.1) Chloride Level 104 mmol/L (98-107) Carbon Dioxide Level 24 mmol/L (21-32) Anion Gap 9 (6-14) Blood Urea Nitrogen 17 mg/dL (7-20) Creatinine 1.0 mg/dL (0.6-1.0) Estimated GFR (Cockcroft-Gault) 54.8 Glucose Level 158 mg/dL (70-99) Calcium Level 8.5 mg/dL (8.5-10.1) Phosphorus Level 4.1 mg/dL (2.6-4.7) Magnesium Level 2.2 mg/dL (1.8-2.4) Microbiology 01/09/17 Urine Culture - Final, Complete 01/09/17 Urine Culture Result 1 (GILBERT) - Final, Complete 01/09/17 Antimicrobic Susceptibility - Final, Complete Medications Current Medications Ondansetron HCl (Zofran) 4 mg PRN Q6HRS PRN IV NAUSEA/VOMITING; Start at 07:00; Stop 01/02/17 at 06:59; Status DC Fentanyl Citrate (Fentanyl 2ml Vial) 25 mcg PRN Q5MIN PRN IV MILD PAIN; Start 01/01/17 at 07:00; Stop 01/02/17 at 06:59; Status DC Fentanyl Citrate (Fentanyl 2ml Vial) 50 mcg PRN Q5MIN PRN IV MODERATE PAIN; Start 01/01/17 at 07:00; Stop 01/02/17 at 06:59; Status DC Morphine Sulfate 1 mg PRN Q10MIN PRN IV SEVERE PAIN; Start 01/01/17 at 07:00; Stop 01/02/17 at 06:59; Status DC Ringer's Solution 1,000 ml @ 30 mls/hr Q24H IV Last administered on t 08:35; Start 01/01/17 at 07:00; Stop 01/01/17 at 18:59; Status DC Lidocaine HCl (Xylocaine-Mpf 1% Vial) 2 ml PRN 1X PRN ID PRIOR TO IV START; Start 01/01/17 at 07:00; Stop 01/02/17 at 06:59; Status DC Hydromorphone HCl (Dilaudid) 0.5 mg PRN Q10MIN PRN IV SEV PAIN, Second choice; Start 01/01/17 at 07:00; Stop 01/02/17 at 06:59; Status DC Prochlorperazine Edisylate (Compazine) 5 mg PACU PRN PRN IV NAUSEA, MRX1; Start 01/01/17 at 07:00; Stop 01/02/17 at 06:59; Status DC Cefoxitin Sodium 2 gm/Dextrose 100 ml @ 200 mls/hr 1X PREOP PRN IV ABX Last administered on 01/01/17t 12:35; Start 01/01/17 at 06:00; Stop 01/06/17 at 15: 00; Status DC Dexamethasone Sodium Phosphate (Decadron) 20 mg STK-MED ONCE .ROUTE ; Start at 09:25; Stop 01/01/17 at 09:26; Status DC Lidocaine HCl (Lidocaine Pf 2% Vial) 5 ml STK-MED ONCE .ROUTE ; Start 01/01/17 at 09:25; Stop 01/01/17 at 09:26; Status DC Ondansetron HCl (Zofran) 4 mg STK-MED ONCE .ROUTE ; Start 01/01/17 at 09:25; Stop 01/01/17 at 09:26; Status DC Propofol 20 ml @ As Directed STK-MED ONCE IV ; Start 01/01/17 at 09:25; Stop 01/01/17 at 09:26; Status DC Fentanyl Citrate (Fentanyl 2ml Vial) 100 mcg STK-MED ONCE .ROUTE ; Start at 09:25; Stop 01/01/17 at 09:26; Status DC Rocuronium Ward (Zemuron) 50 mg STK-MED ONCE .ROUTE ; Start 01/01/17 at 09: 26; Stop 01/01/17 at 09:27; Status DC Phenylephrine HCl 1 mg STK-MED ONCE IV ; Start 01/01/17 at 10:27; Stop at 10:28; Status DC Bupivacaine HCl (Sensorcaine Mpf 0.25%) 30 ml STK-MED ONCE .ROUTE ; Start 01/01 at 10:49; Stop 01/01/17 at 10:50; Status DC Lidocaine HCl (Xylocaine-Mpf 1% Vial) 5 ml STK-MED ONCE .ROUTE ; Start at 10:50; Stop 01/01/17 at 10:51; Status DC Phenylephrine HCl (Leroy-Synephrine Inj) 10 mg STK-MED ONCE .ROUTE ; Start at 11:11; Stop 01/01/17 at 11:12; Status DC Ephedrine Sulfate (Akovaz) 50 mg STK-MED ONCE .ROUTE ; Start 01/01/17 at 11:18 ; Stop 01/01/17 at 11:19; Status DC Rocuronium Ward (Zemuron) 100 mg STK-MED ONCE .ROUTE ; Start 01/01/17 at 11: 30; Stop 01/01/17 at 11:31; Status DC Cefoxitin Sodium 2 gm/Dextrose 100 ml @ 200 mls/hr 1X ONCE IV ; Start at 12:15; Stop 01/01/17 at 12:44; Status Cancel Cefoxitin Sodium 100 ml @ As Directed STK-MED ONCE IV ; Start 01/01/17 at 11: 17; Stop 01/01/17 at 12:17; Status DC Fentanyl Citrate (Fentanyl 2ml Vial) 100 mcg STK-MED ONCE .ROUTE ; Start at 12:24; Stop 01/01/17 at 12:25; Status DC Sodium Chloride 39.95 ml/ Hydromorphone HCl 0.5 mg/ Ropivacaine 10 ml/ Epidural Dosage Infused (Pha) 50 ml @ 0 mls/hr CONT PRN EP Per protocol Last administered on 01/04/17t 06:38; Start 01/01/17 at 12:30; Stop 01/11/17 at 02: 08; Status DC Sodium Chloride 40 ml/ Hydromorphone HCl 0.5 mg/ Ropivacaine 10 ml/ Epidural Dosage Infused (Pha) 50.05 ml @ 0 mls/hr 1X ONCE EP ; Start 01/05/17 at 18:30 ; Stop 01/05/17 at 18:31; Status UNV Sevoflurane (Ultane) 90 ml STK-MED ONCE IH ; Start 01/01/17 at 13:02; Stop at 13:03; Status DC Cefoxitin Sodium 50 ml @ 100 mls/hr 1X ONCE IV Last administered on 14:35; Start 01/01/17 at 14:15; Stop 01/01/17 at 14:44; Status DC Albumin Human 100 ml @ As Directed STK-MED ONCE IV ; Start 01/01/17 at 14:25; Stop 01/01/17 at 14:26; Status DC Glycopyrrolate (Robinul) 1 mg STK-MED ONCE .ROUTE ; Start 01/01/17 at 15:59; Stop 01/01/17 at 16:00; Status DC Neostigmine Methylsulfate 5 mg STK-MED ONCE .ROUTE ; Start 01/01/17 at 15:59; Stop 01/01/17 at 16:00; Status DC Famotidine (Pepcid) 20 mg BID IVP Last administered on 01/07/17 20:18; Start 01/01/17 at 21:00; Stop 01/08/17 at 08:44; Status DC Heparin Sodium (Porcine) (Heparin Sq) 5,000 unit Q12HR SQ Last administered on 01/14/17 09:53; Start 01/01/17 at 21:00; Stop 01/15/17 at 11:27; Status DC Sodium Chloride (Normal Saline Flush) 3 ml QSHIFT PRN IV AFTER MEDS AND BLOOD DRAWS; Start 01/01/17 at 16:30 Ringer's Solution 1,000 ml @ 100 mls/hr Q10H IV Last administered on 02:38; Start 01/01/17 at 16:26; Stop 01/08/17 at 09:47; Status DC Ondansetron HCl (Zofran) 4 mg PRN Q6HRS PRN IV NAUESA, 1ST CHOICE Last administered on 01/10/17 21:22; Start 01/01/17 at 16:30 Diphenhydramine HCl (Benadryl) 25 mg PRN Q6HRS PRN IVP ITCHING Last administered on 01/02/17 10:07; Start 01/02/17 at 10:00 Oxycodone/ Acetaminophen (Percocet 5/325) 1 tab PRN Q4HRS PRN PO PAIN Last administered on 01/07/17 11:24; Start 01/05/17 at 10:00 Docusate Sodium (Colace) 100 mg DAILY PO Last administered on 01/15/17 09:27 ; Start 01/05/17 at 10:00 Sodium Chloride (Saline Mist Nasal) 1 henry PRN Q1HR PRN NS NASAL CONGESTION Last administered on 01/11/17 22:22; Start 01/07/17 at 10:00 Hydralazine HCl (Apresoline Inj) 10 mg PRN Q4HRS PRN IVP ELEVATED BP, SEE COMMENTS; Start 01/07/17 at 15:30 Levothyroxine Sodium 25 mcg/ Sodium Chloride 5 ml @ 100 mls/hr DAILY IVP Last administered on 01/07/17 16:27; Start 01/07/17 at 16:00; Stop 01/08/17 at 08:44 ; Status DC Amlodipine Besylate (Norvasc) 5 mg DAILY PO Last administered on 01/15/17 09: 27; Start 01/08/17 at 09:00 Fluticasone Propionate (Flonase) 1 spray PRN DAILY PRN NS ALLERGIES; Start 01/08/17 at 08:45 Levothyroxine Sodium (Synthroid) 50 mcg DAILY06 PO Last administered on 05:37; Start 01/08/17 at 09:00 Lisinopril (Prinivil) 10 mg DAILY PO Last administered on 01/15/17 09:27; Start 01/08/17 at 09:00 Pantoprazole Sodium (Protonix) 40 mg DAILYAC PO Last administered on 05:37; Start 01/08/17 at 09:00 Ferrous Sulfate (Feosol) 325 mg DAILYWBKFT PO Last administered on 01/15/17 09:27; Start 01/08/17 at 09:00 Cetirizine HCl (ZyrTEC) 10 mg DAILY PO Last administered on 01/15/17 09:28; Start 01/08/17 at 09:00 Multivitamins (Thera M Plus) 1 tab DAILY PO Last administered on 01/15/17 09: 27; Start 01/09/17 at 09:00; Stop 01/15/17 at 11:40; Status DC Atorvastatin Calcium (Lipitor) 5 mg QHS PO Last administered on 01/14/17 21: 06; Start 01/08/17 at 21:00 Ciprofloxacin (Cipro) 500 mg BID PO Last administered on 01/09/17 11:03; Start 01/09/17 at 11:30; Stop 01/09/17 at 11:30; Status DC Phenazopyridine HCl (Pyridium) 200 mg PRN TID PRN PO URINARY PAIN; Start at 11:15; Stop 01/09/17 at 11:15; Status DC Phenazopyridine HCl (Pyridium) 200 mg TID PO Last administered on 01/15/17 09 :27; Start 01/09/17 at 11:15; Stop 01/15/17 at 11:27; Status DC Ceftriaxone Sodium 1 gm/ Dextrose 50 ml @ 100 mls/hr Q24H IV ; Start 01/09/17 at 11:15; Status UNV Ceftriaxone Sodium (Rocephin) 1 gm Q24H IVP Last administered on 01/14/17 12: 20; Start 01/09/17 at 12:00; Stop 01/15/17 at 11:27; Status DC Lactobacillus Rhamnosus (Culturelle) 1 cap BID PO Last administered on 09:27; Start 01/09/17 at 21:00 Lidocaine/Sodium Bicarbonate (Buffered Lidocaine 1%) 20 ml STK-MED ONCE IJ ; Start 01/10/17 at 08:17; Stop 01/10/17 at 08:18; Status DC Lidocaine/Sodium Bicarbonate (Buffered Lidocaine 1%) 3 ml 1X ONCE IJ Last administered on 01/10/17 08:30; Start 01/10/17 at 08:30; Stop 01/10/17 at 08:33 ; Status DC Info 1 each PRN DAILY PRN MC SEE COMMENTS Last administered on 01/15/17 11:41 ; Start 01/10/17 at 11:45 Sodium Chloride 90 meq/Potassium Chloride 50 meq/ Potassium Phosphate 13.6 mmol/ Magnesium Sulfate 10 meq/ Calcium Gluconate 10 meq/ Multivitamins 10 ml/Chromium / Copper/Manganese/ Seleni/Zn 1 ml/ Total Parenteral Nutrition/Amino Acids/ Dextrose/ Fat Emulsion Intravenous 1,512 ml @ 63 mls/hr TPN CONT IV Last administered on 01/10/17 22:30; Start 01/10/17 at 22:00; Stop 01/11/17 at 21:59 ; Status DC Potassium Chloride 50 ml @ 50 mls/hr Q1H IV Last administered on 01/11/17 11: 27; Start 01/11/17 at 09:30; Stop 01/11/17 at 11:29; Status DC Potassium Chloride (Klor-Con) 20 meq 1X ONCE PO Last administered on 10:26; Start 01/11/17 at 09:30; Stop 01/11/17 at 09:31; Status DC Calcium Carbonate/ Glycine (Tums) 500 mg PRN AFTMEALHC PRN PO INDIGESTION; Start 01/11/17 at 10:15 Al Hydroxide/Mg Hydroxide (Mylanta Plus Xs) 30 ml PRN Q2HR PRN PO HEARTBURN / GAS; Start 01/11/17 at 10:15 Sodium Chloride 90 meq/Potassium Chloride 70 meq/ Potassium Phosphate 13.6 mmol/ Magnesium Sulfate 10 meq/ Calcium Gluconate 10 meq/ Multivitamins 10 ml/Chromium / Copper/Manganese/ Seleni/Zn 1 ml/ Total Parenteral Nutrition/Amino Acids/ Dextrose/ Fat Emulsion Intravenous 1,512 ml @ 63 mls/hr TPN CONT IV Last administered on 01/11/17 22:54; Start 01/11/17 at 22:00; Stop 01/12/17 at 21: 59; Status DC Sodium Chloride 90 meq/Potassium Chloride 90 meq/ Potassium Phosphate 13.6 mmol/ Magnesium Sulfate 18 meq/ Calcium Gluconate 10 meq/ Multivitamins 10 ml/Chromium / Copper/Manganese/ Seleni/Zn 1 ml/ Total Parenteral Nutrition/Amino Acids/ Dextrose/ Fat Emulsion Intravenous 1,512 ml @ 63 mls/hr TPN CONT IV Last administered on 01/12/17 21:50; Start 01/12/17 at 22:00; Stop 01/13/17 at 21 :59; Status DC Sodium Chloride 90 meq/Potassium Chloride 70 meq/ Potassium Phosphate 13.6 mmol/ Magnesium Sulfate 18 meq/ Calcium Gluconate 10 meq/ Multivitamins 10 ml/Chromium / Copper/Manganese/ Seleni/Zn 1 ml/ Total Parenteral Nutrition/Amino Acids/ Dextrose/ Fat Emulsion Intravenous 1,512 ml @ 63 mls/hr TPN CONT IV Last administered on 01/13/17 22:04; Start 01/13/17 at 22:00; Stop 01/14/17 at 21 :59; Status DC Sodium Chloride 90 meq/Potassium Chloride 70 meq/ Potassium Phosphate 13.6 mmol/ Magnesium Sulfate 18 meq/ Calcium Gluconate 10 meq/ Multivitamins 10 ml/Chromium / Copper/Manganese/ Seleni/Zn 1 ml/ Total Parenteral Nutrition/Amino Acids/ Dextrose/ Fat Emulsion Intravenous 1,512 ml @ 63 mls/hr TPN CONT IV Last administered on 01/14/17 22:35; Start 01/14/17 at 22:00; Stop 01/15/17 at 21 :59 Alteplase, Recombinant (Cathflo) 2 mg 1X ONCE INT CAT Last administered on 13:52; Start 01/15/17 at 11:15; Stop 01/15/17 at 11:18; Status DC Alteplase, Recombinant (Cathflo) 2 mg 1X ONCE INT CAT Last administered on 11:50; Start 01/15/17 at 11:15; Stop 01/15/17 at 11:18; Status DC Enoxaparin Sodium (Lovenox 40mg Syringe) 40 mg BID SQ ; Start 01/15/17 at 11:45 Sodium Chloride 90 meq/Potassium Chloride 70 meq/ Potassium Phosphate 13.6 mmol/ Magnesium Sulfate 18 meq/ Calcium Gluconate 10 meq/ Multivitamins 10 ml/Chromium / Copper/Manganese/ Seleni/Zn 1 ml/ Total Parenteral Nutrition/Amino Acids/ Dextrose/ Fat Emulsion Intravenous 1,512 ml @ 63 mls/hr TPN CONT IV ; Start 01/15/17 at 22:00; Stop 01/16/17 at 21:59 Active Scripts Active Protonix (Pantoprazole Sodium) 40 Mg Tablet.dr 1 Tab PO DAILY Reported Ferralet 90 Dual-Iron Tablet (Iron, Carb & Gluc/Fa/B12/C/Dss) 1 Each Tablet 1 Tab PO DAILY Multivitamins (Multivitamin) 1 Each Tablet 1 Tab PO DAILY Loratadine 10 Mg Tablet 1 Tab PO DAILY Fluticasone Propionate Nasal Echo (Fluticasone Propionate) 16 Gm Echo.susp 1 Echo NS DAILY PRN Levothyroxine Sodium 50 Mcg Tablet 1 Tab PO DAILY Lisinopril 10 Mg Tablet 1 Tab PO DAILY Pravastatin Sodium 10 Mg Tablet 1 Tab PO DAILY Amlodipine Besylate 5 Mg Tablet 5 Mg PO DAILY Vitals/I & O Vital Sign - Last 24 Hours 01/14/17 01/14/17 01/14/17 01/14/17 15:00 19:00 20:00 23:00 Temp 98.3 98.4 98.3 98.3 98.4 98.3 Pulse 85 90 86 Resp 18 20 17 B/P (MAP) 114/72 (86) 105/84 (91) 125/62 (83) Pulse Ox 98 97 98 O2 Delivery Room Air Room Air Room Air Room Air 01/15/17 01/15/17 01/15/17 01/15/17 03:00 07:00 08:30 09:27 Temp 98.4 97.6 98.4 97.6 Pulse 96 107 107 Resp 18 20 B/P (MAP) 124/57 (79) 124/63 (83) 124/63 Pulse Ox 96 95 O2 Delivery Room Air Room Air Room Air 01/15/17 01/15/17 09:27 11:00 Temp 98.6 98.6 Pulse 107 91 Resp 20 B/P (MAP) 124/63 122/65 (84) Pulse Ox 97 O2 Delivery Room Air Intake and Output 01/14/17 01/14/17 01/15/17 15:00 23:00 07:00 Output Total 550 ml 1275 ml Balance -550 ml -1275 ml NYA OLIVAREZ MD Jan 15, 2017 14:20
[2017-01-15 14:47] LABS: % SAT IRON 7 % (15-34); IRON,SERUM 17 ug/dL (50-170)
[2017-01-15 14:59] LABS: FOLATE 22.12 ng/ml (3.2-20.0)
[2017-01-15 15:00] VITALS: BP 122/63
[2017-01-15 15:12] LABS: BASO # 0.1 x10^3/uL (0.0-0.2); BASO % 1 % (0-3); EOS % 2 % (0-3); HEMOGLOBIN 9.5 g/dL (12.0-15.5); LYMPH # 1.7 x10^3/uL (1.0-4.8); LYMPH % 14 % (24-48); MEAN CORPUSCULAR HEMOGLOBIN 26 pg (25-35); MEAN CORPUSCULAR HGB CONC 32 g/dL (31-37); MEAN CORPUSCULAR VOLUME 83 fL (79-100); MONO % 8 % (0-9); NEUT % 75 % (31-73); PLATELET COUNT 335 x10^3/uL (140-400); RED BLOOD COUNT 3.61 x10^6/uL (3.50-5.40); RED CELL DISTRIBUTION WIDTH 20.9 % (11.5-14.5); WHITE BLOOD COUNT 12.2 x10^3/uL (4.0-11.0)
--- NOTE | 2017-01-15 15:17 | PDOC ---
SURGICAL PROGRESS NOTE Subjective Pt without new c/o, allyson PO well, passing flatus and stools, pain controlled with meds Vital Signs Vital Signs Date Time Temp Pulse Resp B/P (MAP) Pulse Ox O2 Delivery O2 Flow Rate FiO2 01/15/17 11:00 98.6 91 20 122/65 (84) 97 Room Air 98.6 I&O Intake and Output 01/15/17 06:59 Output Total 1825 ml Balance -1825 ml Gastric Drainage Total 1750 ml Drainage Total 75 ml # Voids 9 # Bowel Movements 1 General: Alert, Oriented X3, Cooperative, No acute distress Abdomen: Soft, No tenderness, Other (right upper quadrant drain with small amount of dark fluid, possibly c/w pancreatic output) Labs Laboratory Tests Test 01/13/17 17:40 01/14/17 06:15 01/15/17 05:45 01/15/17 15:00 Glucose (Fingerstick) 121 mg/dL (70-99) White Blood Count 13.4 x10^3/uL (4.0-11.0) 12.2 x10^3/uL (4.0-11.0) Red Blood Count 3.67 x10^6/uL (3.50-5.40) 3.61 x10^6/uL (3.50-5.40) Hemoglobin 9.3 g/dL (12.0-15.5) 9.5 g/dL (12.0-15.5) Hematocrit 29.5 % (36.0-47.0) 30.0 % (36.0-47.0) Mean Corpuscular Volume 81 fL (79-100) 83 fL (79-100) Mean Corpuscular Hemoglobin 25 pg (25-35) 26 pg (25-35) Mean Corpuscular Hemoglobin Concent 32 g/dL (31-37) 32 g/dL (31-37) Red Cell Distribution Width 21.4 % (11.5-14.5) 20.9 % (11.5-14.5) Platelet Count 359 x10^3/uL (140-400) 335 x10^3/uL (140-400) Neutrophils (%) (Auto) 76 % (31-73) 75 % (31-73) Lymphocytes (%) (Auto) 14 % (24-48) 14 % (24-48) Monocytes (%) (Auto) 6 % (0-9) 8 % (0-9) Eosinophils (%) (Auto) 2 % (0-3) 2 % (0-3) Basophils (%) (Auto) 1 % (0-3) 1 % (0-3) Neutrophils # (Auto) 10.2 x10^3uL (1.8-7.7) 9.2 x10^3uL (1.8-7.7) Lymphocytes # (Auto) 1.9 x10^3/uL (1.0-4.8) 1.7 x10^3/uL (1.0-4.8) Monocytes # (Auto) 0.8 x10^3/uL (0.0-1.1) 1.0 x10^3/uL (0.0-1.1) Eosinophils # (Auto) 0.3 x10^3/uL (0.0-0.7) 0.2 x10^3/uL (0.0-0.7) Basophils # (Auto) 0.1 x10^3/uL (0.0-0.2) 0.1 x10^3/uL (0.0-0.2) Sodium Level 138 mmol/L (136-145) 137 mmol/L (136-145) Potassium Level 4.7 mmol/L (3.5-5.1) 4.8 mmol/L (3.5-5.1) Chloride Level 105 mmol/L (98-107) 104 mmol/L (98-107) Carbon Dioxide Level 26 mmol/L (21-32) 24 mmol/L (21-32) Anion Gap 7 (6-14) 9 (6-14) Blood Urea Nitrogen 19 mg/dL (7-20) 17 mg/dL (7-20) Creatinine 1.0 mg/dL (0.6-1.0) 1.0 mg/dL (0.6-1.0) Estimated GFR (Cockcroft-Gault) 54.8 54.8 Glucose Level 125 mg/dL (70-99) 158 mg/dL (70-99) Calcium Level 8.1 mg/dL (8.5-10.1) 8.5 mg/dL (8.5-10.1) Phosphorus Level 3.2 mg/dL (2.6-4.7) 4.1 mg/dL (2.6-4.7) Magnesium Level 2.1 mg/dL (1.8-2.4) 2.2 mg/dL (1.8-2.4) Iron Level 17 ug/dL (50-170) Total Iron Binding Capacity 240 ug/dL (250-450) Iron Saturation 7 % (15-34) Ferritin 66 ng/mL (8-252) Vitamin B12 Level 1125 pg/mL (247-911) Serum Folate 22.12 ng/ml (3.2-20.0) Reticulocyte Count (auto) 1.9 % (0.5-2.5) Laboratory Tests Test 01/15/17 05:45 01/15/17 15:00 Sodium Level 137 mmol/L (136-145) Potassium Level 4.8 mmol/L (3.5-5.1) Chloride Level 104 mmol/L (98-107) Carbon Dioxide Level 24 mmol/L (21-32) Anion Gap 9 (6-14) Blood Urea Nitrogen 17 mg/dL (7-20) Creatinine 1.0 mg/dL (0.6-1.0) Estimated GFR (Cockcroft-Gault) 54.8 Glucose Level 158 mg/dL (70-99) Calcium Level 8.5 mg/dL (8.5-10.1) Phosphorus Level 4.1 mg/dL (2.6-4.7) Magnesium Level 2.2 mg/dL (1.8-2.4) Iron Level 17 ug/dL (50-170) Total Iron Binding Capacity 240 ug/dL (250-450) Iron Saturation 7 % (15-34) Ferritin 66 ng/mL (8-252) Vitamin B12 Level 1125 pg/mL (247-911) Serum Folate 22.12 ng/ml (3.2-20.0) White Blood Count 12.2 x10^3/uL (4.0-11.0) Red Blood Count 3.61 x10^6/uL (3.50-5.40) Hemoglobin 9.5 g/dL (12.0-15.5) Hematocrit 30.0 % (36.0-47.0) Mean Corpuscular Volume 83 fL (79-100) Mean Corpuscular Hemoglobin 26 pg (25-35) Mean Corpuscular Hemoglobin Concent 32 g/dL (31-37) Red Cell Distribution Width 20.9 % (11.5-14.5) Platelet Count 335 x10^3/uL (140-400) Neutrophils (%) (Auto) 75 % (31-73) Lymphocytes (%) (Auto) 14 % (24-48) Monocytes (%) (Auto) 8 % (0-9) Eosinophils (%) (Auto) 2 % (0-3) Basophils (%) (Auto) 1 % (0-3) Neutrophils # (Auto) 9.2 x10^3uL (1.8-7.7) Lymphocytes # (Auto) 1.7 x10^3/uL (1.0-4.8) Monocytes # (Auto) 1.0 x10^3/uL (0.0-1.1) Eosinophils # (Auto) 0.2 x10^3/uL (0.0-0.7) Basophils # (Auto) 0.1 x10^3/uL (0.0-0.2) Reticulocyte Count (auto) 1.9 % (0.5-2.5) Problem List s/p kiah doing well will go to soft diet plan transfer to in AM check amylase from drain Problems: BA ALMONTE MD Jan 15, 2017 15:17
[2017-01-15 19:55] VITALS: BP 111/61
[2017-01-15] MEDS: ATORVASTATIN CALCIUM 10 MG TABLET. PO SCH (21:10)
[2017-01-15] MEDS ORDERED: DEXTROSE 70% IV SCH ×10 (22:00)
[2017-01-15] MEDS ORDERED: [UNRECOGNIZED DRUG - OTHER] IV SCH ×10 (22:00)
[2017-01-15] MEDS ORDERED: TOTAL PARENTERAL NUTRITION IV SCH ×10 (22:00)
[2017-01-15] MEDS ORDERED: AMINO ACIDS IV SCH ×10 (22:00)
[2017-01-15 23:26] VITALS: BP 121/58
[2017-01-16 03:56] VITALS: BP 139/63
[2017-01-16 06:23] LABS: BASO # 0.1 x10^3/uL (0.0-0.2); BASO % 1 % (0-3); EOS % 3 % (0-3); HEMATOCRIT 28.3 % (36.0-47.0); HEMOGLOBIN 9.1 g/dL (12.0-15.5); LYMPH % 18 % (24-48); MEAN CORPUSCULAR HEMOGLOBIN 26 pg (25-35); MEAN CORPUSCULAR HGB CONC 32 g/dL (31-37); MEAN CORPUSCULAR VOLUME 80 fL (79-100); MONO % 11 % (0-9); NEUT % 67 % (31-73); PLATELET COUNT 318 x10^3/uL (140-400); RED BLOOD COUNT 3.53 x10^6/uL (3.50-5.40); RED CELL DISTRIBUTION WIDTH 20.8 % (11.5-14.5)
[2017-01-16 07:00] VITALS: BP 123/79
[2017-01-16] MEDS: FERROUS SULFATE 325 MG TABLET. PO SCH (08:20)
[2017-01-16] MEDS: LEVOTHYROXINE 50 MCG TABLET PO SCH (08:20)
[2017-01-16] MEDS: LACTOBACILLUS RHAMNOSUS GG 1 CAPSULE. PO SCH (08:20)
[2017-01-16] MEDS: DOCUSATE SODIUM 100 MG CAPSULE. PO SCH (08:20)
[2017-01-16] MEDS: PANTOPRAZOLE 40 MG TABLET.DR. PO SCH (08:20)
[2017-01-16] MEDS: LISINOPRIL 10 MG TABLET PO SCH (08:21)
[2017-01-16] MEDS: amLODIPine BESYLATE 5 MG TABLET PO SCH (08:21)
[2017-01-16] MEDS: CETIRIZINE HCL 10 MG TABLET. PO SCH (08:21)
[2017-01-16] MEDS: ENOXAPARIN 40 MG/0.4 ML SYRINGE. SQ SCH ×2 (09:00→11:14)
--- NOTE | 2017-01-16 10:07 | PDOC ---
PROGRESS NOTES Subjective Subjective HPI - Pancreatic adenocarcinoma. s/p endoscopic ultrasound-guided biopsy of the pancreatic head mass 12/13/16. s/p Whipple surgery 01/01/17- revealed T2N0M0 stage IB. ROS - no fever Objective Objective Vital Signs Date Time Temp Pulse Resp B/P (MAP) Pulse Ox O2 Delivery O2 Flow Rate FiO2 01/16/17 08:21 89 123/79 01/16/17 07:00 97.5 17 96 Room Air 97.5 01/07/17 20:00 2.0 Intake and Output 01/16/17 07:00 Intake Total 440 ml Output Total 2440 ml Balance -2000 ml Intake Oral 440 ml Output Urine Total 1300 ml Gastric Drainage Total 1000 ml Drainage Total 140 ml # Voids 4 Physical Exam Heart: Normal S1, Normal S2 General: Alert, Oriented X3, No acute distress Lungs: Clear to auscultation Neuro: Normal speech Psych/Mental Status: Mental status NL Assessment Assessment IMPRESSION AND PLAN: 1. Pancreatic adenocarcinoma. s/p endoscopic ultrasound-guided biopsy of the pancreatic head mass 12/13/16. s/p Whipple surgery 01/01/17- revealed T2N0M0 stage IB. Whipple procedure (specifically: pancreaticoduodenectomy, pylorus sparing, pancreaticogastrostomy with Buster en Y reconstruction to bile duct), G-tube placement. Positive margin and has perineural involvement. Plan adjuvant chemo in 3-4 weeks followed by radiation. I d/w Dr Swanson. 2. Obstructive jaundice secondary to pancreatic head mass. Improved. 3. Iron-deficiency anemia. s/p Venofer 500 mg IV x 1 dose on 11/27/2016. Iron sat only 7 on 01/16/17 - ordered venofer 500 mg for 01/16/17. 4. N/v - resolved Comment Review of Relevant I have reviewed the following items alonzo (where applicable) has been applied. Labs Laboratory Tests Test 01/15/17 05:45 01/15/17 15:00 01/16/17 06:00 Sodium Level 137 mmol/L (136-145) Potassium Level 4.8 mmol/L (3.5-5.1) Chloride Level 104 mmol/L (98-107) Carbon Dioxide Level 24 mmol/L (21-32) Anion Gap 9 (6-14) Blood Urea Nitrogen 17 mg/dL (7-20) Creatinine 1.0 mg/dL (0.6-1.0) Estimated GFR (Cockcroft-Gault) 54.8 Glucose Level 158 mg/dL (70-99) Calcium Level 8.5 mg/dL (8.5-10.1) Phosphorus Level 4.1 mg/dL (2.6-4.7) Magnesium Level 2.2 mg/dL (1.8-2.4) Iron Level 17 ug/dL (50-170) Total Iron Binding Capacity 240 ug/dL (250-450) Iron Saturation 7 % (15-34) Ferritin 66 ng/mL (8-252) Vitamin B12 Level 1125 pg/mL (247-911) Serum Folate 22.12 ng/ml (3.2-20.0) White Blood Count 12.2 x10^3/uL (4.0-11.0) 11.0 x10^3/uL (4.0-11.0) Red Blood Count 3.61 x10^6/uL (3.50-5.40) 3.53 x10^6/uL (3.50-5.40) Hemoglobin 9.5 g/dL (12.0-15.5) 9.1 g/dL (12.0-15.5) Hematocrit 30.0 % (36.0-47.0) 28.3 % (36.0-47.0) Mean Corpuscular Volume 83 fL (79-100) 80 fL (79-100) Mean Corpuscular Hemoglobin 26 pg (25-35) 26 pg (25-35) Mean Corpuscular Hemoglobin Concent 32 g/dL (31-37) 32 g/dL (31-37) Red Cell Distribution Width 20.9 % (11.5-14.5) 20.8 % (11.5-14.5) Platelet Count 335 x10^3/uL (140-400) 318 x10^3/uL (140-400) Neutrophils (%) (Auto) 75 % (31-73) 67 % (31-73) Lymphocytes (%) (Auto) 14 % (24-48) 18 % (24-48) Monocytes (%) (Auto) 8 % (0-9) 11 % (0-9) Eosinophils (%) (Auto) 2 % (0-3) 3 % (0-3) Basophils (%) (Auto) 1 % (0-3) 1 % (0-3) Neutrophils # (Auto) 9.2 x10^3uL (1.8-7.7) 7.4 x10^3uL (1.8-7.7) Lymphocytes # (Auto) 1.7 x10^3/uL (1.0-4.8) 2.0 x10^3/uL (1.0-4.8) Monocytes # (Auto) 1.0 x10^3/uL (0.0-1.1) 1.2 x10^3/uL (0.0-1.1) Eosinophils # (Auto) 0.2 x10^3/uL (0.0-0.7) 0.3 x10^3/uL (0.0-0.7) Basophils # (Auto) 0.1 x10^3/uL (0.0-0.2) 0.1 x10^3/uL (0.0-0.2) Reticulocyte Count (auto) 1.9 % (0.5-2.5) Laboratory Tests Test 01/15/17 15:00 01/16/17 06:00 White Blood Count 12.2 x10^3/uL (4.0-11.0) 11.0 x10^3/uL (4.0-11.0) Red Blood Count 3.61 x10^6/uL (3.50-5.40) 3.53 x10^6/uL (3.50-5.40) Hemoglobin 9.5 g/dL (12.0-15.5) 9.1 g/dL (12.0-15.5) Hematocrit 30.0 % (36.0-47.0) 28.3 % (36.0-47.0) Mean Corpuscular Volume 83 fL (79-100) 80 fL (79-100) Mean Corpuscular Hemoglobin 26 pg (25-35) 26 pg (25-35) Mean Corpuscular Hemoglobin Concent 32 g/dL (31-37) 32 g/dL (31-37) Red Cell Distribution Width 20.9 % (11.5-14.5) 20.8 % (11.5-14.5) Platelet Count 335 x10^3/uL (140-400) 318 x10^3/uL (140-400) Neutrophils (%) (Auto) 75 % (31-73) 67 % (31-73) Lymphocytes (%) (Auto) 14 % (24-48) 18 % (24-48) Monocytes (%) (Auto) 8 % (0-9) 11 % (0-9) Eosinophils (%) (Auto) 2 % (0-3) 3 % (0-3) Basophils (%) (Auto) 1 % (0-3) 1 % (0-3) Neutrophils # (Auto) 9.2 x10^3uL (1.8-7.7) 7.4 x10^3uL (1.8-7.7) Lymphocytes # (Auto) 1.7 x10^3/uL (1.0-4.8) 2.0 x10^3/uL (1.0-4.8) Monocytes # (Auto) 1.0 x10^3/uL (0.0-1.1) 1.2 x10^3/uL (0.0-1.1) Eosinophils # (Auto) 0.2 x10^3/uL (0.0-0.7) 0.3 x10^3/uL (0.0-0.7) Basophils # (Auto) 0.1 x10^3/uL (0.0-0.2) 0.1 x10^3/uL (0.0-0.2) Reticulocyte Count (auto) 1.9 % (0.5-2.5) Microbiology 01/09/17 Urine Culture - Final, Complete 01/09/17 Urine Culture Result 1 (GILBERT) - Final, Complete 01/09/17 Antimicrobic Susceptibility - Final, Complete Medications Current Medications Ondansetron HCl (Zofran) 4 mg PRN Q6HRS PRN IV NAUSEA/VOMITING; Start at 07:00; Stop 01/02/17 at 06:59; Status DC Fentanyl Citrate (Fentanyl 2ml Vial) 25 mcg PRN Q5MIN PRN IV MILD PAIN; Start 01/01/17 at 07:00; Stop 01/02/17 at 06:59; Status DC Fentanyl Citrate (Fentanyl 2ml Vial) 50 mcg PRN Q5MIN PRN IV MODERATE PAIN; Start 01/01/17 at 07:00; Stop 01/02/17 at 06:59; Status DC Morphine Sulfate 1 mg PRN Q10MIN PRN IV SEVERE PAIN; Start 01/01/17 at 07:00; Stop 01/02/17 at 06:59; Status DC Ringer's Solution 1,000 ml @ 30 mls/hr Q24H IV Last administered on 08:35; Start 01/01/17 at 07:00; Stop 01/01/17 at 18:59; Status DC Lidocaine HCl (Xylocaine-Mpf 1% Vial) 2 ml PRN 1X PRN ID PRIOR TO IV START; Start 01/01/17 at 07:00; Stop 01/02/17 at 06:59; Status DC Hydromorphone HCl (Dilaudid) 0.5 mg PRN Q10MIN PRN IV SEV PAIN, Second choice; Start 01/01/17 at 07:00; Stop 01/02/17 at 06:59; Status DC Prochlorperazine Edisylate (Compazine) 5 mg PACU PRN PRN IV NAUSEA, MRX1; Start 01/01/17 at 07:00; Stop 01/02/17 at 06:59; Status DC Cefoxitin Sodium 2 gm/Dextrose 100 ml @ 200 mls/hr 1X PREOP PRN IV ABX Last administered on 01/01/17 12:35; Start 01/01/17 at 06:00; Stop 01/06/17 at 15: 00; Status DC Dexamethasone Sodium Phosphate (Decadron) 20 mg STK-MED ONCE .ROUTE ; Start at 09:25; Stop 01/01/17 at 09:26; Status DC Lidocaine HCl (Lidocaine Pf 2% Vial) 5 ml STK-MED ONCE .ROUTE ; Start 01/01/17 at 09:25; Stop 01/01/17 at 09:26; Status DC Ondansetron HCl (Zofran) 4 mg STK-MED ONCE .ROUTE ; Start 01/01/17 at 09:25; Stop 01/01/17 at 09:26; Status DC Propofol 20 ml @ As Directed STK-MED ONCE IV ; Start 01/01/17 at 09:25; Stop 01/01/17 at 09:26; Status DC Fentanyl Citrate (Fentanyl 2ml Vial) 100 mcg STK-MED ONCE .ROUTE ; Start at 09:25; Stop 01/01/17 at 09:26; Status DC Rocuronium [place] (Zemuron) 50 mg STK-MED ONCE .ROUTE ; Start 01/01/17 at 09: 26; Stop 01/01/17 at 09:27; Status DC Phenylephrine HCl 1 mg STK-MED ONCE IV ; Start 01/01/17 at 10:27; Stop at 10:28; Status DC Bupivacaine HCl (Sensorcaine Mpf 0.25%) 30 ml STK-MED ONCE .ROUTE ; Start 01/01 at 10:49; Stop 01/01/17 at 10:50; Status DC Lidocaine HCl (Xylocaine-Mpf 1% Vial) 5 ml STK-MED ONCE .ROUTE ; Start at 10:50; Stop 01/01/17 at 10:51; Status DC Phenylephrine HCl (Leroy-Synephrine Inj) 10 mg STK-MED ONCE .ROUTE ; Start at 11:11; Stop 01/01/17 at 11:12; Status DC Ephedrine Sulfate (Akovaz) 50 mg STK-MED ONCE .ROUTE ; Start 01/01/17 at 11:18 ; Stop 01/01/17 at 11:19; Status DC Rocuronium [place] (Zemuron) 100 mg STK-MED ONCE .ROUTE ; Start 01/01/17 at 11: 30; Stop 01/01/17 at 11:31; Status DC Cefoxitin Sodium 2 gm/Dextrose 100 ml @ 200 mls/hr 1X ONCE IV ; Start at 12:15; Stop 01/01/17 at 12:44; Status Cancel Cefoxitin Sodium 100 ml @ As Directed STK-MED ONCE IV ; Start 01/01/17 at 11: 17; Stop 01/01/17 at 12:17; Status DC Fentanyl Citrate (Fentanyl 2ml Vial) 100 mcg STK-MED ONCE .ROUTE ; Start at 12:24; Stop 01/01/17 at 12:25; Status DC Sodium Chloride 39.95 ml/ Hydromorphone HCl 0.5 mg/ Ropivacaine 10 ml/ Epidural Dosage Infused (Pha) 50 ml @ 0 mls/hr CONT PRN EP Per protocol Last administered on 01/04/17 06:38; Start 01/01/17 at 12:30; Stop 01/11/17 at 02: 08; Status DC Sodium Chloride 40 ml/ Hydromorphone HCl 0.5 mg/ Ropivacaine 10 ml/ Epidural Dosage Infused (Pha) 50.05 ml @ 0 mls/hr 1X ONCE EP ; Start 01/05/17 at 18:30 ; Stop 01/05/17 at 18:31; Status UNV Sevoflurane (Ultane) 90 ml STK-MED ONCE IH ; Start 01/01/17 at 13:02; Stop at 13:03; Status DC Cefoxitin Sodium 50 ml @ 100 mls/hr 1X ONCE IV Last administered on 14:35; Start 01/01/17 at 14:15; Stop 01/01/17 at 14:44; Status DC Albumin Human 100 ml @ As Directed STK-MED ONCE IV ; Start 01/01/17 at 14:25; Stop 01/01/17 at 14:26; Status DC Glycopyrrolate (Robinul) 1 mg STK-MED ONCE .ROUTE ; Start 01/01/17 at 15:59; Stop 01/01/17 at 16:00; Status DC Neostigmine Methylsulfate 5 mg STK-MED ONCE .ROUTE ; Start 01/01/17 at 15:59; Stop 01/01/17 at 16:00; Status DC Famotidine (Pepcid) 20 mg BID IVP Last administered on 01/07/17 20:18; Start 01/01/17 at 21:00; Stop 01/08/17 at 08:44; Status DC Heparin Sodium (Porcine) (Heparin Sq) 5,000 unit Q12HR SQ Last administered on 01/14/17 09:53; Start 01/01/17 at 21:00; Stop 01/15/17 at 11:27; Status DC Sodium Chloride (Normal Saline Flush) 3 ml QSHIFT PRN IV AFTER MEDS AND BLOOD DRAWS; Start 01/01/17 at 16:30 Ringer's Solution 1,000 ml @ 100 mls/hr Q10H IV Last administered on 02:38; Start 01/01/17 at 16:26; Stop 01/08/17 at 09:47; Status DC Ondansetron HCl (Zofran) 4 mg PRN Q6HRS PRN IV NAUESA, 1ST CHOICE Last administered on 01/10/17 21:22; Start 01/01/17 at 16:30 Diphenhydramine HCl (Benadryl) 25 mg PRN Q6HRS PRN IVP ITCHING Last administered on 01/02/17 10:07; Start 01/02/17 at 10:00 Oxycodone/ Acetaminophen (Percocet 5/325) 1 tab PRN Q4HRS PRN PO PAIN Last administered on 01/07/17 11:24; Start 01/05/17 at 10:00 Docusate Sodium (Colace) 100 mg DAILY PO Last administered on 01/16/17 08:20 ; Start 01/05/17 at 10:00 Sodium Chloride (Saline Mist Nasal) 1 henry PRN Q1HR PRN NS NASAL CONGESTION Last administered on 01/11/17 22:22; Start 01/07/17 at 10:00 Hydralazine HCl (Apresoline Inj) 10 mg PRN Q4HRS PRN IVP ELEVATED BP, SEE COMMENTS; Start 01/07/17 at 15:30 Levothyroxine Sodium 25 mcg/ Sodium Chloride 5 ml @ 100 mls/hr DAILY IVP Last administered on 01/07/17 16:27; Start 01/07/17 at 16:00; Stop 01/08/17 at 08:44 ; Status DC Amlodipine Besylate (Norvasc) 5 mg DAILY PO Last administered on 01/16/17 08: 21; Start 01/08/17 at 09:00 Fluticasone Propionate (Flonase) 1 spray PRN DAILY PRN NS ALLERGIES; Start 01/08/17 at 08:45 Levothyroxine Sodium (Synthroid) 50 mcg DAILY06 PO Last administered on 08:20; Start 01/08/17 at 09:00 Lisinopril (Prinivil) 10 mg DAILY PO Last administered on 01/16/17 08:21; Start 01/08/17 at 09:00 Pantoprazole Sodium (Protonix) 40 mg DAILYAC PO Last administered on 08:20; Start 01/08/17 at 09:00 Ferrous Sulfate (Feosol) 325 mg DAILYWBKFT PO Last administered on 01/16/17 08:20; Start 01/08/17 at 09:00; Stop 01/16/17 at 09:59; Status DC Cetirizine HCl (ZyrTEC) 10 mg DAILY PO Last administered on 01/16/17 08:21; Start 01/08/17 at 09:00 Multivitamins (Thera M Plus) 1 tab DAILY PO Last administered on 01/15/17 09: 27; Start 01/09/17 at 09:00; Stop 01/15/17 at 11:40; Status DC Atorvastatin Calcium (Lipitor) 5 mg QHS PO Last administered on 01/15/17 21: 10; Start 01/08/17 at 21:00 Ciprofloxacin (Cipro) 500 mg BID PO Last administered on 01/09/17 11:03; Start 01/09/17 at 11:30; Stop 01/09/17 at 11:30; Status DC Phenazopyridine HCl (Pyridium) 200 mg PRN TID PRN PO URINARY PAIN; Start at 11:15; Stop 01/09/17 at 11:15; Status DC Phenazopyridine HCl (Pyridium) 200 mg TID PO Last administered on 01/15/17 09 :27; Start 01/09/17 at 11:15; Stop 01/15/17 at 11:27; Status DC Ceftriaxone Sodium 1 gm/ Dextrose 50 ml @ 100 mls/hr Q24H IV ; Start 01/09/17 at 11:15; Status UNV Ceftriaxone Sodium (Rocephin) 1 gm Q24H IVP Last administered on 01/14/17 12: 20; Start 01/09/17 at 12:00; Stop 01/15/17 at 11:27; Status DC Lactobacillus Rhamnosus (Culturelle) 1 cap BID PO Last administered on 08:20; Start 01/09/17 at 21:00 Lidocaine/Sodium Bicarbonate (Buffered Lidocaine 1%) 20 ml STK-MED ONCE IJ ; Start 01/10/17 at 08:17; Stop 01/10/17 at 08:18; Status DC Lidocaine/Sodium Bicarbonate (Buffered Lidocaine 1%) 3 ml 1X ONCE IJ Last administered on 01/10/17 08:30; Start 01/10/17 at 08:30; Stop 01/10/17 at 08:33 ; Status DC Info 1 each PRN DAILY PRN MC SEE COMMENTS Last administered on 01/15/17 11:41 ; Start 01/10/17 at 11:45 Sodium Chloride 90 meq/Potassium Chloride 50 meq/ Potassium Phosphate 13.6 mmol/ Magnesium Sulfate 10 meq/ Calcium Gluconate 10 meq/ Multivitamins 10 ml/Chromium / Copper/Manganese/ Seleni/Zn 1 ml/ Total Parenteral Nutrition/Amino Acids/ Dextrose/ Fat Emulsion Intravenous 1,512 ml @ 63 mls/hr TPN CONT IV Last administered on 01/10/17 22:30; Start 01/10/17 at 22:00; Stop 01/11/17 at 21:59 ; Status DC Potassium Chloride 50 ml @ 50 mls/hr Q1H IV Last administered on 01/11/17 11: 27; Start 01/11/17 at 09:30; Stop 01/11/17 at 11:29; Status DC Potassium Chloride (Klor-Con) 20 meq 1X ONCE PO Last administered on 10:26; Start 01/11/17 at 09:30; Stop 01/11/17 at 09:31; Status DC Calcium Carbonate/ Glycine (Tums) 500 mg PRN AFTMEALHC PRN PO INDIGESTION; Start 01/11/17 at 10:15 Al Hydroxide/Mg Hydroxide (Mylanta Plus Xs) 30 ml PRN Q2HR PRN PO HEARTBURN / GAS; Start 01/11/17 at 10:15 Sodium Chloride 90 meq/Potassium Chloride 70 meq/ Potassium Phosphate 13.6 mmol/ Magnesium Sulfate 10 meq/ Calcium Gluconate 10 meq/ Multivitamins 10 ml/Chromium / Copper/Manganese/ Seleni/Zn 1 ml/ Total Parenteral Nutrition/Amino Acids/ Dextrose/ Fat Emulsion Intravenous 1,512 ml @ 63 mls/hr TPN CONT IV Last administered on 01/11/17 22:54; Start 01/11/17 at 22:00; Stop 01/12/17 at 21: 59; Status DC Sodium Chloride 90 meq/Potassium Chloride 90 meq/ Potassium Phosphate 13.6 mmol/ Magnesium Sulfate 18 meq/ Calcium Gluconate 10 meq/ Multivitamins 10 ml/Chromium / Copper/Manganese/ Seleni/Zn 1 ml/ Total Parenteral Nutrition/Amino Acids/ Dextrose/ Fat Emulsion Intravenous 1,512 ml @ 63 mls/hr TPN CONT IV Last administered on 01/12/17 21:50; Start 01/12/17 at 22:00; Stop 01/13/17 at 21 :59; Status DC Sodium Chloride 90 meq/Potassium Chloride 70 meq/ Potassium Phosphate 13.6 mmol/ Magnesium Sulfate 18 meq/ Calcium Gluconate 10 meq/ Multivitamins 10 ml/Chromium / Copper/Manganese/ Seleni/Zn 1 ml/ Total Parenteral Nutrition/Amino Acids/ Dextrose/ Fat Emulsion Intravenous 1,512 ml @ 63 mls/hr TPN CONT IV Last administered on 01/13/17 22:04; Start 01/13/17 at 22:00; Stop 01/14/17 at 21 :59; Status DC Sodium Chloride 90 meq/Potassium Chloride 70 meq/ Potassium Phosphate 13.6 mmol/ Magnesium Sulfate 18 meq/ Calcium Gluconate 10 meq/ Multivitamins 10 ml/Chromium / Copper/Manganese/ Seleni/Zn 1 ml/ Total Parenteral Nutrition/Amino Acids/ Dextrose/ Fat Emulsion Intravenous 1,512 ml @ 63 mls/hr TPN CONT IV Last administered on 01/14/17 22:35; Start 01/14/17 at 22:00; Stop 01/15/17 at 21 :59; Status DC Alteplase, Recombinant (Cathflo) 2 mg 1X ONCE INT CAT Last administered on 13:52; Start 01/15/17 at 11:15; Stop 01/15/17 at 11:18; Status DC Alteplase, Recombinant (Cathflo) 2 mg 1X ONCE INT CAT Last administered on 11:50; Start 01/15/17 at 11:15; Stop 01/15/17 at 11:18; Status DC Enoxaparin Sodium (Lovenox 40mg Syringe) 40 mg BID SQ Last administered on 21:10; Start 01/15/17 at 11:45 Sodium Chloride 90 meq/Potassium Chloride 70 meq/ Potassium Phosphate 13.6 mmol/ Magnesium Sulfate 18 meq/ Calcium Gluconate 10 meq/ Multivitamins 10 ml/Chromium / Copper/Manganese/ Seleni/Zn 1 ml/ Total Parenteral Nutrition/Amino Acids/ Dextrose/ Fat Emulsion Intravenous 1,512 ml @ 63 mls/hr TPN CONT IV Last administered on 01/15/17t 21:11; Start 01/15/17 at 22:00; Stop 01/16/17 at 21 :59 Enoxaparin Sodium (Lovenox Per Pharmacy Prophylaxis Dosing) 1 each PRN DAILY PRN MC SEE COMMENTS; Start 01/15/17 at 15:15; Status UNV Ferrous Sulfate (Feosol) 325 mg BID PO ; Start 01/16/17 at 21:00 Active Scripts Active Protonix (Pantoprazole Sodium) 40 Mg Tablet.dr 1 Tab PO DAILY Reported Ferralet 90 Dual-Iron Tablet (Iron, Carb & Gluc/Fa/B12/C/Dss) 1 Each Tablet 1 Tab PO DAILY Multivitamins (Multivitamin) 1 Each Tablet 1 Tab PO DAILY Loratadine 10 Mg Tablet 1 Tab PO DAILY Fluticasone Propionate Nasal Albin (Fluticasone Propionate) 16 Gm Albin.susp 1 Albin NS DAILY PRN Levothyroxine Sodium 50 Mcg Tablet 1 Tab PO DAILY Lisinopril 10 Mg Tablet 1 Tab PO DAILY Pravastatin Sodium 10 Mg Tablet 1 Tab PO DAILY Amlodipine Besylate 5 Mg Tablet 5 Mg PO DAILY Vitals/I & O Vital Sign - Last 24 Hours 01/15/17 01/15/17 01/15/17 01/15/17 11:00 15:00 19:55 20:30 Temp 98.6 98.8 97.9 98.6 98.8 97.9 Pulse 91 95 99 Resp 20 16 B/P (MAP) 122/65 (84) 122/63 (82) 111/61 (78) Pulse Ox 97 100 98 O2 Delivery Room Air Room Air Room Air Room Air 01/15/17 01/16/17 01/16/17 01/16/17 23:26 03:56 07:00 08:21 Temp 98.1 97.7 97.5 98.1 97.7 97.5 Pulse 95 74 89 89 Resp B/P (MAP) 121/58 (79) 139/63 (88) 123/79 (94) 123/79 Pulse Ox 97 97 96 O2 Delivery Room Air Room Air Room Air 11/14/17 08:21 Pulse 89 B/P (MAP) 123/79 Intake and Output 01/15/17 01/15/17 01/16/17 15:00 23:00 07:00 Intake Total 440 ml Output Total 200 ml 1590 ml 650 ml Balance -200 ml -1590 ml -210 ml NYA OLIVAREZ MD Jan 16, 2017 10:07
[2017-01-16 10:44] VITALS: BP 137/66
[2017-01-16] MEDS ORDERED: IRON SUCROSE COMPLEX 500 MG in IV NORMAL SALINE 250ML 250 ML IV ONE (11:00)
[2017-01-16] MEDS: TPN PER PHARMACY MC PRN (11:37)
--- NOTE | 2017-01-16 12:17 | PDOC ---
SURGICAL PROGRESS NOTE Subjective tolerating diet to chair Vital Signs Vital Signs Date Time Temp Pulse Resp B/P (MAP) Pulse Ox O2 Delivery O2 Flow Rate FiO2 01/16/17 10:44 97.7 98 18 137/66 (89) 97 Room Air 97.7 I&O Intake and Output 01/16/17 07:00 Intake Total 440 ml Output Total 2440 ml Balance -2000 ml Intake Oral 440 ml Output Urine Total 1300 ml Gastric Drainage Total 1000 ml Drainage Total 140 ml # Voids 4 General: Alert, Oriented X3, Cooperative, No acute distress Abdomen: Soft, Other (g tube to drainage, young ruq scant dark biliuos, LUQ serous ) Labs Laboratory Tests Test 01/15/17 05:45 01/15/17 15:00 01/16/17 06:00 Sodium Level 137 mmol/L (136-145) Potassium Level 4.8 mmol/L (3.5-5.1) Chloride Level 104 mmol/L (98-107) Carbon Dioxide Level 24 mmol/L (21-32) Anion Gap 9 (6-14) Blood Urea Nitrogen 17 mg/dL (7-20) Creatinine 1.0 mg/dL (0.6-1.0) Estimated GFR (Cockcroft-Gault) 54.8 Glucose Level 158 mg/dL (70-99) Calcium Level 8.5 mg/dL (8.5-10.1) Phosphorus Level 4.1 mg/dL (2.6-4.7) Magnesium Level 2.2 mg/dL (1.8-2.4) Iron Level 17 ug/dL (50-170) Total Iron Binding Capacity 240 ug/dL (250-450) Iron Saturation 7 % (15-34) Ferritin 66 ng/mL (8-252) Vitamin B12 Level 1125 pg/mL (247-911) Serum Folate 22.12 ng/ml (3.2-20.0) White Blood Count 12.2 x10^3/uL (4.0-11.0) 11.0 x10^3/uL (4.0-11.0) Red Blood Count 3.61 x10^6/uL (3.50-5.40) 3.53 x10^6/uL (3.50-5.40) Hemoglobin 9.5 g/dL (12.0-15.5) 9.1 g/dL (12.0-15.5) Hematocrit 30.0 % (36.0-47.0) 28.3 % (36.0-47.0) Mean Corpuscular Volume 83 fL (79-100) 80 fL (79-100) Mean Corpuscular Hemoglobin 26 pg (25-35) 26 pg (25-35) Mean Corpuscular Hemoglobin Concent 32 g/dL (31-37) 32 g/dL (31-37) Red Cell Distribution Width 20.9 % (11.5-14.5) 20.8 % (11.5-14.5) Platelet Count 335 x10^3/uL (140-400) 318 x10^3/uL (140-400) Neutrophils (%) (Auto) 75 % (31-73) 67 % (31-73) Lymphocytes (%) (Auto) 14 % (24-48) 18 % (24-48) Monocytes (%) (Auto) 8 % (0-9) 11 % (0-9) Eosinophils (%) (Auto) 2 % (0-3) 3 % (0-3) Basophils (%) (Auto) 1 % (0-3) 1 % (0-3) Neutrophils # (Auto) 9.2 x10^3uL (1.8-7.7) 7.4 x10^3uL (1.8-7.7) Lymphocytes # (Auto) 1.7 x10^3/uL (1.0-4.8) 2.0 x10^3/uL (1.0-4.8) Monocytes # (Auto) 1.0 x10^3/uL (0.0-1.1) 1.2 x10^3/uL (0.0-1.1) Eosinophils # (Auto) 0.2 x10^3/uL (0.0-0.7) 0.3 x10^3/uL (0.0-0.7) Basophils # (Auto) 0.1 x10^3/uL (0.0-0.2) 0.1 x10^3/uL (0.0-0.2) Reticulocyte Count (auto) 1.9 % (0.5-2.5) Laboratory Tests Test 01/15/17 15:00 01/16/17 06:00 White Blood Count 12.2 x10^3/uL (4.0-11.0) 11.0 x10^3/uL (4.0-11.0) Red Blood Count 3.61 x10^6/uL (3.50-5.40) 3.53 x10^6/uL (3.50-5.40) Hemoglobin 9.5 g/dL (12.0-15.5) 9.1 g/dL (12.0-15.5) Hematocrit 30.0 % (36.0-47.0) 28.3 % (36.0-47.0) Mean Corpuscular Volume 83 fL (79-100) 80 fL (79-100) Mean Corpuscular Hemoglobin 26 pg (25-35) 26 pg (25-35) Mean Corpuscular Hemoglobin Concent 32 g/dL (31-37) 32 g/dL (31-37) Red Cell Distribution Width 20.9 % (11.5-14.5) 20.8 % (11.5-14.5) Platelet Count 335 x10^3/uL (140-400) 318 x10^3/uL (140-400) Neutrophils (%) (Auto) 75 % (31-73) 67 % (31-73) Lymphocytes (%) (Auto) 14 % (24-48) 18 % (24-48) Monocytes (%) (Auto) 8 % (0-9) 11 % (0-9) Eosinophils (%) (Auto) 2 % (0-3) 3 % (0-3) Basophils (%) (Auto) 1 % (0-3) 1 % (0-3) Neutrophils # (Auto) 9.2 x10^3uL (1.8-7.7) 7.4 x10^3uL (1.8-7.7) Lymphocytes # (Auto) 1.7 x10^3/uL (1.0-4.8) 2.0 x10^3/uL (1.0-4.8) Monocytes # (Auto) 1.0 x10^3/uL (0.0-1.1) 1.2 x10^3/uL (0.0-1.1) Eosinophils # (Auto) 0.2 x10^3/uL (0.0-0.7) 0.3 x10^3/uL (0.0-0.7) Basophils # (Auto) 0.1 x10^3/uL (0.0-0.2) 0.1 x10^3/uL (0.0-0.2) Reticulocyte Count (auto) 1.9 % (0.5-2.5) Assessment/Plan s/p whipple to PP leave drains TPN G tube to DD, clamp for meds FU [address] Swanson Problems: NICK MINER [employer]PER [employer]KER Jan 16, 2017 12:17
--- NOTE | 2017-01-16 14:32 | PDOC ---
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 htn hld hypothyroidism SIRS with leukocytosis post op, reactive likely morbid obesity UTI with lehman Hypokalemia GERD E coli UTI plan: fu with sx currently on TPN, G tube with intermittent suction for po meds wound care, cont ELVIN cont po meds dc abx, peridium dvt ppx with lovenox bid PTOT dc as per PCP sx to PP iron iv x1, cont po bid thanks for asking TH for consult History of Present Illness History of Present Illness Pt is a pleasant 71 year old female who presents with pancreatic cancer post whipple 01/01. Pt was seen at bedside resting comfortably in NAD. She is on TPN with a low intermitant G tube suction drain. Her dressings are clean, dry, and intact. Pt is being seen by surgery and heme onc. PRN narcotics. Discharge disposition pending- SNU. Will continue to monitor. ROS: no fever, chills, sob or chest pain cont on G tube suction , clamp for po meds 2 Elvin not much drainage off lehman has flatus , bm post op refused heparin 2/2 painful injection, ok with lovenox Vitals Vitals Vital Signs Date Time Temp Pulse Resp B/P (MAP) Pulse Ox O2 Delivery O2 Flow Rate FiO2 01/16/17 10:44 97.7 98 18 137/66 (89) 97 Room Air 97.7 Physical Exam General: Alert, Oriented X3, Cooperative, No acute distress Heart: Normal S1, Normal S2 Lungs: Clear Abdomen: Soft, Other (g tube to drainage, elvin ruq scant dark biliuos, LUQ serous ) Extremities: No clubbing, No cyanosis Skin: No rashes, No breakdown Labs LABS Laboratory Tests Test 01/15/17 15:00 01/15/17 16:00 01/16/17 06:00 White Blood Count 12.2 x10^3/uL (4.0-11.0) 11.0 x10^3/uL (4.0-11.0) Red Blood Count 3.61 x10^6/uL (3.50-5.40) 3.53 x10^6/uL (3.50-5.40) Hemoglobin 9.5 g/dL (12.0-15.5) 9.1 g/dL (12.0-15.5) Hematocrit 30.0 % (36.0-47.0) 28.3 % (36.0-47.0) Mean Corpuscular Volume 83 fL (79-100) 80 fL (79-100) Mean Corpuscular Hemoglobin 26 pg (25-35) 26 pg (25-35) Mean Corpuscular Hemoglobin Concent 32 g/dL (31-37) 32 g/dL (31-37) Red Cell Distribution Width 20.9 % (11.5-14.5) 20.8 % (11.5-14.5) Platelet Count 335 x10^3/uL (140-400) 318 x10^3/uL (140-400) Neutrophils (%) (Auto) 75 % (31-73) 67 % (31-73) Lymphocytes (%) (Auto) 14 % (24-48) 18 % (24-48) Monocytes (%) (Auto) 8 % (0-9) 11 % (0-9) Eosinophils (%) (Auto) 2 % (0-3) 3 % (0-3) Basophils (%) (Auto) 1 % (0-3) 1 % (0-3) Neutrophils # (Auto) 9.2 x10^3uL (1.8-7.7) 7.4 x10^3uL (1.8-7.7) Lymphocytes # (Auto) 1.7 x10^3/uL (1.0-4.8) 2.0 x10^3/uL (1.0-4.8) Monocytes # (Auto) 1.0 x10^3/uL (0.0-1.1) 1.2 x10^3/uL (0.0-1.1) Eosinophils # (Auto) 0.2 x10^3/uL (0.0-0.7) 0.3 x10^3/uL (0.0-0.7) Basophils # (Auto) 0.1 x10^3/uL (0.0-0.2) 0.1 x10^3/uL (0.0-0.2) Reticulocyte Count (auto) 1.9 % (0.5-2.5) Body Fluid Amylase 4 U/L (.) Comment Review of Relevant I have reviewed the following items alonzo (where applicable) has been applied. Labs Laboratory Tests Test 01/15/17 05:45 01/15/17 15:00 01/15/17 16:00 01/16/17 06:00 Sodium Level 137 mmol/L (136-145) Potassium Level 4.8 mmol/L (3.5-5.1) Chloride Level 104 mmol/L (98-107) Carbon Dioxide Level 24 mmol/L (21-32) Anion Gap 9 (6-14) Blood Urea Nitrogen 17 mg/dL (7-20) Creatinine 1.0 mg/dL (0.6-1.0) Estimated GFR (Cockcroft-Gault) 54.8 Glucose Level 158 mg/dL (70-99) Calcium Level 8.5 mg/dL (8.5-10.1) Phosphorus Level 4.1 mg/dL (2.6-4.7) Magnesium Level 2.2 mg/dL (1.8-2.4) Iron Level 17 ug/dL (50-170) Total Iron Binding Capacity 240 ug/dL (250-450) Iron Saturation 7 % (15-34) Ferritin 66 ng/mL (8-252) Vitamin B12 Level 1125 pg/mL (247-911) Serum Folate 22.12 ng/ml (3.2-20.0) White Blood Count 12.2 x10^3/uL (4.0-11.0) 11.0 x10^3/uL (4.0-11.0) Red Blood Count 3.61 x10^6/uL (3.50-5.40) 3.53 x10^6/uL (3.50-5.40) Hemoglobin 9.5 g/dL (12.0-15.5) 9.1 g/dL (12.0-15.5) Hematocrit 30.0 % (36.0-47.0) 28.3 % (36.0-47.0) Mean Corpuscular Volume 83 fL (79-100) 80 fL (79-100) Mean Corpuscular Hemoglobin 26 pg (25-35) 26 pg (25-35) Mean Corpuscular Hemoglobin Concent 32 g/dL (31-37) 32 g/dL (31-37) Red Cell Distribution Width 20.9 % (11.5-14.5) 20.8 % (11.5-14.5) Platelet Count 335 x10^3/uL (140-400) 318 x10^3/uL (140-400) Neutrophils (%) (Auto) 75 % (31-73) 67 % (31-73) Lymphocytes (%) (Auto) 14 % (24-48) 18 % (24-48) Monocytes (%) (Auto) 8 % (0-9) 11 % (0-9) Eosinophils (%) (Auto) 2 % (0-3) 3 % (0-3) Basophils (%) (Auto) 1 % (0-3) 1 % (0-3) Neutrophils # (Auto) 9.2 x10^3uL (1.8-7.7) 7.4 x10^3uL (1.8-7.7) Lymphocytes # (Auto) 1.7 x10^3/uL (1.0-4.8) 2.0 x10^3/uL (1.0-4.8) Monocytes # (Auto) 1.0 x10^3/uL (0.0-1.1) 1.2 x10^3/uL (0.0-1.1) Eosinophils # (Auto) 0.2 x10^3/uL (0.0-0.7) 0.3 x10^3/uL (0.0-0.7) Basophils # (Auto) 0.1 x10^3/uL (0.0-0.2) 0.1 x10^3/uL (0.0-0.2) Reticulocyte Count (auto) 1.9 % (0.5-2.5) Body Fluid Amylase 4 U/L (.) Laboratory Tests Test 01/15/17 15:00 01/15/17 16:00 01/16/17 06:00 White Blood Count 12.2 x10^3/uL (4.0-11.0) 11.0 x10^3/uL (4.0-11.0) Red Blood Count 3.61 x10^6/uL (3.50-5.40) 3.53 x10^6/uL (3.50-5.40) Hemoglobin 9.5 g/dL (12.0-15.5) 9.1 g/dL (12.0-15.5) Hematocrit 30.0 % (36.0-47.0) 28.3 % (36.0-47.0) Mean Corpuscular Volume 83 fL (79-100) 80 fL (79-100) Mean Corpuscular Hemoglobin 26 pg (25-35) 26 pg (25-35) Mean Corpuscular Hemoglobin Concent 32 g/dL (31-37) 32 g/dL (31-37) Red Cell Distribution Width 20.9 % (11.5-14.5) 20.8 % (11.5-14.5) Platelet Count 335 x10^3/uL (140-400) 318 x10^3/uL (140-400) Neutrophils (%) (Auto) 75 % (31-73) 67 % (31-73) Lymphocytes (%) (Auto) 14 % (24-48) 18 % (24-48) Monocytes (%) (Auto) 8 % (0-9) 11 % (0-9) Eosinophils (%) (Auto) 2 % (0-3) 3 % (0-3) Basophils (%) (Auto) 1 % (0-3) 1 % (0-3) Neutrophils # (Auto) 9.2 x10^3uL (1.8-7.7) 7.4 x10^3uL (1.8-7.7) Lymphocytes # (Auto) 1.7 x10^3/uL (1.0-4.8) 2.0 x10^3/uL (1.0-4.8) Monocytes # (Auto) 1.0 x10^3/uL (0.0-1.1) 1.2 x10^3/uL (0.0-1.1) Eosinophils # (Auto) 0.2 x10^3/uL (0.0-0.7) 0.3 x10^3/uL (0.0-0.7) Basophils # (Auto) 0.1 x10^3/uL (0.0-0.2) 0.1 x10^3/uL (0.0-0.2) Reticulocyte Count (auto) 1.9 % (0.5-2.5) Body Fluid Amylase 4 U/L (.) Microbiology 01/09/17 Urine Culture - Final, Complete 01/09/17 Urine Culture Result 1 (GILBERT) - Final, Complete 01/09/17 Antimicrobic Susceptibility - Final, Complete Medications Current Medications Ondansetron HCl (Zofran) 4 mg PRN Q6HRS PRN IV NAUSEA/VOMITING; Start at 07:00; Stop 01/02/17 at 06:59; Status DC Fentanyl Citrate (Fentanyl 2ml Vial) 25 mcg PRN Q5MIN PRN IV MILD PAIN; Start 01/01/17 at 07:00; Stop 01/02/17 at 06:59; Status DC Fentanyl Citrate (Fentanyl 2ml Vial) 50 mcg PRN Q5MIN PRN IV MODERATE PAIN; Start 01/01/17 at 07:00; Stop 01/02/17 at 06:59; Status DC Morphine Sulfate 1 mg PRN Q10MIN PRN IV SEVERE PAIN; Start 01/01/17 at 07:00; Stop 01/02/17 at 06:59; Status DC Ringer's Solution 1,000 ml @ 30 mls/hr Q24H IV Last administered on 08:35; Start 01/01/17 at 07:00; Stop 01/01/17 at 18:59; Status DC Lidocaine HCl (Xylocaine-Mpf 1% Vial) 2 ml PRN 1X PRN ID PRIOR TO IV START; Start 01/01/17 at 07:00; Stop 01/02/17 at 06:59; Status DC Hydromorphone HCl (Dilaudid) 0.5 mg PRN Q10MIN PRN IV SEV PAIN, Second choice; Start 01/01/17 at 07:00; Stop 01/02/17 at 06:59; Status DC Prochlorperazine Edisylate (Compazine) 5 mg PACU PRN PRN IV NAUSEA, MRX1; Start 01/01/17 at 07:00; Stop 01/02/17 at 06:59; Status DC Cefoxitin Sodium 2 gm/Dextrose 100 ml @ 200 mls/hr 1X PREOP PRN IV ABX Last administered on 01/01/17t 12:35; Start 01/01/17 at 06:00; Stop 01/06/17 at 15: 00; Status DC Dexamethasone Sodium Phosphate (Decadron) 20 mg STK-MED ONCE .ROUTE ; Start at 09:25; Stop 01/01/17 at 09:26; Status DC Lidocaine HCl (Lidocaine Pf 2% Vial) 5 ml STK-MED ONCE .ROUTE ; Start 01/01/17 at 09:25; Stop 01/01/17 at 09:26; Status DC Ondansetron HCl (Zofran) 4 mg STK-MED ONCE .ROUTE ; Start 01/01/17 at 09:25; Stop 01/01/17 at 09:26; Status DC Propofol 20 ml @ As Directed STK-MED ONCE IV ; Start 01/01/17 at 09:25; Stop 01/01/17 at 09:26; Status DC Fentanyl Citrate (Fentanyl 2ml Vial) 100 mcg STK-MED ONCE .ROUTE ; Start at 09:25; Stop 01/01/17 at 09:26; Status DC Rocuronium [place] (Zemuron) 50 mg STK-MED ONCE .ROUTE ; Start 01/01/17 at 09: 26; Stop 01/01/17 at 09:27; Status DC Phenylephrine HCl 1 mg STK-MED ONCE IV ; Start 01/01/17 at 10:27; Stop at 10:28; Status DC Bupivacaine HCl (Sensorcaine Mpf 0.25%) 30 ml STK-MED ONCE .ROUTE ; Start 01/01 at 10:49; Stop 01/01/17 at 10:50; Status DC Lidocaine HCl (Xylocaine-Mpf 1% Vial) 5 ml STK-MED ONCE .ROUTE ; Start at 10:50; Stop 01/01/17 at 10:51; Status DC Phenylephrine HCl (Leroy-Synephrine Inj) 10 mg STK-MED ONCE .ROUTE ; Start at 11:11; Stop 01/01/17 at 11:12; Status DC Ephedrine Sulfate (Akovaz) 50 mg STK-MED ONCE .ROUTE ; Start 01/01/17 at 11:18 ; Stop 01/01/17 at 11:19; Status DC Rocuronium [place] (Zemuron) 100 mg STK-MED ONCE .ROUTE ; Start 01/01/17 at 11: 30; Stop 01/01/17 at 11:31; Status DC Cefoxitin Sodium 2 gm/Dextrose 100 ml @ 200 mls/hr 1X ONCE IV ; Start at 12:15; Stop 01/01/17 at 12:44; Status Cancel Cefoxitin Sodium 100 ml @ As Directed STK-MED ONCE IV ; Start 01/01/17 at 11: 17; Stop 01/01/17 at 12:17; Status DC Fentanyl Citrate (Fentanyl 2ml Vial) 100 mcg STK-MED ONCE .ROUTE ; Start at 12:24; Stop 01/01/17 at 12:25; Status DC Sodium Chloride 39.95 ml/ Hydromorphone HCl 0.5 mg/ Ropivacaine 10 ml/ Epidural Dosage Infused (Pha) 50 ml @ 0 mls/hr CONT PRN EP Per protocol Last administered on 01/04/17t 06:38; Start 01/01/17 at 12:30; Stop 01/11/17 at 02: 08; Status DC Sodium Chloride 40 ml/ Hydromorphone HCl 0.5 mg/ Ropivacaine 10 ml/ Epidural Dosage Infused (Pha) 50.05 ml @ 0 mls/hr 1X ONCE EP ; Start 01/05/17 at 18:30 ; Stop 01/05/17 at 18:31; Status UNV Sevoflurane (Ultane) 90 ml STK-MED ONCE IH ; Start 01/01/17 at 13:02; Stop at 13:03; Status DC Cefoxitin Sodium 50 ml @ 100 mls/hr 1X ONCE IV Last administered on t 14:35; Start 01/01/17 at 14:15; Stop 01/01/17 at 14:44; Status DC Albumin Human 100 ml @ As Directed STK-MED ONCE IV ; Start 01/01/17 at 14:25; Stop 01/01/17 at 14:26; Status DC Glycopyrrolate (Robinul) 1 mg STK-MED ONCE .ROUTE ; Start 01/01/17 at 15:59; Stop 01/01/17 at 16:00; Status DC Neostigmine Methylsulfate 5 mg STK-MED ONCE .ROUTE ; Start 01/01/17 at 15:59; Stop 01/01/17 at 16:00; Status DC Famotidine (Pepcid) 20 mg BID IVP Last administered on 01/07/17 20:18; Start 01/01/17 at 21:00; Stop 01/08/17 at 08:44; Status DC Heparin Sodium (Porcine) (Heparin Sq) 5,000 unit Q12HR SQ Last administered on 01/14/17 09:53; Start 01/01/17 at 21:00; Stop 01/15/17 at 11:27; Status DC Sodium Chloride (Normal Saline Flush) 3 ml QSHIFT PRN IV AFTER MEDS AND BLOOD DRAWS; Start 01/01/17 at 16:30 Ringer's Solution 1,000 ml @ 100 mls/hr Q10H IV Last administered on 02:38; Start 01/01/17 at 16:26; Stop 01/08/17 at 09:47; Status DC Ondansetron HCl (Zofran) 4 mg PRN Q6HRS PRN IV NAUESA, 1ST CHOICE Last administered on 01/10/17 21:22; Start 01/01/17 at 16:30 Diphenhydramine HCl (Benadryl) 25 mg PRN Q6HRS PRN IVP ITCHING Last administered on 01/02/17 10:07; Start 01/02/17 at 10:00 Oxycodone/ Acetaminophen (Percocet 5/325) 1 tab PRN Q4HRS PRN PO PAIN Last administered on 01/07/17 11:24; Start 01/05/17 at 10:00 Docusate Sodium (Colace) 100 mg DAILY PO Last administered on 01/16/17 08:20 ; Start 01/05/17 at 10:00 Sodium Chloride (Saline Mist Nasal) 1 henry PRN Q1HR PRN NS NASAL CONGESTION Last administered on 01/11/17 22:22; Start 01/07/17 at 10:00 Hydralazine HCl (Apresoline Inj) 10 mg PRN Q4HRS PRN IVP ELEVATED BP, SEE COMMENTS; Start 01/07/17 at 15:30 Levothyroxine Sodium 25 mcg/ Sodium Chloride 5 ml @ 100 mls/hr DAILY IVP Last administered on 01/07/17 16:27; Start 01/07/17 at 16:00; Stop 01/08/17 at 08:44 ; Status DC Amlodipine Besylate (Norvasc) 5 mg DAILY PO Last administered on 01/16/17 08: 21; Start 01/08/17 at 09:00 Fluticasone Propionate (Flonase) 1 spray PRN DAILY PRN NS ALLERGIES; Start 01/08/17 at 08:45 Levothyroxine Sodium (Synthroid) 50 mcg DAILY06 PO Last administered on 08:20; Start 01/08/17 at 09:00 Lisinopril (Prinivil) 10 mg DAILY PO Last administered on 01/16/17 08:21; Start 01/08/17 at 09:00 Pantoprazole Sodium (Protonix) 40 mg DAILYAC PO Last administered on 08:20; Start 01/08/17 at 09:00 Ferrous Sulfate (Feosol) 325 mg DAILYWBKFT PO Last administered on 01/16/17 08:20; Start 01/08/17 at 09:00; Stop 01/16/17 at 09:59; Status DC Cetirizine HCl (ZyrTEC) 10 mg DAILY PO Last administered on 01/16/17 08:21; Start 01/08/17 at 09:00 Multivitamins (Thera M Plus) 1 tab DAILY PO Last administered on 01/15/17 09: 27; Start 01/09/17 at 09:00; Stop 01/15/17 at 11:40; Status DC Atorvastatin Calcium (Lipitor) 5 mg QHS PO Last administered on 01/15/17 21: 10; Start 01/08/17 at 21:00 Ciprofloxacin (Cipro) 500 mg BID PO Last administered on 01/09/17 11:03; Start 01/09/17 at 11:30; Stop 01/09/17 at 11:30; Status DC Phenazopyridine HCl (Pyridium) 200 mg PRN TID PRN PO URINARY PAIN; Start at 11:15; Stop 01/09/17 at 11:15; Status DC Phenazopyridine HCl (Pyridium) 200 mg TID PO Last administered on 01/15/17 09 :27; Start 01/09/17 at 11:15; Stop 01/15/17 at 11:27; Status DC Ceftriaxone Sodium 1 gm/ Dextrose 50 ml @ 100 mls/hr Q24H IV ; Start 01/09/17 at 11:15; Status UNV Ceftriaxone Sodium (Rocephin) 1 gm Q24H IVP Last administered on 01/14/17 12: 20; Start 01/09/17 at 12:00; Stop 01/15/17 at 11:27; Status DC Lactobacillus Rhamnosus (Culturelle) 1 cap BID PO Last administered on 08:20; Start 01/09/17 at 21:00 Lidocaine/Sodium Bicarbonate (Buffered Lidocaine 1%) 20 ml STK-MED ONCE IJ ; Start 01/10/17 at 08:17; Stop 01/10/17 at 08:18; Status DC Lidocaine/Sodium Bicarbonate (Buffered Lidocaine 1%) 3 ml 1X ONCE IJ Last administered on 01/10/17 08:30; Start 01/10/17 at 08:30; Stop 01/10/17 at 08:33 ; Status DC Info 1 each PRN DAILY PRN MC SEE COMMENTS Last administered on 01/16/17 11:37 ; Start 01/10/17 at 11:45 Sodium Chloride 90 meq/Potassium Chloride 50 meq/ Potassium Phosphate 13.6 mmol/ Magnesium Sulfate 10 meq/ Calcium Gluconate 10 meq/ Multivitamins 10 ml/Chromium / Copper/Manganese/ Seleni/Zn 1 ml/ Total Parenteral Nutrition/Amino Acids/ Dextrose/ Fat Emulsion Intravenous 1,512 ml @ 63 mls/hr TPN CONT IV Last administered on 01/10/17 22:30; Start 01/10/17 at 22:00; Stop 01/11/17 at 21:59 ; Status DC Potassium Chloride 50 ml @ 50 mls/hr Q1H IV Last administered on 01/11/17 11: 27; Start 01/11/17 at 09:30; Stop 01/11/17 at 11:29; Status DC Potassium Chloride (Klor-Con) 20 meq 1X ONCE PO Last administered on 10:26; Start 01/11/17 at 09:30; Stop 01/11/17 at 09:31; Status DC Calcium Carbonate/ Glycine (Tums) 500 mg PRN AFTMEALHC PRN PO INDIGESTION; Start 01/11/17 at 10:15 Al Hydroxide/Mg Hydroxide (Mylanta Plus Xs) 30 ml PRN Q2HR PRN PO HEARTBURN / GAS; Start 01/11/17 at 10:15 Sodium Chloride 90 meq/Potassium Chloride 70 meq/ Potassium Phosphate 13.6 mmol/ Magnesium Sulfate 10 meq/ Calcium Gluconate 10 meq/ Multivitamins 10 ml/Chromium / Copper/Manganese/ Seleni/Zn 1 ml/ Total Parenteral Nutrition/Amino Acids/ Dextrose/ Fat Emulsion Intravenous 1,512 ml @ 63 mls/hr TPN CONT IV Last administered on 01/11/17 22:54; Start 01/11/17 at 22:00; Stop 01/12/17 at 21: 59; Status DC Sodium Chloride 90 meq/Potassium Chloride 90 meq/ Potassium Phosphate 13.6 mmol/ Magnesium Sulfate 18 meq/ Calcium Gluconate 10 meq/ Multivitamins 10 ml/Chromium / Copper/Manganese/ Seleni/Zn 1 ml/ Total Parenteral Nutrition/Amino Acids/ Dextrose/ Fat Emulsion Intravenous 1,512 ml @ 63 mls/hr TPN CONT IV Last administered on 01/12/17 21:50; Start 01/12/17 at 22:00; Stop 01/13/17 at 21 :59; Status DC Sodium Chloride 90 meq/Potassium Chloride 70 meq/ Potassium Phosphate 13.6 mmol/ Magnesium Sulfate 18 meq/ Calcium Gluconate 10 meq/ Multivitamins 10 ml/Chromium / Copper/Manganese/ Seleni/Zn 1 ml/ Total Parenteral Nutrition/Amino Acids/ Dextrose/ Fat Emulsion Intravenous 1,512 ml @ 63 mls/hr TPN CONT IV Last administered on 01/13/17 22:04; Start 01/13/17 at 22:00; Stop 01/14/17 at 21 :59; Status DC Sodium Chloride 90 meq/Potassium Chloride 70 meq/ Potassium Phosphate 13.6 mmol/ Magnesium Sulfate 18 meq/ Calcium Gluconate 10 meq/ Multivitamins 10 ml/Chromium / Copper/Manganese/ Seleni/Zn 1 ml/ Total Parenteral Nutrition/Amino Acids/ Dextrose/ Fat Emulsion Intravenous 1,512 ml @ 63 mls/hr TPN CONT IV Last administered on 01/14/17 22:35; Start 01/14/17 at 22:00; Stop 01/15/17 at 21 :59; Status DC Alteplase, Recombinant (Cathflo) 2 mg 1X ONCE INT CAT Last administered on 13:52; Start 01/15/17 at 11:15; Stop 01/15/17 at 11:18; Status DC Alteplase, Recombinant (Cathflo) 2 mg 1X ONCE INT CAT Last administered on 11:50; Start 01/15/17 at 11:15; Stop 01/15/17 at 11:18; Status DC Enoxaparin Sodium (Lovenox 40mg Syringe) 40 mg BID SQ Last administered on 11:14; Start 01/15/17 at 11:45 Sodium Chloride 90 meq/Potassium Chloride 70 meq/ Potassium Phosphate 13.6 mmol/ Magnesium Sulfate 18 meq/ Calcium Gluconate 10 meq/ Multivitamins 10 ml/Chromium / Copper/Manganese/ Seleni/Zn 1 ml/ Total Parenteral Nutrition/Amino Acids/ Dextrose/ Fat Emulsion Intravenous 1,512 ml @ 63 mls/hr TPN CONT IV Last administered on 01/15/17 21:11; Start 01/15/17 at 22:00; Stop 01/16/17 at 21 :59 Enoxaparin Sodium (Lovenox Per Pharmacy Prophylaxis Dosing) 1 each PRN DAILY PRN MC SEE COMMENTS; Start 01/15/17 at 15:15; Status UNV Ferrous Sulfate (Feosol) 325 mg BID PO ; Start 01/16/17 at 21:00 Iron Sucrose 500 mg/Sodium Chloride 275 ml @ 78.571 mls/ hr 1X ONCE IV Last administered on 01/16/17 11:05; Start 01/16/17 at 11:00; Stop 01/16/17 at 14 :29; Status DC Sodium Chloride 90 meq/Potassium Chloride 70 meq/ Potassium Phosphate 13.6 mmol/ Magnesium Sulfate 18 meq/ Calcium Gluconate 10 meq/ Multivitamins 10 ml/Chromium / Copper/Manganese/ Seleni/Zn 1 ml/ Total Parenteral Nutrition/Amino Acids/ Dextrose/ Fat Emulsion Intravenous 1,512 ml @ 63 mls/hr TPN CONT IV ; Start 01/16/17 at 22:00; Stop 01/17/17 at 21:59 Active Scripts Active Protonix (Pantoprazole Sodium) 40 Mg Tablet. 1 Tab PO DAILY Reported Ferralet 90 Dual-Iron Tablet (Iron, Carb & Gluc/Fa/B12/C/Dss) 1 Each Tablet 1 Tab PO DAILY Multivitamins (Multivitamin) 1 Each Tablet 1 Tab PO DAILY Loratadine 10 Mg Tablet 1 Tab PO DAILY Fluticasone Propionate Nasal [place] (Fluticasone Propionate) 16 Gm [place].susp 1 [place] NS DAILY PRN Levothyroxine Sodium 50 Mcg Tablet 1 Tab PO DAILY Lisinopril 10 Mg Tablet 1 Tab PO DAILY Pravastatin Sodium 10 Mg Tablet 1 Tab PO DAILY Amlodipine Besylate 5 Mg Tablet 5 Mg PO DAILY Vitals/I & O Vital Sign - Last 24 Hours 01/15/17 01/15/17 01/15/17 01/15/17 15:00 19:55 20:30 23:26 Temp 98.8 97.9 98.1 98.8 97.9 98.1 Pulse 95 99 95 Resp 20 16 16 B/P (MAP) 122/63 (82) 111/61 (78) 121/58 (79) Pulse Ox 100 98 97 O2 Delivery Room Air Room Air Room Air Room Air 01/16/17 01/16/17 01/16/17 01/16/17 03:56 07:00 08:21 08:21 Temp 97.7 97.5 97.7 97.5 Pulse 74 89 89 89 Resp 16 17 B/P (MAP) 139/63 (88) 123/79 (94) 123/79 123/79 Pulse Ox 97 96 O2 Delivery Room Air Room Air 01/16/17 10:44 Temp 97.7 97.7 Pulse 98 Resp 18 B/P (MAP) 137/66 (89) Pulse Ox 97 O2 Delivery Room Air Intake and Output 01/15/17 01/15/17 01/16/17 15:00 23:00 07:00 Intake Total 440 ml Output Total 200 ml 1590 ml 650 ml Balance -200 ml -1590 ml -210 ml RASHAD POWELL MD Jan 16, 2017 14:32
[2017-01-16] MEDS ORDERED: FERROUS SULFATE 325 MG TABLET. PO SCH (21:00)
[2017-01-16] MEDS ORDERED: AMINO ACIDS IV SCH ×10 (22:00)
[2017-01-16] MEDS ORDERED: [UNRECOGNIZED DRUG - OTHER] IV SCH ×10 (22:00)
[2017-01-16] MEDS ORDERED: TOTAL PARENTERAL NUTRITION IV SCH ×10 (22:00)
[2017-01-16] MEDS ORDERED: DEXTROSE 70% IV SCH ×10 (22:00)
--- NOTE | 2017-01-19 12:56 | PDOC3 ---
Discharge Summary Visit Information Date of Admission: Jan 01, 2017 Date of Discharge: Jan 16, 2017 Admitting Diagnosis Comment: pancreatic cancer Final Diagnosis pancreatic cancer Brief Hospital Course Allergies Allergies Coded Allergies Type Severity Reaction Last Updated Verified No Known Drug Allergies 01/01/17 No Brief Hospital Course Ms. Caballero is a 71 old female who presented with pancreatic cancer. She underwent Whipple procedure (specifically: pancreaticduodenectomy, pylorus sparing, pancreaticogastrostomy with Buster en Y reconstruction to bile duct), G- tube placement. Provided supportive care in hospital, including therapy and TPN. She discharged to [facility] for ongoing care. Discharge Information Condition at Discharge: Stable Follow Up: Weeks (1-2) Disposition/Orders: D/C to Another Facility Scheduled Amlodipine Besylate (Amlodipine Besylate), 5 MG PO DAILY, (Reported) Iron, Carb & Gluc/Fa/B12/C/Dss (Ferralet 90 Dual-Iron Tablet), 1 TAB PO DAILY, ( Reported) Levothyroxine Sodium (Levothyroxine Sodium), 1 TAB PO DAILY, (Reported) Lisinopril (Lisinopril), 1 TAB PO DAILY, (Reported) Loratadine (Loratadine), 1 TAB PO DAILY, (Reported) Multivitamin (Multivitamins), 1 TAB PO DAILY, (Reported) Pantoprazole Sodium (Protonix), 1 TAB PO DAILY Pravastatin Sodium (Pravastatin Sodium), 1 TAB PO DAILY, (Reported) Scheduled PRN Fluticasone Propionate (Fluticasone Propionate Nasal [place]), 1 SPRAY NS DAILY PRN for ALLERGIES, (Reported) NICK MINER APRN Jan 19, 2017 12:56
== END 2017-01-16 14:50 | DRG 405 ==
LOC: OPSVCIP 07:48 → 1 WEST ICU 17:11 → 5 SOUTH 01-03 09:02 → 4 NORTH 01-04 13:50
PROVIDERS: ADMIT Surgery; ATTEND Surgery
PROC: 0DB90ZZ Excision of Duodenum, Open Approach (ICD-10-PCS; 2017-01-01)
PROC: 0FN00ZZ Release Liver, Open Approach (ICD-10-PCS; 2017-01-01)
PROC: 0DH60UZ Insertion of Feeding Device into Stomach, Open Approach (ICD-10-PCS; 2017-01-01)
PROC: 0FBG0ZZ Excision of Pancreas, Open Approach (ICD-10-PCS; principal; 2017-01-01 10:00)
PROC: 02HV33Z Insertion of Infusion Device into Superior Vena Cava, Percutaneous Approach (ICD-10-PCS; 2017-01-10)
PROC: B5181ZA Fluoroscopy of Superior Vena Cava using Low Osmolar Contrast, Guidance (ICD-10-PCS; 2017-01-10)
PROC: B548ZZA Ultrasonography of Superior Vena Cava, Guidance (ICD-10-PCS; 2017-01-10)
DX: C25.9 Malignant neoplasm of pancreas, unspecified (principal); K83.1 Obstruction of bile duct; Z68.42 Body mass index [BMI] 45.0-49.9, adult; E66.01 Morbid (severe) obesity due to excess calories; N39.0 Urinary tract infection, site not specified; R04.0 Epistaxis; I10 Essential (primary) hypertension; E03.9 Hypothyroidism, unspecified; E78.5 Hyperlipidemia, unspecified; F41.9 Anxiety disorder, unspecified; B96.89 Other specified bacterial agents as the cause of diseases classified elsewhere; K21.9 Gastro-esophageal reflux disease without esophagitis; E87.6 Hypokalemia; B96.20 Unspecified Escherichia coli [E. coli] as the cause of diseases classified elsewhere; K66.0 Peritoneal adhesions (postprocedural) (postinfection); Z90.49 Acquired absence of other specified parts of digestive tract; Z90.710 Acquired absence of both cervix and uterus; Z82.49 Family history of ischemic heart disease and other diseases of the circulatory system; Z80.3 Family history of malignant neoplasm of breast
CPT/HCPCS: 36415; 36569; 74000; 76937; 77001; 80048; 80053; 81001; 82150; 82607; 82728; 82746; 82962; 83540; 83550; 83690; 83735; 84100; 84478; 85007; 85025; 85045; 86850; 86900; 86901; 87086; 87186; 87641; 88300; 88305; 88309; A4314; C1751; J0610; J0694; J0696; J1100; J1170; J1200; J1650; J1756; J2370; J2405; J2704; J2710; J2795; J2997; J3010; J3475; J3480; J3490; J7050; J7120; P9046; S0028; 97110; 97116; 97530; 97535; J2001; J7030

== ENCOUNTER 2017-01-31 20:49 | Inpatient (IN) | payer MEDICARE ==
[~2017-01-31] VITALS: Ht 154.9 cm; Wt 109.8 kg
[~2017-01-31 20:49] MED LIST changes: -HYDROmorphone 2 MG/ML VIAL IV PRN; -IV RINGERS,LACTATED 1000ML 1,000 ML IV SCH; -LIDOCAINE 1% PF 2 ML VIAL. ID PRN; -MORPHINE SULFATE 2 MG/ML DISP.SYRIN. IV PRN; -ONDANSETRON PF 4 MG/2 ML VIAL. IV PRN; -PROCHLORPERAZINE 10 MG/2 ML VIAL. IV PRN; -fentaNYL PF VIAL 100 MCG/2 ML VIAL IV PRN
--- NOTE | 2017-01-31 21:37 | PHYS DOC ---
Past Medical History Past Medical History: Anemia, Anxiety, High Cholesterol, Hypertension, Hypothyroid, UTI Additional Past Medical Histor: obesity, PANCREATIC CANCER, Past Surgical History: Appendectomy, Cholecystectomy, Hysterectomy Additional Past Surgical Histo: cyst removal, WIPPLE Alcohol Use: Rarely Drug Use: None Adult General Chief Complaint Chief Complaint: FEVER HPI HPI Patient is a 71 year old female who presents with complaint of fever and abdominal pain. Patient was brought to the emergency department by EMS from [facility] after patient started to develop fever today. The patient was diagnosed with a pancreatic mass and underwent a Whipple procedure approximately [address] Swanson and Dr. Crain. The patient states that she had been doing well and felt that this morning, however she started to suddenly get chills later today and started developing pain in her abdomen. Patient currently rates her pain on my evaluation as 7 out of 10. Patient states that she is having generalized weakness and continued chills at this time. Patient found to have a fever during triage. Patient has a right-sided BOZENA drain which is had decreased drainage over the past 24 hours. Review of Systems Review of Systems Constitutional: Fever, chills[] Eyes: Denies change in visual acuity, redness, or eye pain [] HENT: Denies nasal congestion or sore throat [] Respiratory: Denies cough or shortness of breath [] Cardiovascular: Denies chest pain or edema[] GI: Abdominal pain, nausea, denies vomiting or diarrhea[] : Denies dysuria or hematuria [] Musculoskeletal: Denies back pain or joint pain [] Integument: Denies rash or skin lesions [] Neurologic: Denies headache, focal weakness or sensory changes [] All other systems were reviewed and found to be within normal limits, except as documented in this note. Current Medications Current Medications Current Medications Medications (Trade) Dose Ordered Sig/Sandro Start Time Stop Time Status Last Admin Dose Admin Info (Do NOT chart on this entry -- for MONITORING) 1 each PRN DAILY PRN 01/31/17 22:30 02/02/17 22:29 Iohexol (Omnipaque 300 Mg/ml) 60 ml 1X ONCE 01/31/17 22:30 01/31/17 22:31 DC 01/31/17 22:34 60 ML Piperacillin Sod/ Tazobactam Sod (Zosyn Per Pharmacy) 1 each PRN DAILY PRN 01/31/17 22:30 UNV Piperacillin Sod/ Tazobactam Sod (Zosyn) 4.5 gm ONCE ONCE 01/31/17 22:30 01/31/17 22:31 DC Sodium Chloride 1,000 ml @ 1,830 mls/hr Q33M 01/31/17 21:15 01/31/17 23:15 01/31/17 21:40 1,830 MLS/HR Vancomycin HCl (Vanco Per Pharmacy) 1 each PRN DAILY PRN 01/31/17 22:30 UNV Vancomycin HCl 2 gm/Dextrose/ Sodium Chloride 500 ml @ 250 mls/hr 1X ONCE 01/31/17 23:00 02/01/17 00:59 Allergies Allergies Allergies Coded Allergies Type Severity Reaction Last Updated Verified No Known Drug Allergies 01/01/17 No Physical Exam Physical Exam Constitutional: Alert, febrile, appears ill. [] HENT: Normocephalic, atraumatic, bilateral external ears normal, oropharynx moist, no oral exudates, nose normal. [] Eyes: PERRLA, EOMI, conjunctiva normal, no discharge. [] Neck: Normal range of motion, no tenderness, supple, no stridor. [] Cardiovascular: Tachycardia, regular rhythm, no murmur [] Lungs & Thorax: Bilateral breath sounds clear to auscultation [] Abdomen: Hypoactive bowel sounds, right-sided BOZENA drain, tenderness to palpation along midline incision laparotomy. [] Skin: Warm, dry, no erythema, no rash. [] Back: No tenderness, no CVA tenderness. [] Extremities: No tenderness, no cyanosis, no clubbing, ROM intact, no edema. [] Neurologic: Alert and oriented X 3, normal motor function, normal sensory function, no focal deficits noted. [] Current Patient Data Vital Signs Vital Signs Date Time Temp Pulse Resp B/P (MAP) Pulse Ox O2 Delivery O2 Flow Rate FiO2 01/31/17 20:49 102.8 122 18 138/72 (94) 97 Room Air 102.8 Lab Values Laboratory Tests Test 01/31/17 21:35 01/31/17 21:55 01/31/17 22:00 White Blood Count 11.5 x10^3/uL (4.0-11.0) H Red Blood Count 4.30 x10^6/uL (3.50-5.40) Hemoglobin 11.3 g/dL (12.0-15.5) L Hematocrit 34.4 % (36.0-47.0) L Mean Corpuscular Volume 80 fL (79-100) Mean Corpuscular Hemoglobin 26 pg (25-35) Mean Corpuscular Hemoglobin Concent 33 g/dL (31-37) Red Cell Distribution Width 18.6 % (11.5-14.5) H Platelet Count 264 x10^3/uL (140-400) Neutrophils (%) (Auto) 89 % (31-73) H Lymphocytes (%) (Auto) 5 % (24-48) L Monocytes (%) (Auto) 6 % (0-9) Eosinophils (%) (Auto) 0 % (0-3) Basophils (%) (Auto) 0 % (0-3) Neutrophils # (Auto) 10.2 x10^3uL (1.8-7.7) H Lymphocytes # (Auto) 0.6 x10^3/uL (1.0-4.8) L Monocytes # (Auto) 0.7 x10^3/uL (0.0-1.1) Eosinophils # (Auto) 0.0 x10^3/uL (0.0-0.7) Basophils # (Auto) 0.0 x10^3/uL (0.0-0.2) Segmented Neutrophils % 91 % (35-66) H Lymphocytes % 7 % (24-48) L Monocytes % 2 % (0-10) Platelet Estimate Adequate (ADEQUATE) Hypochromasia Slight Anisocytosis Slight Sodium Level 132 mmol/L (136-145) L Potassium Level 5.2 mmol/L (3.5-5.1) H Chloride Level 101 mmol/L (98-107) Carbon Dioxide Level 20 mmol/L (21-32) L Anion Gap 11 (6-14) Blood Urea Nitrogen 33 mg/dL (7-20) H Creatinine 1.1 mg/dL (0.6-1.0) H Estimated GFR (Cockcroft-Gault) 49.1 BUN/Creatinine Ratio 30 (6-20) H Glucose Level 107 mg/dL (70-99) H Calcium Level 9.6 mg/dL (8.5-10.1) Total Bilirubin 0.4 mg/dL (0.2-1.0) Aspartate Amino Transferase (AST) 20 U/L (15-37) Alanine Aminotransferase (ALT) 23 U/L (14-59) Alkaline Phosphatase 110 U/L (46-116) Total Protein 7.6 g/dL (6.4-8.2) Albumin 2.9 g/dL (3.4-5.0) L Albumin/Globulin Ratio 0.6 (1.0-1.7) L Lipase 31 U/L (73-393) L Urine Collection Type U cath Urine Color Yellow Urine Clarity Clear Urine pH 5.5 Urine Specific [place] 1.015 Urine Protein Negative mg/dL (NEG-TRACE) Urine Glucose (UA) Negative mg/dL (NEG) Urine Ketones (Stick) Negative mg/dL (NEG) Urine Blood Small (NEG) Urine Nitrite Negative (NEG) Urine Bilirubin Negative (NEG) Urine Urobilinogen Dipstick 0.2 mg/dL (0.2 mg/dL) Urine Leukocyte Esterase Moderate (NEG) Urine RBC 3-5 /HPF (0-2) Urine WBC Tntc /HPF (0-4) Urine Squamous Epithelial Cells Few /LPF Urine Bacteria Many /HPF (0-FEW) Urine Mucus Slight /LPF Lactic Acid Level 1.5 mmol/L (0.4-2.0) Laboratory Tests 01/31/17 21:35 Laboratory Tests 01/31/17 21:35 EKG EKG Interpreted by me: Heart rate 120 bpm, sinus tachycardia, normal intervals, normal axis, no acute ST/T-wave abnormalities present[] Radiology/Procedures Radiology/Procedures [facility] [address], [place] [id number] IMAGING REPORT Signed PATIENT: HOLLY MUNSON ACCOUNT: [id number] : 1945 LOCATION: ER AGE: 71 SEX: F EXAM STATUS: REG ER ORD. PHYSICIAN: HUONG LESLIE MD REASON: fever, abdominal pain, status post Whipple 2 weeks ago PROCEDURE: CT ABD PELV W/ IV CONTRST ONLY CT SCAN OF THE ABDOMEN AND PELVIS WITH IV CONTRAST. History: Abdominal pain, Whipple 2 weeks ago, fever Comparison:November 26, 2016. Procedure: Contiguous axial images of the abdomen and pelvis were performed after the administration of 60 cc of Omni 300 IV contrast and oral contrast. CT Abdomen with contrast: Findings: There is a small hiatal hernia and there is a gastric feeding tube. There is postsurgical changes in the upper abdomen consistent with a Whipple. There is a drain on the right. There is soft tissue edema in the mesenteric fat in the upper abdomen and also anteriorly to the right of midline extending to the level of the iliac crest. Liver: Unremarkable Spleen: Unremarkable Pancreas: Unremarkable Adrenal Glands: Unremarkable Kidneys: Unremarkable There is no mass or lymphadenopathy. There is no free air. There is no free fluid. There is postsurgical changes at the umbilicus with soft tissue edema and a few tiny foci of air. CT Pelvis with Contrast: Findings: The urinary bladder appears normal. There is no free fluid. There is no lymphadenopathy. The appendix is not identified. Impression: Postsurgical changes. Edema within the mesenteric fat could be normal postsurgical change although fat necrosis or omental infarction is possible. RS Compliance Statement: One or more of the following individualized dose reduction techniques were utilized for this examination: 1. Automated exposure control 2. Adjustment of the mA and/or kV according to patient size 3. Use of iterative reconstruction technique Electronically signed by: Roberto Monahan III, MD (01/31/2017 10:50 PM) [facility] DICTATED and SIGNED BY: ROBERTO MONAHAN III, MD DATE: 01/31/17 2241 CC: ADELA MALLORY; HUONG LESLIE MD ~ [] Course & Med Decision Making Course & Med Decision Making Pertinent Labs and Imaging studies reviewed. (See chart for details) Patient's CT shows continued fat stranding in the anterior abdomen that may be due to edema from recent surgery, however given patient's worsening pain in this area coupled with fever, a possible postoperative wound infection cannot be ruled out. Patient does have evidence of urinary tract infection. Due to possible multiple source of infection, the patient was started on vancomycin and Zosyn for coverage. Blood cultures were taken prior to initiation of antibiotics. I spoke with Dr. Crain of general surgery who agreed with initial management and will follow with patient in hospital. Patient admitted to Dr. Melendrez for further management. Dragon Disclaimer Dragon Disclaimer This electronic medical record was generated, in whole or in part, using a voice recognition dictation system. Departure Departure Impression: Primary Impression: Sepsis Additional Impressions: Postoperative wound infection Urinary tract infection Dehydration Moderate protein malnutrition Disposition: 09 ADMITTED INPATIENT Admitting Physician: Other Condition: GUARDED Referrals: ADELA MALLORY (PCP) Problem Qualifiers Primary Impression: Sepsis Sepsis type: sepsis due to unspecified organism Qualified Codes: A41.9 - Sepsis, unspecified organism Additional Impressions: Postoperative wound infection Encounter type: initial encounter Qualified Codes: T81.4XXA - Infection following a procedure, initial encounter Urinary tract infection Urinary tract infection type: site unspecified Hematuria presence: without hematuria Qualified Codes: N39.0 - Urinary tract infection, site not specified HUONG LESLIE MD Jan 31, 2017 21:37
[2017-01-31] MEDS: IV NORMAL SALINE 1000ML BAG 1,000 ML IV SCH ×3 (21:40→22:54)
[2017-01-31 21:57] LABS: BASO % 0 % (0-3); EOS % 0 % (0-3); HEMATOCRIT 34.4 % (36.0-47.0); HEMOGLOBIN 11.3 g/dL (12.0-15.5); LYMPH # 0.6 x10^3/uL (1.0-4.8); LYMPH % 5 % (24-48); MEAN CORPUSCULAR HEMOGLOBIN 26 pg (25-35); MEAN CORPUSCULAR HGB CONC 33 g/dL (31-37); MEAN CORPUSCULAR VOLUME 80 fL (79-100); MONO % 6 % (0-9); NEUT % 89 % (31-73); PLATELET COUNT 264 x10^3/uL (140-400); RED CELL DISTRIBUTION WIDTH 18.6 % (11.5-14.5); WHITE BLOOD COUNT 11.5 x10^3/uL (4.0-11.0)
[2017-01-31 22:03] LABS: CALCIUM 9.6 mg/dL (8.5-10.1); CREATININE 1.1 mg/dL (0.6-1.0); GFR 49.1; POTASSIUM 5.2 mmol/L (3.5-5.1)
[2017-01-31 22:05] LABS: BILIRUBIN,URINE NEGATIVE (NEG); GLUCOSE,URINE NEGATIVE (NEG); NITRITE,URINE NEGATIVE (NEG); PH,URINE 5.5; PROTEIN,URINE NEGATIVE (NEG-TRACE); UROBILINOGEN,URINE 0.2 mg/dL (0.2 mg/dL)
[2017-01-31 22:10] LABS: ALBUMIN 2.9 g/dL (3.4-5.0); ALBUMIN/GLOBULIN RATIO 0.6 (1.0-1.7); TOTAL BILIRUBIN 0.4 mg/dL (0.2-1.0); TOTAL PROTEIN 7.6 g/dL (6.4-8.2)
[2017-01-31 22:12] LABS: BACTERIA,URINE MANY /HPF (0-FEW); SQUAMOUS EPITHELIAL CELL,UR FEW /LPF; WBC,URINE TNTC /HPF (0-4)
[2017-01-31 22:21] LABS: ANISOCYTOSIS SLIGHT; HYPOCHROMIA SLIGHT; PLT ESTIMATE ADEQUATE (ADEQUATE)
[2017-01-31] MEDS ORDERED: IOHEXOL 300 MG/ML 100ML VIAL. IV ONE (22:30)
[2017-01-31] MEDS ORDERED: PIPERACILLIN/TAZO IV Push 4.5 GM VIAL. IVP ONE (22:30)
[2017-01-31] MEDS ORDERED: CONTRAST GIVEN MC PRN (22:30)
--- NOTE | 2017-01-31 22:53 | RAD ---
CT SCAN OF THE ABDOMEN AND PELVIS WITH IV CONTRAST. History: Abdominal pain, Whipple 2 weeks ago, fever Comparison:November 26, 2016. Procedure: Contiguous axial images of the abdomen and pelvis were performed after the administration of 60 cc of Omni 300 IV contrast and oral contrast. CT Abdomen with contrast: Findings: There is a small hiatal hernia and there is a gastric feeding tube. There is postsurgical changes in the upper abdomen consistent with a Whipple. There is a drain on the right. There is soft tissue edema in the mesenteric fat in the upper abdomen and also anteriorly to the right of midline extending to the level of the iliac crest. Liver: Unremarkable Spleen: Unremarkable Pancreas: Unremarkable Adrenal Glands: Unremarkable Kidneys: Unremarkable There is no mass or lymphadenopathy. There is no free air. There is no free fluid. There is postsurgical changes at the umbilicus with soft tissue edema and a few tiny foci of air. CT Pelvis with Contrast: Findings: The urinary bladder appears normal. There is no free fluid. There is no lymphadenopathy. The appendix is not identified. Impression: Postsurgical changes. Edema within the mesenteric fat could be normal postsurgical change although fat necrosis or omental infarction is possible. PQRS Compliance Statement: One or more of the following individualized dose reduction techniques were utilized for this examination: 1. Automated exposure control 2. Adjustment of the mA and/or kV according to patient size 3. Use of iterative reconstruction technique Electronically signed by: Oswaldo Richey III, MD (01/31/2017 10:50 PM) [facility]
[2017-01-31] MEDS ORDERED: VANCOMYCIN 2 GM in IV DEXTROSE 5 %-0.2 % NACL 500 ML IV ONE (23:00)
[2017-01-31] MEDS ORDERED: PIP/TAZO PER PHARMACY MC PRN (23:00)
[2017-02-01] MEDS: IV NORMAL SALINE 1000ML BAG 1,000 ML IV SCH (00:56)
[2017-02-01] MEDS ORDERED: fentaNYL PF VIAL 100 MCG/2 ML VIAL IV PRN (02:30)
[2017-02-01] MEDS ORDERED: ONDANSETRON PF 4 MG/2 ML VIAL. IV PRN (02:30)
[2017-02-01] MEDS ORDERED: IV DEXTROSE 5 %-0.45 % NACL 1,000 ML IV ONE (02:30)
[2017-02-01 02:44] VITALS: BP 121/56
[2017-02-01] MEDS: VANCOMYCIN PER PHARMACY MC PRN ×2 (04:28→13:00)
[2017-02-01] MEDS ORDERED: PIPERACILLIN/TAZO IV Push 4.5 GM VIAL. IVP SCH (06:00)
[2017-02-01 07:00] VITALS: BP 170/63
--- NOTE | 2017-02-01 08:22 | EKG ---
[address] [place] [address] Test Date: 2017-01-31 Test Time: 21:01:12 Pat Name: HOLLY MUNSON Department: Room: [facility] Gender: F Chief Physical Therapist: : 1945 Requested By: KENNEDY MENDOZA Order Number: [id number] Reading MD: Itz Mckeon Measurements Intervals [place] Rate: 120 P: 50 WV: 138 QRS: 5 QRSD: 52 T: 24 QT: 276 QTc: 394 Interpretive Statements SINUS TACHYCARDIA Electronically Signed On 02-05-2017 16:48:15 ELECTRONIC TECHNOLOGIST by Itz Mckeon
--- NOTE | 2017-02-01 09:15 | PDOC2 ---
CONSULT Date of Consult Date of Consult DATE: 02/01/17 TIME: 09:11 Reason for Consult Reason for Consult: Fever, abd pain Referring Physician Referring Physician: Mickey Identification/Chief Complaint Chief Complaint Abd pain Problems: Source Source: Chart review, Patient History of Present Illness Reason for Visit: 71 yo F s/p whipple procedure for cancer. Had been doing well and progressing at rehab. Scooter diet well. However, yesterday developed incisional abd pain and fever. Pt reports feeling better today after starting on abx and admission. denies N/V. Passing stool Past Medical History Cardiovascular: HTN Hepatobiliary: Cholelithiasis Psych: Anxiety Past Surgical History Past Surgical History: Appendectomy, Breast Biopsy, Cholecystectomy, Hysterectomy, Other (whipple procedure for cancer) Family History Family History: Alcohol Abuse, Hypertension Social History ALCOHOL: none Drugs: None Lives: with Family Current Problem List Problem List Problems Medical Problems: (1) Dehydration Status: Acute (2) Moderate protein malnutrition Status: Acute (3) Postoperative wound infection Status: Acute (4) Sepsis Status: Acute (5) Urinary tract infection Status: Acute Current Medications Current Medications Current Medications Sodium Chloride 1,000 ml @ 1,830 mls/hr Q33M IV Last administered on 00:56; Start 01/31/17 at 21:15; Stop 01/31/17 at 23:15; Status DC Piperacillin Sod/ Tazobactam Sod (Zosyn Per Pharmacy) 1 each PRN DAILY PRN MC SEE COMMENTS; Start 01/31/17 at 23:00 Vancomycin HCl (Vanco Per Pharmacy) 1 each PRN DAILY PRN MC SEE COMMENTS Last administered on 02/01/17 04:28; Start 01/31/17 at 23:00 Iohexol (Omnipaque 300 Mg/ml) 60 ml 1X ONCE IV Last administered on 22:34; Start 01/31/17 at 22:30; Stop 01/31/17 at 22:31; Status DC Piperacillin Sod/ Tazobactam Sod (Zosyn) 4.5 gm ONCE ONCE IVP Last administered on 02/01/17 00:57; Start 01/31/17 at 22:30; Stop 01/31/17 at 22 :31; Status DC Info (Do NOT chart on this entry -- for MONITORING) 1 each PRN DAILY PRN MC SEE COMMENTS; Start 01/31/17 at 22:30; Stop 02/02/17 at 22:29 Vancomycin HCl 2 gm/Dextrose/ Sodium Chloride 500 ml @ 250 mls/hr 1X ONCE IV Last administered on 02/01/17 00:56; Start 01/31/17 at 23:00; Stop 02/01/17 at 00:59; Status DC Ondansetron HCl (Zofran) 4 mg PRN Q8HRS PRN IV NAUSEA/VOMITING; Start at 02:30; Stop 02/02/17 at 02:29 Fentanyl Citrate (Fentanyl 2ml Vial) 50 mcg PRN Q2HR PRN IV PAIN; Start at 02:30; Stop 02/02/17 at 02:29 Dextrose/Sodium Chloride 1,000 ml @ 150 mls/hr 1X ONCE IV ; Start 02/01/17 at 02:30; Stop 02/01/17 at 09:09; Status DC Piperacillin Sod/ Tazobactam Sod (Zosyn) 4.5 gm Q6HRS IVP Last administered on 02/01/17 06:00; Start 02/01/17 at 06:00 Vancomycin HCl 1.75 gm/Dextrose/ Sodium Chloride 500 ml @ 250 mls/hr Q24H IV ; Start 02/02/17 at 01:00 Vancomycin HCl 1 each 1X ONCE MC ; Start 02/03/17 at 00:30; Stop 02/03/17 at 00 :31 Amlodipine Besylate (Norvasc) 5 mg DAILY PO ; Start 02/01/17 at 09:00 Levothyroxine Sodium (Synthroid) 50 mcg DAILY07 PO ; Start 02/01/17 at 10:30 Pantoprazole Sodium (Protonix) 40 mg DAILYAC PO ; Start 02/01/17 at 08:15 Atorvastatin Calcium (Lipitor) 5 mg QHS PO ; Start 02/01/17 at 21:00 Active Scripts Active Protonix (Pantoprazole Sodium) 40 Mg Tablet. 1 Tab PO DAILY Reported Ferralet 90 Dual-Iron Tablet (Iron, Carb & Gluc/Fa/B12/C/Dss) 1 Each Tablet 1 Tab PO DAILY Multivitamins (Multivitamin) 1 Each Tablet 1 Tab PO DAILY Loratadine 10 Mg Tablet 1 Tab PO DAILY Fluticasone Propionate Nasal Peralta (Fluticasone Propionate) 16 Gm Peralta.susp 1 Peralta NS DAILY PRN Levothyroxine Sodium 50 Mcg Tablet 1 Tab PO DAILY Lisinopril 10 Mg Tablet 1 Tab PO DAILY Pravastatin Sodium 10 Mg Tablet 1 Tab PO DAILY Amlodipine Besylate 5 Mg Tablet 5 Mg PO DAILY Allergies Allergies: Coded Allergies: No Known Drug Allergies (Unverified , 01/01/17) ROS General: YES: Other (fever) Gastrointestinal: Yes Abdominal Pain Physical Exam General: Alert, Oriented X3, Cooperative, No acute distress HEENT: Atraumatic, EOMI Lungs: Normal air movement Abdomen: Soft, No tenderness, Other (G-tube in place and clamped. Chance drain in wound which is intact, BOZENA with scant serosang drainage. Pt reports minimal output) Vitals VITALS Vital Signs Date Time Temp Pulse Resp B/P (MAP) Pulse Ox O2 Delivery O2 Flow Rate FiO2 02/01/17 07:00 98.1 103 20 170/63 (98) 98 Room Air 98.1 Labs Labs Laboratory Tests Test 01/31/17 21:35 01/31/17 21:55 01/31/17 22:00 White Blood Count 11.5 x10^3/uL (4.0-11.0) Red Blood Count 4.30 x10^6/uL (3.50-5.40) Hemoglobin 11.3 g/dL (12.0-15.5) Hematocrit 34.4 % (36.0-47.0) Mean Corpuscular Volume 80 fL (79-100) Mean Corpuscular Hemoglobin 26 pg (25-35) Mean Corpuscular Hemoglobin Concent 33 g/dL (31-37) Red Cell Distribution Width 18.6 % (11.5-14.5) Platelet Count 264 x10^3/uL (140-400) Neutrophils (%) (Auto) 89 % (31-73) Lymphocytes (%) (Auto) 5 % (24-48) Monocytes (%) (Auto) 6 % (0-9) Eosinophils (%) (Auto) 0 % (0-3) Basophils (%) (Auto) 0 % (0-3) Neutrophils # (Auto) 10.2 x10^3uL (1.8-7.7) Lymphocytes # (Auto) 0.6 x10^3/uL (1.0-4.8) Monocytes # (Auto) 0.7 x10^3/uL (0.0-1.1) Eosinophils # (Auto) 0.0 x10^3/uL (0.0-0.7) Basophils # (Auto) 0.0 x10^3/uL (0.0-0.2) Segmented Neutrophils % 91 % (35-66) Lymphocytes % 7 % (24-48) Monocytes % 2 % (0-10) Platelet Estimate Adequate (ADEQUATE) Hypochromasia Slight Anisocytosis Slight Sodium Level 132 mmol/L (136-145) Potassium Level 5.2 mmol/L (3.5-5.1) Chloride Level 101 mmol/L (98-107) Carbon Dioxide Level 20 mmol/L (21-32) Anion Gap 11 (6-14) Blood Urea Nitrogen 33 mg/dL (7-20) Creatinine 1.1 mg/dL (0.6-1.0) Estimated GFR (Cockcroft-Gault) 49.1 BUN/Creatinine Ratio 30 (6-20) Glucose Level 107 mg/dL (70-99) Calcium Level 9.6 mg/dL (8.5-10.1) Total Bilirubin 0.4 mg/dL (0.2-1.0) Aspartate Amino Transf (AST/SGOT) 20 U/L (15-37) Alanine Aminotransferase (ALT/SGPT) 23 U/L (14-59) Alkaline Phosphatase 110 U/L (46-116) Total Protein 7.6 g/dL (6.4-8.2) Albumin 2.9 g/dL (3.4-5.0) Albumin/Globulin Ratio 0.6 (1.0-1.7) Lipase 31 U/L (73-393) Urine Collection Type U cath Urine Color Yellow Urine Clarity Clear Urine pH 5.5 Urine Specific [place] 1.015 Urine Protein Negative mg/dL (NEG-TRACE) Urine Glucose (UA) Negative mg/dL (NEG) Urine Ketones (Stick) Negative mg/dL (NEG) Urine Blood Small (NEG) Urine Nitrite Negative (NEG) Urine Bilirubin Negative (NEG) Urine Urobilinogen Dipstick 0.2 mg/dL (0.2 mg/dL) Urine Leukocyte Esterase Moderate (NEG) Urine RBC 3-5 /HPF (0-2) Urine WBC Tntc /HPF (0-4) Urine Squamous Epithelial Cells Few /LPF Urine Bacteria Many /HPF (0-FEW) Urine Mucus Slight /LPF Lactic Acid Level 1.5 mmol/L (0.4-2.0) Laboratory Tests Test 01/31/17 21:35 01/31/17 21:55 01/31/17 22:00 White Blood Count 11.5 x10^3/uL (4.0-11.0) Red Blood Count 4.30 x10^6/uL (3.50-5.40) Hemoglobin 11.3 g/dL (12.0-15.5) Hematocrit 34.4 % (36.0-47.0) Mean Corpuscular Volume 80 fL (79-100) Mean Corpuscular Hemoglobin 26 pg (25-35) Mean Corpuscular Hemoglobin Concent 33 g/dL (31-37) Red Cell Distribution Width 18.6 % (11.5-14.5) Platelet Count 264 x10^3/uL (140-400) Neutrophils (%) (Auto) 89 % (31-73) Lymphocytes (%) (Auto) 5 % (24-48) Monocytes (%) (Auto) 6 % (0-9) Eosinophils (%) (Auto) 0 % (0-3) Basophils (%) (Auto) 0 % (0-3) Neutrophils # (Auto) 10.2 x10^3uL (1.8-7.7) Lymphocytes # (Auto) 0.6 x10^3/uL (1.0-4.8) Monocytes # (Auto) 0.7 x10^3/uL (0.0-1.1) Eosinophils # (Auto) 0.0 x10^3/uL (0.0-0.7) Basophils # (Auto) 0.0 x10^3/uL (0.0-0.2) Segmented Neutrophils % 91 % (35-66) Lymphocytes % 7 % (24-48) Monocytes % 2 % (0-10) Platelet Estimate Adequate (ADEQUATE) Hypochromasia Slight Anisocytosis Slight Sodium Level 132 mmol/L (136-145) Potassium Level 5.2 mmol/L (3.5-5.1) Chloride Level 101 mmol/L (98-107) Carbon Dioxide Level 20 mmol/L (21-32) Anion Gap 11 (6-14) Blood Urea Nitrogen 33 mg/dL (7-20) Creatinine 1.1 mg/dL (0.6-1.0) Estimated GFR (Cockcroft-Gault) 49.1 BUN/Creatinine Ratio 30 (6-20) Glucose Level 107 mg/dL (70-99) Calcium Level 9.6 mg/dL (8.5-10.1) Total Bilirubin 0.4 mg/dL (0.2-1.0) Aspartate Amino Transf (AST/SGOT) 20 U/L (15-37) Alanine Aminotransferase (ALT/SGPT) 23 U/L (14-59) Alkaline Phosphatase 110 U/L (46-116) Total Protein 7.6 g/dL (6.4-8.2) Albumin 2.9 g/dL (3.4-5.0) Albumin/Globulin Ratio 0.6 (1.0-1.7) Lipase 31 U/L (73-393) Urine Collection Type U cath Urine Color Yellow Urine Clarity Clear Urine pH 5.5 Urine Specific [place] 1.015 Urine Protein Negative mg/dL (NEG-TRACE) Urine Glucose (UA) Negative mg/dL (NEG) Urine Ketones (Stick) Negative mg/dL (NEG) Urine Blood Small (NEG) Urine Nitrite Negative (NEG) Urine Bilirubin Negative (NEG) Urine Urobilinogen Dipstick 0.2 mg/dL (0.2 mg/dL) Urine Leukocyte Esterase Moderate (NEG) Urine RBC 3-5 /HPF (0-2) Urine WBC Tntc /HPF (0-4) Urine Squamous Epithelial Cells Few /LPF Urine Bacteria Many /HPF (0-FEW) Urine Mucus Slight /LPF Lactic Acid Level 1.5 mmol/L (0.4-2.0) Images Images Ct wnl except for some mesentery edema Assessment/Plan Assessment/Plan abd pain agree with abx pain may be related to drain infection, will d/c as no evidence of fluid collection and minimal output ADAT d/w pt and pt's brother Thanks for consult! BA ALMONTE MD Feb 01, 2017 09:15
--- NOTE | 2017-02-01 09:22 | PDOC1 ---
History and Physical Date of Admission Date of Admission Identification/Chief Complaint Problems: (1) Sepsis (2) Abdominal pain Source Source: Patient History of Present Illness History of Present Illness This is a 71-year-old female who recently had abdominal surgery for pancreatic cancer. She is admitted from rehabilitation. She presented to the emergency room last night with abdominal pain, primarily left-sided. She has one right- sided drain, a PEG tube in place, and another drain which she says "fell out." She was treated with empiric IV antibiotics and she is accompanied by her brother. Pain this morning is better after receiving antibiotics. She has a right upper extremity PICC which she says is not working. Additionally she complains of redness under her breasts bilaterally. Past Medical History Cardiovascular: HTN Hepatobiliary: Cholelithiasis Psych: Anxiety Past Surgical History Past Surgical History: Appendectomy, Breast Biopsy, Cholecystectomy, Hysterectomy Family History Family History: Alcohol Abuse, Hypertension Social History ALCOHOL: none Drugs: None Current Problem List Problem List Problems Medical Problems: (1) Dehydration Status: Acute (2) Moderate protein malnutrition Status: Acute (3) Postoperative wound infection Status: Acute (4) Sepsis Status: Acute (5) Urinary tract infection Status: Acute Current Medications Current Medications Current Medications Medications (Trade) Dose Ordered Sig/Sandro Start Time Stop Time Status Last Admin Dose Admin Amlodipine Besylate (Norvasc) 5 mg DAILY 02/01/17 09:00 Atorvastatin Calcium (Lipitor) 5 mg QHS 02/01/17 21:00 Dextrose/Sodium Chloride 1,000 ml @ 150 mls/hr 1X ONCE 02/01/17 02:30 02/01/17 09:09 Fentanyl Citrate (Fentanyl 2ml Vial) 50 mcg PRN Q2HR PRN 02/01/17 02:30 02/02/17 02:29 Info (Do NOT chart on this entry -- for MONITORING) 1 each PRN DAILY PRN 01/31/17 22:30 02/02/17 22:29 Iohexol (Omnipaque 300 Mg/ml) 60 ml 1X ONCE 01/31/17 22:30 01/31/17 22:31 DC 01/31/17 22:34 60 ML Levothyroxine Sodium (Synthroid) 50 mcg DAILY07 02/01/17 10:30 Ondansetron HCl (Zofran) 4 mg PRN Q8HRS PRN 02/01/17 02:30 02/02/17 02:29 Pantoprazole Sodium (Protonix) 40 mg DAILYAC 02/01/17 08:15 Piperacillin Sod/ Tazobactam Sod (Zosyn Per Pharmacy) 1 each PRN DAILY PRN 01/31/17 23:00 Piperacillin Sod/ Tazobactam Sod (Zosyn) 4.5 gm Q6HRS 02/01/17 06:00 02/01/17 06:00 4.5 GM Sodium Chloride 1,000 ml @ 1,830 mls/hr Q33M 01/31/17 21:15 01/31/17 23:15 DC 02/01/17 00:56 1,830 MLS/HR Vancomycin HCl 1 each 1X ONCE 02/03/17 00:30 02/03/17 00:31 Vancomycin HCl (Vanco Per Pharmacy) 1 each PRN DAILY PRN 01/31/17 23:00 02/01/17 04:28 1 EACH Vancomycin HCl 1.75 gm/Dextrose/ Sodium Chloride 500 ml @ 250 mls/hr Q24H 02/02/17 01:00 Vancomycin HCl 2 gm/Dextrose/ Sodium Chloride 500 ml @ 250 mls/hr 1X ONCE 01/31/17 23:00 02/01/17 00:59 DC 02/01/17 00:56 250 MLS/HR Allergies Allergies Allergies Coded Allergies Type Severity Reaction Last Updated Verified No Known Drug Allergies 01/01/17 No ROS Review of System CONSTITUTIONAL: generalized weakness EYES: No recent changes SKIN: No rash or itching CARDIOVASCULAR: No chest pain, syncope, palpitations, or edema RESPIRATORY: No SOB or cough GASTROINTESTINAL: abdominal pain NEUROLOGICAL: No headaches ENDOCRINE: No cold or heat intolerance GENITOURINARY: No urgency or frequency of urination PSYCHIATRIC: No anxiety or depression Other systems reviewed are otherwise unremarkable Physical Exam Physical Exam GEN.: No apparent distress. Alert and oriented. Appears weak HEENT: Head is normocephalic, atraumatic NECK: Supple. LUNGS: Clear to auscultation anteriorly HEART: RRR, S1, S2 present. Peripheral pulses intact ABDOMEN: Morbidly obese. There is a right-sided drain. There is a PEG. There is a large midline dressing which is clean dry and intact. Under the dressing there is piece of foreign material extruding without any surrounding erythema or purulence. There is no guarding. EXTREMITIES: Without any cyanosis. NEUROLOGIC: Normal speech, normal tone PSYCHIATRIC: Normal affect, normal mood. SKIN: No ulcerations Vitals Vitals Vital Signs Date Time Temp Pulse Resp B/P (MAP) Pulse Ox O2 Delivery O2 Flow Rate FiO2 02/01/17 07:00 98.1 103 20 170/63 (98) 98 Room Air 98.1 Labs Labs Laboratory Tests Test 01/31/17 21:35 01/31/17 21:55 01/31/17 22:00 White Blood Count 11.5 x10^3/uL (4.0-11.0) Red Blood Count 4.30 x10^6/uL (3.50-5.40) Hemoglobin 11.3 g/dL (12.0-15.5) Hematocrit 34.4 % (36.0-47.0) Mean Corpuscular Volume 80 fL (79-100) Mean Corpuscular Hemoglobin 26 pg (25-35) Mean Corpuscular Hemoglobin Concent 33 g/dL (31-37) Red Cell Distribution Width 18.6 % (11.5-14.5) Platelet Count 264 x10^3/uL (140-400) Neutrophils (%) (Auto) 89 % (31-73) Lymphocytes (%) (Auto) 5 % (24-48) Monocytes (%) (Auto) 6 % (0-9) Eosinophils (%) (Auto) 0 % (0-3) Basophils (%) (Auto) 0 % (0-3) Neutrophils # (Auto) 10.2 x10^3uL (1.8-7.7) Lymphocytes # (Auto) 0.6 x10^3/uL (1.0-4.8) Monocytes # (Auto) 0.7 x10^3/uL (0.0-1.1) Eosinophils # (Auto) 0.0 x10^3/uL (0.0-0.7) Basophils # (Auto) 0.0 x10^3/uL (0.0-0.2) Segmented Neutrophils % 91 % (35-66) Lymphocytes % 7 % (24-48) Monocytes % 2 % (0-10) Platelet Estimate Adequate (ADEQUATE) Hypochromasia Slight Anisocytosis Slight Sodium Level 132 mmol/L (136-145) Potassium Level 5.2 mmol/L (3.5-5.1) Chloride Level 101 mmol/L (98-107) Carbon Dioxide Level 20 mmol/L (21-32) Anion Gap 11 (6-14) Blood Urea Nitrogen 33 mg/dL (7-20) Creatinine 1.1 mg/dL (0.6-1.0) Estimated GFR (Cockcroft-Gault) 49.1 BUN/Creatinine Ratio 30 (6-20) Glucose Level 107 mg/dL (70-99) Calcium Level 9.6 mg/dL (8.5-10.1) Total Bilirubin 0.4 mg/dL (0.2-1.0) Aspartate Amino Transf (AST/SGOT) 20 U/L (15-37) Alanine Aminotransferase (ALT/SGPT) 23 U/L (14-59) Alkaline Phosphatase 110 U/L (46-116) Total Protein 7.6 g/dL (6.4-8.2) Albumin 2.9 g/dL (3.4-5.0) Albumin/Globulin Ratio 0.6 (1.0-1.7) Lipase 31 U/L (73-393) Urine Collection Type U cath Urine Color Yellow Urine Clarity Clear Urine pH 5.5 Urine Specific [place] 1.015 Urine Protein Negative mg/dL (NEG-TRACE) Urine Glucose (UA) Negative mg/dL (NEG) Urine Ketones (Stick) Negative mg/dL (NEG) Urine Blood Small (NEG) Urine Nitrite Negative (NEG) Urine Bilirubin Negative (NEG) Urine Urobilinogen Dipstick 0.2 mg/dL (0.2 mg/dL) Urine Leukocyte Esterase Moderate (NEG) Urine RBC 3-5 /HPF (0-2) Urine WBC Tntc /HPF (0-4) Urine Squamous Epithelial Cells Few /LPF Urine Bacteria Many /HPF (0-FEW) Urine Mucus Slight /LPF Lactic Acid Level 1.5 mmol/L (0.4-2.0) Laboratory Tests Test 01/31/17 21:35 01/31/17 21:55 01/31/17 22:00 White Blood Count 11.5 x10^3/uL (4.0-11.0) Red Blood Count 4.30 x10^6/uL (3.50-5.40) Hemoglobin 11.3 g/dL (12.0-15.5) Hematocrit 34.4 % (36.0-47.0) Mean Corpuscular Volume 80 fL (79-100) Mean Corpuscular Hemoglobin 26 pg (25-35) Mean Corpuscular Hemoglobin Concent 33 g/dL (31-37) Red Cell Distribution Width 18.6 % (11.5-14.5) Platelet Count 264 x10^3/uL (140-400) Neutrophils (%) (Auto) 89 % (31-73) Lymphocytes (%) (Auto) 5 % (24-48) Monocytes (%) (Auto) 6 % (0-9) Eosinophils (%) (Auto) 0 % (0-3) Basophils (%) (Auto) 0 % (0-3) Neutrophils # (Auto) 10.2 x10^3uL (1.8-7.7) Lymphocytes # (Auto) 0.6 x10^3/uL (1.0-4.8) Monocytes # (Auto) 0.7 x10^3/uL (0.0-1.1) Eosinophils # (Auto) 0.0 x10^3/uL (0.0-0.7) Basophils # (Auto) 0.0 x10^3/uL (0.0-0.2) Segmented Neutrophils % 91 % (35-66) Lymphocytes % 7 % (24-48) Monocytes % 2 % (0-10) Platelet Estimate Adequate (ADEQUATE) Hypochromasia Slight Anisocytosis Slight Sodium Level 132 mmol/L (136-145) Potassium Level 5.2 mmol/L (3.5-5.1) Chloride Level 101 mmol/L (98-107) Carbon Dioxide Level 20 mmol/L (21-32) Anion Gap 11 (6-14) Blood Urea Nitrogen 33 mg/dL (7-20) Creatinine 1.1 mg/dL (0.6-1.0) Estimated GFR (Cockcroft-Gault) 49.1 BUN/Creatinine Ratio 30 (6-20) Glucose Level 107 mg/dL (70-99) Calcium Level 9.6 mg/dL (8.5-10.1) Total Bilirubin 0.4 mg/dL (0.2-1.0) Aspartate Amino Transf (AST/SGOT) 20 U/L (15-37) Alanine Aminotransferase (ALT/SGPT) 23 U/L (14-59) Alkaline Phosphatase 110 U/L (46-116) Total Protein 7.6 g/dL (6.4-8.2) Albumin 2.9 g/dL (3.4-5.0) Albumin/Globulin Ratio 0.6 (1.0-1.7) Lipase 31 U/L (73-393) Urine Collection Type U cath Urine Color Yellow Urine Clarity Clear Urine pH 5.5 Urine Specific [place] 1.015 Urine Protein Negative mg/dL (NEG-TRACE) Urine Glucose (UA) Negative mg/dL (NEG) Urine Ketones (Stick) Negative mg/dL (NEG) Urine Blood Small (NEG) Urine Nitrite Negative (NEG) Urine Bilirubin Negative (NEG) Urine Urobilinogen Dipstick 0.2 mg/dL (0.2 mg/dL) Urine Leukocyte Esterase Moderate (NEG) Urine RBC 3-5 /HPF (0-2) Urine WBC Tntc /HPF (0-4) Urine Squamous Epithelial Cells Few /LPF Urine Bacteria Many /HPF (0-FEW) Urine Mucus Slight /LPF Lactic Acid Level 1.5 mmol/L (0.4-2.0) Images Images Reviewed CT abdomen VTE Prophylaxis Ordered VTE Prophylaxis Devices: Yes VTE Pharmacological Prophylaxi: Yes Assessment/Plan Assessment/Plan 71-year-old female is admitted for: Sepsis Acute abdominal pain, likely due to postoperative infection History of pancreatic cancer Hyperkalemia History of hypertension hyperlipidemia, hypothyroidism Nonfunctioning PICC right upper extremity Skin candidiasis under her breasts Plan Admit for IV antibiotics, analgesics, and general surgery consult. Monitor frequent vitals, for signs or symptoms of worsening sepsis. Hold lisinopril due to hyperkalemia I have reconciled home medications Add topical nystatin We'll discussed with nurse to have PICC assessed VTE prophylaxis with SCDs Problem Qualifiers (1) Sepsis: Sepsis type: sepsis due to unspecified organism Qualified Codes: A41.9 - Sepsis, unspecified organism (2) Abdominal pain: Abdominal location: generalized Qualified Codes: R10.84 - Generalized abdominal pain DIAMOND GAVIRIA MD Feb 01, 2017 09:22
[2017-02-01] MEDS: PANTOPRAZOLE 40 MG TABLET.DR. PO SCH (09:29)
[2017-02-01] MEDS: LEVOTHYROXINE 50 MCG TABLET PO SCH (09:29)
[2017-02-01] MEDS: amLODIPine BESYLATE 5 MG TABLET PO SCH (09:31)
[2017-02-01] MEDS: HYDROcodone/APAP 5/325MG 1 TAB TABLET PO PRN (09:43)
[2017-02-01 11:00] VITALS: BP 210/57
--- NOTE | 2017-02-01 11:12 | RAD ---
PORTABLE CHEST 1V Clinical Indication: picc line placement Comparison: Chest radiograph dated 11/25/2016 Findings: Right PICC with tip in the mid SVC. Slightly asymmetric elevation of the right hemidiaphragm. No focal consolidation. Normal pulmonary vasculature. Possible small right pleural effusion. No pneumothorax. Stable borderline cardiomegaly. Stable atherosclerotic thoracic aorta. No acute osseous abnormality. IMPRESSION: 1. Right PICC with tip in the mid SVC. 2. No focal consolidation. 3. Possible small right pleural effusion.
[2017-02-01] MEDS ORDERED: hydrALAZINE 20 MG/ML VIAL. IVP PRN (12:15)
[2017-02-01] MEDS: NYSTATIN TOPICAL POWDER 15GM BOTTLE. TP SCH ×2 (13:18→21:40)
[2017-02-01] MEDS: PIPERACILLIN/TAZO IV Push 3.375 GM VIAL. IVP SCH ×2 (13:30→17:34)
[2017-02-01 15:00] VITALS: BP 119/66
[2017-02-01 19:00] VITALS: BP 116/68
[2017-02-01] MEDS: ATORVASTATIN CALCIUM 10 MG TABLET. PO SCH (20:50)
[2017-02-01 23:00] VITALS: BP 115/68
[2017-02-02] MEDS: VANCOMYCIN 1.75 GM in IV DEXTROSE 5 %-0.45 % NACL 500 ML IV SCH (01:00)
[2017-02-02] MEDS: HYDROcodone/APAP 5/325MG 1 TAB TABLET PO PRN (02:29)
[2017-02-02 03:00] VITALS: BP 156/72
[2017-02-02] MEDS: ONDANSETRON PF 4 MG/2 ML VIAL. IV PRN ×2 (03:02→21:01)
[2017-02-02] MEDS: PIPERACILLIN/TAZO IV Push 3.375 GM VIAL. IVP SCH ×4 (05:40→18:00)
[2017-02-02 06:51] LABS: ALBUMIN 2.3 g/dL (3.4-5.0); ALBUMIN/GLOBULIN RATIO 0.6 (1.0-1.7); CALCIUM 8.6 mg/dL (8.5-10.1); CREATININE 1.3 mg/dL (0.6-1.0); GFR 40.5; POTASSIUM 3.8 mmol/L (3.5-5.1); TOTAL BILIRUBIN 0.5 mg/dL (0.2-1.0); TOTAL PROTEIN 6.1 g/dL (6.4-8.2)
[2017-02-02 07:00] VITALS: BP 113/68
[2017-02-02 07:06] LABS: BASO % 1 % (0-3); EOS % 0 % (0-3); HEMATOCRIT 28.3 % (36.0-47.0); HEMOGLOBIN 9.4 g/dL (12.0-15.5); LYMPH # 0.7 x10^3/uL (1.0-4.8); LYMPH % 9 % (24-48); MEAN CORPUSCULAR HEMOGLOBIN 26 pg (25-35); MEAN CORPUSCULAR HGB CONC 33 g/dL (31-37); MEAN CORPUSCULAR VOLUME 80 fL (79-100); MONO % 12 % (0-9); NEUT % 78 % (31-73); PLATELET COUNT 200 x10^3/uL (140-400); RED BLOOD COUNT 3.54 x10^6/uL (3.50-5.40); RED CELL DISTRIBUTION WIDTH 17.9 % (11.5-14.5); WHITE BLOOD COUNT 7.3 x10^3/uL (4.0-11.0)
[2017-02-02] MEDS: LEVOTHYROXINE 50 MCG TABLET PO SCH (08:22)
[2017-02-02] MEDS: amLODIPine BESYLATE 5 MG TABLET PO SCH (08:22)
[2017-02-02] MEDS: PANTOPRAZOLE 40 MG TABLET.DR. PO SCH (08:22)
[2017-02-02] MEDS: NYSTATIN TOPICAL POWDER 15GM BOTTLE. TP SCH ×2 (08:22→21:03)
--- NOTE | 2017-02-02 08:27 | PDOC ---
SURGICAL PROGRESS NOTE Subjective Pt reports feeling better today, allyson clears, some nausea, f/c last night Vital Signs Vital Signs Date Time Temp Pulse Resp B/P (MAP) Pulse Ox O2 Delivery O2 Flow Rate FiO2 02/02/17 08:22 133 156/72 02/02/17 03:30 17 97 Room Air 02/02/17 03:00 98.1 98.1 I&O Intake and Output 02/02/17 07:00 Intake Total 600 ml Output Total 1300 ml Balance -700 ml Intake Oral 600 ml Output Urine Total 1300 ml # Voids 6 # Bowel Movements 1 General: Alert, Oriented X3, Cooperative, No acute distress Abdomen: Soft, No tenderness, Other (incision c/d/i, G-tube in place) Labs Laboratory Tests Test 01/31/17 21:35 01/31/17 21:55 01/31/17 22:00 02/01/17 07:30 White Blood Count 11.5 x10^3/uL (4.0-11.0) Red Blood Count 4.30 x10^6/uL (3.50-5.40) Hemoglobin 11.3 g/dL (12.0-15.5) Hematocrit 34.4 % (36.0-47.0) Mean Corpuscular Volume 80 fL (79-100) Mean Corpuscular Hemoglobin 26 pg (25-35) Mean Corpuscular Hemoglobin Concent 33 g/dL (31-37) Red Cell Distribution Width 18.6 % (11.5-14.5) Platelet Count 264 x10^3/uL (140-400) Neutrophils (%) (Auto) 89 % (31-73) Lymphocytes (%) (Auto) 5 % (24-48) Monocytes (%) (Auto) 6 % (0-9) Eosinophils (%) (Auto) 0 % (0-3) Basophils (%) (Auto) 0 % (0-3) Neutrophils # (Auto) 10.2 x10^3uL (1.8-7.7) Lymphocytes # (Auto) 0.6 x10^3/uL (1.0-4.8) Monocytes # (Auto) 0.7 x10^3/uL (0.0-1.1) Eosinophils # (Auto) 0.0 x10^3/uL (0.0-0.7) Basophils # (Auto) 0.0 x10^3/uL (0.0-0.2) Segmented Neutrophils % 91 % (35-66) Lymphocytes % 7 % (24-48) Monocytes % 2 % (0-10) Platelet Estimate Adequate (ADEQUATE) Hypochromasia Slight Anisocytosis Slight Sodium Level 132 mmol/L (136-145) Potassium Level 5.2 mmol/L (3.5-5.1) Chloride Level 101 mmol/L (98-107) Carbon Dioxide Level 20 mmol/L (21-32) Anion Gap 11 (6-14) Blood Urea Nitrogen 33 mg/dL (7-20) Creatinine 1.1 mg/dL (0.6-1.0) Estimated GFR (Cockcroft-Gault) 49.1 BUN/Creatinine Ratio 30 (6-20) Glucose Level 107 mg/dL (70-99) Calcium Level 9.6 mg/dL (8.5-10.1) Total Bilirubin 0.4 mg/dL (0.2-1.0) Aspartate Amino Transf (AST/SGOT) 20 U/L (15-37) Alanine Aminotransferase (ALT/SGPT) 23 U/L (14-59) Alkaline Phosphatase 110 U/L (46-116) Total Protein 7.6 g/dL (6.4-8.2) Albumin 2.9 g/dL (3.4-5.0) Albumin/Globulin Ratio 0.6 (1.0-1.7) Lipase 31 U/L (73-393) Urine Collection Type U cath Urine Color Yellow Urine Clarity Clear Urine pH 5.5 Urine Specific [place] 1.015 Urine Protein Negative mg/dL (NEG-TRACE) Urine Glucose (UA) Negative mg/dL (NEG) Urine Ketones (Stick) Negative mg/dL (NEG) Urine Blood Small (NEG) Urine Nitrite Negative (NEG) Urine Bilirubin Negative (NEG) Urine Urobilinogen Dipstick 0.2 mg/dL (0.2 mg/dL) Urine Leukocyte Esterase Moderate (NEG) Urine RBC 3-5 /HPF (0-2) Urine WBC Tntc /HPF (0-4) Urine Squamous Epithelial Cells Few /LPF Urine Bacteria Many /HPF (0-FEW) Urine Mucus Slight /LPF Lactic Acid Level 1.5 mmol/L (0.4-2.0) Nasal Screen MRSA (PCR) Negative (Negative) Test 02/02/17 05:40 White Blood Count 7.3 x10^3/uL (4.0-11.0) Red Blood Count 3.54 x10^6/uL (3.50-5.40) Hemoglobin 9.4 g/dL (12.0-15.5) Hematocrit 28.3 % (36.0-47.0) Mean Corpuscular Volume 80 fL (79-100) Mean Corpuscular Hemoglobin 26 pg (25-35) Mean Corpuscular Hemoglobin Concent 33 g/dL (31-37) Red Cell Distribution Width 17.9 % (11.5-14.5) Platelet Count 200 x10^3/uL (140-400) Neutrophils (%) (Auto) 78 % (31-73) Lymphocytes (%) (Auto) 9 % (24-48) Monocytes (%) (Auto) 12 % (0-9) Eosinophils (%) (Auto) 0 % (0-3) Basophils (%) (Auto) 1 % (0-3) Neutrophils # (Auto) 5.7 x10^3uL (1.8-7.7) Lymphocytes # (Auto) 0.7 x10^3/uL (1.0-4.8) Monocytes # (Auto) 0.9 x10^3/uL (0.0-1.1) Eosinophils # (Auto) 0.0 x10^3/uL (0.0-0.7) Basophils # (Auto) 0.0 x10^3/uL (0.0-0.2) Sodium Level 134 mmol/L (136-145) Potassium Level 3.8 mmol/L (3.5-5.1) Chloride Level 103 mmol/L (98-107) Carbon Dioxide Level 21 mmol/L (21-32) Anion Gap 10 (6-14) Blood Urea Nitrogen 14 mg/dL (7-20) Creatinine 1.3 mg/dL (0.6-1.0) Estimated GFR (Cockcroft-Gault) 40.5 BUN/Creatinine Ratio 11 (6-20) Glucose Level 118 mg/dL (70-99) Calcium Level 8.6 mg/dL (8.5-10.1) Total Bilirubin 0.5 mg/dL (0.2-1.0) Aspartate Amino Transf (AST/SGOT) 25 U/L (15-37) Alanine Aminotransferase (ALT/SGPT) 33 U/L (14-59) Alkaline Phosphatase 92 U/L (46-116) Total Protein 6.1 g/dL (6.4-8.2) Albumin 2.3 g/dL (3.4-5.0) Albumin/Globulin Ratio 0.6 (1.0-1.7) Laboratory Tests Test 02/02/17 05:40 White Blood Count 7.3 x10^3/uL (4.0-11.0) Red Blood Count 3.54 x10^6/uL (3.50-5.40) Hemoglobin 9.4 g/dL (12.0-15.5) Hematocrit 28.3 % (36.0-47.0) Mean Corpuscular Volume 80 fL (79-100) Mean Corpuscular Hemoglobin 26 pg (25-35) Mean Corpuscular Hemoglobin Concent 33 g/dL (31-37) Red Cell Distribution Width 17.9 % (11.5-14.5) Platelet Count 200 x10^3/uL (140-400) Neutrophils (%) (Auto) 78 % (31-73) Lymphocytes (%) (Auto) 9 % (24-48) Monocytes (%) (Auto) 12 % (0-9) Eosinophils (%) (Auto) 0 % (0-3) Basophils (%) (Auto) 1 % (0-3) Neutrophils # (Auto) 5.7 x10^3uL (1.8-7.7) Lymphocytes # (Auto) 0.7 x10^3/uL (1.0-4.8) Monocytes # (Auto) 0.9 x10^3/uL (0.0-1.1) Eosinophils # (Auto) 0.0 x10^3/uL (0.0-0.7) Basophils # (Auto) 0.0 x10^3/uL (0.0-0.2) Sodium Level 134 mmol/L (136-145) Potassium Level 3.8 mmol/L (3.5-5.1) Chloride Level 103 mmol/L (98-107) Carbon Dioxide Level 21 mmol/L (21-32) Anion Gap 10 (6-14) Blood Urea Nitrogen 14 mg/dL (7-20) Creatinine 1.3 mg/dL (0.6-1.0) Estimated GFR (Cockcroft-Gault) 40.5 BUN/Creatinine Ratio 11 (6-20) Glucose Level 118 mg/dL (70-99) Calcium Level 8.6 mg/dL (8.5-10.1) Total Bilirubin 0.5 mg/dL (0.2-1.0) Aspartate Amino Transf (AST/SGOT) 25 U/L (15-37) Alanine Aminotransferase (ALT/SGPT) 33 U/L (14-59) Alkaline Phosphatase 92 U/L (46-116) Total Protein 6.1 g/dL (6.4-8.2) Albumin 2.3 g/dL (3.4-5.0) Albumin/Globulin Ratio 0.6 (1.0-1.7) Problem List Problems Medical Problems: (1) Dehydration Status: Acute (2) Moderate protein malnutrition Status: Acute (3) Postoperative wound infection Status: Acute (4) Sepsis Status: Acute (5) Urinary tract infection Status: Acute Assessment/Plan abd pain cont abx Problems: BA ALMONTE MD Feb 02, 2017 08:27
[2017-02-02 11:00] VITALS: BP 117/69
[2017-02-02] MEDS: VANCOMYCIN PER PHARMACY MC PRN (14:56)
[2017-02-02 19:00] VITALS: BP 101/45
--- NOTE | 2017-02-02 19:39 | PDOC ---
PROGRESS NOTES Chief Complaint Chief Complaint fevers ASSESSMENT AND PLAN: 1. Sepsis: blood cult pending. fevers improved. 2. Wound culture: obtained from PEG site on 01/27 at [facility]: CRE. (E.cloacae). final report indicates sensitivity to fluoroquinolones, resistance to Zosyn. switch Abx 3. UTI: GNR on prelim culture report; suspect same agent as above 4. Pancreatic CA: s/p Whipple on 01/01 with complication of wound dehiscence. had been in LTAC and SNF since. appreciate Dr Swanson's input 5. Leukocytosis: mild, resolved. monitor 6. Hyponatremia: mild, suspect baseline. monitor 7. HTN: poorly controlled on home Norvasc. avoid KUNAL-I for now with worsening creat. add Hydralazine PRN 8. Hyperlipidemia: on statin 9. Hypothyroidism: on synthroid 10. Intertriginous candidiasis: nystatin powder 11. Prophylaxis: SCDs History of Present Illness History of Present Illness abd pain much improved. able to move w/o difficulties Vitals Vitals Vital Signs Date Time Temp Pulse Resp B/P (MAP) Pulse Ox O2 Delivery O2 Flow Rate FiO2 02/02/17 11:00 97.8 80 20 117/69 (85) 96 Room Air 97.8 Physical Exam General: Alert, Oriented X3, Cooperative, No acute distress Heart: Regular rate Lungs: Clear Abdomen: Normal bowel sounds, Soft, No tenderness, Other (midline incision covered, umbilical [place] in place. PEG LUQ, superficial defects surrounding) Extremities: No edema Skin: Other (midline incision covered, several areas of skin denudement on abd ) Labs LABS Laboratory Tests Test 02/02/17 05:40 White Blood Count 7.3 x10^3/uL (4.0-11.0) Red Blood Count 3.54 x10^6/uL (3.50-5.40) Hemoglobin 9.4 g/dL (12.0-15.5) Hematocrit 28.3 % (36.0-47.0) Mean Corpuscular Volume 80 fL (79-100) Mean Corpuscular Hemoglobin 26 pg (25-35) Mean Corpuscular Hemoglobin Concent 33 g/dL (31-37) Red Cell Distribution Width 17.9 % (11.5-14.5) Platelet Count 200 x10^3/uL (140-400) Neutrophils (%) (Auto) 78 % (31-73) Lymphocytes (%) (Auto) 9 % (24-48) Monocytes (%) (Auto) 12 % (0-9) Eosinophils (%) (Auto) 0 % (0-3) Basophils (%) (Auto) 1 % (0-3) Neutrophils # (Auto) 5.7 x10^3uL (1.8-7.7) Lymphocytes # (Auto) 0.7 x10^3/uL (1.0-4.8) Monocytes # (Auto) 0.9 x10^3/uL (0.0-1.1) Eosinophils # (Auto) 0.0 x10^3/uL (0.0-0.7) Basophils # (Auto) 0.0 x10^3/uL (0.0-0.2) Sodium Level 134 mmol/L (136-145) Potassium Level 3.8 mmol/L (3.5-5.1) Chloride Level 103 mmol/L (98-107) Carbon Dioxide Level 21 mmol/L (21-32) Anion Gap 10 (6-14) Blood Urea Nitrogen 14 mg/dL (7-20) Creatinine 1.3 mg/dL (0.6-1.0) Estimated GFR (Cockcroft-Gault) 40.5 BUN/Creatinine Ratio 11 (6-20) Glucose Level 118 mg/dL (70-99) Calcium Level 8.6 mg/dL (8.5-10.1) Total Bilirubin 0.5 mg/dL (0.2-1.0) Aspartate Amino Transf (AST/SGOT) 25 U/L (15-37) Alanine Aminotransferase (ALT/SGPT) 33 U/L (14-59) Alkaline Phosphatase 92 U/L (46-116) Total Protein 6.1 g/dL (6.4-8.2) Albumin 2.3 g/dL (3.4-5.0) Albumin/Globulin Ratio 0.6 (1.0-1.7) LINDA VERDE MD Feb 02, 2017 19:39
[2017-02-02] MEDS: ATORVASTATIN CALCIUM 10 MG TABLET. PO SCH (21:01)
[2017-02-02] MEDS: ACETAMINOPHEN 325 MG TABLET. PO PRN (21:01)
[2017-02-02] MEDS: LACTOBACILLUS RHAMNOSUS GG 1 CAPSULE. PO SCH (21:01)
[2017-02-02] MEDS: CIPROFLOXACIN 400MG PREMIX 200 ML IV SCH (21:47)
[2017-02-02 23:00] VITALS: BP 100/45
[2017-02-03] MEDS ORDERED: ALTEPLASE 2 MG VIAL INT CAT ONE (01:15)
[2017-02-03] MEDS: VANCOMYCIN 1.75 GM in IV DEXTROSE 5 %-0.45 % NACL 500 ML IV SCH (02:27)
[2017-02-03 02:44] VITALS: BP 95/43
[2017-02-03] MEDS: VANCOMYCIN PER PHARMACY MC PRN (03:14)
[2017-02-03 05:41] LABS: BASO % 1 % (0-3); EOS % 0 % (0-3); LYMPH # 0.9 x10^3/uL (1.0-4.8); LYMPH % 15 % (24-48); MEAN CORPUSCULAR HEMOGLOBIN 26 pg (25-35); MEAN CORPUSCULAR HGB CONC 32 g/dL (31-37); MEAN CORPUSCULAR VOLUME 81 fL (79-100); MONO % 15 % (0-9); NEUT % 68 % (31-73); PLATELET COUNT 181 x10^3/uL (140-400); RED BLOOD COUNT 3.48 x10^6/uL (3.50-5.40); RED CELL DISTRIBUTION WIDTH 18.2 % (11.5-14.5)
[2017-02-03 06:17] LABS: CALCIUM 8.6 mg/dL (8.5-10.1); CREATININE 1.2 mg/dL (0.6-1.0); GFR 44.4; POTASSIUM 3.6 mmol/L (3.5-5.1)
[2017-02-03 07:00] VITALS: BP 120/56
[2017-02-03] MEDS: HYDROcodone/APAP 5/325MG 1 TAB TABLET PO PRN ×3 (08:33→22:06)
[2017-02-03] MEDS: amLODIPine BESYLATE 5 MG TABLET PO SCH (08:34)
[2017-02-03] MEDS: PANTOPRAZOLE 40 MG TABLET.DR. PO SCH (08:34)
[2017-02-03] MEDS: LEVOTHYROXINE 50 MCG TABLET PO SCH (08:34)
[2017-02-03] MEDS: LACTOBACILLUS RHAMNOSUS GG 1 CAPSULE. PO SCH ×2 (08:34→22:05)
[2017-02-03] MEDS: CIPROFLOXACIN 400MG PREMIX 200 ML IV SCH ×2 (08:47→22:05)
--- NOTE | 2017-02-03 09:56 | PDOC ---
PROGRESS NOTES Subjective Subjective gradually improving, no complaints Objective Objective Vital Signs Date Time Temp Pulse Resp B/P (MAP) Pulse Ox O2 Delivery O2 Flow Rate FiO2 02/03/17 08:34 70 95/43 02/03/17 08:33 97 Room Air 02/03/17 03:00 97.7 97.7 02/03/17 02:44 20 Intake and Output 02/03/17 07:00 Intake Total 600 ml Balance 600 ml Intake Oral 600 ml # Voids 8 Physical Exam Abdomen: Soft Assessment Assessment Problems Medical Problems: (1) Dehydration Status: Acute (2) Moderate protein malnutrition Status: Acute (3) Postoperative wound infection Status: Acute (4) Sepsis Status: Acute (5) Urinary tract infection Status: Acute Plan Plan of Care Continue with current management, no new surgical recs Comment Review of Relevant I have reviewed the following items alonzo (where applicable) has been applied. Labs Laboratory Tests Test 02/02/17 05:40 02/03/17 01:10 02/03/17 04:30 White Blood Count 7.3 x10^3/uL (4.0-11.0) 6.0 x10^3/uL (4.0-11.0) Red Blood Count 3.54 x10^6/uL (3.50-5.40) 3.48 x10^6/uL (3.50-5.40) Hemoglobin 9.4 g/dL (12.0-15.5) 9.0 g/dL (12.0-15.5) Hematocrit 28.3 % (36.0-47.0) 28.0 % (36.0-47.0) Mean Corpuscular Volume 80 fL (79-100) 81 fL (79-100) Mean Corpuscular Hemoglobin 26 pg (25-35) 26 pg (25-35) Mean Corpuscular Hemoglobin Concent 33 g/dL (31-37) 32 g/dL (31-37) Red Cell Distribution Width 17.9 % (11.5-14.5) 18.2 % (11.5-14.5) Platelet Count 200 x10^3/uL (140-400) 181 x10^3/uL (140-400) Neutrophils (%) (Auto) 78 % (31-73) 68 % (31-73) Lymphocytes (%) (Auto) 9 % (24-48) 15 % (24-48) Monocytes (%) (Auto) 12 % (0-9) 15 % (0-9) Eosinophils (%) (Auto) 0 % (0-3) 0 % (0-3) Basophils (%) (Auto) 1 % (0-3) 1 % (0-3) Neutrophils # (Auto) 5.7 x10^3uL (1.8-7.7) 4.1 x10^3uL (1.8-7.7) Lymphocytes # (Auto) 0.7 x10^3/uL (1.0-4.8) 0.9 x10^3/uL (1.0-4.8) Monocytes # (Auto) 0.9 x10^3/uL (0.0-1.1) 0.9 x10^3/uL (0.0-1.1) Eosinophils # (Auto) 0.0 x10^3/uL (0.0-0.7) 0.0 x10^3/uL (0.0-0.7) Basophils # (Auto) 0.0 x10^3/uL (0.0-0.2) 0.0 x10^3/uL (0.0-0.2) Sodium Level 134 mmol/L (136-145) 139 mmol/L (136-145) Potassium Level 3.8 mmol/L (3.5-5.1) 3.6 mmol/L (3.5-5.1) Chloride Level 103 mmol/L (98-107) 106 mmol/L (98-107) Carbon Dioxide Level 21 mmol/L (21-32) 22 mmol/L (21-32) Anion Gap 10 (6-14) 11 (6-14) Blood Urea Nitrogen 14 mg/dL (7-20) 14 mg/dL (7-20) Creatinine 1.3 mg/dL (0.6-1.0) 1.2 mg/dL (0.6-1.0) Estimated GFR (Cockcroft-Gault) 40.5 44.4 BUN/Creatinine Ratio 11 (6-20) Glucose Level 118 mg/dL (70-99) 105 mg/dL (70-99) Calcium Level 8.6 mg/dL (8.5-10.1) 8.6 mg/dL (8.5-10.1) Total Bilirubin 0.5 mg/dL (0.2-1.0) Aspartate Amino Transf (AST/SGOT) 25 U/L (15-37) Alanine Aminotransferase (ALT/SGPT) 33 U/L (14-59) Alkaline Phosphatase 92 U/L (46-116) Total Protein 6.1 g/dL (6.4-8.2) Albumin 2.3 g/dL (3.4-5.0) Albumin/Globulin Ratio 0.6 (1.0-1.7) Vancomycin Level Trough 15.8 mcg/mL (10.0-20.0) Vancomycin Last Dose Date Vancomycin Last Dose Time Laboratory Tests Test 02/03/17 01:10 02/03/17 04:30 Vancomycin Level Trough 15.8 mcg/mL (10.0-20.0) Vancomycin Last Dose Date Vancomycin Last Dose Time White Blood Count 6.0 x10^3/uL (4.0-11.0) Red Blood Count 3.48 x10^6/uL (3.50-5.40) Hemoglobin 9.0 g/dL (12.0-15.5) Hematocrit 28.0 % (36.0-47.0) Mean Corpuscular Volume 81 fL (79-100) Mean Corpuscular Hemoglobin 26 pg (25-35) Mean Corpuscular Hemoglobin Concent 32 g/dL (31-37) Red Cell Distribution Width 18.2 % (11.5-14.5) Platelet Count 181 x10^3/uL (140-400) Neutrophils (%) (Auto) 68 % (31-73) Lymphocytes (%) (Auto) 15 % (24-48) Monocytes (%) (Auto) 15 % (0-9) Eosinophils (%) (Auto) 0 % (0-3) Basophils (%) (Auto) 1 % (0-3) Neutrophils # (Auto) 4.1 x10^3uL (1.8-7.7) Lymphocytes # (Auto) 0.9 x10^3/uL (1.0-4.8) Monocytes # (Auto) 0.9 x10^3/uL (0.0-1.1) Eosinophils # (Auto) 0.0 x10^3/uL (0.0-0.7) Basophils # (Auto) 0.0 x10^3/uL (0.0-0.2) Sodium Level 139 mmol/L (136-145) Potassium Level 3.6 mmol/L (3.5-5.1) Chloride Level 106 mmol/L (98-107) Carbon Dioxide Level 22 mmol/L (21-32) Anion Gap 11 (6-14) Blood Urea Nitrogen 14 mg/dL (7-20) Creatinine 1.2 mg/dL (0.6-1.0) Estimated GFR (Cockcroft-Gault) 44.4 Glucose Level 105 mg/dL (70-99) Calcium Level 8.6 mg/dL (8.5-10.1) Microbiology 01/31/17 Blood Culture - Preliminary, Resulted NO GROWTH AFTER 2 DAYS 01/31/17 Urine Culture - Preliminary, Resulted 01/31/17 Urine Culture Result 1 (GILBERT) - Preliminary, Resulted Medications Current Medications Sodium Chloride 1,000 ml @ 1,830 mls/hr Q33M IV Last administered on 00:56; Start 01/31/17 at 21:15; Stop 01/31/17 at 23:15; Status DC Piperacillin Sod/ Tazobactam Sod (Zosyn Per Pharmacy) 1 each PRN DAILY PRN MC SEE COMMENTS; Start 01/31/17 at 23:00; Stop 02/01/17 at 12:57; Status DC Vancomycin HCl (Vanco Per Pharmacy) 1 each PRN DAILY PRN MC SEE COMMENTS Last administered on 02/03/17 03:14; Start 01/31/17 at 23:00 Iohexol (Omnipaque 300 Mg/ml) 60 ml 1X ONCE IV Last administered on 22:34; Start 01/31/17 at 22:30; Stop 01/31/17 at 22:31; Status DC Piperacillin Sod/ Tazobactam Sod (Zosyn) 4.5 gm ONCE ONCE IVP Last administered on 02/01/17 00:57; Start 01/31/17 at 22:30; Stop 01/31/17 at 22 :31; Status DC Info (Do NOT chart on this entry -- for MONITORING) 1 each PRN DAILY PRN MC SEE COMMENTS; Start 01/31/17 at 22:30; Stop 02/02/17 at 22:29; Status DC Vancomycin HCl 2 gm/Dextrose/ Sodium Chloride 500 ml @ 250 mls/hr 1X ONCE IV Last administered on 02/01/17 00:56; Start 01/31/17 at 23:00; Stop 02/01/17 at 00:59; Status DC Ondansetron HCl (Zofran) 4 mg PRN Q8HRS PRN IV NAUSEA/VOMITING; Start at 02:30; Stop 02/02/17 at 02:29; Status DC Fentanyl Citrate (Fentanyl 2ml Vial) 50 mcg PRN Q2HR PRN IV PAIN; Start at 02:30; Stop 02/02/17 at 02:29; Status DC Dextrose/Sodium Chloride 1,000 ml @ 150 mls/hr 1X ONCE IV ; Start 02/01/17 at 02:30; Stop 02/01/17 at 09:09; Status DC Piperacillin Sod/ Tazobactam Sod (Zosyn) 4.5 gm Q6HRS IVP Last administered on 02/01/17 06:00; Start 02/01/17 at 06:00; Stop 02/01/17 at 13:00; Status DC Vancomycin HCl 1.75 gm/Dextrose/ Sodium Chloride 500 ml @ 250 mls/hr Q24H IV Last administered on 02/03/17 02:27; Start 02/02/17 at 01:00 Vancomycin HCl 1 each 1X ONCE MC ; Start 02/03/17 at 00:30; Stop 02/03/17 at 00 :31; Status DC Amlodipine Besylate (Norvasc) 5 mg DAILY PO Last administered on 02/03/17 08: 34; Start 02/01/17 at 09:00 Levothyroxine Sodium (Synthroid) 50 mcg DAILY07 PO Last administered on 08:34; Start 02/01/17 at 10:30 Pantoprazole Sodium (Protonix) 40 mg DAILYAC PO Last administered on 02/03/17 08:34; Start 02/01/17 at 08:15 Atorvastatin Calcium (Lipitor) 5 mg QHS PO Last administered on 02/02/17 21:01 ; Start 02/01/17 at 21:00 Acetaminophen/ Hydrocodone Bitart (Lortab 5/325) 1 tab PRN Q4HRS PRN PO PAIN Last administered on 02/03/17 08:33; Start 02/01/17 at 09:30 Nystatin (Nystop) 1 henry BID TP Last administered on 02/02/17 21:03; Start at 10:30 Hydralazine HCl (Apresoline Inj) 20 mg PRN Q6HRS PRN IVP ELEVATED BP, SEE COMMENTS; Start 02/01/17 at 12:15 Piperacillin Sod/ Tazobactam Sod (Zosyn) 3.375 gm Q6HRS IVP Last administered on 02/02/17 18:00; Start 02/01/17 at 13:30; Stop 02/02/17 at 19:43; Status DC Ondansetron HCl (Zofran) 4 mg PRN Q6HRS PRN IV NAUSEA/VOMITING Last administered on 02/02/17 21:01; Start 02/02/17 at 03:00 Acetaminophen (Tylenol) 650 mg PRN Q6HRS PRN PO FEVER Last administered on 02/02 21:01; Start 02/02/17 at 03:00 Lactobacillus Rhamnosus (Culturelle) 1 cap BID PO Last administered on 08:34; Start 02/02/17 at 21:00 Ciprofloxacin/ Dextrose 200 ml @ 200 mls/hr Q12HR IV Last administered on 02/03 08:47; Start 02/02/17 at 21:00 Alteplase, Recombinant (Cathflo) 2 mg 1X ONCE INT CAT Last administered on 06:09; Start 02/03/17 at 01:15; Stop 02/03/17 at 01:16; Status DC Active Scripts Active Protonix (Pantoprazole Sodium) 40 Mg Tablet. 1 Tab PO DAILY Reported Ferralet 90 Dual-Iron Tablet (Iron, Carb & Gluc/Fa/B12/C/Dss) 1 Each Tablet 1 Tab PO DAILY Multivitamins (Multivitamin) 1 Each Tablet 1 Tab PO DAILY Loratadine 10 Mg Tablet 1 Tab PO DAILY Fluticasone Propionate Nasal [place] (Fluticasone Propionate) 16 Gm [place].susp 1 [place] NS DAILY PRN Levothyroxine Sodium 50 Mcg Tablet 1 Tab PO DAILY Lisinopril 10 Mg Tablet 1 Tab PO DAILY Pravastatin Sodium 10 Mg Tablet 1 Tab PO DAILY Amlodipine Besylate 5 Mg Tablet 5 Mg PO DAILY Vitals/I & O Vital Sign - Last 24 Hours 02/02/17 02/02/17 02/02/17 02/02/17 11:00 19:00 20:30 23:00 Temp 97.8 99.9 100.4 97.8 99.9 100.4 Pulse 80 77 87 Resp 20 20 20 B/P (MAP) 117/69 (85) 101/45 (63) 100/45 (63) Pulse Ox 96 97 95 O2 Delivery Room Air Room Air Room Air Room Air 02/03/17 02/03/17 02/03/17 02/03/17 00:15 02:44 03:00 08:33 Temp 98.1 95.3 97.7 98.1 95.3 97.7 Pulse 70 Resp 20 B/P (MAP) 95/43 (60) Pulse Ox 97 97 O2 Delivery Room Air Room Air 02/03/17 08:34 Pulse 70 B/P (MAP) 95/43 Intake and Output 02/02/17 02/02/17 02/03/17 15:00 23:00 07:00 Intake Total 600 ml Balance 600 ml MINNIE WONG MD Feb 03, 2017 09:56
[2017-02-03] MEDS: NYSTATIN TOPICAL POWDER 15GM BOTTLE. TP SCH ×2 (10:08→21:00)
[2017-02-03 11:00] VITALS: BP 120/59
--- NOTE | 2017-02-03 14:05 | PDOC ---
Infectious Disease Note ROS ROS Vital Sign Vital Signs Vital Signs Date Time Temp Pulse Resp B/P (MAP) Pulse Ox O2 Delivery O2 Flow Rate FiO2 02/03/17 11:00 97.1 73 18 120/59 (79) 96 97.1 02/03/17 09:40 Room Air Physical Exam PHYSICAL EXAM RUE-PIC. clean Labs Lab Laboratory Tests Test 02/03/17 01:10 02/03/17 04:30 Vancomycin Level Trough 15.8 mcg/mL (10.0-20.0) Vancomycin Last Dose Date Vancomycin Last Dose Time White Blood Count 6.0 x10^3/uL (4.0-11.0) Red Blood Count 3.48 x10^6/uL (3.50-5.40) Hemoglobin 9.0 g/dL (12.0-15.5) Hematocrit 28.0 % (36.0-47.0) Mean Corpuscular Volume 81 fL (79-100) Mean Corpuscular Hemoglobin 26 pg (25-35) Mean Corpuscular Hemoglobin Concent 32 g/dL (31-37) Red Cell Distribution Width 18.2 % (11.5-14.5) Platelet Count 181 x10^3/uL (140-400) Neutrophils (%) (Auto) 68 % (31-73) Lymphocytes (%) (Auto) 15 % (24-48) Monocytes (%) (Auto) 15 % (0-9) Eosinophils (%) (Auto) 0 % (0-3) Basophils (%) (Auto) 1 % (0-3) Neutrophils # (Auto) 4.1 x10^3uL (1.8-7.7) Lymphocytes # (Auto) 0.9 x10^3/uL (1.0-4.8) Monocytes # (Auto) 0.9 x10^3/uL (0.0-1.1) Eosinophils # (Auto) 0.0 x10^3/uL (0.0-0.7) Basophils # (Auto) 0.0 x10^3/uL (0.0-0.2) Sodium Level 139 mmol/L (136-145) Potassium Level 3.6 mmol/L (3.5-5.1) Chloride Level 106 mmol/L (98-107) Carbon Dioxide Level 22 mmol/L (21-32) Anion Gap 11 (6-14) Blood Urea Nitrogen 14 mg/dL (7-20) Creatinine 1.2 mg/dL (0.6-1.0) Estimated GFR (Cockcroft-Gault) 44.4 Glucose Level 105 mg/dL (70-99) Calcium Level 8.6 mg/dL (8.5-10.1) Objective Assessment 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 s/p biopsy pancreatic head mass 12/13/16 followed by s/p Whipple procedure with g-tube placement on 01/01 - adjuvant chemo followed by radiation planned per oncology notes. Wound is clean with flor Plan Plan of Care Clinically improving, Continue cipro/Vanc Await Enterococcus susceptibilities Monitor G-tube social work coordinator WBC, renal function and temp D/w brother Thank you [phone] Attending Co-Sign Attending Co-Sign The patient was seen and interviewed as well as examined at the bedside. The chart was reviewed. The case was discussed. Agree with the plan of care. JOSHUA SU APRN Feb 03, 2017 14:05 NGUYỄN MUIR MD Feb 03, 2017 14:35
--- NOTE | 2017-02-03 14:35 | PDOC ---
PROGRESS NOTES Chief Complaint Chief Complaint fevers ASSESSMENT AND PLAN: 1. Sepsis: blood cult pending. fevers improved. 2. Wound culture: obtained from PEG site on 01/27 at [facility]: CRE. (E.cloacae). final report indicates sensitivity to fluoroquinolones, resistance to Zosyn. switch Abx 3. UTI: GNR on prelim culture report; suspect same agent as above 4. Pancreatic CA: s/p Whipple on 01/01 with complication of wound dehiscence. had been in LTAC and SNF since. appreciate Dr Swanson's input 5. Leukocytosis: mild, resolved. monitor 6. Hyponatremia: mild, suspect baseline. monitor 7. HTN: poorly controlled on home Norvasc. avoid KUNAL-I for now with worsening creat. add Hydralazine PRN 8. Hyperlipidemia: on statin 9. Hypothyroidism: on synthroid 10. Intertriginous candidiasis: nystatin powder 11. Prophylaxis: SCDs History of Present Illness History of Present Illness feels better. no pain Vitals Vitals Vital Signs Date Time Temp Pulse Resp B/P (MAP) Pulse Ox O2 Delivery O2 Flow Rate FiO2 02/03/17 11:00 97.1 73 18 120/59 (79) 96 97.1 02/03/17 09:40 Room Air Physical Exam General: Alert, Oriented X3, Cooperative, No acute distress Heart: Regular rate Lungs: Clear Abdomen: Soft, Other (midline incision covered, umbilical Chance in place. PEG LUQ, superficial defects surrounding) Extremities: No edema Skin: Other (midline incision covered, several areas of skin denudement on abd ) Labs LABS Laboratory Tests Test 02/03/17 01:10 02/03/17 04:30 Vancomycin Level Trough 15.8 mcg/mL (10.0-20.0) Vancomycin Last Dose Date Vancomycin Last Dose Time White Blood Count 6.0 x10^3/uL (4.0-11.0) Red Blood Count 3.48 x10^6/uL (3.50-5.40) Hemoglobin 9.0 g/dL (12.0-15.5) Hematocrit 28.0 % (36.0-47.0) Mean Corpuscular Volume 81 fL (79-100) Mean Corpuscular Hemoglobin 26 pg (25-35) Mean Corpuscular Hemoglobin Concent 32 g/dL (31-37) Red Cell Distribution Width 18.2 % (11.5-14.5) Platelet Count 181 x10^3/uL (140-400) Neutrophils (%) (Auto) 68 % (31-73) Lymphocytes (%) (Auto) 15 % (24-48) Monocytes (%) (Auto) 15 % (0-9) Eosinophils (%) (Auto) 0 % (0-3) Basophils (%) (Auto) 1 % (0-3) Neutrophils # (Auto) 4.1 x10^3uL (1.8-7.7) Lymphocytes # (Auto) 0.9 x10^3/uL (1.0-4.8) Monocytes # (Auto) 0.9 x10^3/uL (0.0-1.1) Eosinophils # (Auto) 0.0 x10^3/uL (0.0-0.7) Basophils # (Auto) 0.0 x10^3/uL (0.0-0.2) Sodium Level 139 mmol/L (136-145) Potassium Level 3.6 mmol/L (3.5-5.1) Chloride Level 106 mmol/L (98-107) Carbon Dioxide Level 22 mmol/L (21-32) Anion Gap 11 (6-14) Blood Urea Nitrogen 14 mg/dL (7-20) Creatinine 1.2 mg/dL (0.6-1.0) Estimated GFR (Cockcroft-Gault) 44.4 Glucose Level 105 mg/dL (70-99) Calcium Level 8.6 mg/dL (8.5-10.1) LINDA VERDE MD Feb 03, 2017 14:35
[2017-02-03 15:00] VITALS: BP 135/57
[2017-02-03 19:00] VITALS: BP 111/63
[2017-02-03] MEDS: ATORVASTATIN CALCIUM 10 MG TABLET. PO SCH (22:06)
--- NOTE | 2017-02-03 22:52 | CONS ---
DATE OF CONSULTATION: 02/02/2017 This is Erlin Flores, nurse practitioner, dictating for Dr. Nguyễn Muir, Infectious Disease. REFERRING PHYSICIAN: Ariana Melendrez MD REASON FOR CONSULTATION: CRE infection, PEG site. HISTORY OF PRESENT ILLNESS: This patient is a 71-year-old female who was recently diagnosed with pancreatic adenocarcinoma status post Whipple procedure with BOZENA drain and gastrostomy tube placement on 01/01/2017. She was residing at [facility] and was doing well postop. However, she developed acute onset of fever, chills, nausea, vomiting, and abdominal pain and was sent to the ER. A CT abdomen/pelvis showed postsurgical changes with soft tissue edema and few tiny foci of air. She has a temperature of 102.8 with a white blood cell count of 11.5, lactic acid 1.5 and lipase 31. She was evaluated by General Surgery, Dr. Swanson and BOZENA drain since removed. Her urinalysis showed wbc's too numerous to count, moderate leukocyte esterase, negative nitrite, many bacteria and few squamous epithelial cells with gram-negative rods greater than 100,000 colony forming units per mL on culture. Blood cultures remain negative to date. Reportedly, the patient showed increased drainage and redness around the PEG tube site. A swab culture from January 27 grew carbapenem-resistant Enterobacteriaceae -- Enterobacter cloacae sensitive to ciprofloxacin, levofloxacin, tobramycin, trimethoprim/sulfa, otherwise resistant. The patient was initially on Zosyn before being switched to ciprofloxacin on February 02. The patient explains that she was treated for urinary tract infection a few weeks ago. She later developed recurrent dysuria that has since resolved. PAST MEDICAL HISTORY: Newly diagnosed pancreatic adenocarcinoma, status post biopsy pancreatic head mass on 12/13/2016 followed by Whipple procedure with gastrostomy tube placement on 01/01/2017. Hypertension, hypercholesterolemia, gastroesophageal reflux disease, arthritis, gout, carpal tunnel syndrome, hypothyroidism, anxiety, iron deficiency anemia, ischemic colitis, treated in 2014. PAST SURGICAL HISTORY: As mentioned above, cholecystectomy, appendectomy, bilateral lumpectomy, hysterectomy. FAMILY HISTORY: Positive for cancer, alcohol abuse. SOCIAL HISTORY: The patient was residing at long-term facility prior to this admission. No history of alcohol or illicit drug use. ALLERGIES: No known drug allergies. MEDICATIONS: Ciprofloxacin, vancomycin, Lipitor, probiotics, Synthroid, nystatin topical powder, Zofran p.r.n., Protonix, Norvasc, Tylenol p.r.n. REVIEW OF SYSTEMS: The patient is feeling much better since admission. Denies headache, nasal/sinus congestion or sore throat. Denies shortness of air, cough or wheezing. Denies chest pain, palpitations or swelling. Denies further nausea or vomiting. She had a bowel movement earlier today. Denies diarrhea or constipation. Denies dysuria, frequency or urgency. Denies muscle aches or joint pains. Denies rash. PHYSICAL EXAMINATION: GENERAL: Overweight female, propped up in bed, in no apparent distress. VITAL SIGNS: Temperature is 97.1, T-max 100.4, blood pressure 120/59, heart rate 73, respiratory rate 18, pulse oximetry 96% on room air, weight is 242 pounds. HEENT: Pupils equally round. Eyes unconjugated. Normal conjunctivae. Oral cavity, pharynx is pink. NECK: Supple. LUNGS: Clear. HEART: Normal S1, S2. ABDOMEN: Obese, bowel sounds active, soft, nontender. Gastrostomy tube intact with drainage and skin breakdown around the site. Chance intact distal midline incision. EXTREMITIES: No gross edema or cyanosis. SKIN: Without rash. NEUROLOGIC: Alert and oriented x 3. Moves all extremities. RUE- PICC. clean. LABORATORY DATA: WBC 6.0, hemoglobin 9.0, platelet count 181,000. Electrolytes are unremarkable. Creatinine 1.2, BUN 14. Estimated GFR 44.4, glucose 105. Lactic acid 1.5, total bilirubin 0.5, AST 25, ALT 33, albumin 2.3, lipase 31. Urinalysis per HPI. Vancomycin trough 15.8. MRSA screen negative. Blood cultures from January 31 negative to date. Urine culture, gram-negative rods. Abdominal/pelvis CT per HPI. Chest x-ray shows no focal consolidation; possible small right pleural effusion; right PICC with tip in the mid SVC. IMPRESSION: 1. 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 2. Gram-negative [place], urinary tract infection present on admission from 01/31/2017. Per discussion with lab suze, identified as Enterobacter along with enterococcus spp. 3. Fever. 4. Acute kidney injury. 5. Pancreatic adenocarcinoma, status post biopsy pancreatic head on 12/13/2016 followed by Whipple procedure with gastrostomy tube placement on 01/01/2017. PLAN: The patient is clinically improving. Continue the ciprofloxacin and vancomycin for now. Await further urine culture identification and susceptibilities. Monitor gastrostomy tube site as well as WBC count, renal function and temperature. Supportive care. Discussed with her brother. Thank you, Dr. Melendrez for asking us to participate in this patient's care. Should you have further questions or concerns, please call. NGUYỄN MUIR MD DR: WERNER/niranjan JOB#: [id number] / [id number] GUNNER
[2017-02-03 23:00] VITALS: BP 106/51
[2017-02-04] MEDS: VANCOMYCIN 1.75 GM in IV DEXTROSE 5 %-0.45 % NACL 500 ML IV SCH (01:52)
[2017-02-04 03:00] VITALS: BP 110/57
[2017-02-04] MEDS: HYDROcodone/APAP 5/325MG 1 TAB TABLET PO PRN (05:26)
[2017-02-04] MEDS: LEVOTHYROXINE 50 MCG TABLET PO SCH (06:38)
[2017-02-04] MEDS: PANTOPRAZOLE 40 MG TABLET.DR. PO SCH (06:38)
[2017-02-04 07:00] VITALS: BP 114/49
[2017-02-04] MEDS: CIPROFLOXACIN 400MG PREMIX 200 ML IV SCH (10:26)
[2017-02-04] MEDS: amLODIPine BESYLATE 5 MG TABLET PO SCH (10:27)
[2017-02-04] MEDS: LACTOBACILLUS RHAMNOSUS GG 1 CAPSULE. PO SCH ×2 (10:27→20:47)
[2017-02-04] MEDS: NYSTATIN TOPICAL POWDER 15GM BOTTLE. TP SCH ×2 (10:52→20:47)
[2017-02-04 11:00] VITALS: BP 116/55
--- NOTE | 2017-02-04 11:08 | PDOC ---
Infectious Disease Note Subjective Subjective Feeling better this morning No further chills and bowels are moving No fever last 24 hours Denies pain ROS ROS GEN: Denies fevers, sweats RESP: Denies shortness of air, cough GI: Denies n/v/d Vital Sign Vital Signs Vital Signs Date Time Temp Pulse Resp B/P (MAP) Pulse Ox O2 Delivery O2 Flow Rate FiO2 02/04/17 10:27 74 114/49 02/04/17 07:50 Room Air 02/04/17 07:00 98.1 18 97 98.1 Physical Exam PHYSICAL EXAM GENERAL: Propped up in bed, smiling, NAD HEENT: Oral cavity, pharynx is pink. NECK: Supple. LUNGS: Clear. HEART: Normal S1, S2. ABDOMEN: Obese, bowel sounds active, soft, nontender. G-tube intact + skin breakdown around the site. Abd incision dressed with distal Chance drain intact. EXTREMITIES: No gross edema or cyanosis. SKIN: Without rash. NEUROLOGIC: Alert and oriented x 3. Moves all extremities. RUE PICC. clean. Labs Micro BLOOD CULTURE Preliminary NO GROWTH AFTER 3 DAYS URINE CULTURE Preliminary Preliminary report URINE CULTURE RES 1 Preliminary Comment Enterobacter cloacae complex Greater than 100,000 colony forming units per mL URINE CULTURE RES 2 Preliminary Enterococcus species Greater than 100,000 colony forming units per mL ANTIMICROBIAL SUSCEPTIBILITY Preliminary Comment S = Susceptible; I = Intermediate; R = Resistant P = Positive; N = Negative MICS are expressed in micrograms per mL Antibiotic RSLT#1 RSLT#2 RSLT#3 RSLT#4 Amoxicillin/Clavulanic Acid R Cefazolin R Cefepime S Ceftriaxone S Cefuroxime R Cephalothin R Ciprofloxacin S Ertapenem S Gentamicin S Imipenem S Levofloxacin S Nitrofurantoin I Piperacillin S Tetracycline S Tobramycin S Trimethoprim/Sulfa S Objective Assessment 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 s/p biopsy pancreatic head mass 12/13/16 followed by s/p Whipple procedure with g-tube placement on 01/01 - adjuvant chemo followed by radiation planned per oncology notes. Plan Plan of Care Clinically improving, Continue cipro but po and d/c Vanc begin amoxicillin Monitor G-tube site - clean Monitor WBC, renal function and temp Attending Co-Sign Attending Co-Sign The patient was seen and interviewed as well as examined at the bedside. The chart was reviewed. The case was discussed. Agree with the plan of care. JOSHUA SU APRN Feb 04, 2017 11:08 NGUYỄN MUIR MD Feb 04, 2017 13:37
[2017-02-04] MEDS: VANCOMYCIN PER PHARMACY MC PRN (12:35)
--- NOTE | 2017-02-04 14:05 | PDOC ---
NICK MINER INSTITUTIONAL RESEARCH COORDINATOR 02/04/17 1405: SURGICAL PROGRESS NOTE Subjective no complaints tolerating diet Vital Signs Vital Signs Date Time Temp Pulse Resp B/P (MAP) Pulse Ox O2 Delivery O2 Flow Rate FiO2 02/04/17 11:00 97.7 73 18 116/55 (75) 99 Room Air 97.7 I&O Intake and Output 02/04/17 06:59 Intake Total 1300 ml Output Total 250 ml Balance 1050 ml Intake Oral 1300 ml Output Urine Total 250 ml # Voids 3 General: Alert, Oriented X3, Cooperative, No acute distress Abdomen: Soft Labs Laboratory Tests Test 02/03/17 01:10 02/03/17 04:30 Vancomycin Level Trough 15.8 mcg/mL (10.0-20.0) Vancomycin Last Dose Date Vancomycin Last Dose Time White Blood Count 6.0 x10^3/uL (4.0-11.0) Red Blood Count 3.48 x10^6/uL (3.50-5.40) Hemoglobin 9.0 g/dL (12.0-15.5) Hematocrit 28.0 % (36.0-47.0) Mean Corpuscular Volume 81 fL (79-100) Mean Corpuscular Hemoglobin 26 pg (25-35) Mean Corpuscular Hemoglobin Concent 32 g/dL (31-37) Red Cell Distribution Width 18.2 % (11.5-14.5) Platelet Count 181 x10^3/uL (140-400) Neutrophils (%) (Auto) 68 % (31-73) Lymphocytes (%) (Auto) 15 % (24-48) Monocytes (%) (Auto) 15 % (0-9) Eosinophils (%) (Auto) 0 % (0-3) Basophils (%) (Auto) 1 % (0-3) Neutrophils # (Auto) 4.1 x10^3uL (1.8-7.7) Lymphocytes # (Auto) 0.9 x10^3/uL (1.0-4.8) Monocytes # (Auto) 0.9 x10^3/uL (0.0-1.1) Eosinophils # (Auto) 0.0 x10^3/uL (0.0-0.7) Basophils # (Auto) 0.0 x10^3/uL (0.0-0.2) Sodium Level 139 mmol/L (136-145) Potassium Level 3.6 mmol/L (3.5-5.1) Chloride Level 106 mmol/L (98-107) Carbon Dioxide Level 22 mmol/L (21-32) Anion Gap 11 (6-14) Blood Urea Nitrogen 14 mg/dL (7-20) Creatinine 1.2 mg/dL (0.6-1.0) Estimated GFR (Cockcroft-Gault) 44.4 Glucose Level 105 mg/dL (70-99) Calcium Level 8.6 mg/dL (8.5-10.1) Problem List Problems Medical Problems: (1) Dehydration Status: Acute (2) Moderate protein malnutrition Status: Acute (3) Postoperative wound infection Status: Acute (4) Sepsis Status: Acute (5) Urinary tract infection Status: Acute Assessment/Plan supportive care no surgical recs Problems: MINNIE WONG MD 02/04/17 1711: SURGICAL PROGRESS NOTE Assessment/Plan Agree with above Problems: NICK MINER APRN Feb 04, 2017 14:05 MINNIE WONG MD Feb 04, 2017 17:11
[2017-02-04 15:00] VITALS: BP 115/59
--- NOTE | 2017-02-04 18:31 | PDOC ---
PROGRESS NOTES Chief Complaint Chief Complaint fevers ASSESSMENT AND PLAN: 1. Sepsis: blood cult NGTD. fevers resolved. 2. Wound culture: obtained from PEG site on 01/27 at [facility]: CRE. (E.cloacae). on cipro, amox as per ID service 3. UTI: GNR on prelim culture report; suspect same agent as above 4. Pancreatic CA: s/p Whipple on 01/01 with complication of wound dehiscence. had been in LTAC and SNF since. 5. Leukocytosis: mild, resolved. monitor 6. Hyponatremia: mild, suspect baseline. monitor 7. HTN: good control today 8. Hyperlipidemia: on statin 9. Hypothyroidism: on synthroid 10. Intertriginous candidiasis: nystatin powder 11. Prophylaxis: SCDs 12. Dispo: return to [facility] in AM. SW consult History of Present Illness History of Present Illness feels better. no pain Vitals Vitals Vital Signs Date Time Temp Pulse Resp B/P (MAP) Pulse Ox O2 Delivery O2 Flow Rate FiO2 02/04/17 15:00 97.9 78 18 115/59 (77) 99 Room Air 97.9 Physical Exam General: Alert, Oriented X3, Cooperative, No acute distress Heart: Regular rate Lungs: Clear Abdomen: Soft Extremities: No edema Skin: Other (midline incision covered, several areas of skin denudement on abd ) LINDA VERDE MD Feb 04, 2017 18:31
[2017-02-04 19:00] VITALS: BP 120/59
[2017-02-04] MEDS: CIPROFLOXACIN HCL 250 MG TABLET. PO SCH (20:47)
[2017-02-04] MEDS: AMOXICILLIN 250 MG CAPSULE. PO SCH (20:47)
[2017-02-04] MEDS: ATORVASTATIN CALCIUM 10 MG TABLET. PO SCH (20:47)
[2017-02-04 23:00] VITALS: BP 111/58
[2017-02-05 03:00] VITALS: BP 129/83
[2017-02-05] MEDS: LEVOTHYROXINE 50 MCG TABLET PO SCH (06:11)
[2017-02-05] MEDS: PANTOPRAZOLE 40 MG TABLET.DR. PO SCH (06:11)
[2017-02-05 07:00] VITALS: BP 124/62
--- NOTE | 2017-02-05 09:15 | PDOC ---
Infectious Disease Note Subjective Subjective Feeling better this morning No further chills and bowels are moving No fever last 24 hours Denies pain ROS ROS GEN: Denies fevers, chills, sweats HEENT: Denies blurred vision, sore throat CV: Denies chest pain RESP: Denies shortness of air, cough GI: Denies n/v/d NEURO: Denies confusion, dizziness MSK: Denies weakness, joint pain/swelling Vital Sign Vital Signs Vital Signs Date Time Temp Pulse Resp B/P (MAP) Pulse Ox O2 Delivery O2 Flow Rate FiO2 02/05/17 07:00 100.4 81 18 124/62 (82) 97 Room Air 100.4 Physical Exam PHYSICAL EXAM GENERAL: Propped up in bed, smiling, NAD, eating HEENT: Oral cavity, pharynx is pink. NECK: Supple. LUNGS: Clear. HEART: Normal S1, S2. ABDOMEN: Obese, bowel sounds active, soft, nontender. G-tube intact + skin breakdown around the site but no infection Abd incision dressed with distal Chance drain intact. EXTREMITIES: No gross edema or cyanosis. SKIN: Without rash. NEUROLOGIC: Alert and oriented x 3. Moves all extremities. RUE PICC. clean. 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 s/p biopsy pancreatic head mass 12/13/16 followed by s/p Whipple procedure with g-tube placement on 01/01 - adjuvant chemo followed by radiation planned per oncology notes. Plan Plan of Care Clinically improving, Continue cipro/amoxicillin through 02/07 Ok to transfer NGUYỄN MUIR MD Feb 05, 2017 09:15
[2017-02-05] MEDS: LACTOBACILLUS RHAMNOSUS GG 1 CAPSULE. PO SCH ×2 (09:25→21:09)
[2017-02-05] MEDS: ACETAMINOPHEN 325 MG TABLET. PO PRN (09:25)
[2017-02-05] MEDS: CIPROFLOXACIN HCL 250 MG TABLET. PO SCH ×2 (09:25→21:09)
[2017-02-05] MEDS: AMOXICILLIN 250 MG CAPSULE. PO SCH ×2 (09:25→21:08)
[2017-02-05] MEDS: amLODIPine BESYLATE 5 MG TABLET PO SCH (09:26)
[2017-02-05] MEDS: NYSTATIN TOPICAL POWDER 15GM BOTTLE. TP SCH ×2 (09:33→21:00)
[2017-02-05 11:00] VITALS: BP 123/62
[2017-02-05 15:00] VITALS: BP 119/61
--- NOTE | 2017-02-05 17:34 | PDOC ---
PROGRESS NOTES Subjective Subjective late entry, pt seen earlier in the day; feels well, hoping for discharge soon Objective Objective Vital Signs Date Time Temp Pulse Resp B/P (MAP) Pulse Ox O2 Delivery O2 Flow Rate FiO2 02/05/17 15:00 98.1 77 18 119/61 (80) 96 Room Air 98.1 Intake and Output 02/05/17 07:00 Intake Total 400 ml Balance 400 ml Intake Oral 400 ml # Voids 5 Physical Exam Physical Exam abdomen soft, nontender, flor intact Assessment Assessment Problems Medical Problems: (1) Dehydration Status: Acute (2) Moderate protein malnutrition Status: Acute (3) Postoperative wound infection Status: Acute (4) Sepsis Status: Acute (5) Urinary tract infection Status: Acute Plan Plan of Care No new surgical recs Comment Review of Relevant I have reviewed the following items alonzo (where applicable) has been applied. Labs Microbiology 01/31/17 Blood Culture - Preliminary, Resulted NO GROWTH AFTER 4 DAYS 01/31/17 Urine Culture - Final, Complete 01/31/17 Urine Culture Result 1 (GILBERT) - Final, Complete 01/31/17 Urine Culture Result 2 (GILBERT) - Final, Complete 01/31/17 Antimicrobic Susceptibility - Final, Complete Medications Current Medications Sodium Chloride 1,000 ml @ 1,830 mls/hr Q33M IV Last administered on 00:56; Start 01/31/17 at 21:15; Stop 01/31/17 at 23:15; Status DC Piperacillin Sod/ Tazobactam Sod (Zosyn Per Pharmacy) 1 each PRN DAILY PRN MC SEE COMMENTS; Start 01/31/17 at 23:00; Stop 02/01/17 at 12:57; Status DC Vancomycin HCl (Vanco Per Pharmacy) 1 each PRN DAILY PRN MC SEE COMMENTS Last administered on 02/04/17 12:35; Start 01/31/17 at 23:00; Stop 02/04/17 at 13: 36; Status DC Iohexol (Omnipaque 300 Mg/ml) 60 ml 1X ONCE IV Last administered on 22:34; Start 01/31/17 at 22:30; Stop 01/31/17 at 22:31; Status DC Piperacillin Sod/ Tazobactam Sod (Zosyn) 4.5 gm ONCE ONCE IVP Last administered on 02/01/17 00:57; Start 01/31/17 at 22:30; Stop 01/31/17 at 22 :31; Status DC Info (Do NOT chart on this entry -- for MONITORING) 1 each PRN DAILY PRN MC SEE COMMENTS; Start 01/31/17 at 22:30; Stop 02/02/17 at 22:29; Status DC Vancomycin HCl 2 gm/Dextrose/ Sodium Chloride 500 ml @ 250 mls/hr 1X ONCE IV Last administered on 02/01/17 00:56; Start 01/31/17 at 23:00; Stop 02/01/17 at 00:59; Status DC Ondansetron HCl (Zofran) 4 mg PRN Q8HRS PRN IV NAUSEA/VOMITING; Start at 02:30; Stop 02/02/17 at 02:29; Status DC Fentanyl Citrate (Fentanyl 2ml Vial) 50 mcg PRN Q2HR PRN IV PAIN; Start at 02:30; Stop 02/02/17 at 02:29; Status DC Dextrose/Sodium Chloride 1,000 ml @ 150 mls/hr 1X ONCE IV ; Start 02/01/17 at 02:30; Stop 02/01/17 at 09:09; Status DC Piperacillin Sod/ Tazobactam Sod (Zosyn) 4.5 gm Q6HRS IVP Last administered on 02/01/17 06:00; Start 02/01/17 at 06:00; Stop 02/01/17 at 13:00; Status DC Vancomycin HCl 1.75 gm/Dextrose/ Sodium Chloride 500 ml @ 250 mls/hr Q24H IV Last administered on 02/04/17 01:52; Start 02/02/17 at 01:00; Stop 02/04/17 at 13:36; Status DC Vancomycin HCl 1 each 1X ONCE MC ; Start 02/03/17 at 00:30; Stop 02/03/17 at 00 :31; Status DC Amlodipine Besylate (Norvasc) 5 mg DAILY PO Last administered on 02/05/17 09: 26; Start 02/01/17 at 09:00 Levothyroxine Sodium (Synthroid) 50 mcg DAILY07 PO Last administered on 06:11; Start 02/01/17 at 10:30 Pantoprazole Sodium (Protonix) 40 mg DAILYAC PO Last administered on 02/05/17 06:11; Start 02/01/17 at 08:15 Atorvastatin Calcium (Lipitor) 5 mg QHS PO Last administered on 02/04/17 20:47 ; Start 02/01/17 at 21:00 Acetaminophen/ Hydrocodone Bitart (Lortab 5/325) 1 tab PRN Q4HRS PRN PO PAIN Last administered on 02/04/17 05:26; Start 02/01/17 at 09:30 Nystatin (Nystop) 1 henry BID TP Last administered on 02/05/17 09:33; Start at 10:30 Hydralazine HCl (Apresoline Inj) 20 mg PRN Q6HRS PRN IVP ELEVATED BP, SEE COMMENTS; Start 02/01/17 at 12:15 Piperacillin Sod/ Tazobactam Sod (Zosyn) 3.375 gm Q6HRS IVP Last administered on 02/02/17 18:00; Start 02/01/17 at 13:30; Stop 02/02/17 at 19:43; Status DC Ondansetron HCl (Zofran) 4 mg PRN Q6HRS PRN IV NAUSEA/VOMITING Last administered on 02/02/17 21:01; Start 02/02/17 at 03:00 Acetaminophen (Tylenol) 650 mg PRN Q6HRS PRN PO FEVER Last administered on 02/05 09:25; Start 02/02/17 at 03:00 Lactobacillus Rhamnosus (Culturelle) 1 cap BID PO Last administered on 09:25; Start 02/02/17 at 21:00 Ciprofloxacin/ Dextrose 200 ml @ 200 mls/hr Q12HR IV Last administered on 02/04 10:26; Start 02/02/17 at 21:00; Stop 02/04/17 at 13:36; Status DC Alteplase, Recombinant (Cathflo) 2 mg 1X ONCE INT CAT Last administered on 06:09; Start 02/03/17 at 01:15; Stop 02/03/17 at 01:16; Status DC Ciprofloxacin (Cipro) 500 mg BID PO Last administered on 12/4/17at 09:25; Start 02/04/17 at 21:00 Amoxicillin (Amoxil) 500 mg BID PO Last administered on 02/05/17t 09:25; Start 02/04/17 at 21:00 Active Scripts Active Protonix (Pantoprazole Sodium) 40 Mg Tablet. 1 Tab PO DAILY Reported Ferralet 90 Dual-Iron Tablet (Iron, Carb & Gluc/Fa/B12/C/Dss) 1 Each Tablet 1 Tab PO DAILY Multivitamins (Multivitamin) 1 Each Tablet 1 Tab PO DAILY Loratadine 10 Mg Tablet 1 Tab PO DAILY Fluticasone Propionate Nasal [place] (Fluticasone Propionate) 16 Gm [place].susp 1 [place] NS DAILY PRN Levothyroxine Sodium 50 Mcg Tablet 1 Tab PO DAILY Lisinopril 10 Mg Tablet 1 Tab PO DAILY Pravastatin Sodium 10 Mg Tablet 1 Tab PO DAILY Amlodipine Besylate 5 Mg Tablet 5 Mg PO DAILY Vitals/I & O Vital Sign - Last 24 Hours 02/04/17 02/04/17 02/04/17 02/05/17 19:00 20:00 23:00 03:00 Temp 99.5 98.8 97.1 99.5 98.8 97.1 Pulse 85 86 77 Resp 18 18 18 B/P (MAP) 120/59 (79) 111/58 (75) 129/83 (98) Pulse Ox 95 95 96 O2 Delivery Room Air Room Air Room Air Room Air 02/05/17 02/05/17 02/05/17 02/05/17 07:00 07:30 09:26 11:00 Temp 100.4 97.9 100.4 97.9 Pulse 81 81 86 Resp 18 18 B/P (MAP) 124/62 (82) 124/62 123/62 (82) Pulse Ox 97 97 O2 Delivery Room Air Room Air Room Air 02/05/17 15:00 Temp 98.1 98.1 Pulse 77 Resp 18 B/P (MAP) 119/61 (80) Pulse Ox 96 O2 Delivery Room Air Intake and Output 02/04/17 02/04/17 02/05/17 15:00 23:00 07:00 Intake Total 200 ml 200 ml Balance 200 ml 200 ml MINNIE WONG MD Feb 05, 2017 17:34
[2017-02-05 19:00] VITALS: BP_SYST 119; BP_SYST 129; BP_DIAS 61
[2017-02-05] MEDS: ATORVASTATIN CALCIUM 10 MG TABLET. PO SCH (21:09)
[2017-02-05 23:00] VITALS: BP 134/63
[2017-02-06 02:50] VITALS: BP 126/62
[2017-02-06] MEDS: LEVOTHYROXINE 50 MCG TABLET PO SCH (06:20)
[2017-02-06] MEDS: PANTOPRAZOLE 40 MG TABLET.DR. PO SCH (06:21)
[2017-02-06 07:00] VITALS: BP 131/74
[2017-02-06] MEDS: amLODIPine BESYLATE 5 MG TABLET PO SCH (09:09)
[2017-02-06] MEDS: CIPROFLOXACIN HCL 250 MG TABLET. PO SCH (09:09)
[2017-02-06] MEDS: AMOXICILLIN 250 MG CAPSULE. PO SCH (09:09)
[2017-02-06] MEDS: LACTOBACILLUS RHAMNOSUS GG 1 CAPSULE. PO SCH (09:10)
[2017-02-06] MEDS: NYSTATIN TOPICAL POWDER 15GM BOTTLE. TP SCH (09:10)
--- NOTE | 2017-02-06 09:47 | PDOC3 ---
Discharge Summary Visit Information Date of Admission: Jan 31, 2017 Date of Discharge: Feb 06, 2017 Admitting Diagnosis Comment: 1. Sepsis: blood cult NGTD. fevers resolved. 2. Wound culture: obtained from PEG site on 01/27 at [facility]: CRE. (E.cloacae). on cipro, amox as per ID service 3. UTI: GNR on prelim culture report; suspect same agent as above 4. Pancreatic CA: s/p Whipple on 01/01 with complication of wound dehiscence. had been in LTAC and SNF since. 5. Leukocytosis: mild, resolved. monitor 6. Hyponatremia: mild, suspect baseline. monitor 7. HTN: good control today 8. Hyperlipidemia: on statin 9. Hypothyroidism: on synthroid 10. Intertriginous candidiasis: nystatin powder 11. Prophylaxis: SCDs 12. Dispo: return to [facility] in AM. SW consult Final Diagnosis Problems Medical Problems: (1) Dehydration Status: Acute (2) Moderate protein malnutrition Status: Acute (3) Postoperative wound infection Status: Acute (4) Sepsis Status: Acute (5) Urinary tract infection Status: Acute Brief Hospital Course Allergies Allergies Coded Allergies Type Severity Reaction Last Updated Verified I S O L A T I O N *CONTACT* Allergy Unknown 02/02/17 Yes No Known Medication Allergies Allergy Unknown 02/02/17 Yes Vital Signs Vital Signs Date Time Temp Pulse Resp B/P (MAP) Pulse Ox O2 Delivery O2 Flow Rate FiO2 02/06/17 09:09 86 131/74 02/06/17 07:00 98.4 16 98 Room Air 98.4 Brief Hospital Course Ms. Caballero is a 71 old female, from [facility], admitted for issues with PEG tube. Had some sepsis. She is known to me for history of pancreatic cancer, had a UTI on her admission here the last time. Today I'm taking over her care on the day of discharge. She feels well. She can transfer by herself if on good days. Otherwise she will need some assistance. He will have her G-tube removed by bedside by her surgeon, Dr. Swanson. She will be Cipro some pain medicines and po amoxicillin, co-managed by infectious disease Agent seen and examined, discharge time 31 minutes chemotherapy greater than 50 % counseling. Consults performed infectious disease general surgery Procedures abdominal surgery, G-tube takedown bedside. Discharge Information Condition at Discharge: Improved, Stable Disposition/Orders: Other (snu) Scheduled Amlodipine Besylate (Amlodipine Besylate), 5 MG PO DAILY, (Reported) Iron, Carb & Gluc/Fa/B12/C/Dss (Ferralet 90 Dual-Iron Tablet), 1 TAB PO DAILY, ( Reported) Levothyroxine Sodium (Levothyroxine Sodium), 1 TAB PO DAILY, (Reported) Lisinopril (Lisinopril), 1 TAB PO DAILY, (Reported) Loratadine (Loratadine), 1 TAB PO DAILY, (Reported) Multivitamin (Multivitamins), 1 TAB PO DAILY, (Reported) Pantoprazole Sodium (Protonix), 1 TAB PO DAILY Pravastatin Sodium (Pravastatin Sodium), 1 TAB PO DAILY, (Reported) Scheduled PRN Fluticasone Propionate (Fluticasone Propionate Nasal [place]), 1 SPRAY NS DAILY PRN for ALLERGIES, (Reported) SONYA ORR MD Feb 06, 2017 09:46
[2017-02-06 11:00] VITALS: BP 128/72
--- NOTE | 2017-02-06 12:40 | PDOC ---
SURGICAL PROGRESS NOTE Subjective Pt without c/o, allyson PO Vital Signs Vital Signs Date Time Temp Pulse Resp B/P (MAP) Pulse Ox O2 Delivery O2 Flow Rate FiO2 02/06/17 11:00 98.8 92 16 128/72 (90) 98 Room Air 98.8 I&O Intake and Output 02/06/17 07:00 Intake Total 400 ml Balance 400 ml Intake Oral 400 ml # Voids 8 # Bowel Movements 1 General: Alert, Oriented X3, Cooperative, No acute distress Abdomen: Soft, No tenderness, Other (G-tube removed without difficulty) Problem List Problems Medical Problems: (1) Dehydration Status: Acute (2) Moderate protein malnutrition Status: Acute (3) Postoperative wound infection Status: Acute (4) Sepsis Status: Acute (5) Urinary tract infection Status: Acute Assessment/Plan pancreatic cancer OK to d/c f/u PRN Problems: BA ALMONTE MD Feb 06, 2017 12:40
[2017-02-06] MEDS: HYDROcodone/APAP 5/325MG 1 TAB TABLET PO PRN (14:50)
== END 2017-02-06 16:02 | DRG 862 ==
LOC: ER 20:49 → 4 NORTH 22:45
PROVIDERS: ADMIT Internal Medicine Hematology & Oncology; ATTEND Internal Medicine Hematology & Oncology
PROC: 02HV33Z Insertion of Infusion Device into Superior Vena Cava, Percutaneous Approach (ICD-10-PCS; principal; 2017-02-01)
PROC: 0DP6XUZ Removal of Feeding Device from Stomach, External Approach (ICD-10-PCS; 2017-02-01)
DX: T81.4XXA Infection following a procedure, initial encounter (principal); A41.9 Sepsis, unspecified organism; N17.9 Acute kidney failure, unspecified; E44.0 Moderate protein-calorie malnutrition; E87.1 Hypo-osmolality and hyponatremia; E87.5 Hyperkalemia; B37.2 Candidiasis of skin and nail; N39.0 Urinary tract infection, site not specified; Z68.42 Body mass index [BMI] 45.0-49.9, adult; E66.9 Obesity, unspecified; E86.0 Dehydration; F41.9 Anxiety disorder, unspecified; B96.89 Other specified bacterial agents as the cause of diseases classified elsewhere; E03.9 Hypothyroidism, unspecified; E78.00 Pure hypercholesterolemia, unspecified; E78.5 Hyperlipidemia, unspecified; I10 Essential (primary) hypertension; K21.9 Gastro-esophageal reflux disease without esophagitis; M10.9 Gout, unspecified; Z90.710 Acquired absence of both cervix and uterus; Z90.49 Acquired absence of other specified parts of digestive tract; Z90.411 Acquired partial absence of pancreas; Z82.49 Family history of ischemic heart disease and other diseases of the circulatory system; Z81.1 Family history of alcohol abuse and dependence; Z85.07 Personal history of malignant neoplasm of pancreas
CPT/HCPCS: 36415; 51701; 71010; 74177; 80048; 80053; 80202; 81001; 83605; 83690; 85007; 85025; 87040; 87086; 87186; 87641; 93005; 96365; 96375; J0744; J2405; J2543; J2997; J3370; J7030; Q9967; 99285-25

== ENCOUNTER → 2017-02-14 | Outpatient (CLI) | payer MEDICARE ==
[2017-02-06 11:00] VITALS: BP 128/72
[2017-02-14 07:16] LABS: CALCIUM 8.6 mg/dL (8.5-10.1); CREATININE 1.1 mg/dL (0.6-1.0); GFR 49.1; POTASSIUM 3.9 mmol/L (3.5-5.1)
== END | disposition home or self-care (01) ==
LOC: SPEC 06:38
PROVIDERS: ATTEND Internal Medicine
DX: I10 Essential (primary) hypertension (principal)
CPT/HCPCS: 36415; 80048

== ENCOUNTER 2017-08-03 07:31 | Outpatient (CLI) | payer MEDICARE ==
[2017-08-03] MEDS: SODIUM BICARBONATE VIAL 150 MEQ in IV STERILE WATER 1,000 ML IV (08:30)
[2017-08-03] MEDS: IOHEXOL 300 MG/ML 100ML VIAL. IV (10:46)
== END 2017-08-03 13:39 | disposition home or self-care (01) ==
LOC: CT 07:31
DX: I26.99 Other pulmonary embolism without acute cor pulmonale (principal); K44.9 Diaphragmatic hernia without obstruction or gangrene; Z86.711 Personal history of pulmonary embolism
CPT/HCPCS: 71275; Q9967

== ENCOUNTER → 2017-10-29 | Outpatient (CLI) | payer MEDICARE ==
[2017-08-03 13:27] VITALS: BP 112/77
[~2017-10-29] MED LIST changes: +DICY10CA3 PO; -FERR-26 PO; +FERR325T14 PO
--- NOTE | 2017-10-29 09:25 | RAD ---
Chest, 2 views, 10/29/2017: HISTORY: Chest pain, previous pulmonary embolus Comparison is made to a study from 07/05/2017. The heart size and pulmonary vascularity are normal. There is calcific plaquing of the thoracic aorta. A small hiatal hernia is again noted. There are calcified granulomata in the right base. No acute infiltrate is seen. There is no evidence of pleural fluid. IMPRESSION: No acute cardiopulmonary abnormality is detected. Electronically signed by: Johnny Villegas MD (10/29/2017 9:22 AM) [facility]
--- NOTE | 2017-10-29 10:09 | RAD ---
VQ scan dated 10/29/2017. Comparison made to chest x-ray dated same day. Clinical data indication: Chest pain. Possible pulmonary embolus. History of pulmonary embolus. FINDINGS: Dedicated ventilation/perfusion imaging performed after the administration of 14 mCi of xenon 133 and 6.6 mCi of technetium 99m MAA. Single breath and equilibrium phase ventilation images show symmetric distribution of tracer bilaterally. No retention of xenon on the washout images. Perfusion images show heterogeneous uptake of tracer bilaterally. No pleural-based defects or mismatch defects. IMPRESSION: Low probability for pulmonary embolus. Electronically signed by: Issa Benitez MD (10/29/2017 10:06 AM) [id number]
== END | disposition home or self-care (01) ==
LOC: NM 09:04
PROVIDERS: ATTEND Internal Medicine Critical Care Medicine
DX: K44.9 Diaphragmatic hernia without obstruction or gangrene (principal); J84.10 Pulmonary fibrosis, unspecified; Z86.711 Personal history of pulmonary embolism
CPT/HCPCS: 71046; 78582; 96374; A9540; A9558

== ENCOUNTER → 2017-10-29 | Outpatient (CLI) | payer MEDICARE ==
[2017-08-03 13:27] VITALS: BP 112/77
[~2017-10-29] MED LIST changes: +IOHEXOL 240 MG/ML 50ML VIAL. PO ONE; +IOHEXOL 300 MG/ML 100ML VIAL. IV ONE
--- NOTE | 2017-10-29 12:08 | RAD ---
CT CHEST ABD PELVIS W/CONTRAST Indication: MALIGNANT NEOPLASM OF OTHER PARTS OF PANCREAS. Technique: Postcontrast CT imaging was performed of the chest, abdomen, pelvis, multiplanar reconstruction images submitted. Oral contrast was also given. One or more of the following individualized dose reduction techniques were utilized for this examination: 1. Automated exposure control 2. Adjustment of the mA and/or kV according to patient size 3. Use of iterative reconstruction technique. Contrast: 60 cc Omnipaque 300 Comparison: September 2017 and July 05, [address] exam and abdomen pelvis CT July 05, 2017; PET/CT December 21, 2016 CHEST: Findings: There is again small to moderate hiatal hernia, nonspecific wall thickening of involved segment. There is a small 0.4 cm right middle lobe nodule axial image 31 series 2, similar comparing with recent exam although not seen on December 2016 exam. Thoracic aortic caliber is within normal limits without intraluminal flap. No new significantly enlarged nodes are identified of the chest. There is 1.5 cm focus of somewhat groundglass infiltrate of the left upper lobe present on recent CT exam August 03, 2017 although not seen on older exams. Tiny 0.2-0.3 cm nodule along the left major fissure axial image 22 series 2 is stable dating back to December 2016 exam. There is no new pericardial or pleural fluid. There is similar heterogeneity of the anterior left subcutaneous fat/breast probably due to sequela of fat necrosis. IMPRESSION: 1. There is persistent focus of nonspecific groundglass infiltrate of the left upper lobe. Small right middle lobe nodule is stable compared with recent exam. However neither of these findings were present on older exam for which attention on future follow-up advised. 2. There is again small to moderate hiatal hernia, nonspecific wall thickening of the involved segment. Abdomen and pelvis: FINDINGS: There again has been Whipple procedure. There is some relative increased fullness associated with residual body of the pancreas, slightly enhances to a lesser degree compared with the adjacent pancreatic tail parenchyma. The margins are difficult to define again, also relative increased amorphous density more posteriorly of the adjacent fat including about the celiac axis and along the posterior margin of the splenic vein.. Portal and splenic vein are patent. There is again pneumobilia. There is no new adrenal nodularity or new abnormality of the liver or spleen. Both kidneys enhance, no hydronephrosis. There is again 1.4 cm hypodense lesion of the right kidney, density characteristics suggestive of a cyst. Bowel is not significantly dilated. There is no free air or free fluid. There is again ventral hernia near the umbilicus containing short segments of the small bowel. There is mild colonic diverticulosis greatest of the descending and sigmoid colon without associated inflammatory change. There is degenerative change of the bilateral hips and pubic symphysis. There is multilevel lumbar facet degenerative change. There is at least mild spinal stenosis L4-5 poorly characterized on this exam. IMPRESSION: 1. There again has been Whipple procedure. There is relative increased amorphous density extending posteriorly to the residual pancreatic parenchyma more centrally such as about the celiac axis and splenic vein and some subtle relative decreased enhancement of the residual pancreatic body. Considerations would include sequela of pancreatitis or residual/recurrent mass. Correlation with laboratory findings and PET CT may be beneficial. 2. There is again colonic diverticulosis without evidence of diverticulitis. There is again ventral umbilical hernia contains short segments of nondilated small bowel. Electronically signed by: Raheem Obregon MD (10/29/2017 12:05 PM) [id number]
== END | disposition home or self-care (01) ==
LOC: CT 08:39
PROVIDERS: ATTEND Internal Medicine Hematology & Oncology
DX: K57.30 Diverticulosis of large intestine without perforation or abscess without bleeding (principal); K42.9 Umbilical hernia without obstruction or gangrene; M48.061 Spinal stenosis, lumbar region without neurogenic claudication; K44.9 Diaphragmatic hernia without obstruction or gangrene; I12.9 Hypertensive chronic kidney disease with stage 1 through stage 4 chronic kidney disease, or unspecified chronic kidney disease; N18.3 Chronic kidney disease, stage 3 (moderate); K21.9 Gastro-esophageal reflux disease without esophagitis; E78.5 Hyperlipidemia, unspecified; E78.00 Pure hypercholesterolemia, unspecified; E03.9 Hypothyroidism, unspecified; Z85.07 Personal history of malignant neoplasm of pancreas; Z87.19 Personal history of other diseases of the digestive system; Z85.828 Personal history of other malignant neoplasm of skin; Z87.440 Personal history of urinary (tract) infections; Z90.49 Acquired absence of other specified parts of digestive tract; Z90.411 Acquired partial absence of pancreas; Z90.710 Acquired absence of both cervix and uterus; Z82.49 Family history of ischemic heart disease and other diseases of the circulatory system; Z80.3 Family history of malignant neoplasm of breast; Z81.1 Family history of alcohol abuse and dependence; Z86.2 Personal history of diseases of the blood and blood-forming organs and certain disorders involving the immune mechanism
CPT/HCPCS: 71260; 74177; Q9966; Q9967

== ENCOUNTER → 2017-11-15 | Outpatient (CLI) | payer MEDICARE ==
[2017-08-03 13:27] VITALS: BP 112/77
[~2017-11-15] MED LIST changes: -AMLO5TAB2 PO; +AMLO5TAB7 PO; -IOHEXOL 240 MG/ML 50ML VIAL. PO ONE; -IOHEXOL 300 MG/ML 100ML VIAL. IV ONE
--- NOTE | 2017-11-15 15:07 | RAD ---
FDG tumor localization scan, PET/CT, 11/15/2017: History: Increasing pain, pancreatic cancer Following IV injection of 14.0 mCi of 18 F-FDG, imaging was performed from the skull base to the proximal findings. The noncontrast CT component was performed for attenuation correction and anatomic localization purposes rather than for primary diagnosis. The patient's blood glucose level at the time of injection was 106 MG/DL. Comparison is made to a study from 12/21/2016. Physiologic FDG uptake is seen in the neck. No abnormal pulmonary or mediastinal activity is seen. A focus of increased activity is noted in the region of the interatrial septum which can be a normal variant. There has been previous Whipple surgery with resection of the pancreatic head. There is increased activity at the level of the remaining pancreatic body just to the left of midline. This process appears lobulated in contour and extends just posterior to the pancreatic margin. The maximum SUV in this region is 4.7. This corresponds to an area of increased density evident on the 10/29/2017 CT study. Other areas of increased activity to the right of midline and more anteriorly cannot be clearly from expected normal GI tract FDG uptake. There is FDG activity in multiple bowel loops as well as the stomach. No hypermetabolic adenopathy is seen in the lower abdomen or pelvis. Normal heterogeneous hepatic FDG uptake is seen. Incidental CT findings include the presence of a moderate-sized hiatal hernia. Pneumobilia is present. A tiny nodule in the anterior aspect of the right middle lobe and a small groundglass opacity in the left upper lobe are unchanged since the recent CT study. No abnormal FDG uptake is seen in these regions, however, that is not unexpected considering the small size of these abnormalities. IMPRESSION: 1. Increased FDG uptake in the area of soft tissue thickening related to the remaining pancreatic body noted on the 10/29/2017 CT study. The findings raise the possibility of tumor recurrence versus chronic inflammation. 2. No FDG-PET evidence of distant metastatic disease.
== END | disposition home or self-care (01) ==
LOC: PETSC 10:54
PROVIDERS: ATTEND Internal Medicine Hematology & Oncology
DX: K44.9 Diaphragmatic hernia without obstruction or gangrene (principal); I12.9 Hypertensive chronic kidney disease with stage 1 through stage 4 chronic kidney disease, or unspecified chronic kidney disease; N18.3 Chronic kidney disease, stage 3 (moderate); E78.00 Pure hypercholesterolemia, unspecified; E03.9 Hypothyroidism, unspecified; K21.9 Gastro-esophageal reflux disease without esophagitis; E66.01 Morbid (severe) obesity due to excess calories; R91.8 Other nonspecific abnormal finding of lung field; Z87.440 Personal history of urinary (tract) infections; Z86.711 Personal history of pulmonary embolism; Z85.828 Personal history of other malignant neoplasm of skin; Z85.528 Personal history of other malignant neoplasm of kidney; Z87.19 Personal history of other diseases of the digestive system; Z85.07 Personal history of malignant neoplasm of pancreas; Z90.49 Acquired absence of other specified parts of digestive tract; Z86.2 Personal history of diseases of the blood and blood-forming organs and certain disorders involving the immune mechanism; Z90.710 Acquired absence of both cervix and uterus; Z68.42 Body mass index [BMI] 45.0-49.9, adult; Z82.49 Family history of ischemic heart disease and other diseases of the circulatory system; Z80.3 Family history of malignant neoplasm of breast; Z81.1 Family history of alcohol abuse and dependence
CPT/HCPCS: 78815; A9552

== ENCOUNTER → 2018-04-30 | Outpatient (CLI) | payer MEDICARE ==
[2017-08-03 13:27] VITALS: BP 112/77
[~2018-04-30] MED LIST changes: +AMLO5TAB10 PO; -AMLO5TAB7 PO; +CONTRAST GIVEN. MC PRN; +IOHEXOL 240 MG/ML 50ML VIAL. PO ONE; +IOHEXOL 300 MG/ML 100ML VIAL. IV ONE
--- NOTE | 2018-04-30 16:06 | RAD ---
CT study of the chest and abdomen and pelvis with contrast Clinical indications: Malignant neoplasm of pancreas. Follow-up study. COMPARISON: October 29, 2017. TECHNIQUE: After IV infusion of 60 cc of Omnipaque 300, helical CT scanning of the chest abdomen and pelvis was performed. GI contrast was administered per mouth. PQRS compliance Statement One or more of the following individualized dose reduction techniques were utilized for this study: 1. Automated exposure control 2. Adjustment of the mA and/or kV according to patient size 3. Use of iterative reconstruction technique CHEST CT: No enlarged thoracic lymphadenopathy is evident. Fat necrosis of the left lateral breast is again evident. No focal aneurysmal dilatation or dissection of the thoracic aorta is seen. The heart size is normal and no pericardial effusion is seen. A small hiatal hernia is evident. On image 23 and series 2, there is a small nodule of the superior segment of the left lower lobe adjacent to the major fissure which is unchanged. On image 21 and series 2, there is a small groundglass nodule within the lateral aspect of the left upper lobe which is stable. On the right side, there is a small nodular scar within the posterior right costophrenic angle which is stable. Again seen is a tiny noncalcified nodule adjacent to calcified granuloma of the lateral segment right middle lobe which is stable. Within the anterior aspect of the medial segment right middle lobe on image 33 and series 2, a small subcentimeter lung nodule is seen which is stable. No new lung nodules are evident. No new lung consolidation with air bronchograms is evident. No pleural effusion or pneumothorax is seen. No lytic process is seen. IMPRESSION: Stable study. No new lung nodules are evident. ABDOMEN AND PELVIS CT: Postsurgical changes of the Whipple's procedure is again evident. Soft tissue thickening posterior to the body of the pancreas around the celiac artery has improved. No new soft tissue mass is evident here. No hepatic metastasis is seen. The spleen is not enlarged. The gallbladder is surgically absent.. No adrenal mass is seen. No hydronephrosis or renal mass seen on either side. Again seen is a small right renal cyst which is unchanged. No focal aneurysmal dilatation of the abdominal aorta is seen. No enlarging abdominal or pelvic lymphadenopathy is evident. Urinary bladder wall is smooth. No obstructive bowel pattern is evident. Again seen is a midline abdominal wall hernia containing a loop of small bowel which is unchanged. No bowel wall thickening is seen. No free fluid or free air or mesenteric edema is seen. No lytic process is evident. IMPRESSION: Soft tissue thickening posterior to the pancreas and around the celiac artery seen on the previous study has resolved. No new soft tissue mass or enlarged abdominal lymphadenopathy is evident. No hepatic metastasis is seen. No new or acute abnormality. Electronically signed by: Luigi Ludwig MD (04/30/2018 4:03 PM) [facility]
== END | disposition home or self-care (01) ==
LOC: CT 08:30
PROVIDERS: ATTEND Internal Medicine Hematology & Oncology
DX: C25.7 Malignant neoplasm of other parts of pancreas (principal); K44.9 Diaphragmatic hernia without obstruction or gangrene; J84.10 Pulmonary fibrosis, unspecified; R91.1 Solitary pulmonary nodule
CPT/HCPCS: 71260; 74177; Q9966; Q9967

== ENCOUNTER → 2018-11-18 | Outpatient (CLI) | payer MEDICARE ==
[2018-10-30 18:09] VITALS: BP 110/55
[~2018-11-18] MED LIST changes: +DICL100G18 TP; +HYDR-3164 PO; -IOHEXOL 300 MG/ML 100ML VIAL. IV ONE; -PANT40TA3 PO; +PANT40TA77 PO
--- NOTE | 2018-11-18 13:37 | RAD ---
EXAM: CT Chest, Abdomen and Pelvis without IV contrast CLINICAL HISTORY: Malignant neoplasm of the pancreas. Follow-up. COMPARISON: 04/30/2018 TECHNIQUE: Helical CT of the chest, abdomen and pelvis was performed without intravenous contrast. Axial, coronal and sagittal reformatted images were generated. ---PQRS compliance statement - One or more of the following individualized dose reduction techniques were utilized for this study: 1. Automated exposure control 2. Adjustment of the mA and/or kV according to patient size 3. Use of iterative reconstruction technique--- FINDINGS: Lack of intravenous contrast limits evaluation of solid organs, vasculature, and lymph nodes. Chest: Heart is not enlarged. Aortic root and coronary artery calcifications are seen. No pericardial effusion. Within the constraints of noncontrast examination, no mediastinal, hilar or axillary lymphadenopathy. No pleural effusion or pneumothorax. 3 mm nodule within the superior segment left lower lobe (series 2 image 36) is stable. Vague groundglass nodule seen on prior exam in the left upper lobe laterally is not well delineated on this examination. Nodular thickening posterior right costophrenic angle measuring approximately 5 mm is essentially stable. The previously seen nodular density adjacent to the calcified granuloma in the lateral segment right middle is now also calcified, likely calcified granuloma. 3 mm lung nodule in the right middle lobe (series 2 image 46) is stable. Small hiatal hernia. Abdomen and Pelvis: No focal liver lesion. Postsurgical changes of Whipple procedure are seen. Associated cholecystectomy clips are seen with intrahepatic biliary gas. No significant peripancreatic soft tissue thickening. No abdominal or pelvic lymphadenopathy by size criteria. Spleen is unremarkable. Adrenal glands are normal in appearance. 7 mm exophytic right lower pole renal lesion is grossly stable. No hydronephrosis. No renal tract calculus. Bladder is grossly unremarkable. Fat-containing periumbilical hernia is seen. Mild associated rectus diastases with associated extension of small bowel. Moderate colonic stool content. No small or large bowel dilatation. No evidence of bowel obstruction. Colonic diverticulosis without evidence for acute diverticulitis. Atherosclerotic vascular calcifications are seen. BONES: Bilateral hip joint degenerative changes are seen with subchondral cystic change, joint space narrowing and associated osteophytes. SI joint and pubic symphysis degenerative changes are seen. No aggressive osseous lesion is definitively identified. IMPRESSION: 1. Changes of Whipple procedure is seen without evidence for peripancreatic soft tissue thickening or mass. 2. No thoracic, abdominal or pelvic lymphadenopathy within the constraints of noncontrast examination. 3. Osseous structures are grossly stable. Electronically signed by: Martin Cotto MD (11/18/2018 1:34 PM) [facility]
== END | disposition home or self-care (01) ==
LOC: CT 08:07
PROVIDERS: ATTEND Internal Medicine Hematology & Oncology
DX: C25.7 Malignant neoplasm of other parts of pancreas (principal); R91.8 Other nonspecific abnormal finding of lung field; K42.9 Umbilical hernia without obstruction or gangrene; K44.9 Diaphragmatic hernia without obstruction or gangrene; I25.10 Atherosclerotic heart disease of native coronary artery without angina pectoris; I70.0 Atherosclerosis of aorta; J84.10 Pulmonary fibrosis, unspecified; Z90.49 Acquired absence of other specified parts of digestive tract; N28.89 Other specified disorders of kidney and ureter; M16.0 Bilateral primary osteoarthritis of hip; M25.70 Osteophyte, unspecified joint; M47.818 Spondylosis without myelopathy or radiculopathy, sacral and sacrococcygeal region
CPT/HCPCS: 71250; 74176